=== PATIENT | male | born 1955 | race Caucasian/White ===

== ENCOUNTER 2020-04-28 11:00 | Outpatient (RCR) | payer BC, MEDICARE, SELFPAY ==
--- NOTE | 2020-04-01 12:36 | MHC.PT.EP ---
[facility] [place] Office [place] Office [place] Office [address] Westley Ashton [address] [phone] F: [phone] F: [phone] F: [phone] F: [phone] Physical Therapy Plan of Care Date of Evaluation: 04/01/20 Date of Surgery: Diagnosis: RIGHT HIP PAIN, RIGHT KNEE PAIN AND LEFT ANKLE PAIN Assessment: PATIENT IS A 64 Y/O MALE WITH C/O OF RIGHT HIP PAIN AND INSTABILITY WELL RIGHT KNEE PAIN EFFECTING TRANSFERS, AMBULATION TOLERANCE AND MOBILITY. PATIENT ALSO REPORT HAVING LEFT ANKLE PAIN. PATIENT DOES PRESENT WITH POSTERIOR CAPSULAR HIP TIGHTNESS AND ANTERIOR IMPINGEMENT THROUGH ACTIVE RIGHT HIP FLEXION, WARRANT MANUAL TECHNIQUES TO INCREASE MOBILITY OF JOINT. WITH WEIGHTED RIGHT LE POSITION PATIENT DOES HAVE MILD INSTABILITY TO RIGHT HIP. LEFT ANKLE ASSESSMENT PRESENTED WITH AROM AND MM STRENGTH TO WFL, AND MAY BE EFFECTED BY LEFT SIDE COMPENSATORY PATTERNS. PLAN OF CARE WILL ADDRESS ALL THREE SITES WITH MOBILITY, STABILIZATION AND STRENGTHENING TOLERATED. Frequency and Duration: The patient will be seen 2X WEEK X 6 WEEKS Short Term Goals: 1. REDUCE TTP TO RIGHT HIP 2. REDUCE PAIN AT WORST TO 5/10 3. PATIENT WILL BE INDEPENDENT WITH HEP 4. INCREASE RIGHT HIP FLEXION TO 105 5. PATIENT WILL BE EDUCATED ON PROPER SHOEWEAR TO REDUCE GROUND REACTION FORCES Prison Goals: 1. NORMALIZE GAIT TO SYMMETRICAL 2. REDUCE PAIN AT WORST TO 2/10 3. PATIENT WILL REPORT 75% IMPROVEMENT WIT BED AND CAR TRANSFERS 4. INCREASE MMT BY 1 GRADE GLOBALLY TO HIP GIRDLE TO ADDRESS GAIT 5. INCREASE RIGHT AROM TO 115 OF FLEXION 6. INCREASE POSTERIOR LE MOBILITY EVIDENT BY 0 DEGREE KNEE EXTENSION 7. IMPROVE RIGHT REACTION TO FUNCTIONAL LEVELS TO REDUCE FALL RISK Treatment Plan: Modalities to reduce pain, spasms and effusion. Manual therapy to restore motion and function. Therapeutic exercise to improve strength and flexibility. Neuromuscular re-education for posture and balance. Therapeutic activities to return to functional activities of daily living. Please sign and return to therapist. Thank you for your referral.
--- NOTE | 2020-04-28 11:46 | MHC.PT.OD ---
[facility] [place] Office [place] Office [place] Office [address] Westley Ashton [address] [phone] F: [phone] F: [phone] F: [phone] F: [phone] Physical Therapy Daily Note Diagnosis: RIGHT HIP PAIN, RIGHT KNEE PAIN AND LEFT ANKLE PAIN Date of Surgery: NA Date of Evaluation: 04/01/20 Treatments to Date: 6 Cancellations to Date: 1 No Shows to Date: 0 Authorized Visits: 26 Insurance End Date: 06/18/20 Precautions/ Contraindications:None Subjective: Feels like his hip has gotten worse and his knee has gotten better. Has most difficulty getting in/out of a car and bed, standing up from sitting, walking, and stairs. Pain Score: 7 Pain Location: R hip Objective Flowsheet: Tests & Measures SI assessment: WNL Exercises STATIONARY BIKE LEVEL 2.0 X 10 MINUTES 30sec x 3 seated HS stretch, standing hip flexor stretch (runners lunge), and small hip adductor lune stretch seated hip add ball squeeze 3x10 wobble board AP rocking x 2min and AP balance x 3min with cues on hip hinge L sidelying for IASTM with red theraroller to R ITB/hip flexor/piri with pillow between leg. MET for R posterior innomniate Modalities Assessment: Pt with antalgic gait today and with report of increased anterior-lateral hip pain. He has a f/u with 05/06/20. We discussed holding HEP and redistributed updated HEP of stretches and hip add ball squeese only as well as using heat at home. His knee is reportedly better. Assessed SI and pt with R posterior innominate, mild correction noted with MET so performed STM and stretches to tolerance. Assess response next visit and will focus on R hip pain for following visits to decrease pain and muscle hypomobilty. PT Plan: HIP, KNEE AND ANKLE STABILIZATION PROGRAM, FLEXIBILITY PROGRESSION, GAIT TRAINING, TE, NR, MANUAL THERAPY, TA, COORDINATION AND BALANCE Discharge Today? Short Term Goals: 1. REDUCE TTP TO RIGHT HIP 2. REDUCE PAIN AT WORST TO 5/10 3. PATIENT WILL BE INDEPENDENT WITH HEP 4. INCREASE RIGHT HIP FLEXION TO 105 5. 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 NORMALIZE GAIT TO SYMMETRICAL 2. REDUCE PAIN AT WORST TO 2/10 3. PATIENT WILL REPORT 75% IMPROVEMENT WIT BED AND CAR TRANSFERS 4. INCREASE MMT BY 1 GRADE GLOBALLY TO HIP GIRDLE TO ADDRESS GAIT 5. INCREASE RIGHT AROM TO 115 OF FLEXION 6. INCREASE POSTERIOR LE MOBILITY EVIDENT BY 0 DEGREE KNEE EXTENSION 7. IMPROVE RIGHT REACTION TO FUNCTIONAL LEVELS TO REDUCE FALL RISK Electronically signed by: Maxine Leija DPT
== END 2020-07-16 09:47 | disposition other institution (70) ==
LOC: HO.PTWFD 11:00
PROVIDERS: PCP Family Medicine; Visit Provider Family Medicine
DX: M25.50 Pain in unspecified joint (principal)
CPT/HCPCS: 97110; 97112; 97140; 97162; 97535

== ENCOUNTER 2020-05-06 11:03 | Outpatient (REF) | payer MEDICARE, SELFPAY ==
--- NOTE | 2020-05-06 11:16 | XR_ITS ---
EXAMINATION: XR HIP, RIGHT CLINICAL INFORMATION: Right hip pain. COMPARISON: None TECHNIQUE: Two views of the right hip. FINDINGS: Moderate to severe right hip degenerative joint changes are seen with joint space narrowing and periarticular sclerosis most pronounced in the superior aspect of the joint space. There is cam femoral acetabular impingement. No acute fracture or dislocation is seen. The visualized right hemipelvis is intact. The soft tissues are unremarkable. XR/XR hip RT min 2V IMPRESSION: Moderate to severe right hip degenerative joint changes most consistent with osteoarthritis. Cam femoral acetabular impingement.
[2020-05-06 13:40] LABS: Prostate Specific Antigen Scr 0.67 ng/mL (<0.05-4.0)
== END 2020-05-06 11:04 | disposition home or self-care (01) ==
LOC: HO.LAB 11:03
PROVIDERS: PCP Family Medicine; Visit Provider Family Medicine
DX: M25.551 Pain in right hip (principal); Z12.5 Encounter for screening for malignant neoplasm of prostate
CPT/HCPCS: 73502; 84153

== ENCOUNTER → 2020-06-18 08:50 | Outpatient (BNVA) | payer MEDICARE, SELFPAY | PROVIDERS: PCP Family Medicine; Visit Provider Orthopaedic Surgery | DX: M16.11 Unilateral primary osteoarthritis, right hip (principal); I35.0 Nonrheumatic aortic (valve) stenosis; R01.1 Cardiac murmur, unspecified | CPT/HCPCS: 99202 ==

== ENCOUNTER → 2020-07-09 08:51 | Outpatient (BNVA) | payer MEDICARE, SELFPAY | PROVIDERS: PCP Family Medicine; Visit Provider Orthopaedic Surgery | DX: Z01.812 Encounter for preprocedural laboratory examination (principal); Z01.810 Encounter for preprocedural cardiovascular examination ==

== ENCOUNTER → 2020-07-16 10:40 | Outpatient (BNVA) | payer MEDICARE, SELFPAY | PROVIDERS: PCP Family Medicine; Visit Provider Internal Medicine | DX: Z01.818 Encounter for other preprocedural examination (principal); R01.1 Cardiac murmur, unspecified; I10 Essential (primary) hypertension | CPT/HCPCS: 99202 ==

== ENCOUNTER → 2020-07-21 07:13 | Outpatient (REF) | payer MEDICARE, SELFPAY ==
--- NOTE | 2020-07-21 07:16 | CA_ITS ---
Transthoracic Echocardiogram Amended Patient (Last, First, Middle): Layton Humphreys J Gender: Male Date of : 1955 Age: 65 Procedure Date: 07/21/2020 Procedure Type: Transthoracic Echocardiogram Location: OP Height: 172.72 cm Weight: 61.24 kg BSA: 1.73 m2 Heart Rate: bpm BP: 118 / 58 mmHg Rn Camp: Referring MD: Efrain Ramirez MD Head Machinist: Pako Gifford MD Symptoms: I35.0 - Nonrheumatic aortic (valve) stenosis Study Quality: Fair ECG Rhythm: Sinus Conclusions: - Essentially normal study Findings Left Ventricle Normal left ventricular size, thickness, and systolic function. The visually estimated ejection fraction is between 65-70%. Diastolic function is normal for age. Right Ventricle Normal right ventricular cavity size and systolic function. Atria Both atria are normal in size. Interatrial shunt cannot be excluded. Aortic Valve The aortic valve was not well visualized. There is no aortic valve stenosis. There is no aortic valve regurgitation. Mitral Valve Likely normal mitral valve structure and function. There is trace mitral valve regurgitation. There is no mitral valve stenosis. Pulmonic Valve The pulmonic valve was not well visualized. Tricuspid Valve Likely normal tricuspid valve structure and function. There is trace tricuspid valve regurgitation. The right ventricular systolic pressure is normal. There is no evidence of pulmonary hypertension. Great Vessels All visible segments of the aorta are normal in size. The pulmonary artery was not well visualized. Venous The inferior vena cava is normal in size and collapses greater than 50% with inspiration. Pericardium/Pleural There is no evidence of pericardial effusion. Prior Study Comparison No significant change compared to prior study dated: 01/23/2019. Measurements 2D Linear Measurements IVSd: 0.89 0.6-0.9/0.6-1.0 cm LVIDd: 3.24 3.9-5.3/4.2-5.9 cm LVIDd Index: 1.87 2.4-3.2/2.2-3.1 cm/m2 LVIDs: 2.08 2.0-3.6 cm LVPWd: 0.99 0.7-1.1 cm Ao Root: 3.00 2.1-3.5 cm LA Diam: 2.60 2.7-3.8/3.0-4.0 cm LAIDs Index: 1.50 1.5-2.3 cm/m2 LV Mass: 104.46 67-162/88-224 g LV Mass Index: 60.38 43-95/49-115 g/m2 LVOT Diam: 1.90 3.0+(-)1.3 cm 2D Systolic Function EF 4C: 76.10 >55% EF 2C: 68.30 >55% EF BiP: 72.20 >55% Mitral Valve MV Pk E: 0.84 MV PK A: 0.98 MV Decel Time: 148.00 E/A: 0.90 E'Lateral: 12.40 E'Medial: 12.10 E/E' Med: 6.90 E/E' Lat: 6.80 PHT: 43.00 MVA PHT: 5.12 Decel [place]: 5.67 Aortic Valve AoV Pk Lauri: 0.97 AoV Mn Lauri: 0.73 AoV VTI: 0.21 AoV Pk Grad: 4.00 Aov Mn Grad: 2.00 ROSIO Cont.VTI: 2.38 LVOT LVOT Pk Lauri: 0.79 LVOT Mn Lauri: 0.58 LVOT VTI: 0.17 LVOT Pk Grad: 3.00 LVOT Mn Grad: 2.00 LVOT Diam: 1.90 LVOT Area: 2.84 Diastolic Function MV Pk E: 0.84 MV Pk A: 0.98 E/A: 0.90 E'Medial: 12.10 E/E' Med: 6.90 E' Laterial: 12.40 E/E' Lat: 6.80 Tricuspid Valve TR Pk Lauri: 1.68 TR Pk Grad: 11.00 RA Press: 3.00 RVSP: 14.00 Great Vessels Aorta Ao Root-2D: 3.00 2.0-3.7 cm Pulmonary Valve PV Pk Lauri: 0.87 Peak PV Grad: 3.00 Updated in Other Vendor System with Status of Final Pako Gifford MD electronically signed on 07/22/2020 1:33:59 PM with status of Final
== END ==
LOC: HO.CARD 07:13
PROVIDERS: Visit Provider Internal Medicine
DX: I35.0 Nonrheumatic aortic (valve) stenosis (principal)
CPT/HCPCS: 93306

== ENCOUNTER 2020-08-06 12:20 | Outpatient (REF) | payer MEDICARE, SELFPAY ==
--- NOTE | ~2020-08-06 | XR_ITS ---
EXAMINATION: XR PELVIS CLINICAL INFORMATION: Right hip osteoarthritis with CAM MAC. COMPARISON: Radiographs right hip 05/06/2020, 03/11/2019 TECHNIQUE: AP view of the pelvis. FINDINGS: There are degenerative changes lumbosacral junction with probable disc narrowing. The SI joints and pubis are unremarkable. The bony pelvis appears normal with no destructive process. Right hip again shows osteoarthritis with superior joint narrowing and subchondral sclerosis and osteophytes. The left hip shows no focal joint narrowing or erosive change. There is spurring posterior superior left acetabulum. XR/XR pelvis 1-2V IMPRESSION: 1. Right osteoarthritis similar to recent exam 05/06/2020. 2. Spurring superior lateral left acetabulum. No hip joint narrowing. 3. Probable degenerative changes lumbosacral junction.
== END 2020-08-06 12:21 | disposition home or self-care (01) ==
LOC: HO.HOSX 12:20
PROVIDERS: Visit Provider Physician Assistant
DX: Z01.818 Encounter for other preprocedural examination (principal); M16.11 Unilateral primary osteoarthritis, right hip
CPT/HCPCS: 72170; 99212

== ENCOUNTER 2020-08-12 06:17 | Inpatient (IN) | payer MEDICARE, SELFPAY ==
--- NOTE | 2020-07-13 09:09 | ECG_ITS ---
Test Reason : PRE OP Blood Pressure : / mmHG Vent. Rate : 072 BPM Atrial Rate : 072 BPM P-R Int : 146 ms QRS Dur : 100 ms QT Int : 390 ms P-R-T Axes : 086 094 077 degrees QTc Int : 427 ms Normal sinus rhythm Right atrial enlargement Pulmonary disease pattern Possible Right ventricular hypertrophy Abnormal ECG When compared with ECG of 18-MAR-2019 13:16, No significant change was found Referred By: Ean Jaime Electronically Signed By:Roderick Loredo
[2020-07-13 09:37] LABS: MANUAL DIFF FLAG NO
[2020-07-13 09:46] LABS: Basophils Absolute Auto 0.1 X10*3/uL (0.0-0.2); Basophils Percent Auto 1.3 % (0-2); Eosinophils Absolute Auto 0.3 X10*3/uL (0.0-0.4); Eosinophils Percent Auto 5.3 % (0-4); Hematocrit 51.1 % (42-52); Imm Gran Abs Auto 0.01 X10*3/uL (0.00-0.03); Imm Gran Pct Auto 0.2 % (0.0-0.4); Lymphocytes Absolute Auto 1.5 X10*3/uL (1.2-4.9); Lymphocytes Percent Auto 29.2 % (20-40); Mean Corpuscular HGB Conc 33.3 g/dl (31.0-36.0); Mean Corpuscular Hemoglobin 30.4 pg (27.0-33.0); Mean Corpuscular Volume 91.3 fL (80-98); Mean Platelet Volume 9.5 fL (9.4-12.4); Monocytes Absolute Auto 0.6 X10*3/uL (0.1-1.2); Monocytes Percent Auto 11.6 % (2-11); Neutrophils Absolute Auto 2.8 X10*3/uL (2.0-8.3); Neutrophils Percent Auto 52.4 % (45-73); Platelet Count 202 X10*3/uL (160-400); Red Cell Distribution Width 12.6 % (11.0-16.0); White Blood Count 5.3 X10*3/uL (4.8-10.8)
[2020-07-13 10:03] LABS: Anion Gap 14 (12-20); Blood Urea Nitrogen 22 mg/dL (9-16); Calcium 9.2 mg/dL (8.4-10.2); Carbon Dioxide 28 mmol/L (22-29); Chloride 102 mmol/L (96-108); Estimated Glomerular Filt Rate > 60; Glucose Random 119 mg/dL (60-115); Potassium 3.9 mmol/l (3.3-5.1); Sodium 140 mmol/L (135-145)
[2020-08-06 11:36] VITALS: BP 135/73; PULSE 78; RESP 16; O2SAT 99; BMI 20.5
--- NOTE | 2020-08-06 12:05 | HO.ANESPROP2 ---
Documented by User: Mireille Rutledge 08/11/20 09:24 HPI - Anesthesia Eval Consult details Narrative: 65yo M for Right Hip Total Replacement Cardiac cleared @ inter[facility] PCP cleared [facility] Active Problems Active Problems: All Active Problems (Updated 08/05/20 @ 10:56 by Pinky Isidro) Arthralgia (Acute) Screening for colon cancer (Acute) Screening for prostate cancer (Acute) Murmur, cardiac (Acute) Right hip pain (Acute) Immunization counseling (Acute) Adult general medical examination (Acute) Essential hypertension (Acute) Preoperative cardiovascular examination (Acute) Aortic valve stenosis (Acute) Past Medical History Medical History Aortic valve stenosis Asthma Essential hypertension Mitral valve regurgitation Osteoarthritis Preoperative cardiovascular examination Family History Family History Father No problems noted. Mother No problems noted. Family history of problems with anesthesia: No Surgical History Surgical History History of inguinal hernia repair, bilateral Hx of colonoscopy History of Problems with Anesthesia: No Social History Social History Are you a primary care professional to a significant other at home: No Do you presently have visiting nurse or other home services: No Alcohol intake: never Smoking Status: Current some day smoker Cigarettes Per Day: 1 (8 cigarettes/week) Use of substances other than those prescribed or required for medical reasons: No Have you been hit, kicked, punched, or otherwise hurt by someone within the past year? 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: Right Handed Meds Allergies Allergy/AdvReac Type Severity Reaction Status Date / Time No Known Allergies Allergy Verified 08/05/20 10:52 [No Known Allergies*] Home Medications Medication Instructions Recorded Confirmed Last Taken Type hydrochlorothiazide 25 mg tablet 25 mg PO DAILY 05/06/20 08/05/20 Unknown History naproxen 500 mg tablet 500 mg PO Q12H PRN 05/06/20 08/05/2021 08:00 History mometasone-formoterol 2 puff PO DAILY 08/05/20 08/05/20 Unknown History Exam Exam Date and Time: August 06, 2020 1205 Height,Weight and Vital Signs: Height 5 ft 8 in Weight 61.235 kg Last Vital Signs Pulse 78 08/06/20 11:36 Resp 16 08/06/20 11:36 BP 135/73 08/06/20 11:36 Pulse Ox 99 08/06/20 11:36 Pertinent Lab Results Pertinent Lab Results: Lab Results 07/13/20 07/13/20 08/06/20 Range/Units 09:13 09:13 12:30 WBC 5.3 (4.8-10.8) X10*3/uL RBC 5.60 (4.60-5.80) X10*6/uL Hgb 17.0 (14.0-18.0) g/dl Hct 51.1 (42-52) % MCV 91.3 (80-98) fL MCH 30.4 (27.0-33.0) pg MCHC 33.3 (31.0-36.0) g/dl RDW 12.6 (11.0-16.0) % Plt Count 202 (160-400) X10*3/uL MPV 9.5 (9.4-12.4) fL Immature Gran % (Auto) 0.2 (0.0-0.4) % Neut % (Auto) 52.4 (45-73) % Lymph % (Auto) 29.2 (20-40) % Desha % (Auto) 11.6 H (2-11) % Eos % (Auto) 5.3 H (0-4) % Baso % (Auto) 1.3 (0-2) % Lymph # (Auto) 1.5 (1.2-4.9) X10*3/uL Desha # (Auto) 0.6 (0.1-1.2) X10*3/uL Eos # (Auto) 0.3 (0.0-0.4) X10*3/uL Baso # (Auto) 0.1 (0.0-0.2) X10*3/uL Abs Immat Gran (auto) 0.01 (0.00-0.03) X10*3/uL Absolute Neuts (auto) 2.8 (2.0-8.3) X10*3/uL Absolute Nucleated RBC 0.000 (0.0-0.012) X10*3/uL Nucleated RBC % (auto) 0.0 (0.0-0.2) /100WBC Sodium 140 (135-145) mmol/L Potassium 3.9 (3.3-5.1) mmol/l Chloride 102 (96-108) mmol/L Carbon Dioxide 28 (22-29) mmol/L Anion Gap 14 (12-20) BUN 22 H (9-16) mg/dL Creatinine 1.00 (0.5-1.4) mg/dL Estim Creat Clear Calc TNP Estimated GFR > 60 Random Glucose 119 H (60-115) mg/dL Calcium 9.2 (8.4-10.2) mg/dL Nasal Screen MRSA (PCR) NEGATIVE (Negative) Nasal S. aureus Screen NEGATIVE (Negative) Nasal MRSA/S.aureus Interp SEE NOTE Blood Type Antibody Screen 08/06/20 Range/Units 12:35 WBC (4.8-10.8) X10*3/uL RBC (4.60-5.80) X10*6/uL Hgb (14.0-18.0) g/dl Hct (42-52) % MCV (80-98) fL MCH (27.0-33.0) pg MCHC (31.0-36.0) g/dl RDW (11.0-16.0) % Plt Count (160-400) X10*3/uL MPV (9.4-12.4) fL Immature Gran % (Auto) (0.0-0.4) % Neut % (Auto) (45-73) % Lymph % (Auto) (20-40) % Desha % (Auto) (2-11) % Eos % (Auto) (0-4) % Baso % (Auto) (0-2) % Lymph # (Auto) (1.2-4.9) X10*3/uL Desha # (Auto) (0.1-1.2) X10*3/uL Eos # (Auto) (0.0-0.4) X10*3/uL Baso # (Auto) (0.0-0.2) X10*3/uL Abs Immat Gran (auto) (0.00-0.03) X10*3/uL Absolute Neuts (auto) (2.0-8.3) X10*3/uL Absolute Nucleated RBC (0.0-0.012) X10*3/uL Nucleated RBC % (auto) (0.0-0.2) /100WBC Sodium (135-145) mmol/L Potassium (3.3-5.1) mmol/l Chloride (96-108) mmol/L Carbon Dioxide (22-29) mmol/L Anion Gap (12-20) BUN (9-16) mg/dL Creatinine (0.5-1.4) mg/dL Estim Creat Clear Calc Estimated GFR Random Glucose (60-115) mg/dL Calcium (8.4-10.2) mg/dL Nasal Screen MRSA (PCR) (Negative) Nasal S. aureus Screen (Negative) Nasal MRSA/S.aureus Interp Blood Type O Positive Antibody Screen NEGATIVE Narrative Narrative: Echo 07/2020 Conclusions: - Essentially normal study EKG 06/2020 Normal sinus rhythm Right atrial enlargement Pulmonary disease pattern Possible Right ventricular hypertrophy Abnormal ECG When compared with ECG of 18-MAR-2019 13:16, No significant change was found Airway Mallampati Class: II TM Dist: >3cm Neck ROM: Full Partial: Upper Loose/Missing/Broken Teeth: No ( A couple crowned molars ) Heart: RRR, +M Lungs: CTAB Assessment and Plan Assessment Anesthesia Assessment: Anesthesia Plan Discussed, Smoking Cess. Discussed and PAT Visit Documented by User: Domi Marmolejo 08/12/20 07:12 [facility] Past Medical History Medical History Aortic valve stenosis Asthma Essential hypertension Mitral valve regurgitation Osteoarthritis Preoperative cardiovascular examination Family History Family History Father No problems noted. Mother No problems noted. Surgical History Surgical History History of inguinal hernia repair, bilateral Hx of colonoscopy Social History Social History Are you a primary care professional to a significant other at home: No Do you presently have visiting nurse or other home services: No Alcohol intake: never Smoking Status: Current some day smoker Cigarettes Per Day: 1 (8 cigarettes/week) Use of substances other than those prescribed or required for medical reasons: No Have you been hit, kicked, punched, or otherwise hurt by someone within the past year? 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: Right Handed Meds Allergies Allergy/AdvReac Type Severity Reaction Status Date / Time No Known Allergies Allergy Verified 08/05/20 10:52 [No Known Allergies*] Home Medications Medication Instructions Recorded Confirmed Last Taken Type hydrochlorothiazide 25 mg tablet 25 mg PO DAILY 05/06/20 08/05/20 Unknown History naproxen 500 mg tablet 500 mg PO Q12H PRN 05/06/20 08/05/20 08/03/20 08:00 History mometasone-formoterol 2 puff PO DAILY 08/05/20 08/05/20 Unknown History Exam Airway Mallampati Class: II TM Dist: >3cm Neck ROM: Full Assessment and Plan Assessment Anesthesia Assessment: Anesthesia Plan Discussed and Chart Reviewed Final Anesthetic Review NPO: Yes ASA Class: II Final Preanesthetic Review: No Changes in Pt Med Stat, Meds/Allgs Chart Reviewed, Consent Obtained/Reviewed and Anes Risks/Benef Reviewed Patient Risk: Low Procedure Risk: Intermediate Assessment/Block/Sedation in SS: Assess/Block/Sedation-SS Anesthetic Plan Anesthetic Plan: GA Disposition: Standard PACU
[2020-08-06 14:12] LABS: MRSA Nasal PCR NEGATIVE (Negative); SA Nasal PCR NEGATIVE (Negative)
[2020-08-12] VITALS (15 sets, daily range): BP systolic 102–159; BP diastolic 54–97; PULSE 77–86; RESP 16–20; TEMP 36.1–37.3; O2SAT 96–100
--- NOTE | ~2020-08-12 | XR_ITS ---
EXAMINATION: XR PELVIS CLINICAL INFORMATION: Post right hip replacement COMPARISON: Previous x-ray July 2020 TECHNIQUE: AP view of the pelvis. FINDINGS: There is a new right hip replacement in satisfactory position. No fracture or dislocation is seen. There are postoperative changes to the soft tissues. There is arthritis at the left hip joint. XR/XR pelvis 1-2V IMPRESSION: Satisfactory appearance of right hip replacement.
[2020-08-12 06:48] LABS: COVID-19 Test Negative (Negative); IDNOW Serial# 9DD0AD1C
[2020-08-12] MEDS: Gabapentin 600 MG TABLET PO (06:57)
[2020-08-12] MEDS: oxyCODONE HCl ER 10 MG TAB.ER.12H PO ×2 (06:57→21:06)
[2020-08-12] MEDS: Lactated Ringers 1,000 ML 100 ML IVCONT (07:08)
--- NOTE | 2020-08-12 07:26 | MHC.SHP ---
Pre-Procedural Eval Section A The patient is an INPATIENT: No Changes since office visit: Yes Patient answered all questions; No Cold of Flu in the past 2 weeks, No New Medical Problems and No Changes in Medication The History & Physical has been completed within 30 days and I have reviewed it.: Yes Section B Chief Complaint: Unilateral Primary Osteoarthritis, Right Hip Allergies: Allergies Allergy/AdvReac Type Severity Reaction Status Date / Time No Known Allergies Allergy Verified 08/05/20 10:52 [No Known Allergies*] Plan I have reviewed the history and physical and performed a pertinent physical examination on my patient. No changes have occurred unless specified.
--- NOTE | 2020-08-12 09:34 | P.BOP_ITS ---
Brief Operative Note Date of Service: 08/12/20 Pre-op diagnosis: right hip OA Post-op diagnosis: same Procedure: right JOSE Implants: styker 58 trident cup with 20 deg lipped liner and accolade2 #6 132deg with 36+0ceramic Surgeon: Ean Jaime MD Anesthesia: GETA and local Web Marketing Coordinator: Jose Antonio Chappell Estimated blood loss (mL): 200 Tourniquet time (min): 0 IV fluids (mL): 700 Urine output (mL): 0 Pathology: other Condition: stable Disposition: PACU
[2020-08-12] MEDS: oxyCODONE HCl Immed Release 5 MG TABLET PO (10:15)
[2020-08-12] MEDS: fentaNYL citrate/PF 100 MCG/2 ML VIAL 50 MCG IVPUSH ×2 (10:15→10:20)
--- NOTE | 2020-08-12 11:05 | W.PM.OPN ---
Operative Note Operative Note Date of Service: 08/12/20 Narrative: Attending MD: Ean Jaime Multimedia Educational Specialist: GILLIAN Chappell Pre-operative diagnosis: Right hip OA Post op diagnosis: same Procedure performed: Right JOSE Anesthesia:Gen and local Blood loss:200 ml Fluids:700ml Implants:Niya trident tritanium 58 cup with 20 deg lip liner; Accolade2#6 132deg with +0 36 ceramic femoral head Complications: none Indications: This is a 65 yo M with right hip OA consented to undergo right hip arthroplasty Procedure in detail: Patient was brought into the operating room and placed in a right lateral decubitus position. All bony prominences were well padded and the limb was prepped and draped in standard sterile fashion. Time-out was called to identify proper site procedure proper surgeon IV antibiotics and 1 g of trans to make acid were administered. I began by making a curvilinear incision over the posterolateral aspect of the greater trochanter. Dissection was taken down to the tensor fascia which was incised in line with the incision and a Charnley retractor was placed. Hip was internally rotated and the external rotators were identified. The vessels were cauterized and a full-thickness capsular/external rotator layer was developed starting just proximal to the piriformis. Dull Hohmann retractor was placed underneath the neck in the hip was dislocated. A neck cut was made 1 cm proximal to the lesser trochanter and the head and neck were removed and measured on the back table. Placed my anterior-posterior acetabular retractors and performed a labrectomy. I then sequentially reamed up to a size ___ and impacted a ____ liner at approximately 45 degrees of inclination and 25 degrees of version. I then placed a 20 degree posterior lipped liner and turned my attention to the femur. All I used cautery to identify the piriformis start site and used this as a starting point for my alonzo cutter. I then used a Charnley awl to identify the canal and a curved curette to remove the lateral bone. I then sequentially broached in the patient's natural version to a size ____ had and placed my trial implants. I took the hip through range of motion with a +0 head and I was very happy with the stability and length. Therefore removed all instrumentation copiously irrigated placed my final femoral implant. I again took the hip through range of motion and was happy with the stability and length and rain using a +0 head and so my final femoral head was placed. I then irrigated for 3 minutes with iodine and placed 1 g of local TXA. I then performed a capsular closure with FiberWire, Tali's fascia with 0 Vicryl, subcuticular with 2-0 vicryl and skin with cruz. Patient was placed into a sterile dressing. Radiographs were obtained at the completion of the case and I was happy with the component position. Patient was extubated brought to the recovery room in stable condition.
[2020-08-12] MEDS: Dextrose 5 % and 0.45 % NaCl 1,000 ML 80 ML IVCONT ×2 (12:03→22:19)
--- NOTE | 2020-08-12 13:15 | P.CONIM_ITS ---
History of Present Illness Data of Consult Service Date: 08/12/20 <JESUS Gutiérrez - Last Filed: 08/12/20 13:32> Requesting physician: Jose Antonio Chappell <JESUS Gutiérrez - Last Filed: 08/12/20 13:32> Primary Care Provider: Ihsan Dillon MD <JESUS Gutiérrez - Last Filed: 08/12/20 13:32> HPI Reason for consult: post op <JESUS Gutiérrez - Last Filed: 08/12/20 13:32> This is a 65-year-old male who presents for elective right total hip arthroplasty. He has been having significant pain in his hip for about a year which has limited his activity. The hospitalists were asked to see him in consultation for postoperative management. He has no specific complaints at t his time. <JESUS Gutiérrez - Last Filed: 08/12/20 13:32> Review of Systems Review of Systems: Yes all other systems are reviewed and are negative <JESUS Gutiérrez - Last Filed: 08/12/20 13:32> Constitutional: Constitutional: Denies chills and Denies fever(s) <JESUS Gutiérrez - Last Filed: 08/12/20 13:32> Cardiovascular: Cardiovascular: Denies chest pain, Denies palpitations and Denies dyspnea <JESUS Gutiérrez - Last Filed: 08/12/20 13:32> Respiratory: Respiratory: Denies cough and Denies dyspnea <JESUS Gutiérrez - Last Filed: 08/12/20 13:32> Gastrointestinal: Gastrointestinal: Denies abdominal pain <JESUS Gutiérrez - Last Filed: 08/12/20 13:32> Endocrine: Endocrine: Denies palpitations <JESUS Gutiérrez - Last Filed: 08/12/20 13:32> [facility] Medical History: Medical History Aortic valve stenosis Asthma Essential hypertension Mitral valve regurgitation Osteoarthritis Preoperative cardiovascular examination <JESUS Gutiérrez - Last Filed: 08/12/20 13:32> Family History: Family History Father No problems noted. Mother No problems noted. <JESUS Gutiérrez - Last Filed: 08/12/20 13:32> Family history: reviewed and not pertinent <JESUS Gutiérrez - Last Filed: 08/12/20 13:32> Surgical History: Surgical History History of inguinal hernia repair, bilateral Hx of colonoscopy <JESUS Gutiérrez - Last Filed: 08/12/20 13:32> Social History: Social History (Updated 08/12/20 @ 13:22 by JESUS Gutiérrez) Household Members: Spouse Housing: House Are you a primary lpn care manager to a significant other at home: No Do you presently have visiting nurse or other home services: No Alcohol intake: never Smoking Status: Current some day smoker Tobacco Type: Cigarette Packs Per Day: 0.25 Cigarettes Per Day: 5.0 Years Smoked: 5 Smoked in Last 30 Days: Yes Patient Interested in Nicotine Replacement: No Patient Given Instructions on How to Stop Smoking: Yes Date Education Initiated: 08/12/20 Second Hand Smoke Exposure: No Use of substances other than those prescribed or required for medical reasons: No Currently Displaying Signs/Symptoms of Drug Intoxication Withdrawal: No Have you been hit, kicked, punched, or otherwise hurt by someone within the past year? If so, by whom?: No Do you feel safe in your current relationship?: Yes Is there a partner from a previous relationship who is making you feel unsafe now?: No Are you made to feel afraid or neglected: No Spiritual Healthcare Practices: none Hinduism Healthcare Practices: none Cultural Healthcare Practices: none Advance Directives: No Advance Directives Information Provided: No Advance Directives on File: No Do you have thoughts of harming others: None Do you have a plan to hurt others: No Plan Recently lost weight without trying: No service: No Current occupational status: retired Current occupation: Right Handed <JESUS Gutiérrez - Last Filed: 08/12/20 13:32> Meds Allergies/Adverse reactions: Allergies Allergy/AdvReac Type Severity Reaction Status Date / Time No Known Allergies Allergy Verified 08/05/20 10:52 [No Known Allergies*] <JESUS Gutiérrez - Last Filed: 08/12/20 13:32> Active Medications: Current Medications Generic Name Dose Route Start Last Admin Trade Name Freq PRN Reason Stop Dose Admin Acetaminophen 650 mg 08/12/20 10:53 Acetaminophen 325 Mg Tablet PO Q6H PRN Pain, Mild (Pain Scale 1-3) Aspirin 325 mg 08/13/20 09:00 Aspirin 325 Mg Tablet PO BID [facility] Celecoxib 200 mg 08/12/20 21:00 Celecoxib 200 Mg Capsule PO BID [facility] Hydromorphone HCl 0.25 mg 08/12/20 10:53 Hydromorphone Hcl 0.5 Mg/0.5 Ml Syringe IVPUSH Q4H PRN Pain, Severe (Pain Scale 7-10) Cefazolin Sodium/Dextrose 2 gm in 50 mls @ 100 mls/hr 08/12/20 13:41 Ancef IV 08/12/20 14:10 [id number]@[id number] KATHY Dextrose/Sodium Chloride 1,000 mls @ 80 mls/hr 08/12/20 10:53 08/12/20 12:03 D51/2ns IVCONT 80 mls/hr .[id number] KATHY Administration Naloxone HCl 0.2 mg 08/12/20 10:53 Naloxone Hcl 0.4 Mg/Ml Vial IVPUSH Q2M PRN Excessive sedation or RR < 8 Non-Formulary Medication 2 puff 08/13/20 09:00 Mometasone-Formoterol PO DAILY [facility] Ondansetron HCl 4 mg 08/12/20 10:53 Ondansetron Hcl 4 Mg/2 Ml Vial IVPUSH Q8H PRN Nausea and Vomiting Oxycodone HCl 5 mg 08/12/20 10:53 Oxycodone Hcl Immed Release 5 Mg Tablet PO Q4H PRN Pain, Moderate (Pain Scale 4-6 Oxycodone HCl 10 mg 08/12/20 21:00 Oxycodone Hcl Er 10 Mg Tab.Er.12h PO BID [facility] Senna 17.2 mg 08/12/20 10:53 Sennosides 8.6 Mg Tablet PO BEDTIME PRN Constipation Sodium Chloride 3 ml 08/12/20 16:00 0.9 % Sodium Chloride Flush 3 Ml Syringe IVFLUSH QSHIFT KATHY <JESUS Gutiérrez - Last Filed: 08/12/20 13:32> Home medications: Home Medications Medication Instructions Recorded Confirmed Last Taken Type hydrochlorothiazide 25 mg tablet 25 mg PO DAILY 05/06/20 08/05/20 08/11/20 06:00 History naproxen 500 mg tablet 500 mg PO Q12H PRN 05/06/20 08/05/20 08/11/20 17:00 History mometasone-formoterol 2 puff PO DAILY 08/05/20 08/05/20 08/12/20 04:30 History <JESUS Gutiérrez - Last Filed: 08/12/20 13:32> Physical Exam Vital Signs and Narrative: Vital Signs: Last Vital Signs Temp 97.4 F 08/12/20 12:00 Pulse 86 08/12/20 12:00 Resp 17 08/12/20 12:00 BP 117/67 08/12/20 12:00 Pulse Ox 98 08/12/20 12:00 Body Mass Index 20.5 <JESUS Gutiérrez - Last Filed: 08/12/20 13:32> Const: General: cooperative, no acute distress, alert and awake <JESUS Gutiérrez - Last Filed: 08/12/20 13:32> Nutritional Appearance: well nourished <JESUS Gutéirrez - Last Filed: 08/12/20 13:32> Orientation/consciousness: patient oriented x3 <JESUS Gutiérrez - Last Filed: 08/12/20 13:32> HENMT: Head: Yes normocephalic and Yes atraumatic <JESUS Gutiérrez Last Filed: 08/12/20 13:32> Eyes: Sclerae: sclerae normal <JESUS Gutiérrez Last Filed: 08/12/20 13:32> Chest: Chest palpation & inspection: normal inspection of the chest <JESUS Gutiérrez Last Filed: 08/12/20 13:32> Resp: Effort & Inspection: normal respiratory effort and no respiratory distress <JESUS Gutiérrez Last Filed: 08/12/20 13:32> Auscultation: clear to auscultation bilaterally <JESUS Gutiérrez - Last Filed: 08/12/20 13:32> Cardio: Rate: regular rate <JESUS Gutiérrez - Last Filed: 08/12/20 13:32> Rhythm: regular rhythm <JESUS Gutiérrez - Last Filed: 08/12/20 13:32> GI: Palpation (GI): Soft to palpation and nontender <JESUS Gutiérrez - Last Filed: 08/12/20 13:32> Skin: General skin exam: no rashes or lesions noted <JESUS Gutiérrez - Last Filed: 08/12/20 13:32> Neuro: General: patient oriented x3 <JESUS Gutiérrez - Last Filed: 08/12/20 13:32> Cranial nerves: Yes CN's II-XII intact bilaterally and Yes Bilaterally intact EOM present <JESUS Gutiérrez - Last Filed: 08/12/20 13:32> Results Labs CBC and Chem 7: : 08/13/20 06:01 08/13/20 06:01 <JESUS Gutiérrez - Last Filed: 08/12/20 13:32> Labs: Laboratory Results - last 24 hr 08/12/20 06:10 COVID-19 ([facility]) Negative COVID-19 Clin Com See Note <JESUS Gutiérrez - Last Filed: 08/12/20 13:32> Imaging Radiologist's Impressions: Impressions Pelvis X-Ray 08/12/20 07:33 IMPRESSION: Satisfactory appearance of right hip replacement. <JESUS Gutiérrez - Last Filed: 08/12/20 13:32> Assessment and Plan (1) Hypertension: Status: Acute <JESUS Gutiérrez - Last Filed: 08/12/20 13:32> This is a 65 year old male with a history of asthma, HTN who presented for elective right total hip arthroplasty. s/p R JOSE management per surgical service -follow cbc, bmp HTN hold HCTZ. follow bp closely asthma no acute exacerbation continue home inhaler Thank you for allowing us to participate in the care of this patient. We will follow along with you. This case was discussed with Dr. Quintanilla <JESUS Gutiérrez - Last Filed: 08/12/20 13:32>
[2020-08-12] MEDS: ceFAZolin Sodium/Dextrose,Iso 2 GM/50 ML PIGGYBACK IV (13:59)
[2020-08-12] MEDS: ondansetron HCL 4 MG/2 ML VIAL IVPUSH (18:27)
[2020-08-12] MEDS: HYDROmorphone HCl 0.5 MG/0.5 ML SYRINGE 0.25 MG IVPUSH (18:27)
[2020-08-12] MEDS: Celecoxib 200 MG CAPSULE PO (21:06)
[2020-08-13] VITALS (8 sets, daily range): BP systolic 93–121; BP diastolic 47–61; PULSE 77–94; RESP 18; TEMP 36.4–37.4; O2SAT 95–98
[2020-08-13] MEDS: Magnesium Hydrox/Alum Hydrox 30 ML ORAL.SUSP 15 ML PO ×2 (01:31→23:41)
[2020-08-13] MEDS: HYDROmorphone HCl 0.5 MG/0.5 ML SYRINGE 0.25 MG IVPUSH (04:28)
[2020-08-13 06:48] LABS: Anion Gap 10 (12-20); Blood Urea Nitrogen 25 mg/dL (9-16); Calcium 8.2 mg/dL (8.4-10.2); Carbon Dioxide 30 mmol/L (22-29); Chloride 101 mmol/L (96-108); Creatinine Clr Calc Pharmacy 64.4; Estimated Glomerular Filt Rate > 60; Glucose Fasting 136 mg/dL (60-99); Potassium 3.8 mmol/L (3.3-5.1); Sodium 137 mmol/L (135-145)
[2020-08-13 06:55] LABS: Basophils Percent Auto 0.2 % (0-2); Eosinophils Percent Auto 0.1 % (0-4); Hematocrit 37.9 % (42-52); Hemoglobin 12.7 g/dl (14.0-18.0); Imm Gran Abs Auto 0.04 X10*3/uL (0.00-0.03); Imm Gran Pct Auto 0.4 % (0.0-0.4); Lymphocytes Absolute Auto 1.4 X10*3/uL (1.2-4.9); Lymphocytes Percent Auto 14.3 % (20-40); MANUAL DIFF FLAG SCAN; Mean Corpuscular HGB Conc 33.5 g/dl (31.0-36.0); Mean Corpuscular Volume 89.4 fL (80-98); Mean Platelet Volume 9.9 fL (9.4-12.4); Monocytes Absolute Auto 1.6 X10*3/uL (0.1-1.2); Monocytes Percent Auto 16.8 % (2-11); Neutrophils Absolute Auto 6.7 X10*3/uL (2.0-8.3); Neutrophils Percent Auto 68.2 % (45-73); Platelet Count 154 X10*3/uL (160-400); Red Blood Count 4.24 X10*6/uL (4.60-5.80); SCAN SMEAR FLAG 1; White Blood Count 9.8 X10*3/uL (4.8-10.8)
[2020-08-13 07:22] LABS: SLIDE REVIEW VERIFIED
[2020-08-13] MEDS: oxyCODONE HCl Immed Release 5 MG TABLET PO ×3 (07:36→23:40)
--- NOTE | 2020-08-13 07:37 | PM.PNORT ---
Subjective Subjective Date of Service: 08/13/20 Interval history: POD1 s/p rt JOSE resting comfortably in bed. Pain is well controlled. Has been up and out of bed with P.T. No overnight events. Physical Exam Vital Signs: Vital Signs: Last Vital Signs Temp 97.6 F 08/13/20 04:00 Pulse 78 08/13/20 04:00 Resp 18 08/13/20 04:00 BP 104/54 L 08/13/20 04:00 Pulse Ox 96 08/13/20 04:00 Body Mass Index 20.5 Const: General: cooperative, healthy appearing and no acute distress Resp: Effort & Inspection: normal respiratory effort and able to speak in complete sentences Cardio: Rate: regular rate Peripheral pulses: Peripheral pulses 2+ throughout GI: Palpation (GI): Soft to palpation Skin: Lesions: no lesions Rashes: no rashes Extrem: Other: Left hip no ecchymosis, redness, or drainage. Aquacel is clean, dry, and intact. NVI Progress Note: A&P Assessment and plan (1) History of total right hip arthroplasty: Status: Acute Assessment and Plan: Continue pain mgmnt Begin ASA dvt ppx Continue PT for rt hip JOSE Dispo planning-Pending PT eval, pain mgmnt Fall Risk Details Current Medications: Current Medications Generic Name Dose Route Start Last Admin Trade Name Freq PRN Reason Stop Dose Admin Acetaminophen 650 mg 08/12/20 10:53 Acetaminophen 325 Mg Tablet PO Q6H PRN Pain, Mild (Pain Scale 1-3) Al Hydroxide/Mg Hydroxide 15 ml 08/12/20 21:24 08/13/20 01:31 Magnesium Hydrox/Alum Hydrox 30 Ml Oral.Susp PO 15 ml Q6H PRN Administration GI Upset Aspirin 325 mg 08/13/20 09:00 Aspirin 325 Mg Tablet PO BID KATHY Celecoxib 200 mg 08/12/20 21:00 08/12/20 21:06 Celecoxib 200 Mg Capsule PO 200 mg BID KATHY Administration Hydromorphone HCl 0.25 mg 08/12/20 10:53 08/13/20 04:28 Hydromorphone Hcl 0.5 Mg/0.5 Ml Syringe IVPUSH 0.25 mg Q4H PRN Administration Pain, Severe (Pain Scale 7-10) Dextrose/Sodium Chloride 1,000 mls @ 80 mls/hr 08/12/20 10:53 08/12/20 22:19 D51/2ns IVCONT 80 mls/hr .[id number] KATHY Administration Naloxone HCl 0.2 mg 08/12/20 10:53 Naloxone Hcl 0.4 Mg/Ml Vial IVPUSH Q2M PRN Excessive sedation or RR < 8 Non-Formulary Medication 2 puff 08/13/20 09:00 Mometasone-Formoterol PO DAILY KATHY Ondansetron HCl 4 mg 08/12/20 10:53 08/12/20 18:27 Ondansetron Hcl 4 Mg/2 Ml Vial IVPUSH 4 mg Q8H PRN Administration Nausea and Vomiting Oxycodone HCl 5 mg 08/12/20 10:53 Oxycodone Hcl Immed Release 5 Mg Tablet PO Q4H PRN Pain, Moderate (Pain Scale 4-6 Oxycodone HCl 10 mg 08/12/20 21:00 08/12/20 21:06 Oxycodone Hcl Er 10 Mg Tab.Er.12h PO 10 mg BID KATHY Administration Senna 17.2 mg 08/12/20 10:53 Sennosides 8.6 Mg Tablet PO BEDTIME PRN Constipation Sodium Chloride 3 ml 08/12/20 16:00 08/12/20 22:42 0.9 % Sodium Chloride Flush 3 Ml Syringe IVFLUSH Not Given QSHIFT [facility] Time Spent With Patient Time: Total time spent is greater than 50% in coordination of care (as documented) at patient's floor/unit and/or counseling patient: Time with patient: less than 15 minutes Procedures Date of Service Date of Service: 08/13/20
--- NOTE | 2020-08-13 08:51 | HO.POSTANES ---
Post Anesthesia Evaluation Post Anesthesia Evaluation Vital Signs: Vital Signs Temp Pulse Resp BP Pulse Ox 08/13/20 08:16 78 104/54 L 96 08/13/20 08:00 97.8 F 79 18 111/56 L 98 08/13/20 04:00 97.6 F 78 18 104/54 L 96 08/12/20 23:34 99.2 F 83 18 102/54 L 96 Anesthesia: General Mental Status: Awake Pain Control: Satisfactory Nausea/Vomiting: None Hydration: Adequate Anesthesia-Related Issues: No Anes. Related Issues
[2020-08-13] MEDS: Aspirin 325 MG TABLET PO ×2 (09:18→21:21)
[2020-08-13] MEDS: Celecoxib 200 MG CAPSULE PO ×2 (09:18→21:22)
[2020-08-13] MEDS: oxyCODONE HCl ER 10 MG TAB.ER.12H PO ×2 (09:18→21:21)
--- NOTE | 2020-08-13 10:01 | MHC.CM.PN ---
PATIENT HAS BEEN FULLY INDEPENDENT LIVES WITH HIS WHO WILL PROVIDE TRANSPORTATION HOME. HE HAS A CANE, WALKER,, AND TOILET RISER IN THE HOME. HE ANTICIPATES BEING DISCHARGED HOME TOMORROW AND IS AGREEABLE TO [facility] REFERRAL. [facility] IS OFFERING SERVICES FOR HOME PHYSICAL THERAPY WITH [facility] Monday08/15/20. IMM 08/13 IN CHART.
--- NOTE | 2020-08-13 13:04 | P.PNIM_ITS ---
Subjective Subjective Date of Service: 08/13/20 Interval History: Being of right hip pain otherwise no other acute symptoms, denies nausea vomiting no lightheadedness or dizziness sitting comfortably in chair eating breakfast. ROS General no headache no dizziness no fever chills. CVS no chest pain, no palpitation. Respiratory no cough no sputum production no respiratory distress. Gastrointestinal no nausea no vomiting, no abdominal pain Physical Exam Vital Signs: Vital Signs: Last Vital Signs Temp 98.4 F 08/13/20 11:53 Pulse 77 08/13/20 11:53 Resp 18 08/13/20 11:53 BP 115/57 L 08/13/20 11:53 Pulse Ox 98 08/13/20 11:53 Body Mass Index 20.5 General patient resting comfortably in no acute distress. Neck is supple no JVD. CVS regular rate rhythm, Respiratory lungs clear to auscultation, no respiratory distress, no wheeze, no rhonchi. Gastrointestinal abdomen soft, nontender, bowel sounds audible Extremities no edema. Right hip dressing in place, no drainage Neuro nonfocal Skin no rash Objective Data Current Medications Generic Name Dose Route Start Last Admin Trade Name Freq PRN Reason Stop Dose Admin Acetaminophen 650 mg 08/12/20 10:53 Acetaminophen 325 Mg Tablet PO Q6H PRN Pain, Mild (Pain Scale 1-3) Al Hydroxide/Mg Hydroxide 15 ml 08/12/20 21:24 08/13/20 01:31 Magnesium Hydrox/Alum Hydrox 30 Ml Oral.Susp PO 15 ml Q6H PRN Administration GI Upset Aspirin 325 mg 08/13/20 09:00 08/13/20 09:18 Aspirin 325 Mg Tablet PO 325 mg BID KATHY Administration Celecoxib 200 mg 08/12/20 21:00 08/13/20 09:18 Celecoxib 200 Mg Capsule PO 200 mg BID KATHY Administration Hydromorphone HCl 0.25 mg 08/12/20 10:53 08/13/20 04:28 Hydromorphone Hcl 0.5 Mg/0.5 Ml Syringe IVPUSH 0.25 mg Q4H PRN Administration Pain, Severe (Pain Scale 7-10) Dextrose/Sodium Chloride 1,000 mls @ 80 mls/hr 08/12/20 10:53 08/12/20 22:19 D51/2ns IVCONT 80 mls/hr .[id number] KATHY Administration Naloxone HCl 0.2 mg 08/12/20 10:53 Naloxone Hcl 0.4 Mg/Ml Vial IVPUSH Q2M PRN Excessive sedation or RR < 8 Non-Formulary Medication 2 puff 08/13/20 09:00 Mometasone-Formoterol PO DAILY KATHY Ondansetron HCl 4 mg 08/12/20 10:53 08/12/20 18:27 Ondansetron Hcl 4 Mg/2 Ml Vial IVPUSH 4 mg Q8H PRN Administration Nausea and Vomiting Oxycodone HCl 5 mg 08/12/20 10:53 08/13/20 12:54 Oxycodone Hcl Immed Release 5 Mg Tablet PO 5 mg Q4H PRN Administration Pain, Moderate (Pain Scale 4-6 Oxycodone HCl 10 mg 08/12/20 21:00 08/13/20 09:18 Oxycodone Hcl Er 10 Mg Tab.Er.12h PO 10 mg BID KATHY Administration Senna 17.2 mg 08/12/20 10:53 Sennosides 8.6 Mg Tablet PO BEDTIME PRN Constipation Sodium Chloride 3 ml 08/12/20 16:00 08/13/20 07:40 0.9 % Sodium Chloride Flush 3 Ml Syringe IVFLUSH Not Given QSHIFT [facility] Labs CBC & Chem 7: 08/13/20 06:01 08/13/20 06:01 Assessment and Plan (1) History of total right hip arthroplasty: Status: Acute (2) Hypertension: Status: Acute (3) Primary osteoarthritis of right hip: Status: Acute (4) Aortic valve stenosis: Problem details: Echo showed no aortic valve stenosis Status: Acute (5) Essential hypertension: Status: Acute Assessment and Plan: 65 year old male with a history of asthma, HTN who presented for elective right total hip arthroplasty. s/p R JOSE postoperative day 1 good pain control no acute issues overnight tolerating diet will discontinue IV fluids but stable, patient asymptomatic will follow CBC Aspirin for DVT prophylaxis as per Ortho HTN soft BP will continue to hold HCTZ. follow bp closely asthma no acute exacerbation, continue home inhaler Disposition as per Orthopedic surgery
[2020-08-13] MEDS: 0.9 % Sodium Chloride Flush 3 ML SYRINGE IVFLUSH ×2 (17:34→23:36)
[2020-08-14 03:21] VITALS: BP 93/60; PULSE 83; RESP 18; TEMP 37.1; O2SAT 96
[2020-08-14 07:04] LABS: MANUAL DIFF FLAG NO
[2020-08-14 07:08] LABS: Basophils Absolute Auto 0.1 X10*3/uL (0.0-0.2); Basophils Percent Auto 0.6 % (0-2); Eosinophils Absolute Auto 0.1 X10*3/uL (0.0-0.4); Eosinophils Percent Auto 1.1 % (0-4); Hematocrit 39.1 % (42-52); Imm Gran Abs Auto 0.02 X10*3/uL (0.00-0.03); Imm Gran Pct Auto 0.2 % (0.0-0.4); Lymphocytes Absolute Auto 2.2 X10*3/uL (1.2-4.9); Mean Corpuscular HGB Conc 33.2 g/dl (31.0-36.0); Mean Corpuscular Hemoglobin 30.2 pg (27.0-33.0); Mean Corpuscular Volume 90.9 fL (80-98); Mean Platelet Volume 9.9 fL (9.4-12.4); Monocytes Absolute Auto 1.5 X10*3/uL (0.1-1.2); Monocytes Percent Auto 15.5 % (2-11); Neutrophils Absolute Auto 5.7 X10*3/uL (2.0-8.3); Neutrophils Percent Auto 59.6 % (45-73); Platelet Count 155 X10*3/uL (160-400); Red Cell Distribution Width 13.2 % (11.0-16.0); White Blood Count 9.6 X10*3/uL (4.8-10.8)
--- NOTE | 2020-08-14 07:16 | P.DS_ITS ---
DS: Providers Provider Date of Service: 08/14/20 Date of admission: 08/12/20 06:17 Primary care physician: Ihsan Burnett MD Consults: 08/12/20 10:53 Consult to Hospitalist Routine Consulting Provider: Hospitalist Reason For Exam: post of medical management DS: Diagnosis Discharge Diagnosis (1) History of total right hip arthroplasty: Status: Acute Problem details: Mr. Humphreys is a 65 yo male who presented to the office with ongoing left hip pain. He was found to have OA of the left hip and had failed all conservative treatment. He continued to have difficulty with ambulation and daily activities; therefore he consented to move forward with left hip arthroplasty. (2) Primary osteoarthritis of right hip: Status: Acute (3) Aortic valve stenosis: Status: Acute Problem details: Echo showed no aortic valve stenosis (4) Essential hypertension: Status: Acute DS: Medications Discharge Medications Home Medications: Home Medications Medication Instructions Recorded Confirmed hydrochlorothiazide 25 mg tablet 25 mg PO DAILY 05/06/20 08/05/20 naproxen 500 mg tablet 500 mg PO Q12H PRN 05/06/20 08/05/20 mometasone-formoterol 2 puff PO DAILY 08/05/20 08/05/20 Previous Rx's Medication Instructions Recorded pregabalin 50 mg capsule 50 mg PO TID 30 Days #90 cap 07/01/20 Raised toilet seat #1 ea 08/06/20 walker #1 ea 08/06/20 oxycodone 5 mg PO Q4H PRN 7 Days #42 tab 08/13/20 DS: Summary Hospital Course Hospital Course: The patient underwent a successful left total hip arthroplasty, they were transferred to PACU and then to the floor to recover. During their stay, their vitals were stable, afebrile at 98.8. Labs were unremarkable, H/H 13.0/39.1. POD 1 they were started on Aspirin 325mg po bid for DVT ppx, they also received Physical Therapy services twice a day. Prior to discharge, their dressing was changed, incision clean dry and intact, new Aquacel dressing applied and the plan was to be discharged home with VNA services. Time Spent with Patient Time attestation: Total time spent providing and/or coordinating discharge services: Discharge coordination time: Less than 30 minutes Physical Exam Vital Signs: Vital Signs: Last Vital Signs Temp 98.8 F 08/14/20 03:21 Pulse 83 08/14/20 03:21 Resp 18 08/14/20 03:21 BP 93/60 08/14/20 03:21 Pulse Ox 96 08/14/20 03:21 Body Mass Index 20.5 Const: General: cooperative, healthy appearing and no acute distress Resp: Effort & Inspection: normal respiratory effort and able to speak in complete sentences Cardio: Rate: regular rate Peripheral pulses: Peripheral pulses 2+ throughout GI: Palpation (GI): Soft to palpation Skin: Lesions: no lesions Rashes: no rashes Extrem: Other: left hip no ecchymosis, redness, or drainage. Wound is well approximated. Grayson intact. New Aquacel dressing applied. NVI. DS: Data Data Completed and Pending Completed studies during hospitalization [Text1]: Pending at discharge 08/12/20 09:10 Surgical [PTH] Routine Labs on day of discharge: Laboratory Results - last 24 hr 08/13/20 06:01 WBC 9.8 RBC 4.24 L D Hgb 12.7 L D Hct 37.9 L D MCV 89.4 MCH 30.0 MCHC 33.5 RDW 13.0 Plt Count 154 L MPV 9.9 Immature Gran % (Auto) 0.4 Neut % (Auto) 68.2 Lymph % (Auto) 14.3 L Young % (Auto) 16.8 H Eos % (Auto) 0.1 Baso % (Auto) 0.2 Lymph # (Auto) 1.4 Young # (Auto) 1.6 H Eos # (Auto) 0.0 Baso # (Auto) 0.0 Abs Immat Gran (auto) 0.04 H Absolute Neuts (auto) 6.7 Absolute Nucleated RBC 0.000 Nucleated RBC % (auto) 0.0 Smear Tech's Comments VERIFIED Discharge Plan Discharge Patient Disposition: Home Health Service Referrals: Ean Jaime MD [Physician] - Jose Antonio Chappell PA-C [Physician Primer Charger] - (08/27/20 at 12:30 ) Discharge Medications: New sennosides [Senna Lax] 8.6 mg Tablet 17.2 mg PO BEDTIME PRN (Reason: Constipation) 30 Days Qty: 60 RF: 0 acetaminophen 325 mg Tablet 650 mg PO Q6H PRN (Reason: Pain, Mild (Pain Scale 1-3)) 30 Days Qty: 240 RF: 0 aspirin 325 mg Tablet 325 mg PO BID 28 Days Qty: 56 RF: 0 oxycodone 5 mg Tablet 5 mg PO Q4H PRN (Reason: Pain, Moderate (Pain Scale 4-6) 7 Days Qty: 42 RF: 0 Continued pregabalin [Lyrica] 50 mg capsule 50 mg PO TID 30 Days Qty: 90 RF: 1 mometasone-formoterol 100-5 mcg/actuation HFA aerosol inhaler 2 puff PO DAILY RF: 0 hydrochlorothiazide 25 mg tablet 25 mg PO DAILY RF: 0 (DME) Raised toilet seat See Rx Instructions .ROUTE .MEDSUPPLY Qty: 1 RF: 0 (DME) walker Misc See Rx Instructions .MEDSUPPLY Qty: 1 RF: 0 Discontinued naproxen 500 mg tablet 500 mg PO Q12H PRN (Reason: Pain) RF: 0 Discharge Orders: Discharge Order (Routine); Ordered 08/14/20 Ordered By: Cynthia Parekh Diet: regular diet Activity on Discharge: Use cane or walker Stand Alone Forms: Patient Portal Discharge page Care Plan Goals: restore fxn of the left hip Health Concerns: none Plan of Treatment: Physical Therapy for total hip arthroplasty: posterior precautions, gait training, ROM, strength Limit stair climbing No showering, no tub bath-keep dressing clean, dry and intact No driving x6 weeks Continue Aspirin tabs once a day x 4 weeks Follow up with [facility] [place] [facility]ics in 2 weeks
[2020-08-14 07:38] LABS: Anion Gap 13 (12-20); Blood Urea Nitrogen 23 mg/dL (9-16); Calcium 8.1 mg/dL (8.4-10.2); Carbon Dioxide 27 mmol/L (22-29); Chloride 102 mmol/L (96-108); Creatinine Clr Calc Pharmacy 74.1; Estimated Glomerular Filt Rate > 60; Glucose Fasting 100 mg/dL (60-99); Potassium 3.8 mmol/L (3.3-5.1); Sodium 138 mmol/L (135-145)
[2020-08-14 08:00] VITALS: BP 112/58; PULSE 85; RESP 18; TEMP 36.5; O2SAT 100
[2020-08-14] MEDS: oxyCODONE HCl Immed Release 5 MG TABLET PO (08:03)
[2020-08-14] MEDS: 0.9 % Sodium Chloride Flush 3 ML SYRINGE IVFLUSH (08:04)
--- NOTE | 2020-08-14 08:06 | W.MHC.F2F ---
Service Date Service Date: 08/14/20 Encounter Date of encounter: 08/14/20 Reasons for Services Reason for physical therapy: home safety and mobility, therapeutic exercises, restore joint function, gait/transfer training and ADL training Reason for occupational therapy: home safety and mobility, therapeutic exercises, restore joint function, gait/transfer training and ADL training Homebound: Leaving the home is medically contraindicated at this time without the asist of a device and/or another person due th the listed conditions above and below. Reason homebound: unsteady gait / fall risk, leg weakness, pain with ambulation, pain with transfers, poor balance / fall risk and unable to drive Homebound supporting statement: Pt. is considered homebound due to recent surgery. Unable to drive, poor balance, poor gait mechanics. Certification: Based on the above findings, I certify that this patient is confined to the home and needs intermittent retirement care, physical therapy and/or speech therapy, or continues to need occupational therapy. The patient is under my care, and I have initiated the establishment of the plan of care. The patient will be followed by a physician who will periodically review the plan of care.
[2020-08-14 08:28] VITALS: BP 93/60; PULSE 83; O2SAT 96
[2020-08-14] MEDS: Celecoxib 200 MG CAPSULE PO (09:05)
[2020-08-14] MEDS: oxyCODONE HCl ER 10 MG TAB.ER.12H PO (09:05)
[2020-08-14] MEDS: Aspirin 325 MG TABLET PO (09:05)
--- NOTE | 2020-08-14 09:12 | MHC.CM.PN ---
PATIENT IS DISCHARG[facility] NEEDS. START OF CARE Monday08/15/20. RN AWARE OF PLAN.
--- NOTE | 2020-08-14 12:42 | HO.PM.IMPN ---
Subjective Subjective Date of Service: 08/14/20 Interval History: Denies lightheadedness and dizziness, no acute issues over night, pain is under good control. ROS General no headache no dizziness no fever chills. CVS no chest pain, no palpitation. Respiratory no cough no sputum production no respiratory distress. Gastrointestinal no nausea no vomiting, no abdominal pain Physical Exam Vital Signs: Vital Signs: Last Vital Signs Temp 97.7 F 08/14/20 08:00 Pulse 83 08/14/20 08:28 Resp 18 08/14/20 08:00 BP 93/60 08/14/20 08:28 Pulse Ox 96 08/14/20 08:28 Body Mass Index 20.5 General sitting comfortably, no acute distress. Neck is supple no JVD. CVS regular rate rhythm, Respiratory lungs clear to auscultation, no respiratory distress, no wheeze, no rhonchi. Gastrointestinal abdomen soft, nontender, bowel sounds audible Extremities no edema. Right hip incision dry and clean Neuro nonfocal Skin no rash Objective Data Labs CBC & Chem 7: 08/14/20 06:32 08/14/20 06:32 Assessment and Plan (1) History of total right hip arthroplasty: Problem details: Mr. Humphreys is a 65 yo male who presented to the office with ongoing left hip pain. He was found to have OA of the left hip and had failed all conservative treatment. He continued to have difficulty with ambulation and daily activities; therefore he consented to move forward with left hip arthroplasty. Status: Acute (2) Primary osteoarthritis of right hip: Status: Acute (3) Essential hypertension: Status: Acute Assessment and Plan: 65 year old male with a history of asthma, HTN who presented for elective right total hip arthroplasty. s/p R JOSE postoperative day 2 good pain control no acute issues overnight tolerating diet, hematocrit dropped but stable, patient asymptomatic Continue Aspirin for DVT prophylaxis, and current pain medication HTN soft BP, recommend to stop hydrochlorothiazide and follow BP at home asthma no acute exacerbation, continue home inhaler Disposition as per Orthopedic surgery
== END 2020-08-14 10:40 | disposition home health service (06) | DRG 470 ==
LOC: HO.SSSA 06:18 → HO.S3 10:05
PROVIDERS: Physician Assistant; Admitting Provider Orthopaedic Surgery; PCP Family Medicine; Visit Provider Orthopaedic Surgery
PROC: 0SR90JA Replacement of Right Hip Joint with Synthetic Substitute, Uncemented, Open Approach (ICD-10-PCS; CPT 27130; principal; 2020-08-12 07:30)
DX: M16.11 Unilateral primary osteoarthritis, right hip (principal); I10 Essential (primary) hypertension; J45.909 Unspecified asthma, uncomplicated; F17.210 Nicotine dependence, cigarettes, uncomplicated; Z71.6 Tobacco abuse counseling; Z20.822 Contact with and (suspected) exposure to COVID-19; Z79.899 Other long term (current) drug therapy
CPT/HCPCS: 36415; 72170; 80048; 85025; 85027; 86850; 86900; 86901; 87635; 87640; 87641; 88304; 88311; 93005; 97110; 97116; 97162; 97166; 97530; 97535; C1776; J0131; J0690; J1100; J1170; J2250; J2370; J2405; J3010

== ENCOUNTER → 2020-08-19 13:16 | Outpatient (BNVA) | payer MEDICARE, SELFPAY | PROVIDERS: PCP Family Medicine; Visit Provider Physician Assistant | DX: R60.9 Edema, unspecified (principal); Z96.641 Presence of right artificial hip joint | CPT/HCPCS: 99212 ==

== ENCOUNTER → 2020-08-27 12:18 | Outpatient (BNVA) | payer MEDICARE, SELFPAY | PROVIDERS: PCP Family Medicine; Visit Provider Physician Assistant | DX: Z47.1 Aftercare following joint replacement surgery (principal); Z96.641 Presence of right artificial hip joint | CPT/HCPCS: 99212 ==

== ENCOUNTER → 2020-09-24 13:29 | Outpatient (BNVA) | payer MEDICARE, SELFPAY | PROVIDERS: Visit Provider Orthopaedic Surgery | DX: Z47.1 Aftercare following joint replacement surgery (principal); Z96.641 Presence of right artificial hip joint | CPT/HCPCS: 99212 ==

== ENCOUNTER 2020-11-05 08:48 | Outpatient (REF) | payer MEDICARE, SELFPAY ==
--- NOTE | ~2020-11-05 | XR_ITS ---
EXAMINATION: AP PELVIS. RIGHT HIP. CLINICAL INFORMATION: Right hip pain. COMPARISON: None TECHNIQUE: AP pelvis one view. Right hip 1 view. FINDINGS: AP pelvis: There is a total right hip prosthesis the prosthetic components in satisfactory alignment. The left hip joint space is maintained with left acetabular spur. No fracture or lytic process seen. The soft tissues are normal. The SI joints are symmetrical and normal. Right hip: A crosstable view right hip reveals total hip prosthesis in satisfactory alignment. There is no prosthetic loosening seen in the femoral or the acetabular components. XR/XR hip RT 1V IMPRESSION: Total right hip prosthesis with the prosthetic components in satisfactory alignment. No prosthetic loosening seen. There is mild arthritic changes left hip. Rest the pelvis and SI joints are unremarkable.
--- NOTE | ~2020-11-05 | XR_ITS ---
EXAMINATION: AP PELVIS. RIGHT HIP. CLINICAL INFORMATION: Right hip pain. COMPARISON: None TECHNIQUE: AP pelvis one view. Right hip 1 view. FINDINGS: AP pelvis: There is a total right hip prosthesis the prosthetic components in satisfactory alignment. The left hip joint space is maintained with left acetabular spur. No fracture or lytic process seen. The soft tissues are normal. The SI joints are symmetrical and normal. Right hip: A crosstable view right hip reveals total hip prosthesis in satisfactory alignment. There is no prosthetic loosening seen in the femoral or the acetabular components. XR/XR pelvis 1-2V IMPRESSION: Total right hip prosthesis with the prosthetic components in satisfactory alignment. No prosthetic loosening seen. There is mild arthritic changes left hip. Rest the pelvis and SI joints are unremarkable.
== END 2020-11-05 08:49 | disposition home or self-care (01) ==
LOC: HO.HOSX 08:48
PROVIDERS: Visit Provider Orthopaedic Surgery
DX: Z47.1 Aftercare following joint replacement surgery (principal); T84.84XA Pain due to internal orthopedic prosthetic devices, implants and grafts, initial encounter; Z96.641 Presence of right artificial hip joint
CPT/HCPCS: 20610; 72170; 73501; 73502; 99212; J1100

== ENCOUNTER → 2020-11-12 11:01 | Outpatient (BNVA) | payer MEDICARE, SELFPAY | PROVIDERS: Visit Provider Physician Assistant | DX: M70.41 Prepatellar bursitis, right knee (principal) | CPT/HCPCS: 99212 ==

== ENCOUNTER 2021-04-08 07:36 | Outpatient (REF) | payer MEDICARE, SELFPAY ==
[2021-04-08 09:04] LABS: Alanine Aminotransferase 26 U/L (0-40); Albumin Level 4.3 g/dL (3.5-5.0); Alkaline Phosphatase 92 U/L (39-117); Anion Gap 14 (12-20); Aspartate Amino Transferase 29 U/L (5-37); Bilirubin Total 0.9 mg/dL (0.0-1.0); Blood Urea Nitrogen 12 mg/dL (9-16); Carbon Dioxide 24 mmol/L (22-29); Chloride 107 mmol/L (96-108); Cholesterol 212 mg/dL; Estimated Glomerular Filt Rate > 60; Glucose Fasting 105 mg/dL (60-99); HDL Cholesterol 40 mg/dL; LDL Cholesterol Calculated 155 mg/dl; Potassium 4.3 mmol/L (3.3-5.1); Sodium 141 mmol/L (135-145); Triglycerides 89 mg/dL
[2021-04-08 09:09] LABS: TSH reflex Free T4 1.43 uIU/mL (0.32-4.0)
== END 2021-04-08 07:37 | disposition home or self-care (01) ==
LOC: HO.LAB 07:36
PROVIDERS: PCP Family Medicine; Visit Provider Family Medicine
DX: Z00.00 Encounter for general adult medical examination without abnormal findings (principal)
CPT/HCPCS: 36415; 80053; 80061; 84443

== ENCOUNTER 2021-04-22 08:59 | Outpatient (REF) | payer MEDICARE, SELFPAY ==
[2021-04-22 11:41] LABS: Estimated Average Glucose 108 mg/dL; Hemoglobin A1c % 5.4 %
[2021-04-22 12:10] LABS: Alanine Aminotransferase 25 U/L (0-40); Albumin Level 4.3 g/dL (3.5-5.0); Alkaline Phosphatase 90 U/L (39-117); Anion Gap 15 (12-20); Aspartate Amino Transferase 29 U/L (5-37); Bilirubin Total 0.8 mg/dL (0.0-1.0); Blood Urea Nitrogen 14 mg/dL (9-16); Calcium 9.9 mg/dL (8.4-10.2); Carbon Dioxide 26 mmol/L (22-29); Chloride 103 mmol/L (96-108); Estimated Glomerular Filt Rate > 60; Glucose Fasting 104 mg/dL (60-99); Potassium 4.7 mmol/L (3.3-5.1); Sodium 139 mmol/L (135-145); Total Protein 7.2 g/dL (6.5-8.0)
[2021-04-22 12:19] LABS: Prostate Specific Antigen Scr 0.89 ng/mL (<0.05-4.0)
== END 2021-04-22 09:00 | disposition home or self-care (01) ==
LOC: HO.WFDLDS 08:59
PROVIDERS: Visit Provider Family Medicine
DX: Z00.00 Encounter for general adult medical examination without abnormal findings (principal); R73.01 Impaired fasting glucose; Z12.5 Encounter for screening for malignant neoplasm of prostate
CPT/HCPCS: 36415; 80053; 83036; 84153

== ENCOUNTER 2021-07-08 08:19 | Outpatient (REF) | payer MEDICARE, SELFPAY ==
[2021-07-08 09:32] LABS: Cholesterol 235 mg/dL; HDL Cholesterol 45 mg/dL; LDL Cholesterol Calculated 169 mg/dl; Triglycerides 109 mg/dL
== END 2021-07-08 08:20 | disposition home or self-care (01) ==
LOC: HO.LAB 08:19
PROVIDERS: PCP Family Medicine; Visit Provider Family Medicine
DX: M25.551 Pain in right hip (principal); E78.00 Pure hypercholesterolemia, unspecified; Z96.641 Presence of right artificial hip joint; Z87.891 Personal history of nicotine dependence
CPT/HCPCS: 36415; 80061; 99212

== ENCOUNTER 2021-07-08 12:16 | Outpatient (REF) | payer MEDICARE, SELFPAY ==
--- NOTE | ~2021-07-08 | XR_ITS ---
EXAMINATION: XR PELVIS CLINICAL INFORMATION: M25.559 - Pain in unspecified hip COMPARISON: Pelvic radiographs 11/05/2020, 08/12/2020, 08/06/2020 TECHNIQUE: AP x2 views of the pelvis are obtained. FINDINGS: There has been right hip arthroplasty. Hardware is intact. There is no fracture or dislocation or osteolysis. There is no diastases SI joints or pubis. The left hip is stable. Again, some mineralization or spurring is noted at the posterior superior left acetabulum. There is mild bilateral whiskering from the lateral iliac crests and degenerative changes again seen lumbosacral junction. XR/XR pelvis 1-2V IMPRESSION: 1. Status post right hip arthroplasty. Hardware intact. No osteolysis. 2. Degenerative changes lumbosacral junction.
== END 2021-07-08 12:17 | disposition home or self-care (01) ==
LOC: HO.HOSX 12:16
PROVIDERS: Visit Provider Orthopaedic Surgery
DX: M25.559 Pain in unspecified hip (principal)
CPT/HCPCS: 72170

== ENCOUNTER → 2021-08-05 09:17 | Outpatient (BNVA) | payer MEDICARE, SELFPAY | PROVIDERS: PCP Family Medicine; Referring Provider Family Medicine; Visit Provider Nurse Practitioner | DX: Z86.010 Personal history of colon polyps (principal); Z80.0 Family history of malignant neoplasm of digestive organs | CPT/HCPCS: 99202 ==

== ENCOUNTER 2021-10-14 07:01 | Outpatient (REF) | payer MEDICARE, SELFPAY ==
[2021-10-14 07:59] LABS: Anion Gap 13 (12-20); Blood Urea Nitrogen 16 mg/dL (9-16); Calcium 9.8 mg/dL (8.4-10.2); Carbon Dioxide 26 mmol/L (22-29); Chloride 104 mmol/L (96-108); Cholesterol 140 mg/dL; Estimated Glomerular Filt Rate > 60; Glucose Fasting 114 mg/dL (60-99); HDL Cholesterol 40 mg/dL; LDL Cholesterol Calculated 86 mg/dl; Sodium 138 mmol/L (135-145); Triglycerides 74 mg/dL
[2021-10-14 09:16] LABS: Estimated Average Glucose 120 mg/dL; Hemoglobin A1c % 5.8 %
== END 2021-10-14 07:02 | disposition home or self-care (01) ==
LOC: HO.LAB 07:01
PROVIDERS: PCP Family Medicine; Visit Provider Family Medicine
DX: Z00.00 Encounter for general adult medical examination without abnormal findings (principal); R73.01 Impaired fasting glucose
CPT/HCPCS: 36415; 80048; 80061; 83036

== ENCOUNTER 2021-11-11 09:45 | Day surgery (SDC) | payer MEDICARE, SELFPAY ==
[2021-11-05 13:43] VITALS: BMI 23.7
--- NOTE | 2021-11-10 11:42 | P.CONAN_ITS ---
Documented by User: Mireille Rutledge NP 11/10/21 11:44 HPI - Anesthesia Eval Consult details Narrative: 66yo M for Colonoscopy PMFSH Active Problems Active Problems: All Active Problems (Updated 11/05/21 @ 13:40 by Renata Callahan RN) Arthralgia (Acute) Screening for colon cancer (Acute) Screening for prostate cancer (Acute) Right hip pain (Acute) Immunization counseling (Acute) Adult general medical examination (Acute) Preoperative cardiovascular examination (Acute) History of total right hip arthroplasty (Acute) Edema (Acute) Asthma (Acute) Allergic reaction (Acute) Bursitis (Acute) Elevated fasting blood sugar (Acute) Hypercholesterolemia (Acute) GERD (gastroesophageal reflux disease) (Acute) Neoplasm of uncertain behavior of skin (Acute) Mitral regurgitation (Acute) Tubular adenoma of colon (Acute) Family history of colon cancer in father (Acute) Immunization counseling (Acute) Pre-diabetes (Acute) Murmur, cardiac (Acute) Past Medical History Medical History Aortic valve stenosis Asthma Essential hypertension Mitral valve regurgitation Murmur, cardiac Osteoarthritis Primary osteoarthritis of right hip Family History Family History Father No problems noted. Mother No problems noted. Family history of problems with anesthesia: No Surgical History Surgical History Hx of colonoscopy Hx of left inguinal hernia repair Hx of tonsillectomy S/P total right hip arthroplasty History of Problems with Anesthesia: No Social History Social History Household Members: Spouse Housing: House Are you a primary day care worker to a significant other at home: No Do you presently have visiting nurse or other home services: No Alcohol intake: never Patient Tobacco Use Status: Former Tobacco user Quit Date: 2019 Cigarette Packs Per Day: 0.25 Cigarettes Per Day: 5.0 Years Smoked: 5 e-Cigarette/Vaping Use: Never Used Second Hand Smoke Exposure: No Use of substances other than those prescribed or required for medical reasons: No Are you DNR?: No Advance Directives: No Advance Directives Information Provided: Yes service: No Current occupational status: retired Current occupation: Right Handed Current occupational exposures/hazards: No Cognitive needs: No Hearing needs: No Vision needs: No Meds Allergies Allergy/AdvReac Type Severity Reaction Status Date / Time amoxicillin Allergy Intermediate Rash Verified 11/11/21 09:46 Home Medications Medication Instructions Recorded Confirmed Last Taken Type mometasone-formoterol HFA 100 2 puff PO DAILY 08/05/20 08/05/20 08/12/20 04:30 History mcg-5 mcg/actuation aerosol inhaler Exam Exam Date and Time: November 10, 2021 1142 Height,Weight and Vital Signs: Height 5 ft 8 in Weight 70.76 kg Pertinent Lab Results Pertinent Lab Results: Laboratory Tests 07/13/20 07/13/20 08/14/20 09:13 09:13 06:32 WBC 5.3 9.6 Hgb 17.0 13.0 L Hct 51.1 39.1 L Plt Count 202 155 L Sodium 140 Potassium 3.9 Chloride 102 Carbon Dioxide 28 BUN 22 H Creatinine 1.00 10/14/21 07:10 WBC Hgb Hct Plt Count Sodium 138 Potassium 5.0 Chloride 104 Carbon Dioxide 26 BUN 16 Creatinine 1.17 Narrative Narrative: EKG 2020 Vent. Rate : 072 BPM ? ? Atrial Rate : 072 BPM ?? P-R Int : 146 ms? QRS Dur : 100 ms ? ? QT Int : 390 ms ? ? ? P-R-T Axes : 086 094 077 degrees ?? QTc Int : 427 ms ? Normal sinus rhythm Right atrial enlargement Pulmonary disease pattern Possible Right ventricular hypertrophy Abnormal ECG When compared with ECG of 18-MAR-2019 13:16, No significant change was found ECHO 2020 Conclusions: -? Essentially normal study? ? Assessment and Plan Assessment Anesthesia Assessment: Chart Reviewed Final Anesthetic Review Family History of Problems with Anesthesia: No History of Problems with Anesthesia: No Documented by User: Negin Gill MD 11/11/21 10:55 [facility] Past Medical History Medical History Aortic valve stenosis Asthma Essential hypertension Mitral valve regurgitation Murmur, cardiac Osteoarthritis Primary osteoarthritis of right hip Family History Family History Father No problems noted. Mother No problems noted. Surgical History Surgical History Hx of colonoscopy Hx of left inguinal hernia repair Hx of tonsillectomy S/P total right hip arthroplasty Social History Social History Household Members: Spouse Housing: House Are you a primary day care worker to a significant other at home: No Do you presently have visiting nurse or other home services: No Alcohol intake: never Patient Tobacco Use Status: Former Tobacco user Quit Date: 2019 Cigarette Packs Per Day: 0.25 Cigarettes Per Day: 5.0 Years Smoked: 5 e-Cigarette/Vaping Use: Never Used Second Hand Smoke Exposure: No Use of substances other than those prescribed or required for medical reasons: No Are you DNR?: No Advance Directives: No Advance Directives Information Provided: Yes service: No Current occupational status: retired Current occupation: Right Handed Current occupational exposures/hazards: No Cognitive needs: No Hearing needs: No Vision needs: No Meds Allergies Allergy/AdvReac Type Severity Reaction Status Date / Time amoxicillin Allergy Intermediate Rash Verified 11/11/21 09:46 Home Medications Medication Instructions Recorded Confirmed Last Taken Type mometasone-formoterol HFA 100 2 puff PO DAILY 08/05/20 08/05/20 08/12/20 04:30 History mcg-5 mcg/actuation aerosol inhaler Exam Height,Weight and Vital Signs: Height 5 ft 8 in Weight 70.76 kg Vital Signs Temp Pulse Resp BP Pulse Ox 11/11/21 10:32 98.1 F 74 16 144/80 H 100 Airway Mallampati Class: II (Small mouth) TM Dist: >3cm Neck ROM: Full Denture: Upper Loose/Missing/Broken Teeth: Yes (1 broken tooth top. Just broke last week) Heart: RRR ?murmur Lungs: CTAB Assessment and Plan Assessment Anesthesia Assessment: Anesthesia Plan Discussed Final Anesthetic Review NPO: Yes ASA Class: III Final Preanesthetic Review: No Changes in Pt Med Stat, Meds/Allgs Chart Reviewed, Consent Obtained/Reviewed and Anes Risks/Benef Reviewed Patient Risk: Intermediate Procedure Risk: Low Assessment/Block/Sedation in SS: Assess/Block/Sedation-SS Anesthetic Plan Anesthetic Plan: MAC: Disposition: Standard PACU
[2021-11-11 10:32] VITALS: BP 144/80; PULSE 74; RESP 16; TEMP 36.7; O2SAT 100; BMI 22.8
[2021-11-11] MEDS: Lactated Ringers 1,000 ML 100 ML IVCONT (10:40)
--- NOTE | 2021-11-11 10:43 | P.HPSUR_ITS ---
Pre-Procedural Eval Section A Date of Service: 11/11/21 Section B Chief Complaint: hx of colon polyps Details of Present Illness: father had rectal cancer Relevant Family History (Specify if Yes): Yes Relevant Social History: None Present Medications: see Short Stay Collaborative assessment Medical History: Significant History (Aortic valve stenosis Asthma Essential hypertension Mitral valve regurgitation Murmur, cardiac Osteoarthritis Primary osteoarthritis of right hip) History of Previous Operations: Relevant previous surgery/procedure and date(s) (Hx of colonoscopy Hx of left inguinal hernia repair Hx of tonsillectomy S/P total right hip arthroplasty) Allergies: Allergies Allergy/AdvReac Type Severity Reaction Status Date / Time amoxicillin Allergy Intermediate Rash Verified 11/11/21 09:46 Review of Systems Sugical H&P ROS: Negative: Constitution, Cardiovascular, Respiratory, Neurological, Psychiatric, Hem-Onc, Allergic/Immunologic, Gastrointestinal, Genitourinary, Musculoskeletal, Integumentary, Endocrine and Eyes/Ea rs/Nose/Throat Exam Surgical H&P Exam: Normal: HEENT, Normal: Heart, Normal: Lungs, Normal: Extremities, Normal: Abdomen, Normal: Skin and Normal: Neurological Plan Diagnosis/Plan: Unchanged I have reviewed the history and physical and performed a pertinent physical examination on my patient. No changes have occurred unless specified.
--- NOTE | 2021-11-11 12:14 | P.BOP_ITS ---
Brief Operative Note Date of Service: 11/11/21 Pre-op diagnosis: hx of colon polyps Post-op diagnosis: same Procedure: see op note Surgeon: Magen Lockett MD Anesthesia: MAC Was an Motion Picture Set Up Worker used for this Procedure?: No Estimated blood loss (mL): 0 Condition: stable Disposition: PACU
--- NOTE | 2021-11-11 12:14 | W.PM.OPN ---
Operative Note Operative Note Date of Service: 11/11/21 Narrative: Operative Information Procedure Description: Colonoscopy Indication: hx of polyps, and FH of rectal cancer in father Anesthesia: MAC COLONOSCOPY Instrument: Olympus variable stiffness pediatric scope 190L Colonoscopy Monitoring: Vital signs and clinical assessment, continuous EKG monitoring, Pulse oximetry, Carbon Dioxide monitoring and blood pressure monitoring were done throughout the procedure. Colon withdrawal time was 48 minutes. Procedure: The patient was placed in the left lateral decubitis position and pre-procedure medications were administered. After a digital rectal examination of the ano-rectum, the video colonoscope was inserted into the rectum and advanced through the colon to the cecum/TI. The colonoscope was slowly withdrawn in a retrograde panoramic fashion and the colon mucosa was carefully examined including a retroflexed view of the rectum. Findings and interventions are described below. Procedure Difficulty: easy Findings: Terminal Ileum-normal Cecum: 10 mm sessile polyp removed with cold snare Ascending Colon: x3 sessile polyps noted on retroflexion. one polyp was 13-14 mm and raised with orise and then removed with cold snare. the other was 8-10 mm and removed with cold snare. The final polyp was the largest and measured about 15-18 mm and removed with hot snare, then edges ablated with soft tip coag. A distal attachment was placed but feel off and was retrieved along with the polyp in a net. Transverse Colon -normal Descending Colon:normal Sigmoid Colon: mild diverticulosis Rectum: Retroflexion with small internal hemorrhoids, grade I Anorectum - normal Colon preparation: [place] Bowel Preparation Scale Right colon; 3 Transverse colon: 3 Left colon; 3 (0 = Unprepared colon segment with mucosa not seen due to solid stool that cannot be cleared. 1 = Portion of mucosa of the colon segment seen, but other areas of the colon segment not well seen due to staining, residual stool and/or opaque liquid. 2 = Minor amount of residual staining, small fragments of stool and/or opaque liquid, but mucosa of colon segment seen well. 3 = Entire mucosa of colon segment seen well with no residual staining, small fragments of stool or opaque liquid) Impression and Post Procedure Diagnosis: polyps internal hemorrhoids diverticular disease Plan: High fiber diet leaflet Avoid straining at stool, epsom salts and sitz bath, anusol supps or cream Repeat Colonoscopy in 1 year due to larger discrete polyps really only seen on right sided retroflexion or earlier if clinically indicated Above findings were reviewed with the patient and relevant handouts were provided if indicated.
[2021-11-11 12:20] VITALS: BP 86/48; PULSE 68; RESP 16; TEMP 36.6; O2SAT 97
[2021-11-11 12:35] VITALS: BP 85/54; PULSE 60; RESP 16; O2SAT 97
[2021-11-11 12:50] VITALS: BP 120/63; PULSE 63; RESP 16; TEMP 36.6; O2SAT 100
== END 2021-11-11 13:30 | disposition home or self-care (01) ==
PROVIDERS: PCP Family Medicine; Visit Provider Internal Medicine Gastroenterology
PROC: 0DJD8ZZ Inspection of Lower Intestinal Tract, Via Natural or Artificial Opening Endoscopic (ICD-10-PCS; CPT 45378; principal; 2021-11-11 11:50)
DX: Z12.11 Encounter for screening for malignant neoplasm of colon (principal); Z86.010 Personal history of colon polyps; D12.0 Benign neoplasm of cecum; D12.2 Benign neoplasm of ascending colon; K57.30 Diverticulosis of large intestine without perforation or abscess without bleeding; K64.0 First degree hemorrhoids; Z80.0 Family history of malignant neoplasm of digestive organs; J45.909 Unspecified asthma, uncomplicated; I10 Essential (primary) hypertension; Z79.51 Long term (current) use of inhaled steroids; Z88.1 Allergy status to other antibiotic agents; Z87.891 Personal history of nicotine dependence; Z96.641 Presence of right artificial hip joint
CPT/HCPCS: 45385; 45381; 88305; J0690

== ENCOUNTER → 2021-11-25 09:20 | Outpatient (BNVA) | payer MEDICARE, SELFPAY | PROVIDERS: PCP Family Medicine; Visit Provider Nurse Practitioner | DX: D12.0 Benign neoplasm of cecum (principal); D12.3 Benign neoplasm of transverse colon; K21.9 Gastro-esophageal reflux disease without esophagitis; Z80.0 Family history of malignant neoplasm of digestive organs; Z98.890 Other specified postprocedural states | CPT/HCPCS: 99212 ==

== ENCOUNTER 2022-01-13 09:13 | Outpatient (REF) | payer MEDICARE, SELFPAY ==
[2022-01-13 10:26] LABS: Cholesterol 169 mg/dL; HDL Cholesterol 43 mg/dL; LDL Cholesterol Calculated 96 mg/dl; Triglycerides 152 mg/dL
== END 2022-01-13 09:14 | disposition home or self-care (01) ==
LOC: HO.LAB 09:13
PROVIDERS: PCP Family Medicine; Visit Provider Family Medicine
DX: Z00.00 Encounter for general adult medical examination without abnormal findings (principal); E78.00 Pure hypercholesterolemia, unspecified
CPT/HCPCS: 36415; 80061

== ENCOUNTER 2022-08-23 07:13 | Outpatient (REF) | payer MEDICARE, SELFPAY ==
[2022-08-23 07:55] LABS: Estimated Average Glucose 131 mg/dL; Hemoglobin A1c % 6.2 %
[2022-08-23 08:18] LABS: Alanine Aminotransferase 34 U/L (0-40); Albumin Level 4.3 g/dL (3.5-5.0); Alkaline Phosphatase 95 U/L (39-117); Anion Gap 12 (12-20); Aspartate Amino Transferase 29 U/L (5-37); Bilirubin Total 1.3 mg/dL (0.0-1.0); Blood Urea Nitrogen 13 mg/dL (9-16); Calcium 9.2 mg/dL (8.4-10.2); Carbon Dioxide 26 mmol/L (22-29); Chloride 106 mmol/L (96-108); Cholesterol 159 mg/dL; Estimated Glomerular Filt Rate > 60; Glucose Fasting 108 mg/dL (60-99); HDL Cholesterol 42 mg/dL; LDL Cholesterol Calculated 93 mg/dl; Potassium 4.4 mmol/L (3.3-5.1); Sodium 140 mmol/L (135-145); Total Protein 6.9 g/dL (6.5-8.0); Triglycerides 121 mg/dL
== END 2022-08-23 07:14 | disposition home or self-care (01) ==
LOC: HO.LAB 07:13
PROVIDERS: PCP Family Medicine; Visit Provider Family Medicine
DX: Z00.00 Encounter for general adult medical examination without abnormal findings (principal); R73.01 Impaired fasting glucose; E78.5 Hyperlipidemia, unspecified
CPT/HCPCS: 36415; 80053; 80061; 83036

== ENCOUNTER → 2022-09-16 08:20 | Outpatient (BNVA) | payer MEDICARE, SELFPAY | PROVIDERS: PCP Family Medicine; Visit Provider Nurse Practitioner | DX: D12.6 Benign neoplasm of colon, unspecified (principal) | CPT/HCPCS: 99212 ==

== ENCOUNTER 2022-11-21 07:27 | Outpatient (REF) | payer MEDICARE, SELFPAY ==
[2022-11-21 07:42] LABS: MANUAL DIFF FLAG NO
[2022-11-21 08:40] LABS: Basophils Percent Auto 0.6 % (0-2); Eosinophils Absolute Auto 0.1 X10*3/uL (0.0-0.4); Eosinophils Percent Auto 1.6 % (0-4); Hematocrit 48.9 % (42.0-52.0); Hemoglobin 16.6 g/dl (14.0-18.0); Imm Gran Abs Auto 0.02 X10*3/uL (0.00-0.03); Imm Gran Pct Auto 0.3 % (0.0-0.4); Lymphocytes Absolute Auto 1.1 X10*3/uL (1.2-4.9); Lymphocytes Percent Auto 16.6 % (20-40); Mean Corpuscular HGB Conc 33.9 g/dl (31.0-36.0); Mean Corpuscular Hemoglobin 29.7 pg (27.0-33.0); Mean Corpuscular Volume 87.5 fL (80.0-98.0); Mean Platelet Volume 9.6 fL (9.4-12.4); Monocytes Absolute Auto 0.8 X10*3/uL (0.1-1.2); Monocytes Percent Auto 11.5 % (2-11); Neutrophils Absolute Auto 4.7 x10*3/uL (2.0-8.3); Neutrophils Percent Auto 69.4 % (45-73); Platelet Count 204 X10*3/uL (160-400); Red Blood Count 5.59 X10*6/uL (4.60-5.80); Red Cell Distribution Width 12.3 % (11.0-16.0); White Blood Count 6.7 X10*3/uL (4.8-10.8)
[2022-11-21 08:51] LABS: Estimated Average Glucose 111 mg/dL; Hemoglobin A1c % 5.5 %
[2022-11-21 09:00] LABS: Appearance Urine Clear; Color Urine Dark Yellow; Glucose Urine UA Negative (Negative); Leukocyte Esterase Urine Trace (Negative); Nitrite Urine Negative (Negative); PH 5.5 (5.0-9.0); UMIC TRIGGER UA YES; Urine Blood Negative (Negative); Urine Ketones Trace mg/dL (Negative); Urine Protein 30 (1+) mg/dL (Neg-Trace)
[2022-11-21 09:12] LABS: Bacteria Urine None Seen (None Seen); Squamous Epithelial Cell Urine 0-2 /HPF (0-2); WBC Urine 0-5 /HPF (0-5)
[2022-11-21 09:27] LABS: Alanine Aminotransferase 29 U/L (0-40); Albumin Level 4.5 g/dL (3.5-5.0); Alkaline Phosphatase 96 U/L (39-117); Anion Gap 13 (12-20); Aspartate Amino Transferase 27 U/L (5-37); Blood Urea Nitrogen 17 mg/dL (9-16); Calcium 9.8 mg/dL (8.4-10.2); Carbon Dioxide 27 mmol/L (22-29); Chloride 107 mmol/L (96-108); Cholesterol 141 mg/dL; Estimated Glomerular Filt Rate 60; Glucose Fasting 108 mg/dL (60-99); HDL Cholesterol 43 mg/dL; LDL Cholesterol Calculated 85 mg/dl; Potassium 4.9 mmol/L (3.3-5.1); Sodium 142 mmol/L (135-145); Total Protein 7.2 g/dL (6.5-8.0); Triglycerides 67 mg/dL
[2022-11-21 09:30] LABS: Prostate Specific Antigen Scr 1.04 ng/mL (<0.05-4.0); TSH reflex Free T4 2.31 uIU/mL (0.32-4.0)
[2022-11-21 10:18] LABS: Creatinine Urine 335.81 mg/dL; Microalbum/Creatinine Ratio Ur 13.6 ug/mg cr
== END 2022-11-21 07:28 | disposition home or self-care (01) ==
LOC: HO.LAB 07:27
PROVIDERS: PCP Family Medicine; Visit Provider Family Medicine
DX: Z00.00 Encounter for general adult medical examination without abnormal findings (principal); I10 Essential (primary) hypertension; R73.01 Impaired fasting glucose; Z12.5 Encounter for screening for malignant neoplasm of prostate
CPT/HCPCS: 36415; 80053; 80061; 81001; 82043; 83036; 84153; 84443; 85025

== ENCOUNTER 2022-12-13 09:47 | Outpatient (REF) | payer MEDICARE, SELFPAY ==
--- NOTE | ~2022-12-13 | US_ITS ---
EXAMINATION: US EXTRACRANIAL CAROTID DUPLEX, BILATERAL CLINICAL INFORMATION: Carotid bruit. COMPARISON: Carotid ultrasound 07/25/2013 TECHNIQUE: Real-time ultrasound and Doppler techniques (integrating B-mode 2-D vascular images, Doppler spectral analysis and color-flow Doppler imaging) were utilized to interrogate the extracranial carotid arteries, the vertebral arteries and proximal subclavian arteries bilaterally. The degree of stenosis is determined by criteria similar to NASCET. FINDINGS: Right Side: 1. There is mild atherosclerotic plaque seen in the bifurcation/proximal ICA region. 2. The common carotid artery PSV proximally is 114 cm/s and distally 83 cm/s. 3. The proximal internal carotid artery velocities are 77 cm/s systolic and 20 cm/s diastolic. 4. The proximal external carotid artery PSV is 71 cm/s. 5. The vertebral artery shows antegrade flow But with a bunny sign with a systolic peak, a midsystolic dip, and a more blunted systolic peak suggestive of right subclavian stenosis prior to development of a subclavian steal. 6. The subclavian artery waveforms are normal. Left Side: 1. There is mild atherosclerotic plaque seen in the bifurcation/proximal ICA region. 2. The common carotid artery PSV proximally is 125 cm/s and distally 106 cm/s. 3. The proximal internal carotid artery velocities are 63 cm/s systolic and 20 cm/s diastolic. 4. The proximal external carotid artery PSV is 106 cm/s. 5. The vertebral artery shows anterior flow. 6. The subclavian artery waveforms are normal. US/US carotid duplex BI IMPRESSION: RIGHT: Minimal, non-hemodynamically significant stenosis of the proximal right internal carotid artery corresponding to a 0-49% stenosis by velocity criteria. There is a bunny sign in the right vertebral artery suggesting an occult right subclavian stenosis, pre-steal. LEFT: Minimal, non-hemodynamically significant stenosis of the proximal left internal carotid artery corresponding to a 0-49% stenosis by velocity criteria. There is no change in the category severity of disease in the internal carotid arteries when compared to the previous study dated 07/25/2013.
== END 2022-12-13 09:48 | disposition home or self-care (01) ==
LOC: HO.HMGCX 09:47
PROVIDERS: PCP Family Medicine; Visit Provider Family Medicine
DX: R09.89 Other specified symptoms and signs involving the circulatory and respiratory systems (principal)
CPT/HCPCS: 93880

== ENCOUNTER 2022-12-29 11:40 | Day surgery (SDC) | payer MEDICARE, SELFPAY ==
[2022-12-27 16:15] VITALS: BMI 22.3
[2022-12-29 12:03] VITALS: BMI 21.6
[2022-12-29 12:14] VITALS: BP 140/83; PULSE 80; RESP 16; TEMP 36.9; O2SAT 98
[2022-12-29] MEDS: Lactated Ringers 1,000 ML 100 ML IVCONT (12:29)
--- NOTE | 2022-12-29 12:45 | MHC.SHP ---
Pre-Procedural Eval Section A Date of Service: 12/29/22 Section B Chief Complaint: Benign neoplasm of colon, unspecified Details of Present Illness: hx of polyps and FH of rectal cancer Relevant Family History (Specify if Yes): Yes Relevant Social History: None Present Medications: see Short Stay Collaborative assessment Medical History: Significant History (Aortic valve stenosis Asthma Essential hypertension Mitral valve regurgitation Murmur, cardiac Osteoarthritis Primary osteoarthritis of right hip) History of Previous Operations: Relevant previous surgery/procedure and date(s) (Hx of colonoscopy Hx of left inguinal hernia repair Hx of tonsillectomy S/P total right hip arthroplasty) Allergies: Allergies Allergy/AdvReac Type Severity Reaction Status Date / Time amoxicillin Allergy Intermediate Rash Verified 12/02/22 10:39 Review of Systems Sugical H&P ROS: Negative: Constitution, Cardiovascular, Respiratory, Neurological, Psychiatric, Hem-Onc, Allergic/Immunologic, Gastrointestinal, Genitourinary, Musculoskeletal, Integumentary, Endocrine and Eyes/Ears/Nose/Throat Exam Surgical H&P Exam: Normal: HEENT, Normal: Heart, Normal: Lungs, Normal: Extremities, Normal: Abdomen, Normal: Skin and Normal: Neurological Plan Diagnosis/Plan: Unchanged I have reviewed the history and physical and performed a pertinent physical examination on my patient. No changes have occurred unless specified. Time Spent With Patient Time: Total time managing care of this patient today ____ minutes.
--- NOTE | 2022-12-29 12:47 | W.PM.OPN ---
Operative Note Operative Note Date of Service: 12/29/22 Narrative: Operative Information Procedure Description: Colonoscopy Indication: hx of colon polyps, FH of rectal cancer Anesthesia: MAC COLONOSCOPY Instrument: Olympus variable stiffness pediatric scope 190L Colonoscopy Monitoring: Vital signs and clinical assessment, continuous EKG monitoring, Pulse oximetry, Carbon Dioxide monitoring and blood pressure monitoring were done throughout the procedure. Colon withdrawal time was 10 minutes. Procedure: The patient was placed in the left lateral decubitis position and pre-procedure medications were administered. After a digital rectal examination of the ano-rectum, the video colonoscope was inserted into the rectum and advanced through the colon to the cecum/TI. The colonoscope was slowly withdrawn in a retrograde panoramic fashion and the colon mucosa was carefully examined including a retroflexed view of the rectum. Findings and interventions are described below. Procedure Difficulty: moderate due to looping, pressure applied Findings: Terminal Ileum-not intubated Cecum:normal Ascending Colon: x 2 sessile polyps 4-5 mm removed with cold forceps Transverse Colon -normal Descending Colon: x 1 sessile polyp 8-9 mm removed with cold snare Sigmoid Colon: moderate diverticulosis noted Rectum: Retroflexion with small internal hemorrhoids, grade I Anorectum - normal Colon preparation: [place] Bowel Preparation Scale Right colon; 2 Transverse colon: 3 Left colon; 3 (0 = Unprepared colon segment with mucosa not seen due to solid stool that cannot be cleared. 1 = Portion of mucosa of the colon segment seen, but other areas of the colon segment not well seen due to staining, residual stool and/or opaque liquid. 2 = Minor amount of residual staining, small fragments of stool and/or opaque liquid, but mucosa of colon segment seen well. 3 = Entire mucosa of colon segment seen well with no residual staining, small fragments of stool or opaque liquid) Impression and Post Procedure Diagnosis: polyps internal hemorrhoids diverticular disease Plan: High fiber diet leaflet Avoid straining at stool, epsom salts and sitz bath, anusol supps or cream Repeat Colonoscopy in 2-3 years or earlier if clinically indicated Above findings were reviewed with the patient and relevant handouts were provided if indicated.
--- NOTE | 2022-12-29 12:52 | HO.ANESPROP2 ---
[facility] Active Problems Active Problems: All Active Problems (Updated 12/26/22 @ 22:22 by Ihsan Burnett MD) Subclavian steal syndrome (Acute) Varicose veins of lower extremity (Acute) Hyperlipidemia (Acute) Arthralgia (Acute) Screening for colon cancer (Acute) Screening for prostate cancer (Acute) Right hip pain (Acute) Immunization counseling (Acute) Adult general medical examination (Acute) Preoperative cardiovascular examination (Acute) History of total right hip arthroplasty (Acute) Edema (Acute) Asthma (Acute) Allergic reaction (Acute) Bursitis (Acute) Elevated fasting blood sugar (Acute) Hypercholesterolemia (Acute) GERD (gastroesophageal reflux disease) (Acute) Neoplasm of uncertain behavior of skin (Acute) Mitral regurgitation (Acute) Tubular adenoma of colon (Acute) Family history of colon cancer in father (Acute) Immunization counseling (Acute) Pre-diabetes (Acute) Murmur, cardiac (Acute) Past Medical History Medical History Aortic valve stenosis Asthma Essential hypertension Mitral valve regurgitation Murmur, cardiac Osteoarthritis Primary osteoarthritis of right hip Family History Family History Father No problems noted. Mother No problems noted. Family history of problems with anesthesia: No Surgical History Surgical History Hx of colonoscopy Hx of left inguinal hernia repair Hx of tonsillectomy S/P total right hip arthroplasty History of Problems with Anesthesia: No Social History Social History Household Members: Spouse Housing: House Are you a primary intensive care unit registered nurse to a significant other at home: No Do you presently have visiting nurse or other home services: No Alcohol intake: never Patient Tobacco Use Status: Former Tobacco user Quit Date: 2019 Cigarette Packs Per Day: 0.25 Cigarettes Per Day: 5.0 Years Smoked: 5 e-Cigarette/Vaping Use: Never Used Second Hand Smoke Exposure: No Use of substances other than those prescribed or required for medical reasons: No Are you DNR?: No Advance Directives: No Advance Directives Information Provided: Yes service: No Current occupational status: retired Current occupation: Right Handed Current occupational exposures/hazards: No Cognitive needs: No Hearing needs: No Vision needs: No Meds Allergies Allergy/AdvReac Type Severity Reaction Status Date / Time amoxicillin Allergy Intermediate Rash Verified 12/02/22 10:39 Active Medications: Current Medications Albuterol Sulfate (Albuterol Sulfate (0.083%) 2.5 Mg/3 Ml Vial.Neb) 2.5 mg INHALE ONCE PRN PRN Reason: Shortness of Breath/Wheezing Lactated Ringer's (Lr) 1,000 mls @ 100 mls/hr IVCONT .Q10H KATHY Last Admin: 12/29/22 12:29 Dose: 100 mls/hr Exam Exam Date and Time: December 29, 2022 1252 Height,Weight and Vital Signs: Height 5 ft 8 in Weight 64.41 kg Last Vital Signs Temp 98.5 F 12/29/22 12:14 Pulse 80 12/29/22 12:14 Resp 16 12/29/22 12:14 BP 140/83 H 12/29/22 12:14 Pulse Ox 98 12/29/22 12:14 O2 Del Method Room Air 12/29/22 12:14 Airway Mallampati Class: II TM Dist: >3cm Neck ROM: Full Partial: Upper Assessment and Plan Assessment Anesthesia Assessment: Anesthesia Plan Discussed and Chart Reviewed Final Anesthetic Review Family History of Problems with Anesthesia: No History of Problems with Anesthesia: No NPO: Yes ASA Class: II Final Preanesthetic Review: No Changes in Pt Med Stat, Meds/Allgs Chart Reviewed, Consent Obtained/Reviewed and Anes Risks/Benef Reviewed Patient Risk: Low Procedure Risk: Low Anesthetic Plan Anesthetic Plan: MAC: Disposition: Standard PACU
[2022-12-29 13:35] VITALS: BP 100/61; PULSE 67; RESP 20; TEMP 36.4; O2SAT 99
[2022-12-29 13:50] VITALS: BP 128/77; PULSE 67; RESP 16; TEMP 36.3; O2SAT 99
[2022-12-29 14:04] VITALS: BP 127/80; PULSE 66; RESP 16; TEMP 36.3; O2SAT 99
== END 2022-12-29 14:50 | disposition home or self-care (01) ==
PROVIDERS: PCP Family Medicine; Visit Provider Internal Medicine Gastroenterology
PROC: 0DJD8ZZ Inspection of Lower Intestinal Tract, Via Natural or Artificial Opening Endoscopic (ICD-10-PCS; CPT 45378; principal; 2022-12-29 13:20)
DX: Z12.11 Encounter for screening for malignant neoplasm of colon (principal); Z86.010 Personal history of colon polyps; Z80.0 Family history of malignant neoplasm of digestive organs; D12.2 Benign neoplasm of ascending colon; D12.4 Benign neoplasm of descending colon; K57.30 Diverticulosis of large intestine without perforation or abscess without bleeding; K64.0 First degree hemorrhoids; I10 Essential (primary) hypertension; I34.0 Nonrheumatic mitral (valve) insufficiency; J45.909 Unspecified asthma, uncomplicated; M16.11 Unilateral primary osteoarthritis, right hip; Z96.641 Presence of right artificial hip joint; Z79.899 Other long term (current) drug therapy; Z88.1 Allergy status to other antibiotic agents; Z98.890 Other specified postprocedural states; Z87.891 Personal history of nicotine dependence
CPT/HCPCS: 45385; 45380; 88305

== ENCOUNTER → 2022-12-29 11:40 | Outpatient (BNV) | payer MEDICARE, SELFPAY | PROVIDERS: PCP Family Medicine; Visit Provider Internal Medicine Gastroenterology | DX: K63.5 Polyp of colon (principal); Z86.010 Personal history of colon polyps | CPT/HCPCS: 45385 ==

== ENCOUNTER 2023-01-17 08:48 | Outpatient (AMB) | payer MEDICARE, SELFPAY ==
--- NOTE | 2023-01-17 08:51 | A.OFFVIS_ITS ---
Intake Vital Signs 01/17/23 08:52 Height 5 ft 8 in Weight 147 lb 11.355 oz BMI 22.5 BP 137/82 Blood Pressure Location Lt brachial Position Sitting Pulse 66 Intake Visit Reasons: S/P [place]; Dr Lockett Intake Note: Layton presents in the office as a colonoscopy follow up. Patient underwent colonoscopy on 12/29/22 w/Dr. Lockett. CC: Denies having any GI symptoms or concerns. Door To Door Sales Representative Required: No Accompanied by: Self / Same As Patient Allergies amoxicillin Allergy (Intermediate, Verified 12/02/22 10:39) Rash HPI S/P [place]; Dr Lockett HPI Details Assessment & Plan (1) Tubular adenoma of colon: ?Comment: 2016 SCOPE= TA X2, 2021= 2 greater than 10 cm TA repeat in 1 year ?Code(s): D12.6 - Benign neoplasm of colon, unspecified ?Plan: He has been well since I last saw him.? He denies any new medical conditions that would affect his risk for the procedure.? He is quite agreeable to going ahead with his repeat colonoscopy. He tolerated the last procedure well. ? He denies any bowel or upper GI problems. ? He denies any trouble with anesthesia or sedation. ? His asthma is well controlled, he denies cardiac problems. ? No ID problems. ? He had polyps last scope and his father had CRC. I will see him after the procedures.. ? ? ? Medications: New peg 3350-electroly kim [id number] -5.86 gram (Golyt ruperto) ?? until feca l effluent is karl r; do not exceed a total volume of 2 ,000 mL 240 mL? PO Q10M 1 day 4,000 mL 0RF Z12.11 - Encounter for screening for malignant neoplas m of colon ?Patient Instructions: He has been well since I last saw him.? He denies any new medical conditions that would affect his risk for the procedure.? He is quite agreeable to going ahead with his repeat colonoscopy. He tolerated the last procedure well. ? He denies any bowel or upper GI problems. ? He denies any trouble with anesthesia or sedation. ? His asthma is well controlled, he denies cardiac problems. ? No ID problems. ? He had polyps last scope and his father had CRC. I will see him after the procedures. COLONOSCOPY 12/29/22 Findings: Terminal Ileum-not intubated Cecum:normal Ascending Colon:? x 2 sessile polyps 4-5 mm removed with cold forceps Transverse Colon -normal Descending Colon: x 1 sessile polyp 8-9 mm removed with cold snare Sigmoid Colon: moderate diverticulosis noted Rectum: Retroflexion with small internal hemorrhoids, grade I Anorectum - normal Impression and Post Procedure Diagnosis: polyps internal hemorrhoids diverticular disease Plan: High fiber diet leaflet Avoid straining at stool, epsom salts and sitz bath, anusol supps or cream Repeat Colonoscopy in 2-3 years or earlier if clinically indicated BIOPSY Received: 12/29/22 Diagnosis A.? Colon, ascending, polypectomy:? Tubular adenoma; negative for high-grade dysplasia. B.? Colon, descending, polypectomy:? Tubular adenoma; negative for high-grade dysplasia. TODAY'S VISIT He is agreeable to a 3 year follow up. The procedure was well tolerated. The results were explained and the patient is agreeable to the follow-up interval as stated. The bowel pattern has returned to normal. Education was provided to tell any 1st degree relatives about their findings to be sure that they are screened by age 45. Educated that they will be put on a recall list when it is time for their repeat scope but should they move out of state or away from the hospital they will need to remember along with their primary to repeat the procedure in a timely fashion to avoid any adverse complications. Had trouble getting through on phone. [facility] Medical History Aortic valve stenosis Asthma Essential hypertension Mitral valve regurgitation Murmur, cardiac Osteoarthritis Primary osteoarthritis of right hip Surgical History Hx of colonoscopy Hx of left inguinal hernia repair Hx of tonsillectomy S/P total right hip arthroplasty Family History Father No problems noted. Mother No problems noted. 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 health care coordinator to a significant other at home: No Do you presently have visiting nurse or other home services: No Alcohol intake: never Patient Tobacco Use Status: Former Tobacco user Quit Date: 2019 Cigarette Packs Per Day: 0.25 Cigarettes Per Day: 5.0 Years Smoked: 5 e-Cigarette/Vaping Use: Never Used Second Hand Smoke Exposure: No service: No Current occupational status: retired Current occupation: Right Handed Current occupational exposures/hazards: No Cognitive needs: No Hearing needs: No Vision needs: No Review of Systems Const Denies fatigue, Denies fever(s), Denies night sweats, Denies poor appetite and Denies weight loss Eyes Details: glasses Reports requires corrective lenses ENT Reports Normal hearing present, Denies dental pain, Denies dysphagia, Denies hearing loss, Denies mouth pain, Denies odynophagia, Denies throat swelling, Denies tongue swelling and Reports other (Dentition adequate) Card Reports no additional complaints Resp Reports no additional complaints GI Denies abdominal pain, Denies melena, Denies bloating, Denies hematochezia, Denies constipation, Denies GI cramping, Denies dysphagia, Denies excessive flatus, Denies early satiety, Denies heartburn, Denies diarrhea, Denies nausea, Denies odynophagia, Denies vomiting and Denies hematemesis Skin/Breast Denies pruritus, Denies lesions, Denies rash and Denies jaundice Neuro Reports Normal hearing present and Denies Abnormal speech present Endo Denies fatigue Aller/Immun Denies throat swelling and Denies tongue swelling Physical Exam Vital Signs: Last Vital Signs Pulse 66 01/17/23 08:52 BP 137/82 01/17/23 08:52 BMI result Body Mass Index 22.5 Const General: cooperative, no acute distress, well developed and well groomed Nutritional Appearance: average body habitus and well nourished Orientation/consciousness: oriented to person, oriented to place and oriented to time Limitations: No language barrier HEENT Head: Yes normocephalic and Yes atraumatic Eyes General: appearance normal, both eyes and all related structures Pupils: Equal, round and reactive pupils present Neck Neck: Yes normal visual inspection and Yes no lymphadenopathy Thyroid: Thyroid normal Resp Effort & Inspection: normal respiratory effort and able to speak in complete sentences Auscultation: clear to auscultation bilaterally Cardio Rate: regular rate Rhythm: regular rhythm Heart sounds: Normal, physiologic split S2 sound present Peripheral pulses: radial pulses present and posterior tibial pulses present GI Inspection: No distended and No Abdominal panniculus present Palpation (GI): Soft to palpation, nontender, no guarding, not rigid and No hepatosplenomegaly present Percussion: Yes normal to percussion Auscultation: normal bowel sounds Rectal Exam - Male: Yes deferred Skin General skin exam: no rashes or lesions noted, turgor normal, skin not dry, no jaundice, No spider nevi and no striae Rashes: no rashes Nails: normal Neuro General: oriented to person, oriented to place and oriented to time Cranial nerves: Yes Equal, round and reactive pupils present and Yes Normal hearing present Speech: No Abnormal speech present Extrem General: Yes normal to inspection, No clubbing, No cyanosis and No edema Psych Appearance: grossly normal and well kempt Mental Status: mental status grossly normal Speech and movement: Normal speech and movement present Affect: normal affect Attitude: cooperative Thought process: Normal thought process present and not confabulating Thought content: Normal thought content present Insight: Good insight present (Psych) Judgement: Good judgement present (Psych) Results Reviewed Results Reviewed: COLONOSCOPY 12/29/22 Findings: Terminal Ileum-not intubated Cecum:normal Ascending Colon:? x 2 sessile polyps 4-5 mm removed with cold forceps Transverse Colon -normal Descending Colon: x 1 sessile polyp 8-9 mm removed with cold snare Sigmoid Colon: moderate diverticulosis noted Rectum: Retroflexion with small internal hemorrhoids, grade I Anorectum - normal Impression and Post Procedure Diagnosis: polyps internal hemorrhoids diverticular disease Plan: High fiber diet leaflet Avoid straining at stool, epsom salts and sitz bath, anusol supps or cream Repeat Colonoscopy in 2-3 years or earlier if clinically indicated BIOPSY Received: 12/29/22 Diagnosis A.? Colon, ascending, polypectomy:? Tubular adenoma; negative for high-grade dysplasia. B.? Colon, descending, polypectomy:? Tubular adenoma; negative for high-grade dysplasia. Assessment & Plan Assessment & Plan (1) Tubular adenoma of colon: Comment: 2022 = 3 TA repeat 3 years; 2016 SCOPE= TA X2, 2021= 2 greater than 10 cm TA repeat in 1 year Code(s): D12.6 - Benign neoplasm of colon, unspecified Plan: He is agreeable to a 3 year follow up. The procedure was well tolerated. The results were explained and the patient is agreeable to the follow-up interval as stated. The bowel pattern has returned to normal. Education was provided to tell any 1st degree relatives about their findings to be sure that they are screened by age 45. Educated that they will be put on a recall list when it is time for their repeat scope but should they move out of state or away from the hospital they will need to remember along with their primary to repeat the procedure in a timely fashion to avoid any adverse complications. Had trouble getting through on phone. (2) Family history of colon cancer in father: Comment: [place] 70S Code(s): Z80.0 - Family history of malignant neoplasm of digestive organs Coding Level of Care Code Est Pt Level 3 (34075) Diagnoses Tubular adenoma of colon D12.6 Family history of colon cancer in father Z80.0
[2023-01-17 08:52] VITALS: BP 137/82; PULSE 66; BMI 22.5
== END 2023-01-17 09:50 | disposition home or self-care (01) ==
PROVIDERS: PCP Family Medicine; Visit Provider Nurse Practitioner
DX: D12.6 Benign neoplasm of colon, unspecified (principal); Z80.0 Family history of malignant neoplasm of digestive organs
CPT/HCPCS: 99213

== ENCOUNTER → 2023-01-17 08:48 | Outpatient (BNVA) | payer MEDICARE, SELFPAY | PROVIDERS: PCP Family Medicine; Visit Provider Nurse Practitioner | DX: D12.6 Benign neoplasm of colon, unspecified (principal); Z80.0 Family history of malignant neoplasm of digestive organs | CPT/HCPCS: 99212 ==

== ENCOUNTER 2023-02-16 11:20 | Outpatient (AMB) | payer MEDICARE, SELFPAY ==
[2023-02-16 11:20] VITALS: BP 130/88; PULSE 71; O2SAT 98; BMI 22.3
--- NOTE | 2023-02-16 11:20 | MHC.OFFVIS ---
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 Pt states he has a heart murmur and he stated Dr. Burnett could hearthe murmur in his carotid artery. Pt states this has gone on for years so this is nothing new to him. Pt states overall he feels good. 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 It was an incidental finding on a surveillance carotid ultrasound. He originally had a carotid ultrasound in 2013 and most recently on 12/13/2022. On the ultrasound there was concerns a right subclavian stenosis. Of note he is completely asymptomatic from this. He denies any upper extremity claudication symptoms. In fact he goes to [employer] 3 to 4 times a week and does do some weight lifting with bilateral upper extremities with no difficulty.He now presents for routine vascular follow-up. Blood pressure on left was 130/88 and on the right was 120/90. Also of note he quit smoking about 3 years ago. [facility] Medical History Aortic valve stenosis Asthma Essential hypertension Mitral valve regurgitation Murmur, cardiac Osteoarthritis Primary osteoarthritis of right hip Surgical History Hx of colonoscopy Hx of left inguinal hernia repair Hx of tonsillectomy S/P total right hip arthroplasty Family History Father No problems noted. Mother No problems noted. Social History Household Members: Spouse Housing: House Are you a primary career and transition teacher to a significant other at home: No Do you presently have visiting nurse or other home services: No Alcohol intake: never Patient Tobacco Use Status: Former Tobacco user Quit Date: 2019 Cigarette Packs Per Day: 0.25 Cigarettes Per Day: 5.0 Years Smoked: 5 e-Cigarette/Vaping Use: Never Used Second Hand Smoke Exposure: No service: No Current occupational status: retired Current occupation: Right Handed Current occupational exposures/hazards: No Cognitive needs: No Hearing needs: No Vision needs: No Review of Systems Const All systems reviewed & are unremarkable except as noted in HPI and below Reports no additional complaints ENT Reports Normal hearing present Card Denies chest pain, Denies chest pain at rest, Denies chest pain with activity and Denies pedal edema Resp Denies cough GI Denies abdominal pain Musc Denies abnormal gait, Denies muscle cramps and Denies radiating pain into limb Skin/Breast Denies skin ulcer and Denies wounds Neuro Reports Normal hearing present and Denies abnormal gait Psych Reports no additional complaints Physical Exam Vital Signs: Last Vital Signs Pulse 71 02/16/23 11:20 BP 120/90 H 02/16/23 11:28 Pulse Ox 98 02/16/23 11:20 Oxygen Delivery Method Room Air 02/16/23 11:20 BMI result Body Mass Index 22.3 Const General: cooperative, healthy appearing and comfortable Orientation/consciousness: oriented to person, oriented to place and oriented to time HEENT Head: Yes normal to inspection Neck Neck: Yes normal visual inspection Carotids: no bruits Chest Chest palpation & inspection: normal inspection of the chest Resp Effort & Inspection: normal respiratory effort and able to speak in complete sentences Auscultation: clear to auscultation bilaterally, no crackles, no rales, no rhonchi and no wheezes Cardio Other: Bilateral palpable brachial radial ulnar pulses Rate: regular rate Rhythm: regular rhythm Heart sounds: S1 normal heart sound present and S2 normal heart sound present Bruits: no carotid bruits Peripheral pulses: Peripheral pulses 2+ throughout GI Inspection: Yes normal to inspection Skin Wounds: no wounds Hair: normal Neuro General: oriented to person, oriented to place and oriented to time Cranial nerves: Yes CN's II-XII intact bilaterally and Yes Normal hearing present Cognition (Neuro): normal cognition Motor exam (neuro): 5/5 motor strength present throughout Extrem Other: venous exam: No significant superficial varicosities or spider telangiectasias, minimal edema General: No clubbing, No cyanosis and No edema Psych Appearance: grossly normal Mental Status: mental status grossly normal Speech and movement: Normal speech and movement present Results Reviewed Results Reviewed: Carotid ultrasound dated 12/13/2022 demonstrates bilateral 0-49% stenosis with the right side concerns occult right subclavian stenosis. Assessment & Plan Assessment & Plan (1) Stenosis of right subclavian artery: Code(s): I77.1 - Stricture of artery Plan: in short patient has an incidental finding of right subclavian stenosis. At the current time he is clinically asymptomatic from this. Would recommend no intervention or follow-up regarding this. In addition we did discuss routine risk factor modification and I did congratulate him on his smoking cessation. He will follow up with us on an as-needed basis. If there are any questions or concerns please do not hesitate to contact us. Coding Level of Care Code New Pt Level 4 (04736) Diagnoses Stenosis of right subclavian artery I77.1
[2023-02-16 11:28] VITALS: BP 120/90
== END 2023-02-16 11:47 | disposition home or self-care (01) ==
PROVIDERS: PCP Family Medicine; Visit Provider Surgery Vascular Surgery
DX: I77.1 Stricture of artery (principal)
CPT/HCPCS: 99203

== ENCOUNTER → 2023-02-16 11:20 | Outpatient (BNVA) | payer MEDICARE, SELFPAY | PROVIDERS: PCP Family Medicine; Visit Provider Surgery Vascular Surgery | DX: I77.1 Stricture of artery (principal) | CPT/HCPCS: 99202 ==

== ENCOUNTER 2023-05-08 07:04 | Outpatient (REF) | payer MEDICARE, SELFPAY ==
[2023-05-08 08:22] LABS: Alanine Aminotransferase 25 U/L (0-40); Albumin Level 4.3 g/dL (3.5-5.0); Alkaline Phosphatase 96 U/L (39-117); Anion Gap 10 (12-20); Aspartate Amino Transferase 26 U/L (5-37); Bilirubin Total 0.6 mg/dL (0.0-1.0); Blood Urea Nitrogen 13 mg/dL (9-16); Calcium 9.3 mg/dL (8.4-10.2); Carbon Dioxide 27 mmol/L (22-29); Chloride 107 mmol/L (96-108); Cholesterol 147 mg/dL (<200); Estimated Glomerular Filt Rate > 60; Glucose Fasting 119 mg/dL (60-99); HDL Cholesterol 49 mg/dL (>40); LDL Cholesterol Calculated 87 mg/dL (<100); Potassium 4.2 mmol/L (3.3-5.1); Sodium 140 mmol/L (135-145); Total Protein 7.2 g/dL (6.5-8.0); Triglycerides 56 mg/dL (<150)
== END 2023-05-08 07:05 | disposition home or self-care (01) ==
LOC: HO.LAB 07:04
PROVIDERS: PCP Family Medicine; Visit Provider Family Medicine
DX: Z00.00 Encounter for general adult medical examination without abnormal findings (principal); E78.00 Pure hypercholesterolemia, unspecified
CPT/HCPCS: 36415; 80053; 80061

== ENCOUNTER 2023-05-25 09:08 | Outpatient (AMB) | payer MEDICARE, SELFPAY ==
--- NOTE | 2023-05-25 09:18 | A.OFFPC_ITS ---
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 Labs were drawn 05/08/23. Reviewed labs with pt. Elevated fasting glucose of 119 and A1c 05/25/23 5.9%. Triglycerides 56. TC 147. LDL 87. HDL 49. Had seen Cardiology for R subclavian artery stenosis - recommended no intervention or f/u regarding this. [facility] Medical History Primary osteoarthritis of right hip Mitral valve regurgitation Asthma Osteoarthritis Essential hypertension Murmur, cardiac Aortic valve stenosis Surgical History Hx of left inguinal hernia repair Hx of tonsillectomy S/P total right hip arthroplasty Hx of colonoscopy Family History Father No problems noted. Mother No problems noted. Social History Household Members: Spouse Housing: House Are you a primary team primary care physician to a significant other at home: No Do you presently have visiting nurse or other home services: No Alcohol intake: never Comment: resting in bed, eyes closed Patient Tobacco Use Status: Former Tobacco user Quit Date: 2019 Cigarette Packs Per Day: 0.25 Cigarettes Per Day: 5.0 Years Smoked: 5 Packs Per Year: 1 Packs per year/per ci.25 e-Cigarette/Vaping Use: Never Used Second Hand Smoke Exposure: No service: No Current occupational status: retired Current occupation: Right Handed Current occupational exposures/hazards: No Cognitive needs: No Hearing needs: No Vision needs: No Questionnaire Thrive Questionnaire Date Thrive assessed: 09/01/22 EDUARDO-7 AMB Questionnaire EDUARDO-7 Date EDUARDO - 7 assessed: 09/01/22 Source: Developed by Drs. Jamaal Kinney, Marta Warner, Farhad Greer and colleagues, with an educational guerrero from [employer]. ACT Questionnaire In the past 4 weeks, how much of the time did your asthma keep you from getting as much done at work, school or at home?: None of the time During the past 4 weeks, how often have you had shortness of breath?: Not at all During the past 4 weeks, how often did your asthma symptoms wake you up at night or earlier than usual in the morning?: Not at all During the past 4 weeks, how often have you had to use your rescue inhaler or nebulizer medication?: Not at all How would you rate your asthma control during the past 4 weeks?: Completely controlled ACT Interpretation: Negative Score: 25 Review of Systems Const Denies chills, Denies fatigue, Denies fever(s), Denies headache(s) and Denies weakness ENT Denies dizziness and Denies headache(s) Card Denies chest pain, Denies lightheadedness, Denies dyspnea and Denies other (Palpitations) Resp Denies cough, Denies dyspnea, Denies wheezing and Denies other ( shortness of breath) Musc Denies numbness and Denies tingling Neuro Denies dizziness, Denies headache(s), Denies numbness, Denies tingling, Denies paresthesias and Denies weakness Psych Denies anxiety and Denies depression Endo Denies fatigue Aller/Immun Denies wheezing Physical exam (Primary Care) Vital Signs: Last Vital Signs Temp 97.8 F 05/25/23 09:19 Pulse 85 05/25/23 09:19 Resp 13 05/25/23 09:19 BP 132/74 05/25/23 09:19 Pulse Ox 99 05/25/23 09:19 Oxygen Delivery Method Room Air 05/25/23 09:19 BMI result Body Mass Index 22.8 Tobacco/Smoking Status: Tobacco use Status Tobacco use date assessed 12/02/22 05/25/23 09:25 Patient Tobacco Use Status Former Tobacco user 05/25/23 09:25 e-Cigarette/Vaping Use Never Used 05/25/23 09:25 Thrive Assessment: Date of Thrive Assessment Date Thrive assessed 09/01/22 05/25/23 09:25 Const General: no acute distress and well developed Nutritional Appearance: well nourished Orientation/consciousness: patient oriented x3 HENMT Head: Yes normocephalic and Yes atraumatic Eyes General: appearance normal, both eyes and all related structures Pupils: Equal, round and reactive pupils present EOM: EOMs intact bilaterally Resp Effort & Inspection: normal respiratory effort Auscultation: clear to auscultation bilaterally Cardio Rate: regular rate Rhythm: regular rhythm Heart sounds: S1 normal heart sound present, S2 normal heart sound present, no gallops, no murmurs and no rubs Neuro General: patient oriented x3 and gait normal Cranial nerves: Yes Equal, round and reactive pupils present Psych Affect: normal affect Office Procedures Pulmonary Testing Pulmonary Testing Details: #1 375 #2 400 #3 525 Personal best 525 All charges added?: Additional procedure code (CPT) needed Results AMB Hemoglobin A1c AMB Hemoglobin A1c 5.9 % Last Edit by Gretta Grace CMA on 05/25/23 09:39 Results Reviewed Results Reviewed: Laboratory Last Values Hgb A1c (Clinic) 5.9 % (4.0-6.0) 05/25/23 09:34 Assessment and Plan Assessment & Plan (1) Hypercholesterolemia: Code(s): E78.00 - Pure hypercholesterolemia, unspecified Plan: Lipids?are?well?controlled Continue?atorvastatin (2) Pre-diabetes: Code(s): R73.03 - Prediabetes Plan: A1c?climbed?to?5.9% Continue?to?work?at?a?diet?low?in?sugars?and?starches Continue?exercise (3) Stenosis of right subclavian artery: Code(s): I77.1 - Stricture of artery Plan: Incidental?finding?of?right?subclavian?artery?stenosis Patient?was?seen?by??Mona.??No?intervention?required?at?this?time Orders: Orders Pulmonary Test/Procedure Today R06.00 - Dyspnea, unspecified AMB Hemoglobin A1c Today Z13.9 - Encounter for screening, unspecified Coding Level of Care Code Est Pt Level 4 (37394) Diagnoses Hypercholesterolemia E78.00 Pre-diabetes R73.03 Stenosis of right subclavian artery I77.1
[2023-05-25 09:19] VITALS: BP 132/74; PULSE 85; RESP 13; TEMP 36.6; O2SAT 99; BMI 22.8
== END 2023-05-25 09:59 | disposition home or self-care (01) ==
PROVIDERS: PCP Family Medicine; Visit Provider Family Medicine
DX: E78.00 Pure hypercholesterolemia, unspecified (principal); R73.03 Prediabetes; I77.1 Stricture of artery
CPT/HCPCS: 83036; 99214

== ENCOUNTER 2023-11-23 09:17 | Outpatient (AMB) | payer MEDICARE, SELFPAY ==
[2023-11-23 09:24] VITALS: BP 130/76; PULSE 70; O2SAT 98; BMI 22.4
--- NOTE | 2023-11-23 09:24 | A.OFFPC_ITS ---
Vital Signs 11/23/23 09:24 Height 5 ft 8 in Weight 147 lb 8 oz BMI 22.4 BP 130/76 Blood Pressure Location Lt brachial Position Sitting Pulse 70 Pulse Source Pulse Oximeter Pulse Oximetry (%) 98 Oxygen Delivery Method Room Air Intake Visit Reasons: f/u hypertension and chronic conditions Intake Note: Patient is here for follow up on hypertension and chronic conditions, he states he did not get his lab order in time, so he did not get them done. Allergies amoxicillin Allergy (Intermediate, Verified 11/23/23 09:28) Rash Medication List - Last Reconciled 11/23/23 by Ihsan Burnett MD albuterol sulfate 90 mcg/actuation (ProAir HFA) 2 puffs inhalation Q6H PRN 30 da ys atorvastatin 10 mg PO BEDTIME 90 days clindamycin HCl 600 mg (2 x 300 mg) PO ONCE 1 day mometasone-formoterol 100-5 mcg/actuation 2 puffs PO DAILY 30 days omeprazole 20 mg PO DAILY 30 days Tobacco use date assessed: 12/02/22 Fall risk assessment: No Falls in past year Last assessed Fall Risk: 11/23/23 Dental Screening Dental Screen Date: 11/23/23 Did you have a dental visit in the last 12 months?: Yes Did you have a dental problem in the last 6 months where you did not have access to dental care?: No Was dental information given to patient?: Patient has dentist HPI f/u hypertension and chronic conditions HPI Details 68 y/o male presents to f[facility]. Last A1c 05/25/23 5.9%. A1c today 11/23/23 is 6.1%. Blood pressure today 130/76. He is not on any meds for blood pressure. HPI Comments History of Present Illness Details Documentation assistance for Ihsan Burnett MD, was provided by Torres Dietz, [employer] on 11/23/2023 at 9:59 AM CHRISTOPHER. Joanna, Dr. Burnett, have read, observed, and verified documentation. [facility] Medical History Primary osteoarthritis of right hip Mitral valve regurgitation Asthma Osteoarthritis Essential hypertension Murmur, cardiac Aortic valve stenosis Surgical History Hx of left inguinal hernia repair Hx of tonsillectomy S/P total right hip arthroplasty Hx of colonoscopy Family History Father No problems noted. Mother No problems noted. 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 care assistant to a significant other at home: No Do you presently have visiting nurse or other home services: No Alcohol intake: never Comment: resting in bed, eyes closed Patient Tobacco Use Status: Former Tobacco user Cigarette Packs Per Day: 0.25 Cigarettes Per Day: 5.0 Years Smoked: 5 e-Cigarette/Vaping Use: Never Used Second Hand Smoke Exposure: No service: No Current occupational status: retired Current occupation: Right Handed Current occupational exposures/hazards: No Cognitive needs: No Hearing needs: No Vision needs: No Questionnaire PHQ-9 Over the last 2 weeks, how often have you been bothered by any of the following problems? 1. Little interest or pleasure in doing things: not at all 2. Feeling down, depressed, or hopeless: not at all 3. Trouble falling or staying asleep, or sleeping too much: not at all 4. Feeling tired or having little energy: not at all 5. Poor appetite or overeating: not at all 6. Feeling bad about yourself - or that you are a failure or have let yourself or your family down: not at all 7. Trouble concentrating on things, such as reading the newspaper or watching television: not at all 8. Moving or speaking so slowly that other people could have noticed. Or the opposite - being so fidgety or restless that you have been moving around a lot more than usual: not at all 9. Thoughts that you would be better off or of hurting yourself in some way: not at all Total score: 0 Depression Screening Interpretation: Negative Depression Screening Done: Yes 62922 - PHQ-9 Billing: Yes Source: Developed by Drs. Jamaal Kinney, Marta Warner, Farhad Greer and colleagues, with an educational guerrero from [employer]. Thrive Questionnaire Date Thrive assessed: 11/23/23 I am a: Patient What is your living situation today?: I have a steady place to live Within the past 12 months, did the food you bought not last and you didn't have the money to get more?: Never true Within the past 12 months, did you worry whether your food would run out before you got money to buy more?: Never true Do you have trouble paying for medicines?: No Do you have trouble getting transportation to medical appointments?: No Do you have trouble paying your heating and electricity bill?: No Do you have trouble taking care of your child, family member or friend?: No Do you have trouble with day-to-day activities such as bathing, preparing meals, shopping, managing finances, etc.?: No Are you currently unemployed and looking for a job?: No Are you interested in more education?: No THRIVE Score: 0 AUDIT C Alcohol Use Questionnaire (AUDIT-C) 1. How often do you have a drink containing alcohol?: Never 3. How often do you have six or more drinks on one occasion?: Never Total Score: 0 EDUARDO-7 AMB Questionnaire EDUARDO-7 Date EDUARDO - 7 assessed: 09/01/22 Feeling nervous, anxious, or on edge: 0 = Not at all Not being able to stop or control worryin = Not at all Worrying too much about different things: 0 = Not at all Trouble relaxin = Not at all Being so restless that it is hard to sit still: 0 = Not at all Becoming easily annoyed or irritable: 0 = Not at all Feeling afraid as if something awful might happen: 0 = Not at all Total EDUARDO-7 score (0-4 normal; 5-9 mild; 10-14 moderate; 15-21 severe): 0 Source: Developed by Drs. Jamaal Kinney, Marta Warner, Farhad Greer and colleagues, with an educational guerrero from [employer]. EDUARDO-7 Assessment Billing EDUARDO-7 Assessment Tool: EDUARDO-7 Assessment 18015 ACT Questionnaire In the past 4 weeks, how much of the time did your asthma keep you from getting as much done at work, school or at home?: None of the time During the past 4 weeks, how often have you had shortness of breath?: Not at all During the past 4 weeks, how often did your asthma symptoms wake you up at night or earlier than usual in the morning?: Not at all During the past 4 weeks, how often have you had to use your rescue inhaler or nebulizer medication?: 2-3 times a week (every day) How would you rate your asthma control during the past 4 weeks?: Completely controlled Score: 23 Review of Systems Const Denies chills, Denies fatigue, Denies fever(s), Denies headache(s) and Denies weakness ENT Denies dizziness and Denies headache(s) Card Denies chest pain, Denies lightheadedness, Denies dyspnea and Denies other (Palpitations) Resp Denies cough, Denies dyspnea, Denies wheezing and Denies other ( shortness of breath) Musc Denies numbness and Denies tingling Neuro Denies dizziness, Denies headache(s), Denies numbness, Denies tingling, Denies paresthesias and Denies weakness Psych Denies anxiety and Denies depression Endo Denies fatigue Aller/Immun Denies wheezing Physical exam (Primary Care) Vital Signs: Last Vital Signs Pulse 70 11/23/23 09:24 BP 130/76 11/23/23 09:24 Pulse Ox 98 11/23/23 09:24 Oxygen Delivery Method Room Air 11/23/23 09:24 BMI result Body Mass Index 22.4 Tobacco/Smoking Status: Tobacco use Status Tobacco use date assessed 12/02/22 11/23/23 09:25 Patient Tobacco Use Status Former Tobacco user 11/23/23 09:25 e-Cigarette/Vaping Use Never Used 11/23/23 09:25 PHQ-9: PHQ-9 Score PHQ-9: Total score 0 11/23/23 09:37 Depression Screening Interpretation: Negative Thrive Assessment: Date of Thrive Assessment Date Thrive assessed 11/23/23 11/23/23 09:37 Const General: no acute distress and well developed Nutritional Appearance: well nourished Orientation/consciousness: patient oriented x3 HENMT Head: Yes normocephalic and Yes atraumatic Eyes General: appearance normal, both eyes and all related structures Pupils: Equal, round and reactive pupils present EOM: EOMs intact bilaterally Resp Effort & Inspection: normal respiratory effort Auscultation: clear to auscultation bilaterally Cardio Rate: regular rate Rhythm: regular rhythm Heart sounds: S1 normal heart sound present, S2 normal heart sound present, no gallops, no murmurs and no rubs Neuro General: patient oriented x3 and gait normal Cranial nerves: Yes Equal, round and reactive pupils present Psych Affect: normal affect Results AMB Hemoglobin A1c AMB Hemoglobin A1c 6.1 % Last Edit by Alice Gaitan CMA on 11/23/23 10:41 Assessment and Plan Assessment & Plan (1) Pre-diabetes: Code(s): R73.03 - Prediabetes Plan: A1c?climbed?from?5.9%?to?6.1%. Encouraged?a?diet?lower?in?sugars?and?starches Will?continue?to?monitor (2) Allergies: Code(s): T78.40XA - Allergy, unspecified, initial encounter Plan: Currently?uses?a?nasal?steroid Will?give?him?a?script?for?cetirizine Also?advised?exposure?avoidance?with?hep?filtration,?hypoallergenic?bedding?and? air?conditioning?as?he?is?able (3) Pre-hypertension: Code(s): R03.0 - Elevated blood-pressure reading, without diagnosis of hypertension Plan: Encouraged?diet?lower?in?salt?and?sodium Will?monitor Orders: Orders Comprehensive [place]. Panel Fast Today Z00.00 - Encounter for general adult medical examination without abnormal findings Complete Blood Count Auto Diff Today Z00.00 - Encounter for general adult medical examination without abnormal findings Lipid Panel Today Z00.00 - Encounter for general adult medical examination without abnormal findings Microalbumin, Random (w Creat) Today I10 - Essential (primary) hypertension Prostate Specific Antigen Scr Today Z12.5 - Encounter for screening for malignant neoplasm of prostate TSH reflex Free T4 Today Z00.00 - Encounter for general adult medical examination without abnormal findings AMB Hemoglobin A1c Today Z13.9 - Encounter for screening, unspecified UA and rflx microscopic Today Z00.00 - Encounter for general adult medical examination without abnormal findings Medications: New cetirizine (All Day Allergy (cetirizine)) 10 mg PO DAILY 90 days PRN 90 tabs 2RF allergy symptoms Coding Level of Care Code Est Pt Level 4 (16077) Diagnoses Pre-diabetes R73.03 Allergies T78.40XA Pre-hypertension R03.0 Additional Codes EDUARDO-7 Assessment Billing - EDUARDO-7 Assessment Tool: EDUARDO-7 Assessment 31557 ([id number])
== END 2023-11-23 10:52 | disposition home or self-care (01) ==
PROVIDERS: PCP Family Medicine; Visit Provider Family Medicine
DX: R73.03 Prediabetes (principal); T78.40XA Allergy, unspecified, initial encounter; R03.0 Elevated blood-pressure reading, without diagnosis of hypertension
CPT/HCPCS: 83036; 99214

== ENCOUNTER 2024-02-20 08:19 | Outpatient (REF) | payer MEDICARE, SELFPAY ==
[2024-02-20 10:07] LABS: MANUAL DIFF FLAG NO
[2024-02-20 10:14] LABS: Basophils Absolute Auto 0.1 X10*3/uL (0.0-0.2); Eosinophils Absolute Auto 0.3 X10*3/uL (0.0-0.4); Eosinophils Percent Auto 3.9 % (0-4); Hematocrit 48.6 % (42.0-52.0); Hemoglobin 16.5 g/dl (14.0-18.0); Imm Gran Abs Auto 0.01 X10*3/uL (0.00-0.03); Imm Gran Pct Auto 0.1 % (0.0-0.4); Lymphocytes Absolute Auto 1.5 X10*3/uL (1.2-4.9); Lymphocytes Percent Auto 21.5 % (20-40); Mean Corpuscular Hemoglobin 30.2 pg (27.0-33.0); Mean Platelet Volume 9.5 fL (9.4-12.4); Monocytes Absolute Auto 0.7 X10*3/uL (0.1-1.2); Monocytes Percent Auto 10.5 % (2-11); Neutrophils Absolute Auto 4.3 x10*3/uL (2.0-8.3); Platelet Count 213 X10*3/uL (160-400); Red Blood Count 5.46 X10*6/uL (4.60-5.80); Red Cell Distribution Width 12.4 % (11.0-16.0); White Blood Count 6.9 X10*3/uL (4.8-10.8)
[2024-02-20 10:31] LABS: Estimated Average Glucose 117 mg/dL; Hemoglobin A1c % 5.7 % (<6.0)
[2024-02-20 10:35] LABS: Appearance Urine Clear; Color Urine Yellow; Glucose Urine UA Negative (Negative); Leukocyte Esterase Urine Negative (Negative); Nitrite Urine Negative (Negative); PH 5.5 (5.0-9.0); Urine Blood Negative (Negative); Urine Ketones Negative (Negative); Urine Protein Negative (Neg-Trace)
[2024-02-20 10:39] LABS: Prostate Specific Antigen Scr 1.14 ng/mL (<0.05-4.0)
[2024-02-20 10:55] LABS: Alanine Aminotransferase 25 U/L (0-40); Albumin Level 4.3 g/dL (3.5-5.0); Alkaline Phosphatase 91 U/L (39-117); Anion Gap 12 (12-20); Aspartate Amino Transferase 25 U/L (5-37); Bilirubin Total 1.3 mg/dL (0.0-1.0); Blood Urea Nitrogen 14 mg/dL (9-16); Calcium 9.6 mg/dL (8.4-10.2); Carbon Dioxide 27 mmol/L (22-29); Chloride 106 mmol/L (96-108); Cholesterol 154 mg/dL (<200); Estimated Glomerular Filt Rate > 60; Glucose Fasting 103 mg/dL (60-99); HDL Cholesterol 45 mg/dL (>40); LDL Cholesterol Calculated 91 mg/dL (<100); Potassium 3.9 mmol/L (3.3-5.1); Sodium 141 mmol/L (135-145); Total Protein 7.1 g/dL (6.5-8.0); Triglycerides 94 mg/dL (<150)
[2024-02-20 11:10] LABS: Creatinine Urine 148.44 mg/dL; Microalbum/Creatinine Ratio Ur 12.7 ug/mg cr (<30)
== END 2024-02-20 08:20 | disposition home or self-care (01) ==
LOC: HO.HMGCLDS 08:19
PROVIDERS: PCP Family Medicine; Visit Provider Family Medicine
DX: Z00.00 Encounter for general adult medical examination without abnormal findings (principal); I10 Essential (primary) hypertension; Z12.5 Encounter for screening for malignant neoplasm of prostate; R73.01 Impaired fasting glucose
CPT/HCPCS: 36415; 80053; 80061; 81003; 82043; 82570; 83036; 84153; 84443; 85025

== ENCOUNTER 2024-02-27 08:57 | Outpatient (AMB) | payer MEDICARE, SELFPAY ==
--- NOTE | 2024-02-27 09:12 | MHC.PC.OV ---
Vital Signs 02/27/24 09:16 Height 5 ft 8 in Weight 150 lb 4 oz BMI 22.8 BP 112/78 Blood Pressure Location Lt brachial Position Sitting Respiration 12 Pulse 59 Pulse Source Pulse Oximeter Pulse Oximetry (%) 98 Oxygen Delivery Method Room Air Intake Visit Reasons: CPE Intake Note: Physical. Lab results. Safety Sitter Required: No Allergies amoxicillin Allergy (Intermediate, Verified 02/27/24 09:13) Rash Medication List - Last Reconciled 02/27/24 by Ihsan Burnett MD albuterol sulfate 90 mcg/actuation (ProAir HFA) 2 puffs inhalation Q6H PRN 30 days atorvastatin 10 mg PO BEDTIME 90 days cetirizine (All Day Allergy (cetirizine)) 10 mg PO DAILY PRN 90 days mometasone-formoterol 100-5 mcg/actuation 2 puffs PO DAILY 30 days omeprazole 20 mg PO DAILY 30 days Tobacco use date assessed: 12/02/22 Fall risk assessment: No Falls in past year Last assessed Fall Risk: 02/27/24 Dental Screening Dental Screen Date: 11/23/23 HPI CPE HPI Details 68 y/o male presents for a CPE with f/u labs and health maintenance. Labs drawn 02/20/24. Reviewed labs with pt. A1c 5.7% - pre-diabetes. Liver enzymes are fine. Triglycerides 94. TC 154. LDL 91. HDL 45. He is on artovastatin 10mg. PSA 1.14. Blood pressure today 112/78, 59p. Tries to eat a healthy diet. 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 Up to date with his colonoscopy and states he sees GI back in 2025. Has complaints of an episode of R hip pain - still reports some ongoing tightness/pain. He described pain as sharp and intense. HPI Comments History of Present Illness Details Documentation assistance for Ihsan Burnett MD, was provided by Torres Dietz,? Living Nurse on 02/27/2024 at 9:35 AM CHRISTOPHER. Joanna, Dr. Burnett, have read, observed, and verified documentation. [facility] Medical History (Updated 11/23/23 @ 10:49 by Torres Dietz) Primary osteoarthritis of right hip Mitral valve regurgitation Asthma Osteoarthritis Murmur, cardiac Aortic valve stenosis Surgical History Hx of left inguinal hernia repair Hx of tonsillectomy S/P total right hip arthroplasty Hx of colonoscopy Family History Father No problems noted. Mother No problems noted. Social History Household Members: Spouse Housing: House Are you a primary healthcare specialist to a significant other at home: No Do you presently have visiting nurse or other home services: No Alcohol intake: never Comment: resting in bed, eyes closed Patient Tobacco Use Status: Former Tobacco user Cigarette Packs Per Day: 0.25 Cigarettes Per Day: 5.0 Years Smoked: 5 e-Cigarette/Vaping Use: Never Used Second Hand Smoke Exposure: No service: No Current occupational status: retired Current occupation: Right Handed Current occupational exposures/hazards: No Cognitive needs: No Hearing needs: No Vision needs: No Questionnaire PHQ-9 Over the last 2 weeks, how often have you been bothered by any of the following problems? 1. Little interest or pleasure in doing things: not at all 2. Feeling down, depressed, or hopeless: not at all 3. Trouble falling or staying asleep, or sleeping too much: not at all 4. Feeling tired or having little energy: not at all 5. Poor appetite or overeating: not at all 6. Feeling bad about yourself - or that you are a failure or have let yourself or your family down: not at all 7. Trouble concentrating on things, such as reading the newspaper or watching television: not at all 8. Moving or speaking so slowly that other people could have noticed. Or the opposite - being so fidgety or restless that you have been moving around a lot more than usual: not at all 9. Thoughts that you would be better off or of hurting yourself in some way: not at all Total score: 0 Depression Screening Interpretation: Negative Depression Screening Done: Yes 84572 - PHQ-9 Billing: Yes Source: Developed by Drs. Jamaal Kinney, Marta Warner, Farhad Greer and colleagues, with an educational guerrero from [employer]. Thrive Questionnaire Date Thrive assessed: 02/27/24 I am a: Patient What is your living situation today?: I have a steady place to live Within the past 12 months, did the food you bought not last and you didn't have the money to get more?: Never true Within the past 12 months, did you worry whether your food would run out before you got money to buy more?: Never true Do you have trouble paying for medicines?: No Do you have trouble getting transportation to medical appointments?: No Do you have trouble paying your heating and electricity bill?: No Do you have trouble taking care of your child, family member or friend?: No Do you have trouble with day-to-day activities such as bathing, preparing meals, shopping, managing finances, etc.?: No Are you currently unemployed and looking for a job?: No Are you interested in more education?: No Please select the resources that you would like help with: None Currently or been in a relationship where the following occur: No concerns reported THRIVE Score: 0 AUDIT C Alcohol Use Questionnaire (AUDIT-C) 1. How often do you have a drink containing alcohol?: Never 3. How often do you have six or more drinks on one occasion?: Never Total Score: 0 EDUARDO-7 AMB Questionnaire EDUARDO-7 Date EDUARDO - 7 assessed: 02/27/24 Feeling nervous, anxious, or on edge: 0 = Not at all Not being able to stop or control worryin = Not at all Worrying too much about different things: 0 = Not at all Trouble relaxin = Not at all Being so restless that it is hard to sit still: 0 = Not at all Becoming easily annoyed or irritable: 0 = Not at all Feeling afraid as if something awful might happen: 0 = Not at all Total EDUARDO-7 score (0-4 normal; 5-9 mild; 10-14 moderate; 15-21 severe): 0 Source: Developed by Drs. Jamaal Kinney, Marta Warner, Farhad Greer and colleagues, with an educational guerrero from [employer]. EDUARDO-7 Assessment Billing EDUARDO-7 Assessment Tool: EDUARDO-7 Assessment 81932 ACT Questionnaire In the past 4 weeks, how much of the time did your asthma keep you from getting as much done at work, school or at home?: None of the time During the past 4 weeks, how often have you had shortness of breath?: Not at all During the past 4 weeks, how often did your asthma symptoms wake you up at night or earlier than usual in the morning?: Not at all During the past 4 weeks, how often have you had to use your rescue inhaler or nebulizer medication?: Not at all How would you rate your asthma control during the past 4 weeks?: Completely controlled ACT Interpretation: Negative Score: 25 Review of Systems Const Denies chills, Denies fatigue, Denies fever(s), Denies headache(s) and Denies weakness Eyes Denies change in vision ENT Denies dizziness, Denies headache(s), Denies hearing loss, Denies nasal congestion, Denies sinus pain, Denies sinus pressure and Denies sore throat Card Denies chest pain, Denies lightheadedness, Denies dyspnea and Denies other (palpitations) Resp Denies cough, Denies dyspnea and Denies wheezing GI Denies abdominal pain, Denies melena, Denies hematochezia, Denies change in bowel habits, Denies dyspepsia and Denies nausea Denies hematuria and Denies dysuria Musc Details: R hip pain Denies abnormal gait, Denies myalgias, Denies arthralgias, Denies numbness and Denies tingling Skin/Breast Denies rash, Denies unusual bruising and Denies wounds Neuro Denies abnormal gait, Denies dizziness, Denies headache(s), Denies memory loss, Denies numbness, Denies Sensory deficit (Neuro), Denies tingling and Denies weakness Psych Denies anxiety, Denies depression and Denies memory loss Endo Denies cold intolerance, Denies fatigue, Denies heat intolerance, Denies polydipsia and Denies polyuria Dontae/Lymph Denies easy bleeding and Denies easy bruising Aller/Immun Denies wheezing Physical exam (Primary Care) Vital Signs: Last Vital Signs Pulse 59 02/27/24 09:16 Resp 12 02/27/24 09:16 BP 112/78 02/27/24 09:16 Pulse Ox 98 02/27/24 09:16 Oxygen Delivery Method Room Air 02/27/24 09:16 BMI result Body Mass Index 22.8 Tobacco/Smoking Status: Tobacco use Status Tobacco use date assessed 12/02/22 02/27/24 09:13 Patient Tobacco Use Status Former Tobacco user 02/27/24 09:13 e-Cigarette/Vaping Use Never Used 02/27/24 09:13 PHQ-9: PHQ-9 Score PHQ-9: Total score 0 02/27/24 09:20 Depression Screening Interpretation: Negative Thrive Assessment: Date of Thrive Assessment Date Thrive assessed 02/27/24 02/27/24 09:19 Currently or been in a relationship where the following occur: No concerns reported Const General: no acute distress, well developed, alert and awake Nutritional Appearance: well nourished Orientation/consciousness: patient oriented x3 HENMT Head: Yes normocephalic and Yes atraumatic Ears: hearing grossly normal bilaterally and TM's normal bilaterally General nose exam: Normal external nose present and Normal nares present Mouth: Normal oral and palatal mucosa present and moist mucous membranes Teeth and gingiva: dentition normal Throat: Yes posterior oropharynx normal Eyes General: appearance normal, both eyes and all related structures Pupils: Equal, round and reactive pupils present and Pupil accommodation reflex normal EOM: EOMs intact bilaterally Neck Neck: Yes normal visual inspection, Yes no lymphadenopathy and Yes trachea midline Thyroid: Thyroid normal Carotids: no bruits Lymphatic: no lymphadenopathy noted Chest Chest palpation & inspection: normal inspection of the chest Resp Effort & Inspection: normal respiratory effort Auscultation: clear to auscultation bilaterally Cardio Rate: regular rate Rhythm: regular rhythm Heart sounds: S1 normal heart sound present, S2 normal heart sound present, no gallops, no murmurs and no rubs Bruits: no abdominal aortic bruits and no carotid bruits GI Palpation (GI): No Abdominal aortic bruit present, Soft to palpation, nontender, No hepatosplenomegaly present and No Rebound tenderness present Auscultation: normal bowel sounds General: Yes no CVA tenderness Back/Spine/Pelvis Back: no CVA tenderness Cervical Spine: cervical ROM normal and No Cervical spine tenderness Thoracic/Lumbar Spine: thoraco-lumbar ROM normal, No pain with thoraco-lumbar ROM, No thoracic spinal tenderness and No lumbar spinal tenderness Skin Lesions: no lesions Rashes: no rashes Trauma: no lacerations or abrasions Wounds: no wounds Nails: normal Neuro General: patient oriented x3 Cranial nerves: Yes Equal, round and reactive pupils present Cognition (Neuro): normal cognition Gait exam (Neuro): Normal gait present Motor exam (neuro): 5/5 motor strength present throughout Sensory Exam: No Sensory deficit (Neuro) Deep tendon reflexes (DTR's): Right patellar reflex intensity grade: 2+ and Left patellar reflex intensity grade: 2+ Extrem General: Yes normal to inspection and No edema Psych Appearance: grossly normal Affect: normal affect Attitude: cooperative Thought process: Normal thought process present Assessment and Plan Assessment & Plan (1) Adult general medical examination: Code(s): Z00.00 - Encounter for general adult medical examination without abnormal findings Plan: 68-year-old?male?presents?for?complete?physical?exam Encouraged?healthy?diet?with?active?lifestyle?and?plenty?of?exercise (2) Pre-diabetes: Code(s): R73.03 - Prediabetes Plan: A1c?improved?and?now?at?5.7% Continue?working?at?a?diet?low?in?sugars?and?starches (3) Right hip pain: Code(s): M25.551 - Pain in right hip Plan: Likely?muscular?strain This?is?improving?on?its?own Continue?gentle?stretching If?improvement?Stalls?or?worsens?he?can?call?for?an?appointment (4) Hyperlipidemia: Code(s): E78.5 - Hyperlipidemia, unspecified Plan: Lipids?are?well?controlled. Continue?atorvastatin (5) Screening for prostate cancer: Code(s): Z12.5 - Encounter for screening for malignant neoplasm of prostate Plan: PSA?is?within?normal?range Continue?annual?screening (6) Screening for colon cancer: Code(s): Z12.11 - Encounter for screening for malignant neoplasm of colon Plan: Followed?by?[facility]?gastroenterology?and?they?have?advised Repeat?colonoscopy?in?2025 Up-to-date Orders: Orders Hemoglobin A1c Today R73.01 - Impaired fasting glucose Lipid Panel Today Z00.00 - Encounter for general adult medical examination without abnormal findings Comprehensive [place]. Panel Fast Today Z00.00 - Encounter for general adult medical examination without abnormal findings Medications: Refilled atorvastatin 10 mg PO BEDTIME 90 days 90 tabs 4RF omeprazole 20 mg PO DAILY 30 days 30 caps 5RF mometasone-formoterol 100-5 mcg/actuation 2 puffs PO DAILY 30 days 13 grams 4RF Coding Level of Care Code Est Pt Level 3 (13138) Est Pt Prev Care >65y(91646) Diagnoses Adult general medical examination Z00.00 Pre-diabetes R73.03 Right hip pain M25.551 Hyperlipidemia E78.5 Screening for prostate cancer Z12.5 Screening for colon cancer Z12.11 Additional Codes EDUARDO-7 Assessment Billing - EDUARDO-7 Assessment Tool: EDUARDO-7 Assessment 13314 ([id number])
[2024-02-27 09:16] VITALS: BP 112/78; PULSE 59; RESP 12; O2SAT 98; BMI 22.8
== END 2024-02-27 09:51 | disposition home or self-care (01) ==
PROVIDERS: PCP Family Medicine; Visit Provider Family Medicine
DX: Z00.00 Encounter for general adult medical examination without abnormal findings (principal); R73.03 Prediabetes; M25.551 Pain in right hip; E78.5 Hyperlipidemia, unspecified; Z12.5 Encounter for screening for malignant neoplasm of prostate; Z12.11 Encounter for screening for malignant neoplasm of colon
CPT/HCPCS: 99397

== ENCOUNTER 2024-06-17 11:22 | Outpatient (AMB) | payer MEDICARE, SELFPAY ==
--- NOTE | 2024-06-17 12:40 | MHC.PC.OV ---
Vital Signs 06/17/24 12:43 Height 5 ft 8 in Weight 143 lb 6 oz BMI 21.8 BP 130/70 Blood Pressure Location Lt brachial Position Sitting Respiration 16 Pulse 88 Pulse Source Palpation Temp 98.2 F Temp Source Oral Intake Visit Reasons: Pain in both legs Intake Note: lower body pain within the last 1-2 weeks Allergies amoxicillin Allergy (Intermediate, Verified 06/17/24 12:42) Rash Medication List - Last Reconciled 06/17/24 by Ihsan Burnett MD albuterol sulfate 90 mcg/actuation (ProAir HFA) 2 puffs inhalation Q6H PRN 30 days atorvastatin 10 mg PO BEDTIME 90 days mometasone-formoterol 100-5 mcg/actuation 2 puffs PO DAILY 30 days omeprazole 20 mg PO DAILY 30 days Tobacco use date assessed: 12/02/22 Dental Screening Dental Screen Date: 11/23/23 HPI Pain in both legs HPI Details 69 y/o male presents today with complaints of bilateral leg pain. He describes pain as pain in his L groin when crossing his leg over. Also reports pain in the R hip area. Hx of R hip replacement. Notes he has trialed physical therapy before which had failed for him. Does have some lower extremity weakness. He has been alternating between ibuprofen and tylenol for pain relief. Reports difficulty sleeping. HPI Comments History of Present Illness Details Documentation assistance for Ihsan Burnett MD, was provided by Torres Dietz,? Fabrication Mig Welder on 06/17/2024 at 1:13 PM CHRISTOPHER. I, Dr. Burnett, have read, observed, and verified documentation. ?? PFS Medical History (Updated 06/17/24 @ 13:18 by Torres Dietz) Primary osteoarthritis of right hip Mitral valve regurgitation Asthma Osteoarthritis Murmur, cardiac Aortic valve stenosis Surgical History Hx of left inguinal hernia repair Hx of tonsillectomy S/P total right hip arthroplasty Hx of colonoscopy Family History Father No problems noted. Mother No problems noted. Social History Household Members: Spouse Housing: House Are you a primary manager wound care to a significant other at home: No Do you presently have visiting nurse or other home services: No Alcohol intake: never Comment: resting in bed, eyes closed Patient Tobacco Use Status: Former Tobacco user Cigarette Packs Per Day: 0.25 Cigarettes Per Day: 5.0 Years Smoked: 5 e-Cigarette/Vaping Use: Never Used Second Hand Smoke Exposure: No service: No Current occupational status: retired Current occupation: Right Handed Current occupational exposures/hazards: No Cognitive needs: No Hearing needs: No Vision needs: No Questionnaire PHQ-9 Over the last 2 weeks, how often have you been bothered by any of the following problems? 1. Little interest or pleasure in doing things: not at all 2. Feeling down, depressed, or hopeless: not at all 3. Trouble falling or staying asleep, or sleeping too much: several days 4. Feeling tired or having little energy: several days 5. Poor appetite or overeating: not at all 6. Feeling bad about yourself - or that you are a failure or have let yourself or your family down: not at all 7. Trouble concentrating on things, such as reading the newspaper or watching television: not at all 8. Moving or speaking so slowly that other people could have noticed. Or the opposite - being so fidgety or restless that you have been moving around a lot more than usual: not at all 9. Thoughts that you would be better off or of hurting yourself in some way: not at all Total score: 2 Source: Developed by Drs. Jamaal Kinney, Marta Warner, Farhad Greer and colleagues, with an educational guerrero from [employer]. Thrive Questionnaire Date Thrive assessed: 02/27/24 I am a: Patient What is your living situation today?: I have a steady place to live Within the past 12 months, did the food you bought not last and you didn't have the money to get more?: Never true Within the past 12 months, did you worry whether your food would run out before you got money to buy more?: Never true Do you have trouble paying for medicines?: No Do you have trouble getting transportation to medical appointments?: No Do you have trouble paying your heating and electricity bill?: No Do you have trouble taking care of your child, family member or friend?: No Do you have trouble with day-to-day activities such as bathing, preparing meals, shopping, managing finances, etc.?: No Are you currently unemployed and looking for a job?: No Are you interested in more education?: No Please select the resources that you would like help with: None Currently or been in a relationship where the following occur: No concerns reported THRIVE Score: 0 AUDIT C Alcohol Use Questionnaire (AUDIT-C) 1. How often do you have a drink containing alcohol?: Never Total Score: 0 EDUARDO-7 AMB Questionnaire EDUARDO-7 Date EDUARDO - 7 assessed: 02/27/24 Feeling nervous, anxious, or on edge: 0 = Not at all Not being able to stop or control worryin = Not at all Worrying too much about different things: 0 = Not at all Trouble relaxin = Several days Being so restless that it is hard to sit still: 0 = Not at all Becoming easily annoyed or irritable: 0 = Not at all Feeling afraid as if something awful might happen: 0 = Not at all Total EDUARDO-7 score (0-4 normal; 5-9 mild; 10-14 moderate; 15-21 severe): 1 Source: Developed by Drs. Jamaal Kinney, Marta Warner, Farhad Greer and colleagues, with an educational guerrero from [employer]. Review of Systems Const Denies chills, Denies fatigue, Denies fever(s), Denies headache(s) and Denies weakness ENT Denies dizziness and Denies headache(s) Card Denies dyspnea Resp Denies cough, Denies dyspnea, Denies wheezing and Denies other (shortness of breath) Musc Details: R hip pain Groin pain Denies numbness and Denies tingling Neuro Denies dizziness, Denies headache(s), Denies numbness, Denies tingling and Denies weakness Psych Denies anxiety and Denies depression Endo Denies fatigue Aller/Immun Denies wheezing Physical exam (Primary Care) Vital Signs: Last Vital Signs Temp 98.2 F 06/17/24 12:43 Pulse 88 06/17/24 12:43 Resp 16 06/17/24 12:43 BP 130/70 06/17/24 12:43 BMI result Body Mass Index 21.8 Tobacco/Smoking Status: Tobacco use Status Tobacco use date assessed 12/02/22 06/17/24 12:41 Patient Tobacco Use Status Former Tobacco user 06/17/24 12:41 e-Cigarette/Vaping Use Never Used 06/17/24 12:41 PHQ-9: PHQ-9 Score PHQ-9: Total score 2 06/17/24 12:41 Thrive Assessment: Date of Thrive Assessment Date Thrive assessed 02/27/24 06/17/24 12:41 Currently or been in a relationship where the following occur: No concerns reported Const General: well developed; No acute distress Nutritional Appearance: well nourished Orientation/consciousness: patient oriented x3 HENMT Head: Yes normocephalic and Yes atraumatic Eyes General: appearance normal, both eyes and all related structures Pupils: Equal, round and reactive pupils present EOM: EOMs intact bilaterally Resp Effort & Inspection: normal respiratory effort Neuro General: patient oriented x3 and gait normal Cranial nerves: Yes Equal, round and reactive pupils present Psych Affect: normal affect Coding Level of Care Code Est Pt Level 4 (02686) Diagnoses Bilateral hip pain M25.551; M25.552 Bilateral leg pain M79.604; M79.605 Lower extremity weakness R29.898 Difficulty sleeping G47.9 Assessment & Plan Assessment & Plan (1) Bilateral hip pain: Code(s): M25.551 - Pain in right hip; M25.552 - Pain in left hip Category: Medical Plan: Patient?with?history?of?degenerative?hip?arthritis?and?history?of?right?hip?replacement Presents?with?ongoing?bilateral?hip?pain,?left?worse?than?right He?does?note?that?he?had?a?mechanical?trip?and?fall?couple?weeks?ago in?this?may?be?contributing?to?flare?of?his?symptoms Will?give?him?meloxicam Advised?rest?and?I?will?keep?him?out?of?work?for?the?next?2?weeks.??He?can?return?June?. Maintain?regular?range?of?motion.??When?feeling?better?can?adding?gentle?stretching. If?tolerating?gentle?stretching?for?few?days,?advised?start?back?up?at?plain?fitness?to?improve?strength?as?he?has?some?or?extremity?weakness?likely?secondary?to?decreased?effort?from?pain. Check?x-rays?of?low?back?and?hips Will?follow-up?and?if?indicated,?would?consider?referral?to?Ortho Will?also?review?lab?work?at?next?visit?as?I?am?checking?inflammatory?markers (2) Bilateral leg pain: Code(s): M79.604 - Pain in right leg; M79.605 - Pain in left leg Category: Medical Plan: As?above (3) Lower extremity weakness: Code(s): R29.898 - Other symptoms and signs involving the musculoskeletal system Category: Medical Plan: As?above Advised?physical?therapy?but?patient?was?to?get?exercise?on?his?own?when?appropriate?to?restarted (4) Difficulty sleeping: Code(s): G47.9 - Sleep disorder, unspecified Category: Medical Plan: Trial?trazodone Orders: Orders Erythrocyte Sedimentation Rate Today M79.604 - Pain in right leg, M79.605 - Pain in left leg XR hip LT min 2V w/wo pel Today M25.551 - Pain in right hip, M25.552 - Pain in left hip XR lumbar spine 2-3V Today M25.551 - Pain in right hip, M25.552 - Pain in left hip Comprehensive Met. Panel Today M79.604 - Pain in right leg, M79.605 - Pain in left leg Complete Blood Count Auto Diff Today M79.604 - Pain in right leg, M79.605 - Pain in left leg, Z00.00 - Encounter for general adult medical examination without abnormal findings CRP High Sensitivity Today M79.604 - Pain in right leg, M79.605 - Pain in left leg Medications: New meloxicam 15 mg PO DAILY 30 days 30 tabs 2RF M25.551 - Pain in right hip, M25.552 - Pain in left hip trazodone 50 mg PO BEDTIME 30 days PRN 30 tabs 0RF sleep G47.9 - Sleep disorder, unspecified
[2024-06-17 12:43] VITALS: BP 130/70; PULSE 88; RESP 16; TEMP 36.8; BMI 21.8
== END 2024-06-17 13:21 | disposition home or self-care (01) ==
PROVIDERS: PCP Family Medicine; Visit Provider Family Medicine
DX: M25.551 Pain in right hip (principal); M25.552 Pain in left hip; M79.604 Pain in right leg; M79.605 Pain in left leg; R29.898 Other symptoms and signs involving the musculoskeletal system; G47.9 Sleep disorder, unspecified

== ENCOUNTER → 2024-06-17 14:06 | Outpatient (BNV) | payer MEDICARE, SELFPAY | PROVIDERS: PCP Family Medicine; Visit Provider Radiology Diagnostic Radiology | DX: M25.551 Pain in right hip (principal); M79.606 Pain in leg, unspecified | CPT/HCPCS: 72100; 73501 ==

== ENCOUNTER 2024-06-20 11:38 | Outpatient (AMB) | payer MEDICARE, SELFPAY ==
--- NOTE | 2024-06-20 13:01 | MHC.OFFWIV ---
Intake Vital Signs 06/20/24 13:02 Weight 146 lb BP 130/90 H Blood Pressure Location Lt brachial Position Sitting Pulse 83 Pulse Source Pulse Oximeter Pulse Oximetry (%) 97 Oxygen Delivery Method Room Air Intake Visit Reasons: EP-both legs back pain Intake Note: Patient here for back of leg pain that has been present since . Patient Tobacco Use Status: Former Tobacco user Allergies amoxicillin Allergy (Intermediate, Verified 06/20/24 13:03) Rash Do you need a note to return to daycare/school/sports/work: No HPI EP-both legs back pain HPI Details This note is constructed using voice recognition software. While every effort has been made to ensure accuracy, manager clinical pharmacy errors may have been included. The patient is a 69 year old male who presents to the clinic today with posterior leg pain bilaterally for the past several weeks. He was last seen by his primary care provider on 06/17/2024, and started on meloxicam, which he notes has not help the pain at all. He also was started on trazodone to help with sleep. He notes that the sleep has been difficult due to his ongoing pain. He does not feel that the trazodone has helped asleep either. Prior to starting meloxicam he has been alternating Tylenol and Motrin with little effect. He had x-rays obtained after having a recent fall, to evaluate for any contribution to the pain, and noted some arthritis in the spine, but no other fractures. He denies any new pain, and does report this is the same as the pain he was evaluated for by his primary care provider. He is trying topical muscle rubs in form of a patch, which helps very slightly. He denies numbness and tingling in legs/feet. [facility] Medical History (Updated 06/17/24 @ 13:18 by Torres Dietz) Primary osteoarthritis of right hip Mitral valve regurgitation Asthma Osteoarthritis Murmur, cardiac Aortic valve stenosis Surgical History Hx of left inguinal hernia repair Hx of tonsillectomy S/P total right hip arthroplasty Hx of colonoscopy Family History Father No problems noted. Mother No problems noted. Social History (Reviewed 11/23/23 @ 09:29 by Alice Gaitan CHANGE ADVISORLady Household Members: Spouse Housing: House Are you a primary long term care administrator to a significant other at home: No Do you presently have visiting nurse or other home services: No Alcohol intake: never Comment: resting in bed, eyes closed Patient Tobacco Use Status: Former Tobacco user Cigarette Packs Per Day: 0.25 Cigarettes Per Day: 5.0 Years Smoked: 5 e-Cigarette/Vaping Use: Never Used Second Hand Smoke Exposure: No service: No Current occupational status: retired Current occupation: Right Handed Current occupational exposures/hazards: No Cognitive needs: No Hearing needs: No Vision needs: No Review of Systems Const All systems reviewed & are unremarkable except as noted in HPI and below Physical Exam Vital Signs: Last Vital Signs Pulse 83 06/20/24 13:02 BP 130/90 H 06/20/24 13:02 Pulse Ox 97 06/20/24 13:02 Oxygen Delivery Method Room Air 06/20/24 13:02 Const General: cooperative, healthy appearing, comfortable, no acute distress and well developed Orientation/consciousness: patient oriented x3 Limitations: no limitations Resp Effort & Inspection: normal respiratory effort and able to speak in complete sentences Skin General skin exam: no rashes or lesions noted Neuro General: patient oriented x3 Extrem Other: Full range of motion bilateral hips, spine, knees. Strength 5/5 equal bilateral lower extremities. Distal neurovascular exam intact. No areas tender to palpation. General: Yes normal to inspection Assessment & Plan Assessment & Plan (1) Bilateral leg pain: Code(s): M79.604 - Pain in right leg; M79.605 - Pain in left leg Plan: Patient has tried multiple NSAIDs, without any relief. Advised with holding NSAIDs at this time, and trial of prednisone burst for symptomatic management. Reviewed appropriate use of medication including use in the morning. Reviewed side effects. Additionally we discussed use of Tylenol, muscle rubs, heat/ice for symptomatic management. Patient does have a follow up appointment scheduled with his PCP, advised to keep that appointment. Imaging not obtained at this time, as there are no new findings to suggest a need for additional imaging. Plan See above for full details and plan. Coding Level of Care Code Est Pt Level 4 (55348) Diagnoses Bilateral leg pain M79.604; M79.605 Time Spent (min) 30
[2024-06-20 13:02] VITALS: BP 130/90; PULSE 83; O2SAT 97
== END 2024-06-20 14:14 | disposition home or self-care (01) ==
PROVIDERS: PCP Family Medicine; Visit Provider Registered Nurse
DX: M79.604 Pain in right leg (principal); M79.605 Pain in left leg

== ENCOUNTER 2024-06-24 10:36 | Outpatient (REF) | payer MEDICARE, SELFPAY ==
[2024-06-24 14:52] LABS: Appearance Urine Cloudy; Color Urine Yellow; Glucose Urine UA Negative (Negative); Leukocyte Esterase Urine Negative (Negative); Nitrite Urine Negative (Negative); PH 5.5 (5.0-9.0); Specific Gravity - Urine 1.025 (1.005-1.025); UMIC TRIGGER UA YES; Urine Blood Trace (Negative); Urine Ketones Negative (Negative); Urine Protein Negative (Neg-Trace)
[2024-06-24 14:55] LABS: Bacteria Urine None Seen (None Seen); Hyaline Casts Urine 0-2 /LPF (0-2); RBC Urine 0-2 /HPF (0-2); Squamous Epithelial Cell Urine 0-2 /HPF (0-2); WBC Urine 0-5 /HPF (0-5)
== END 2024-06-24 10:37 | disposition home or self-care (01) ==
LOC: HO.LAB 10:36
PROVIDERS: PCP Family Medicine; Visit Provider Family Medicine
DX: R30.0 Dysuria (principal); M25.551 Pain in right hip; M25.552 Pain in left hip
CPT/HCPCS: 81001; 87086; 99212

== ENCOUNTER 2024-06-24 10:36 | Outpatient (AMB) | payer MEDICARE, SELFPAY ==
--- NOTE | 2024-06-24 10:50 | A.OFFPC_ITS ---
Vital Signs 06/24/24 10:52 Height 5 ft 8 in Weight 145 lb 6 oz BMI 22.1 BP 130/80 Blood Pressure Location Rt brachial Position Sitting Respiration 14 Pulse 70 Pulse Source Pulse Oximeter Pulse Oximetry (%) 97 Oxygen Delivery Method Room Air Intake Visit Reasons: L hip pain Intake Note: f/u L hip pain burning while urinating Allergies amoxicillin Allergy (Intermediate, Verified 06/24/24 10:51) Rash Tobacco use date assessed: 12/02/22 Dental Screening Dental Screen Date: 11/23/23 HPI L hip pain HPI Details 69 y/o male presents today to f/u hip pa in. Ongoing L hip pain. L hip x-ray has not been read yet. Hx of total R hip prosthesis and mild arthritic changes L hip. Notes prednisone and pregabalin has helped him with pain. Reports some dysuria. [facility] Medical History (Updated 06/24/24 @ 11:24 by Ihsan Burnett MD) Primary osteoarthritis of right hip Mitral valve regurgitation Asthma Osteoarthritis Murmur, cardiac Aortic valve stenosis Surgical History Hx of left inguinal hernia repair Hx of tonsillectomy S/P total right hip arthroplasty Hx of colonoscopy Family History Father No problems noted. Mother No problems noted. Social History Household Members: Spouse Housing: House Are you a primary congregational care pastor to a significant other at home: No Do you presently have visiting nurse or other home services: No Alcohol intake: never Comment: resting in bed, eyes closed Patient Tobacco Use Status: Former Tobacco user Cigarette Packs Per Day: 0.25 Cigarettes Per Day: 5.0 Years Smoked: 5 e-Cigarette/Vaping Use: Never Used Second Hand Smoke Exposure: No service: No Current occupational status: retired Current occupation: Right Handed Current occupational exposures/hazards: No Cognitive needs: No Hearing needs: No Vision needs: No Questionnaire PHQ-9 Over the last 2 weeks, how often have you been bothered by any of the following problems? 1. Little interest or pleasure in doing things: not at all 2. Feeling down, depressed, or hopeless: not at all 3. Trouble falling or staying asleep, or sleeping too much: several days 4. Feeling tired or having little energy: several days 5. Poor appetite or overeating: not at all 6. Feeling bad about yourself - or that you are a failure or have let yourself or your family down: not at all 7. Trouble concentrating on things, such as reading the newspaper or watching television: not at all 8. Moving or speaking so slowly that other people could have noticed. Or the opposite - being so fidgety or restless that you have been moving around a lot more than usual: not at all 9. Thoughts that you would be better off or of hurting yourself in some way: not at all Total score: 2 Source: Developed by Drs. Jamaal Kinney, Marta Warner, Farhad Greer and colleagues, with an educational guerrero from [employer]. Thrive Questionnaire Date Thrive assessed: 06/21/24 I am a: Patient What is your living situation today?: I have a steady place to live Within the past 12 months, did the food you bought not last and you didn't have the money to get more?: Never true Within the past 12 months, did you worry whether your food would run out before you got money to buy more?: Never true Do you have trouble paying for medicines?: No Do you have trouble getting transportation to medical appointments?: No Do you have trouble paying your heating and electricity bill?: No Do you have trouble taking care of your child, family member or friend?: No Do you have trouble with day-to-day activities such as bathing, preparing meals, shopping, managing finances, etc.?: No Are you currently unemployed and looking for a job?: No Are you interested in more education?: No Please select the resources that you would like help with: None Currently or been in a relationship where the following occur: No concerns reported THRIVE Score: 0 AUDIT C Alcohol Use Questionnaire (AUDIT-C) 1. How often do you have a drink containing alcohol?: Never 2. How many drinks containing alcohol do you have on a typical day when you are drinking?: 1 or 2 3. How often do you have six or more drinks on one occasion?: Never Total Score: 0 EDUARDO-7 AMB Questionnaire EDUARDO-7 Date EDUARDO - 7 assessed: 02/27/24 Feeling nervous, anxious, or on edge: 0 = Not at all Not being able to stop or control worryin = Not at all Worrying too much about different things: 0 = Not at all Trouble relaxin = Not at all Being so restless that it is hard to sit still: 0 = Not at all Becoming easily annoyed or irritable: 0 = Not at all Feeling afraid as if something awful might happen: 0 = Not at all Total EDUARDO-7 score (0-4 normal; 5-9 mild; 10-14 moderate; 15-21 severe): 0 Source: Developed by Drs. Jamaal Kinney, Marta aWrner, Farhad Greer and colleagues, with an educational guerrero from [employer]. Review of Systems Const Denies chills, Denies fatigue, Denies fever(s), Denies headache(s) and Denies weakness ENT Denies dizziness and Denies headache(s) Card Denies dyspnea Resp Denies cough, Denies dyspnea, Denies wheezing and Denies other (shortness of breath) Details: Dysuria Musc Details: Bilateral hip pain Denies numbness and Denies tingling Neuro Denies dizziness, Denies headache(s), Denies numbness, Denies tingling and Denies weakness Psych Denies anxiety and Denies depression Endo Denies fatigue Aller/Immun Denies wheezing Physical exam (Primary Care) Vital Signs: Last Vital Signs Pulse 70 06/24/24 10:52 Resp 14 06/24/24 10:52 BP 130/80 06/24/24 10:52 Pulse Ox 97 06/24/24 10:52 Oxygen Delivery Method Room Air 06/24/24 10:52 BMI result Body Mass Index 22.1 Tobacco/Smoking Status: Tobacco use Status Tobacco use date assessed 12/02/22 06/24/24 10:55 Patient Tobacco Use Status Former Tobacco user 06/24/24 10:55 e-Cigarette/Vaping Use Never Used 06/24/24 10:55 PHQ-9: PHQ-9 Score PHQ-9: Total score 2 06/24/24 10:57 Thrive Assessment: Date of Thrive Assessment Date Thrive assessed 06/21/24 06/24/24 10:55 Currently or been in a relationship where the following occur: No concerns reported Const General: well developed; No acute distress Nutritional Appearance: well nourished Orientation/consciousness: patient oriented x3 HENMT Head: Yes normocephalic and Yes atraumatic Eyes General: appearance normal, both eyes and all related structures Pupils: Equal, round and reactive pupils present EOM: EOMs intact bilaterally Resp Effort & Inspection: normal respiratory effort Neuro General: patient oriented x3 and gait normal Cranial nerves: Yes Equal, round and reactive pupils present Psych Affect: normal affect Coding Level of Care Code Est Pt Level 3 (90506) Diagnoses Bilateral hip pain M25.551; M25.552 Dysuria R30.0 Assessment & Plan Assessment & Plan (1) Bilateral hip pain: Code(s): M25.551 - Pain in right hip; M25.552 - Pain in left hip Category: Medical Plan: Patient?has?bilateral?hip?pain?but?significantly?worse?on?the?left. History?of?right?total?hip?replacement. X-rays?of?left?hip?from?2021?show?some?arthritis. Had?ordered?x-rays?this?month?and?report?is?not?available. Patient?has?recently?at?walk-in?clinic?and?was?given Prednisone?which?helped. Will?extend?this?with?a?10?day?taper He?had?used?pregabalin?passed?some?improvement?in?pain?inability?sleep?so?will?t ry?this?again We?had?a?long?discussion?about?stronger?pain?medications?today? if?pregabalin?is?not?helping,?we?gave?him?send?a?script?for?tramadol.??He?will?t ry?pregabalin?first. Will?refer to Orthopedics (2) Dysuria: Code(s): R30.0 - Dysuria Category: Medical Plan: Advised?patient?to?increase?water?intake Sending?urine?for?UA?and?culture Will?call?him?action?is?required?and?he?is?allergic?to?amoxicillin?but?we?could? consider?nitrofurantoin?or?Bactrim?DS?needed. Orders: Orders UA and rflx microscopic Today R30.0 - Dysuria Comprehensive Met. Panel Today R74.8 - Abnormal levels of other serum enzymes Urine Culture Today R30.0 - Dysuria Medications: New prednisone 4 tabs daily for 4 days, 3 tabs daily for 2 days, 2 tabs daily for 2 days, 1 tab daily for 2 days PO daily; 10 days 28 tabs 0RF Refilled pregabalin (Lyrica) 50 mg PO TID 30 days 90 caps 0RF Discontinued prednisone Discontinued Reason: Doctor's Order 40 mg (2 x 20 mg) PO DAILY 5 days 10 tabs 0RF
[2024-06-24 10:52] VITALS: BP 130/80; PULSE 70; RESP 14; O2SAT 97; BMI 22.1
== END 2024-06-24 11:25 | disposition home or self-care (01) ==
PROVIDERS: PCP Family Medicine; Visit Provider Family Medicine
DX: M25.551 Pain in right hip (principal); M25.552 Pain in left hip; R30.0 Dysuria

== ENCOUNTER 2024-07-04 10:43 | Outpatient (AMB) | payer MEDICARE, SELFPAY ==
--- NOTE | 2024-07-04 11:02 | A.OFFPC_ITS ---
Vital Signs 07/04/24 11:04 Height 5 ft 8 in Weight 145 lb 4 oz BMI 22.1 BP 130/78 Blood Pressure Location Lt brachial Position Sitting Respiration 14 Pulse 76 Pulse Source Pulse Oximeter Pulse Oximetry (%) 97 Oxygen Delivery Method Room Air Intake Visit Reasons: FMLA Intake Note: fmla paperwork Allergies amoxicillin Allergy (Intermediate, Verified 07/04/24 11:03) Rash Tobacco use date assessed: 12/02/22 Dental Screening Dental Screen Date: 11/23/23 HPI FMLA HPI Details 69 y/o male presents for FMLA paperwork. Osteoarthritis of L hip and hx of R hip replacement. Had added lyrica last office visit and pt notes this has been helping him sleep. He notes pain has been improving. HPI Comments History of Present Illness Details Documentation assistance for Ihsan Burnett MD, was provided by Torres Dietz,? Urologic Surgeon on 07/04/2024 at 12:14 PM EST. I, Dr. Burnett, have read, observed, and verified documentation. ?? [facility] Medical History (Updated 07/04/24 @ 12:04 by Ihsan Burnett MD) Primary osteoarthritis of right hip Mitral valve regurgitation Asthma Osteoarthritis Murmur, cardiac Aortic valve stenosis Surgical History (Updated 07/04/24 @ 12:04 by Ihsan Burnett MD) Hx of left inguinal hernia repair Hx of tonsillectomy S/P total right hip arthroplasty Hx of colonoscopy Family History Father No problems noted. Mother No problems noted. Social History Household Members: Spouse Housing: House Are you a primary health careers instructor to a significant other at home: No Do you presently have visiting nurse or other home services: No Alcohol intake: never Comment: resting in bed, eyes closed Patient Tobacco Use Status: Former Tobacco user Cigarette Packs Per Day: 0.25 Cigarettes Per Day: 5.0 Years Smoked: 5 e-Cigarette/Vaping Use: Never Used Second Hand Smoke Exposure: No service: No Current occupational status: retired Current occupation: Right Handed Current occupational exposures/hazards: No Cognitive needs: No Hearing needs: No Vision needs: No Questionnaire Thrive Questionnaire Date Thrive assessed: 06/21/24 I am a: Patient What is your living situation today?: I have a steady place to live Within the past 12 months, did the food you bought not last and you didn't have the money to get more?: Never true Within the past 12 months, did you worry whether your food would run out before you got money to buy more?: Never true Do you have trouble paying for medicines?: No Do you have trouble getting transportation to medical appointments?: No Do you have trouble paying your heating and electricity bill?: No Do you have trouble taking care of your child, family member or friend?: No Do you have trouble with day-to-day activities such as bathing, preparing meals, shopping, managing finances, etc.?: No Are you currently unemployed and looking for a job?: No Are you interested in more education?: No Please select the resources that you would like help with: None Currently or been in a relationship where the following occur: No concerns reported THRIVE Score: 0 EDUARDO-7 AMB Questionnaire EDUARDO-7 Date EDUARDO - 7 assessed: 02/27/24 Source: Developed by Drs. Jamaal Kinney, Marta Warner, Farhad Greer and colleagues, with an educational guerrero from [employer] Review of Systems Const Denies chills, Denies fatigue, Denies fever(s), Denies headache(s) and Denies weakness ENT Denies dizziness and Denies headache(s) Card Denies dyspnea Resp Denies cough, Denies dyspnea, Denies wheezing and Denies other (shortness of breath) Musc Denies numbness and Denies tingling Neuro Denies dizziness, Denies headache(s), Denies numbness, Denies tingling and Denies weakness Psych Denies anxiety and Denies depression Endo Denies fatigue Aller/Immun Denies wheezing Physical exam (Primary Care) Vital Signs: Last Vital Signs Pulse 76 07/04/24 11:04 Resp 14 07/04/24 11:04 BP 130/78 07/04/24 11:04 Pulse Ox 97 07/04/24 11:04 Oxygen Delivery Method Room Air 07/04/24 11:04 BMI result Body Mass Index 22.1 Tobacco/Smoking Status: Tobacco use Status Tobacco use date assessed 12/02/22 07/04/24 11:06 Patient Tobacco Use Status Former Tobacco user 07/04/24 11:06 e-Cigarette/Vaping Use Never Used 07/04/24 11:06 Thrive Assessment: Date of Thrive Assessment Date Thrive assessed 06/21/24 07/04/24 11:06 Currently or been in a relationship where the following occur: No concerns reported Const General: well developed; No acute distress Nutritional Appearance: well nourished Orientation/consciousness: patient oriented x3 HENMT Head: Yes normocephalic and Yes atraumatic Eyes General: appearance normal, both eyes and all related structures Pupils: Equal, round and reactive pupils present EOM: EOMs intact bilaterally Resp Effort & Inspection: normal respiratory effort Neuro General: patient oriented x3 and gait normal Cranial nerves: Yes Equal, round and reactive pupils present Psych Affect: normal affect Coding Level of Care Code Est Pt Level 3 (44083) Diagnoses Osteoarthritis of left hip M16.12 History of right hip replacement Z96.641 Assessment & Plan Assessment & Plan (1) Osteoarthritis of left hip: Code(s): M16.12 - Unilateral primary osteoarthritis, left hip Category: Medical Plan: Magalie ent?with?history?of?osteoarthritis?of?right?hip?and?more?recently?significant?fl are?up?of?left?hip?pain?with?x-ray?showing?osteoarthritis?and?left?hip?returns?[facility]?for?follow-up?and?for?FMLA?paperwork. Presented?on?06/17/2024?with?severe?left?hip?pain.??I?have?kept?him?out?of?work? since?then. More?recently?I?gave?him?a?steroid?taper?and?pregabalin. Patient?notes?that?pain?has?begun?to?subside?though?is?still?significant. He?has?an?appointment?with?his?orthopedic?specialist,??performed?his? right?hip?arthroplasty?in?2020. Keeping?patient?out?of?work?through?July?3rd?as?he?will?s ee??a?few?days?prior?to?that. He?has?appointment?shortly?after?that?with?me Continue?current?medication (2) History of right hip replacement: Code(s): Z96.641 - Presence of right artificial hip joint Category: Surgical Plan: As?above Medications: Refilled pregabalin (Lyrica) 50 mg PO TID 30 days 90 caps 0RF trazodone 50 mg PO BEDTIME 30 days PRN 30 tabs 0RF sleep G47.9 - Sleep disorder, unspecified
[2024-07-04 11:04] VITALS: BP 130/78; PULSE 76; RESP 14; O2SAT 97; BMI 22.1
== END 2024-07-04 12:42 | disposition home or self-care (01) ==
PROVIDERS: PCP Family Medicine; Visit Provider Family Medicine
DX: M16.12 Unilateral primary osteoarthritis, left hip (principal); Z96.641 Presence of right artificial hip joint

== ENCOUNTER → 2024-07-04 10:43 | Outpatient (BNVA) | payer MEDICARE, SELFPAY | PROVIDERS: PCP Family Medicine; Visit Provider Family Medicine | DX: M16.12 Unilateral primary osteoarthritis, left hip (principal); G47.9 Sleep disorder, unspecified; Z96.641 Presence of right artificial hip joint | CPT/HCPCS: 99212 ==

== ENCOUNTER 2024-07-15 11:17 | Outpatient (REF) | payer MEDICARE, SELFPAY ==
--- NOTE | ~2024-07-15 | XR_ITS ---
CLINICAL HISTORY: M25.559 - Pain in unspecified hip 1 view pelvis Comparison: DX/SR - XR PELVIS 1-2V - 07/08/21 12:28 EST Findings: Unchanged appearance of the patient's right total hip arthroplasty. Position and alignment of the prosthesis is appropriate. No fracture or abnormal lucency is seen adjacent to the surgical hardware. Unchanged mild left hip DJD. IMPRESSION: Intact right hip arthroplasty. This document has been electronically signed by: Benedict Esteves MD on 07/15/2024 18:00:20
== END 2024-07-15 11:18 | disposition home or self-care (01) ==
LOC: HO.HOSX 11:17
PROVIDERS: Visit Provider Orthopaedic Surgery
DX: M25.559 Pain in unspecified hip (principal); M16.12 Unilateral primary osteoarthritis, left hip; M48.061 Spinal stenosis, lumbar region without neurogenic claudication
CPT/HCPCS: 72170; 99212

== ENCOUNTER 2024-07-15 11:24 | Outpatient (AMB) | payer MEDICARE, SELFPAY ==
--- NOTE | 2024-07-15 11:33 | MHC.OFFVIS ---
Intake Visit Reasons: New Problem - Left Hip Pain Intake Note: Layton is a 69 year old male who presents today for a new problem visit with complaints of left hip pain. Hx of Right JOSE 08/12/20. Patient reports that he has been having pain in the bilateral upper buttocks that radiates down the legs, this pain was felt as a burning pain. He explains that he has a weird sensation like the hip is going to dislocate or is unstable with lateral movements. He has tried and failed Meloxicam and then was given prednisone and Lyrica. since Discontinuing the Prednisone he feels like his pain is returning. Allergies amoxicillin Allergy (Intermediate, Verified 07/15/24 11:37) Rash HPI HPI New Problem - Left Hip Pain: Details: Layton is a 69 year old male who presents today for a new problem visit with complaints of left hip pain. Hx of Right JOSE 08/12/20. Patient reports that he has been having pain in the bilateral upper buttocks that radiates down the legs, this pain was felt as a burning pain. He explains that he has a weird sensation like the hip is going to dislocate or is unstable with lateral movements. He has tried and failed Meloxicam and then was given prednisone and Lyrica. since Discontinuing the Prednisone he feels like his pain is returning. [facility] Medical History (Updated 07/15/24 @ 12:49 by Ean Jaime MD) Primary osteoarthritis of right hip Mitral valve regurgitation Asthma Osteoarthritis Murmur, cardiac Aortic valve stenosis Surgical History (Updated 07/04/24 @ 12:04 by Ihsan Burnett MD) Hx of left inguinal hernia repair Hx of tonsillectomy S/P total right hip arthroplasty Hx of colonoscopy Family History Father No problems noted. Mother No problems noted. Social History Household Members: Spouse Housing: House Are you a primary childbirth and infant care teacher to a significant other at home: No Do you presently have visiting nurse or other home services: No Alcohol intake: never Comment: resting in bed, eyes closed Patient Tobacco Use Status: Former Tobacco user Cigarette Packs Per Day: 0.25 Cigarettes Per Day: 5.0 Years Smoked: 5 e-Cigarette/Vaping Use: Never Used Second Hand Smoke Exposure: No service: No Current occupational status: retired Current occupation: Right Handed Current occupational exposures/hazards: No Cognitive needs: No Hearing needs: No Vision needs: No Physical Exam Extrem Other: Mildly positive impingement test on the left. Good range of motion left hip. Normal gait mechanics. Results Reviewed Results Reviewed: I personally reviewed relevant radiographs. Right JOSE in expected post operative position with no hardware complications or evidence of loosening Left hip ,moderate OA Assessment & Plan Assessment & Plan (1) Osteoarthritis of left hip: Code(s): M16.12 - Unilateral primary osteoarthritis, left hip Category: Medical Plan: Dave has mild symptoms attributable to his left hip arthritis. I do not recommend intervention for these at this point. If his groin pain worsens he can return to see me. (2) Lumbar stenosis: Code(s): M48.061 - Spinal stenosis, lumbar region without neurogenic claudication Category: Medical Plan: Complains of bilateral leg burning while lying down. Referral to pain for possible injections. Orders: Orders XR pelvis 1-2V Today M25.559 - Pain in unspecified hip Coding Level of Care Code Est Pt Level 4 (15391) Diagnoses Osteoarthritis of left hip M16.12 Lumbar stenosis M48.061
== END 2024-07-15 11:50 | disposition home or self-care (01) ==
PROVIDERS: PCP Family Medicine; Visit Provider Orthopaedic Surgery
DX: M16.12 Unilateral primary osteoarthritis, left hip (principal); M48.061 Spinal stenosis, lumbar region without neurogenic claudication
CPT/HCPCS: 99214

== ENCOUNTER → 2024-07-15 11:29 | Outpatient (BNV) | payer MEDICARE, SELFPAY | PROVIDERS: Visit Provider Radiology Diagnostic Radiology | DX: M25.551 Pain in right hip (principal); Z96.641 Presence of right artificial hip joint | CPT/HCPCS: 72170 ==

== ENCOUNTER 2024-07-23 10:33 | Outpatient (AMB) | payer MEDICARE, SELFPAY ==
--- NOTE | 2024-07-23 10:34 | MHC.OFFVIS ---
Vital Signs 07/23/24 10:39 Height 5 ft 8 in Weight 147 lb 6 oz BMI 22.4 BP 138/83 Blood Pressure Location Rt brachial Position Sitting Pulse 76 Pulse Source Pulse Oximeter Intake Visit Reasons: Spinal stenosis Intake Note: Pain today 2/10 Certified Adapted Physical Educator Required: No Accompanied by: Self / Same As Patient Allergies amoxicillin Allergy (Intermediate, Verified 07/23/24 10:38) Rash HPI HPI Spinal stenosis: Details: Patient is a pleasant 69-year-old male with history of osteoarthritis, right JOSE 08/12/20, left hip pain, presents today for initial evaluation of low back pain with bilateral radiculopathy. Denies any recent trauma, injury, or falls. Patient reports low back pain was started on 06/17/2024 without any inciting events. He was seen by Dr. Jaime and was referred to us for further evaluation of lumbar stenosis related low back pain. Patient presents today with minimal low back pain which he rates 2/10. Back pain is axial and also radiates to both of his buttocks and into his posterior thighs but not below knee level. He does experience some discogenic back pain with forward flexion or bending. He has SLR or SI joint provocative testing is negative today. Patient does report mild left groin pain with her job motions or weight-bearing. Pain affects his daily activities and functioning, mobility, sleep, and social interactions. Patient reports prior to back pain onset, he was regularly active and going to the gym 2-3 times per week. He has been managing his symptoms with Meloxicam, prednisone short term and Lyrica. He reports Lyrica has been alleviating his radicular pain with mild to moderate benefit. Denies previous spine surgery or injections. Most recent formal PT completed 5 years ago for hip pain. Patient does not believe PT will be beneficial for current back pain as he is not able to participate with HEP or return to regular gym. Denies any fever or chills, pain, foot drop, weakness, bladder or bowel dysfunction or saddle anesthesia. Oswestry low back disability index score = 7 (mild disability) Location: Lower back radiates down bilateral leg (states it more hips and legs) Duration: Acute pain for past 1.5 months, no inciting events Characteristics of symptom or complaint: Burning, aching, tingling, radiating, shooting, heavy, dull, sore, heavy Aggravating or associated factors: Movements, prolonged standing, sleeping on the side (hips and legs) Relieving factors: Pregabalin, Meloxicam, prednisone, lidocaine patches, heat, Tylenol Treatment: PT in 2019-no relief; [employer] -2-3x/week prior to back symptoms [facility] Medical History Primary osteoarthritis of right hip Mitral valve regurgitation Asthma Osteoarthritis Murmur, cardiac Aortic valve stenosis Surgical History Hx of left inguinal hernia repair Hx of tonsillectomy S/P total right hip arthroplasty Hx of colonoscopy Family History Father No problems noted. Mother No problems noted. Social History Household Members: Spouse Housing: House Are you a primary transitional care nurse to a significant other at home: No Do you presently have visiting nurse or other home services: No Alcohol intake: never Patient Tobacco Use Status: Former Tobacco user Cigarette Packs Per Day: 0.25 Cigarettes Per Day: 5.0 Years Smoked: 5 e-Cigarette/Vaping Use: Never Used Second Hand Smoke Exposure: No service: No Current occupational status: retired Current occupation: Right Handed Current occupational exposures/hazards: No Cognitive needs: No Hearing needs: No Vision needs: No Review of Systems Const All systems reviewed & are unremarkable except as noted in HPI and below Physical Exam Vital Signs: Last Vital Signs Pulse 76 07/23/24 10:39 BP 138/83 07/23/24 10:39 BMI result Body Mass Index 22.4 General: Appears afebrile. Alert and oriented. Mood and affect appropriate. Follows and participates in conversation appropriately. Respiratory effort is unlabored. No cough. Able to transition from sit to stand unassisted. Ambulates with bilaterally normal heel strike and toe off. General: Yes no CVA tenderness Back/Spine/Pelvis Other: Limited lumbar ROM due to pain. Non-antalgic gait, no limping. Can flex forward to 70-75 degrees and extend to 5-10 degrees before experiencing lumbar pain. Reports increasing back pain with forward flexion and extension. Demonstrates 5/5 strength of quadriceps bilaterally as well as flexion/dorsiflexion of bilateral feet against resistance. 2+ pedal pulses bilaterally. Straight leg rise with dorsiflexion negative bilaterally. +2 right +1 left patellar and +1 achilles reflexes bilaterally. Facet loading test positive is bilaterally. Teresa sign, Garcia?s, Pelvic compression and Stinchfield tests are negative bilaterally. Minimal left groin pain with I/E left hip rotations. Valsalva maneuver is negative. Back: no CVA tenderness Cervical Spine: cervical ROM normal, No cervical muscular tenderness, No Cervical spine tenderness and No step off deformity Thoracic/Lumbar Spine: thoracic and lumbar spine normal to inspection, No Thoracic/lumbar spine scar(s), Lasegue's sign negative, straight leg raise negative bilaterally, pain with thoraco-lumbar ROM, thoraco-lumbar ROM limited, No thoracic spinal tenderness and lumbar spinal tenderness (L4-S1) Pelvis: no buttock tenderness Sacroiliac joints: bilaterally nontender Extrem General: Yes capillary refill normal, Yes no clubbing, cyanosis or edema and Yes no calf tenderness Results Reviewed Results Reviewed: Lumbar spine 3 views and left hip 2 views 06/17/24 CLINICAL INDICATION: Pain. COMPARISON: AP pelvis 07/08/2021. FINDINGS: Lumbar spine: There is maintained lumbar lordosis. The vertebral heights and alignment is normal. There is loss of L3-4, L4-5 and L5-S1 disc levels with mild ventral and posterior spondylosis. There is mild spondylosis of the lumbar spine as well. No visible acute fracture, dislocation, lytic or sclerotic process seen. There is a total right hip prosthesis. Paravertebral soft tissues are normal. SI joints are normal. There is a total right hip prosthesis. IMPRESSION: Mild degenerative disc changes. No visible acute fracture or dislocation seen. Left hip 2 views 06/17/24 CLINICAL INDICATION: Left hip pain. COMPARISON: AP pelvis 07/08/2021. FINDINGS: The left hip joint space is maintained normal. No bony erosive changes, osteophytes or loose bodies seen. No acute fracture or dislocation. The soft tissues are normal. IMPRESSION: Normal left hip exam. XR pelvis 1-2V on 07/15/24 1 view pelvis Comparison: DX/SR - XR PELVIS 1-2V - 07/08/21 12:28 EST Findings: Unchanged appearance of the patient's right total hip arthroplasty. Position and alignment of the prosthesis is appropriate. No fracture or abnormal lucency is seen adjacent to the surgical hardware. Unchanged mild left hip DJD. IMPRESSION: Intact right hip arthroplasty. Assessment & Plan Assessment & Plan (1) Lumbar radiculopathy: Code(s): M54.16 - Radiculopathy, lumbar region Category: Medical (2) Lumbosacral spondylosis: Code(s): M47.817 - Spondylosis without myelopathy or radiculopathy, lumbosacral region Category: Medical (3) Vertebrogenic low back pain: Code(s): M54.51 - Vertebrogenic low back pain Category: Medical (4) Lumbar degenerative disc disease: Code(s): M51.369 - Other intervertebral disc degeneration, lumbar region without mention of lumbar back pain or lower extremity pain Category: Medical Plan MRI of the lumbar spine to assess for neural integrity, compression and any degenerative endplate changes to further evaluate low back pain with bilateral radiculopathy and discogenic low back pain. Back pain has been resistant to conservative treatments for over 6 weeks and affects his ADLs, mobility, and sleep. All questions and concerns have been answered and patient agreed with the treatment plan. Patient will return to the clinic to discuss results of the MRI? findings when it is done and consider interventional therapy as indicated.? Orders: Orders MR lumbar spine wo con Today M47.817 - Spondylosis without myelopathy or radiculopathy, lumbosacral region, M51.369 - Other intervertebral disc degeneration, lumbar region without mention of lumbar back pain or lower extremity pain, M54.16 - Radiculopathy, lumbar region, M54.51 - Vertebrogenic low back pain Coding Level of Care Code New Pt Level 4 (38027) Complex EM visit Add On G2211 Diagnoses Lumbar radiculopathy M54.16 Lumbosacral spondylosis M47.817 Vertebrogenic low back pain M54.51 Lumbar degenerative disc disease M51.369
[2024-07-23 10:39] VITALS: BP 138/83; PULSE 76; BMI 22.4
== END 2024-07-23 11:07 | disposition home or self-care (01) ==
PROVIDERS: PCP Family Medicine; Visit Provider Nurse Practitioner Family
DX: M54.16 Radiculopathy, lumbar region (principal); M47.817 Spondylosis without myelopathy or radiculopathy, lumbosacral region; M54.51 Vertebrogenic low back pain; M51.369 Other intervertebral disc degeneration, lumbar region without mention of lumbar back pain or lower extremity pain
CPT/HCPCS: 99204; G2211

== ENCOUNTER → 2024-07-23 10:33 | Outpatient (BNVA) | payer MEDICARE, SELFPAY | PROVIDERS: PCP Family Medicine; Visit Provider Nurse Practitioner Family | DX: M47.817 Spondylosis without myelopathy or radiculopathy, lumbosacral region (principal); M54.16 Radiculopathy, lumbar region; M51.360 Other intervertebral disc degeneration, lumbar region with discogenic back pain only | CPT/HCPCS: 99202 ==

== ENCOUNTER → 2024-07-26 10:52 | Outpatient (AMB) | payer MEDICARE, SELFPAY | END | disposition home or self-care (01) | PROVIDERS: PCP Family Medicine; Visit Provider Family Medicine ==

== ENCOUNTER → 2024-07-26 10:52 | Outpatient (BNVA) | payer MEDICARE, SELFPAY | PROVIDERS: PCP Family Medicine; Visit Provider Family Medicine | DX: M25.552 Pain in left hip (principal); M51.369 Other intervertebral disc degeneration, lumbar region without mention of lumbar back pain or lower extremity pain | CPT/HCPCS: 99212 ==

== ENCOUNTER 2024-07-27 14:35 | Outpatient (REF) | payer MEDICARE, SELFPAY | END 2024-07-27 14:36 | disposition home or self-care (01) | LOC: HO.MRI 14:35 | PROVIDERS: PCP Family Medicine; Visit Provider Nurse Practitioner Family | DX: M54.16 Radiculopathy, lumbar region (principal); M47.817 Spondylosis without myelopathy or radiculopathy, lumbosacral region; M54.51 Vertebrogenic low back pain; M51.369 Other intervertebral disc degeneration, lumbar region without mention of lumbar back pain or lower extremity pain | CPT/HCPCS: 72148 ==

== ENCOUNTER → 2024-07-27 14:36 | Outpatient (BNV) | payer MEDICARE, SELFPAY | PROVIDERS: PCP Family Medicine; Visit Provider Radiology Diagnostic Radiology | DX: M54.16 Radiculopathy, lumbar region (principal) | CPT/HCPCS: 72148 ==

== ENCOUNTER 2024-07-30 14:38 | Outpatient (AMB) | payer MEDICARE, SELFPAY ==
--- NOTE | 2024-07-30 14:42 | A.OFFVIS_ITS ---
Vital Signs 07/30/24 14:49 Height 5 ft 8 in Weight 146 lb BMI 22.2 BP 133/75 Blood Pressure Location Rt brachial Position Sitting Pulse 81 Pulse Source Pulse Oximeter Pulse Oximetry (%) 98 Oxygen Delivery Method Room Air Intake Visit Reasons: follow up MRI results Intake Note: Pain today 08/26 Associate Medical Director Required: No Accompanied by: Self / Same As Patient Allergies amoxicillin Allergy (Intermediate, Verified 07/30/24 14:50) Rash HPI Comments Details: Patient presents today for follow-up to review recent lumbar spine MRI results. Denies any recent cough, cold, infection, fever or any significant changes in medical history since last office visit. PRIOR: Patient is a pleasant 69-year-old male with history of osteoarthritis, right JOSE 08/12/20, left hip pain, presents today for initial evaluation of low back pain with bilateral radiculopathy. Denies any recent trauma, injury, or falls. Patient reports low back pain was started on 06/17/2024 without any inciting events. He was seen by Dr. Jaime and was referred to us for further evaluation of lumbar stenosis related low back pain. Patient presents today with minimal low back pain which he rates 2/10. Back pain is axial and also radiates to both of his buttocks and into his posterior thighs but not below knee level. He does experience some discogenic back pain with forward flexion or bending. He has SLR or SI joint provocative testing is negative today. Patient does report mild left groin pain with her job motions or weight-bearing. Pain affects his daily activities and functioning, mobility, sleep, and social interactions. Patient reports prior to back pain onset, he was regularly active and going to the gym 2-3 times per week. He has been managing his symptoms with Meloxicam, prednisone short term and Lyrica. He reports Lyrica has been alleviating his radicular pain with mild to moderate benefit. Denies previous spine surgery or injections. Most recent formal PT completed 5 years ago for hip pain. Patient does not believe PT will be beneficial for current back pain as he is not able to participate with HEP or return to regular gym. Denies any fever or chills, pain, foot drop, weakness, bladder or bowel dysfunction or saddle anesthesia. Oswestry low back disability index score = 7 (mild disability) Location: Lower back radiates down bilateral leg (states it more hips and legs) Duration: Acute pain for past 1.5 months, no inciting events Characteristics of symptom or complaint: Burning, aching, tingling, radiating, shooting, heavy, dull, sore, heavy Aggravating or associated factors: Movements, prolonged standing, sleeping on the side (hips and legs) Relieving factors: Pregabalin, Meloxicam, prednisone, lidocaine patches, heat, Tylenol Treatment: PT in 2019-no relief; [employer] -2-3x/week prior to back symptoms [facility] Medical History Primary osteoarthritis of right hip Mitral valve regurgitation Asthma Osteoarthritis Murmur, cardiac Aortic valve stenosis Surgical History Hx of left inguinal hernia repair Hx of tonsillectomy S/P total right hip arthroplasty Hx of colonoscopy Family History Father No problems noted. Mother No problems noted. Social History Household Members: Spouse Housing: House Are you a primary childcare aide to a significant other at home: No Do you presently have visiting nurse or other home services: No Alcohol intake: never Patient Tobacco Use Status: Former Tobacco user Cigarette Packs Per Day: 0.25 Cigarettes Per Day: 5.0 Years Smoked: 5 e-Cigarette/Vaping Use: Never Used Second Hand Smoke Exposure: No service: No Current occupational status: retired Current occupation: Right Handed Current occupational exposures/hazards: No Cognitive needs: No Hearing needs: No Vision needs: No Review of Systems Const All systems reviewed & are unremarkable except as noted in HPI and below Physical Exam Vital Signs: Last Vital Signs Pulse 81 07/30/24 14:49 BP 133/75 07/30/24 14:49 Pulse Ox 98 07/30/24 14:49 Oxygen Delivery Method Room Air 07/30/24 14:49 BMI result Body Mass Index 22.2 General: Appears afebrile. Alert and oriented. Mood and affect appropriate. Follows and participates in conversation appropriately. Respiratory effort is unlabored. No cough. Able to transition from sit to stand unassisted. Ambulates with bilaterally normal heel strike and toe off. General: Yes no CVA tenderness Back/Spine/Pelvis Other: Limited lumbar ROM due to pain. Non-antalgic gait, no limping. Lumbar extension reproduces mild pain, lumbar flexion forward and bending reproduces moderate pain. Reports increasing back pain with forward flexion and extension. Demonstrates 5/5 strength of quadriceps bilaterally as well as flexion/dorsiflexion of bilateral feet against resistance. 2+ pedal pulses bilaterally. Straight leg rise with dorsiflexion positive bilaterally. +2 right +1 left patellar and +1 achilles reflexes bilaterally. Facet loading test positive is bilaterally. Teresa sign, Pelvic compression and Stinchfield tests are negative bilaterally. Minimal left groin pain with I/E left hip rotations. Valsalva maneuver is negative. Back: no CVA tenderness Cervical Spine: cervical ROM normal, No cervical muscular tenderness, No Cervical spine tenderness and No step off deformity Thoracic/Lumbar Spine: thoracic and lumbar spine normal to inspection, No Thoracic/lumbar spine scar(s), Lasegue's sign positive bilateral and diffuse, pain with thoraco-lumbar ROM, paraspinal muscle tenderness, thoraco-lumbar ROM limited, No thoracic spinal tenderness and lumbar spinal tenderness (L4-S1) Pelvis: no buttock tenderness Sacroiliac joints: bilaterally nontender Extrem General: Yes capillary refill normal, Yes no clubbing, cyanosis or edema and Yes no calf tenderness Results Reviewed Results Reviewed: Lumbar spine 3 views and left hip 2 views 06/17/24 CLINICAL INDICATION: Pain. COMPARISON: AP pelvis 07/08/2021. FINDINGS: Lumbar spine: There is maintained lumbar lordosis. The vertebral heights and alignment is normal. There is loss of L3-4, L4-5 and L5-S1 disc levels with mild ventral and posterior spondylosis. There is mild spondylosis of the lumbar spine as well. No visible acute fracture, dislocation, lytic or sclerotic process seen. There is a total right hip prosthesis. Paravertebral soft tissues are normal. SI joints are normal. There is a total right hip prosthesis. IMPRESSION: Mild degenerative disc changes. No visible acute fracture or dislocation seen. Left hip 2 views 06/17/24 CLINICAL INDICATION: Left hip pain. COMPARISON: AP pelvis 07/08/2021. FINDINGS: The left hip joint space is maintained normal. No bony erosive changes, osteophytes or loose bodies seen. No acute fracture or dislocation. The soft tissues are normal. IMPRESSION: Normal left hip exam. XR pelvis 1-2V on 07/15/24 1 view pelvis Comparison: DX/SR - XR PELVIS 1-2V - 07/08/21 12:28 EST Findings: Unchanged appearance of the patient's right total hip arthroplasty. Position and alignment of the prosthesis is appropriate. No fracture or abnormal lucency is seen adjacent to the surgical hardware. Unchanged mild left hip DJD. IMPRESSION: Intact right hip arthroplasty. MR lumbar spine wo con 07/27/24 Findings: 2 mm retrolisthesis of L1 on L2, degenerative. Alignment is otherwise preserved. There is multilevel Modic type 2 change. Small Schmorl's nodes at L3-L4 with adjacent Modic type 2 change. Trace amount Modic type 1 change at L3/L4 and L5/S1. No cord expansion or abnormal signal intensity. The conus medullaris terminates at T12/L1, which is normal. The cauda equina is unremarkable. Perineural cysts measuring 5 mm at T12/L1 on the right. Multilevel dilated perineural root sleeves versus perineural cysts L2/L3 on the right, L3/L4 bilaterally, L4/L5 on the right and L5/S1 bilaterally. Bilateral renal cysts. L1/L2: 3 mm broad-based disc bulge. Mild facet joint and ligamentum flavum hypertrophy. Mild central canal stenosis. No lateral recess stenosis. No foraminal stenosis. L2/L3: 3 mm broad-based disc bulge. Mild facet joint and ligamentum flavum hypertrophy. Mild central canal stenosis. Mild right and severe left lateral recess stenosis. No right and mild left foraminal stenosis. L3/L4: 3 mm broad-based disc bulge. Moderate facet joint and ligamentum flavum hypertrophy. Mild central canal stenosis. Moderate right and severe left lateral recess stenosis. No right and mild left foraminal stenosis. L4/L5: 3 mm broad-based disc bulge. Moderate facet joint and ligamentum flavum hypertrophy. Mild central canal stenosis. Severe bilateral lateral recess stenosis, greater on the left. No right and [id number] left foraminal stenosis. L5/S1: 4 mm right paracentral disc bulge. Moderate facet joint and ligamentum flavum hypertrophy. Facet joint synovial cyst measuring 0.3 x 0.5 x 0.7 cm (series 6, image 12 and series 9, image 36). Mild central canal stenosis. Severe right and moderate left lateral recess stenosis. Moderate right and moderate to severe left foraminal stenosis. Impression: No acute findings. Multilevel degenerative change, detailed above. Assessment & Plan Assessment & Plan (1) Lumbar radiculopathy: Code(s): M54.16 - Radiculopathy, lumbar region Category: Medical (2) Lumbosacral spondylosis: Code(s): M47.817 - Spondylosis without myelopathy or radiculopathy, lumbosacral region Category: Medical (3) Vertebrogenic low back pain: Code(s): M54.51 - Vertebrogenic low back pain Category: Medical (4) Lumbar degenerative disc disease: Code(s): M51.369 - Other intervertebral disc degeneration, lumbar region without mention of lumbar back pain or lower extremity pain Category: Medical (5) Lumbar stenosis: Code(s): M48.061 - Spinal stenosis, lumbar region without neurogenic claudication Category: Medical Plan MRI of the lumbar spine results were discussed with patient today. Patient continues to endorse bilateral radiculopathy with back pain radiating into his buttocks and posterior thighs and into calves and feet. He also notes patient occasionally radiates into anteriorly. His back pain also easily exacerbated with lumbar flexion indicating a discogenic source. MRI results confirm endplate degenerative changes with Schmorl's nodes with Modic type I and type II changes, multilevel spinal stenosis and multiple level ligament hypertrophy as noted above. These findings correlate with his symptoms of bilateral lower extremity pain and intermittent weakness as well as axial low back pain that has been interfering with his ability to ambulate, sleep and function normally. We will proceed with Bilateral L5-S1 TFESI with local and fluoroscopy to address his radicular low back pain. We also discussed BVN ablation (Intracept) for axial low back pain and degenerative changes on the endplates. Expectations, risks and benefits were reviewed. Patient is aware he will be contacted to schedule this procedure. Informational pamphlets provided to patient. All questions were answered and the patient is in agreement of plan. Follow-up after injections and sooner as needed. Coding Level of Care Code Est Pt Level 4 (35472) Complex EM visit Add On G2211 Diagnoses Lumbar radiculopathy M54.16 Lumbosacral spondylosis M47.817 Vertebrogenic low back pain M54.51 Lumbar degenerative disc disease M51.369 Lumbar stenosis M48.061
[2024-07-30 14:49] VITALS: BP 133/75; PULSE 81; O2SAT 98; BMI 22.2
== END 2024-07-30 15:19 | disposition home or self-care (01) ==
PROVIDERS: PCP Family Medicine; Visit Provider Nurse Practitioner Family
DX: M54.16 Radiculopathy, lumbar region (principal); M47.817 Spondylosis without myelopathy or radiculopathy, lumbosacral region; M54.51 Vertebrogenic low back pain; M51.369 Other intervertebral disc degeneration, lumbar region without mention of lumbar back pain or lower extremity pain; M48.061 Spinal stenosis, lumbar region without neurogenic claudication
CPT/HCPCS: 99214; G2211

== ENCOUNTER → 2024-07-30 14:38 | Outpatient (BNVA) | payer MEDICARE, SELFPAY | PROVIDERS: PCP Family Medicine; Visit Provider Nurse Practitioner Family | DX: M54.16 Radiculopathy, lumbar region (principal); M47.817 Spondylosis without myelopathy or radiculopathy, lumbosacral region; M51.360 Other intervertebral disc degeneration, lumbar region with discogenic back pain only; M48.061 Spinal stenosis, lumbar region without neurogenic claudication | CPT/HCPCS: 99212 ==

== ENCOUNTER 2024-09-02 10:29 | Outpatient (AMB) | payer MEDICARE, SELFPAY ==
--- NOTE | 2024-09-02 10:43 | MHC.PC.OV ---
Vital Signs 09/02/24 10:48 Height 5 ft 8 in Weight 152 lb 6 oz BMI 23.2 BP 124/70 Blood Pressure Location Lt brachial Position Sitting Respiration 12 Pulse 81 Pulse Source Pulse Oximeter Temp 98.7 F Temp Source Oral Pulse Oximetry (%) 96 Oxygen Delivery Method Room Air Intake Visit Reasons: alternative medication for pain control Intake Note: patient is scheduled for alternative medication for pain control. Radiation Therapist Required: No Allergies amoxicillin Allergy (Intermediate, Verified 09/02/24 10:47) Rash Medication List - Last Reconciled 09/02/24 by Ihsan Burnett MD albuterol sulfate 90 mcg/actuation 2 puffs inhalation Q6H PRN 30 days atorvastatin 10 mg PO BEDTIME 90 days meloxicam 15 mg PO DAILY 30 days mometasone-formoterol 100-5 mcg/actuation 2 puffs PO DAILY 30 days omeprazole 20 mg PO DAILY 30 days pregabalin (Lyrica) 50 mg PO TID 30 days trazodone 50 mg PO BEDTIME PRN 30 days Tobacco use date assessed: 12/02/22 Dental Screening Dental Screen Date: 11/23/23 HPI alternative medication for pain control HPI Details 69 y/o male presents today to f/u pain. Has trialed meloxicam, Lyrica. Reports ongoing back pain and numbness going down his legs. Follows up with pain management and is scheduled for epidural injections bilaterally in September. [facility] Medical History Primary osteoarthritis of right hip Mitral valve regurgitation Asthma Osteoarthritis Murmur, cardiac Aortic valve stenosis Surgical History Hx of left inguinal hernia repair Hx of tonsillectomy S/P total right hip arthroplasty Hx of colonoscopy Family History Father No problems noted. Mother No problems noted. Social History Household Members: Spouse Housing: House Are you a primary human services care specialist to a significant other at home: No Do you presently have visiting nurse or other home services: No Alcohol intake: never Patient Tobacco Use Status: Former Tobacco user Cigarette Packs Per Day: 0.25 Cigarettes Per Day: 5.0 Years Smoked: 5 e-Cigarette/Vaping Use: Never Used Second Hand Smoke Exposure: No service: No Current occupational status: retired Current occupation: Right Handed Current occupational exposures/hazards: No Cognitive needs: No Hearing needs: No Vision needs: No Questionnaire Thrive Questionnaire Date Thrive assessed: 06/21/24 I am a: Patient What is your living situation today?: I have a steady place to live Within the past 12 months, did the food you bought not last and you didn't have the money to get more?: Never true Within the past 12 months, did you worry whether your food would run out before you got money to buy more?: Never true Do you have trouble paying for medicines?: No Do you have trouble getting transportation to medical appointments?: No Do you have trouble paying your heating and electricity bill?: No Do you have trouble taking care of your child, family member or friend?: No Do you have trouble with day-to-day activities such as bathing, preparing meals, shopping, managing finances, etc.?: No Are you currently unemployed and looking for a job?: No Are you interested in more education?: No Please select the resources that you would like help with: None Currently or been in a relationship where the following occur: No concerns reported THRIVE Score: 0 EDUARDO-7 AMB Questionnaire EDUARDO-7 Date EDUARDO - 7 assessed: 02/27/24 Source: Developed by Drs. Jamaal Kinney, Marta Warner, Farhad Greer and colleagues, with an educational guerrero from [employer]. Review of Systems Const Denies chills, Denies fatigue, Denies fever(s), Denies headache(s) and Denies weakness ENT Denies dizziness and Denies headache(s) Card Denies dyspnea Resp Denies cough, Denies dyspnea, Denies wheezing and Denies other (shortness of breath) Musc Denies numbness and Denies tingling Neuro Denies dizziness, Denies headache(s), Denies numbness, Denies tingling and Denies weakness Psych Denies anxiety and Denies depression Endo Denies fatigue Aller/Immun Denies wheezing Physical exam (Primary Care) Vital Signs: Last Vital Signs Temp 98.7 F 09/02/24 10:48 Pulse 81 09/02/24 10:48 Resp 12 09/02/24 10:48 BP 124/70 09/02/24 10:48 Pulse Ox 96 09/02/24 10:48 Oxygen Delivery Method Room Air 09/02/24 10:48 BMI result Body Mass Index 23.2 Tobacco/Smoking Status: Tobacco use Status Tobacco use date assessed 12/02/22 09/02/24 10:51 Patient Tobacco Use Status Former Tobacco user 09/02/24 10:51 e-Cigarette/Vaping Use Never Used 09/02/24 10:51 Thrive Assessment: Date of Thrive Assessment Date Thrive assessed 06/21/24 09/02/24 10:51 Currently or been in a relationship where the following occur: No concerns reported Const General: well developed; No acute distress Nutritional Appearance: well nourished Orientation/consciousness: patient oriented x3 HENMT Head: Yes normocephalic and Yes atraumatic Eyes General: appearance normal, both eyes and all related structures Pupils: Equal, round and reactive pupils present EOM: EOMs intact bilaterally Resp Effort & Inspection: normal respiratory effort Neuro General: patient oriented x3 and gait normal Cranial nerves: Yes Equal, round and reactive pupils present Psych Affect: normal affect Coding Level of Care Code Est Pt Level 3 (70638) Diagnoses Lumbar degenerative disc disease M51.369 Lumbar radiculopathy M54.16 Assessment & Plan Assessment & Plan (1) Lumbar degenerative disc disease: Code(s): M51.369 - Other intervertebral disc degeneration, lumbar region without mention of lumbar back pain or lower extremity pain Category: Medical (2) Lumbar radiculopathy: Code(s): M54.16 - Radiculopathy, lumbar region Category: Medical Plan Ongoing?and?worsening?radicular?symptoms He?is?scheduled?for epidural?steroid?injections?bilaterally in?[place]?by?pain?management. We?had?discussed?using?opioid?medications?past?and?he?had?had?improvements?with?pregabalin?so?we?held?off?on?this. At?this?point,?will?use?a?low?dose?of?tramadol. We?discussed?that?he?should?continue?multimodal?approach?follow-up?with?pain?management?for?ongoing?treatment. Will?also?trial?increasing?his?pregabalin?you?can?using?NSAIDs?as?recommended Pain?contract?signed
[2024-09-02 10:48] VITALS: BP 124/70; PULSE 81; RESP 12; TEMP 37.1; O2SAT 96; BMI 23.2
== END 2024-09-02 11:29 | disposition home or self-care (01) ==
LOC: HO.HMCFM 10:30
PROVIDERS: PCP Family Medicine; Visit Provider Family Medicine
DX: M51.369 Other intervertebral disc degeneration, lumbar region without mention of lumbar back pain or lower extremity pain (principal); M54.16 Radiculopathy, lumbar region

== ENCOUNTER → 2024-09-02 10:29 | Outpatient (BNVA) | payer MEDICARE, SELFPAY | PROVIDERS: PCP Family Medicine; Visit Provider Family Medicine | DX: M51.369 Other intervertebral disc degeneration, lumbar region without mention of lumbar back pain or lower extremity pain (principal); M54.16 Radiculopathy, lumbar region | CPT/HCPCS: 99212 ==

== ENCOUNTER 2024-09-09 08:43 | Outpatient (AMB) | payer MEDICARE, SELFPAY ==
--- NOTE | 2024-09-09 08:53 | HO.SPINEOV ---
Vital Signs 09/09/24 08:57 Height 5 ft 8 in Weight 145 lb BMI 22.0 Intake Visit Reasons: spinal stenosis, lumbar region Intake Note: Mr. Humphreys is here today c/o Low back pain that radiates down the back of the legs. Overnight Caregiver Required: No Allergies amoxicillin Allergy (Intermediate, Verified 09/09/24 08:57) Rash Physical Exam Vital Signs: BMI result Body Mass Index 22.0 Assessment & Plan Assessment & Plan (1) Synovial cyst of lumbar spine: Code(s): M71.38 - Other bursal cyst, other site Category: Medical Plan Dear Maricruz, Thank you for referring Layton to our office today. He is a pleasant 69-year-old male who comes in today with a chief complaint of bilateral leg pain. He reports this has been ongoing for the past few years but has worsened since around May of 2024. He denies any known inciting incident. When describing the pain he states it starts near his posterior buttocks shoots over the lateral hips into the posterior thighs and travels down the posterior gastrocnemius. He does report some burning associated with this pain. In addition to this he reports some numbness in his right foot, which waxes and wanes throughout the day. He does report that his pain is worse at night, and he often wakes up multiple times during the night in pain. Positionally he states that lying flat causes him the most pain, in comparison to sitting or standing. He reports that his pain got so bad back in May that he had to go on medical leave from his part-time job. He has a pertinent past medical history of a right-sided total hip arthroplasty, and was therefore evaluated for left hip pathology by our colleagues in Orthopedics. He reports that they found no significant left-sided hip pathology, which prompted his referral to pain management, then to our service. He has tried physical therapy but did not find it helpful. He also obtained a membership at [employer] and attempted exercise/stretching, but also felt this was not helpful. He has tried [id number]-[id number] medications including Tylenol, ibuprofen, and pain creams/gels without significant relief of symptoms. He also has tried prescription medications including meloxicam, Tramadol, and Lyrica with only minor symptom relief. Of note his pain has become so troublesome that he began using a cane a few weeks ago to assist him with ambulation. After his initial discussion regarding his bilateral leg pain he also reported intermittent right-sided hand numbness, but reports no nocturnal symptoms, and no pertinent history of carpal tunnel syndrome. He has some difficulty with hand writing given that his right hand is his dominant hand, but has no other issues with dexterity (he can button buttons and zip his zippers without issue). He can also grasp things fine & is not dropping objects. No issues with bowel/bladder incontinence. PMH: Asthma, hyperlipidemia, insomnia, GERD. Social hx: Patient does not smoke, reports no substance use. Medications: See [employer] list. Allergies: Amoxicillin. Physical exam: The patient has about 4/5 strength with left-sided plantar flexion and knee extension / flexion. The rest of his strength is 5/5. He has no significant sensational deficits on exam. He ambulates well and rises from a seated position without assistance, and does not brace himself on the chair to rise. His reflexes are absent bilaterally in the patella, but 2+ intact elsewhere. (-) Mosquera's, (-) clonus, (-) bilateral straight leg raise, (-) Tinel's at the wrist on the right, (-) Phalen's. Imaging review: MRI of the lumbar spine completed here at [facility] on 07/27/2024 shows moderate left-sided foraminal stenosis at L2-3, moderate left-sided foraminal stenosis at L3-4, moderate bilateral foraminal stenosis at L4-5, and a posterior disc bulge with severe bilateral foraminal stenosis at L5-S1 with a notable synovial cyst near the left-sided facet joint. Impression: Layton is a pleasant 69-year-old male who comes in today with multiple issues. In regards to his right-sided hand numbness which is intermittent in nature, it sounds most like a low-grade carpal tunnel syndrome. In the absence of myelopathic reflexes, strength deficits in the upper extremities, nocturnal symptoms, and dexterity issues outside of some difficulty with handwriting, I do not believe he needs an MRI of the cervical spine at this time, but it may be cottrell to consider one in the near future. In regards to his bilateral leg pain, it sounds most like he is symptomatic from the compression seen at L5-S1. This is severely affecting his quality of life, and causing him a great deal of distress at home. He was scheduled with our colleagues in pain management for bilateral transforaminal epidural steroid injections at L5-S1. He was encouraged to follow through with them for this injection, and consider surgery thereafter if the injection does not improve his symptoms. However, the patient reported that he would prefer to have surgery to fix the problem, remove the synovial cyst, and decompress the nerves. Therefore, we extensively discussed the possibility of lumbar decompression at L5-S1, and I answered any questions that he had. I will review his imaging with Dr. Luong, and update this note thereafter. We then discussed surgical risks. Layotn was given risk and benefits of surgery including but not limited to infection, hematoma, nerve injury, durotomy, weakness, bowel/bladder injury, persistent pain, as well as the option to continue with conservative treatment and patient wishes to proceed with surgery. They are aware they should stop NSAIDs 7 days prior to surgery. All questions were answered to the best of our ability. If there is anything about this patients medical history that we have overlooked or concerns you have about us proceeding with surgery we would appreciate any input you can offer. Thank you for allowing us to care for your patient. The total time spent with this visit with this patient was 65 minutes reviewing history, physical exam, MRI imaging review, and implementation of treatment plan or further diagnostic testing Dg Luong MD,PhD [facility] Coding Level of Care Code New Pt Level 5 (71886) Diagnoses Synovial cyst of lumbar spine M71.38
[2024-09-09 08:57] VITALS: BMI 22.0
== END 2024-09-09 09:49 | disposition home or self-care (01) ==
LOC: HO.HNS 08:44
PROVIDERS: PCP Family Medicine; Visit Provider Physician Assistant
DX: M71.38 Other bursal cyst, other site (principal)
CPT/HCPCS: 99205

== ENCOUNTER → 2024-09-09 08:43 | Outpatient (BNVA) | payer MEDICARE, SELFPAY | PROVIDERS: PCP Family Medicine; Visit Provider Physician Assistant | DX: M71.38 Other bursal cyst, other site (principal); M54.50 Low back pain, unspecified | CPT/HCPCS: 99202 ==

== ENCOUNTER 2024-09-10 14:22 | Outpatient (AMB) | payer MEDICARE, SELFPAY ==
--- NOTE | 2024-09-10 14:27 | A.OFFPC_ITS ---
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 Had started him on a low dose of tramadol last office visit. was not helping. Also here for paperwork for disability. [facility] Medical History Primary osteoarthritis of right hip Mitral valve regurgitation Asthma Osteoarthritis Murmur, cardiac Aortic valve stenosis Surgical History Hx of left inguinal hernia repair Hx of tonsillectomy S/P total right hip arthroplasty Hx of colonoscopy Family History Father No problems noted. Mother No problems noted. Social History Household Members: Spouse Housing: House Are you a primary respiratory care specialist to a significant other at home: No Do you presently have visiting nurse or other home services: No Alcohol intake: never Patient Tobacco Use Status: Former Tobacco user Cigarette Packs Per Day: 0.25 Cigarettes Per Day: 5.0 Years Smoked: 5 e-Cigarette/Vaping Use: Never Used Second Hand Smoke Exposure: No service: No Current occupational status: retired Current occupation: Right Handed Current occupational exposures/hazards: No Cognitive needs: No Hearing needs: No Vision needs: No Questionnaire Thrive Questionnaire Date Thrive assessed: 06/21/24 I am a: Patient What is your living situation today?: I have a steady place to live Within the past 12 months, did the food you bought not last and you didn't have the money to get more?: Never true Within the past 12 months, did you worry whether your food would run out before you got money to buy more?: Never true Do you have trouble paying for medicines?: No Do you have trouble getting transportation to medical appointments?: No Do you have trouble paying your heating and electricity bill?: No Do you have trouble taking care of your child, family member or friend?: No Do you have trouble with day-to-day activities such as bathing, preparing meals, shopping, managing finances, etc.?: No Are you currently unemployed and looking for a job?: No Are you interested in more education?: No Please select the resources that you would like help with: None Currently or been in a relationship where the following occur: No concerns reported THRIVE Score: 0 EDUARDO-7 AMB Questionnaire EDUARDO-7 Date EDUARDO - 7 assessed: 02/27/24 Source: Developed by Drs. Jamaal Kinney, Marta Warner, Farhad Greer and colleagues, with an educational guerrero from [employer]. Review of Systems Const Denies chills, Denies fatigue, Denies fever(s), Denies headache(s) and Denies weakness ENT Denies dizziness and Denies headache(s) Card Denies dyspnea Resp Denies cough, Denies dyspnea, Denies wheezing and Denies other (shortness of breath) Musc Denies numbness and Denies tingling Neuro Denies dizziness, Denies headache(s), Denies numbness, Denies tingling and Denies weakness Psych Denies anxiety and Denies depression Endo Denies fatigue Aller/Immun Denies wheezing Physical exam (Primary Care) Vital Signs: Last Vital Signs Temp 99.1 F 09/10/24 14:32 Pulse 84 09/10/24 14:32 Resp 14 09/10/24 14:32 BP 130/74 09/10/24 14:37 Pulse Ox 97 09/10/24 14:32 Oxygen Delivery Method Room Air 09/10/24 14:32 BMI result Body Mass Index 23.3 Tobacco/Smoking Status: Tobacco use Status Tobacco use date assessed 12/02/22 09/10/24 14:29 Patient Tobacco Use Status Former Tobacco user 09/10/24 14:29 e-Cigarette/Vaping Use Never Used 09/10/24 14:29 Thrive Assessment: Date of Thrive Assessment Date Thrive assessed 06/21/24 09/10/24 14:29 Currently or been in a relationship where the following occur: No concerns reported Const General: well developed; No acute distress Nutritional Appearance: well nourished Orientation/consciousness: patient oriented x3 HENMT Head: Yes normocephalic and Yes atraumatic Eyes General: appearance normal, both eyes and all related structures Pupils: Equal, round and reactive pupils present EOM: EOMs intact bilaterally Resp Effort & Inspection: normal respiratory effort Neuro General: patient oriented x3 and gait normal Cranial nerves: Yes Equal, round and reactive pupils present Psych Affect: normal affect Coding Level of Care Code Est Pt Level 3 (05638) Diagnoses Lumbar radiculopathy M54.16 Lumbar degenerative disc disease M51.369 Falls R29.6 Assessment & Plan Assessment & Plan (1) Lumbar radiculopathy: Code(s): M54.16 - Radiculopathy, lumbar region Category: Medical Plan: Worsening?lumbar?stenosis?and?radiculopathy?with?some?weakness?now?in?lower?extr emities?and?recent?falls. Patient?is?followed?by?neuro?spine,??Ag. Plan?is?for?surgical?intervention Fillin g?out?FMLA?paperwork?and?disability?forms?to?keep?patient?out?of?work?for?the?ne xt?8?weeks. He?will?follow-up?with?me?prior?to?return?to?work Pain?control: Had?tried?tramadol?which?is?not?helping.??L yrica?is?helping?a?little?and?we?will?switch?tramadol?to?Percocet. (2) Lumbar degenerative disc disease: Code(s): M51.369 - Other intervertebral disc degeneration, lumbar region without mention of lumbar back pain or lower extremity pain Category: Medical Plan: As?above (3) Falls: Code(s): R29.6 - Repeated falls Category: Medical Plan: Recent?fall?onto?right?hip. No?significant?injury Needs?to?address?underlying?issue?which?is?lumbar?stenosis?and?will?require?surg ical?intervention?per?neuro?spine?surgeon Use?cane?or?walker Plan FMLA?paperwork?filled?out?to?keep?patient?out?of?work?through?11/03/2024. Medications: New oxycodone-acetaminophen 5-325 mg (Percocet) MAssPat Verified. Partial Fill upon patient request. 1 tab PO DAILY PRN 30 tabs 0RF pain 30 days Discontinued tramadol MassPat Verified, Partial Refill on Request Discontinued Reason: Doctor's Order 50 mg PO DAILY 30 days PRN 30 tabs 0RF pain
[2024-09-10 14:32] VITALS: BP 140/70; PULSE 84; RESP 14; TEMP 37.3; O2SAT 97; BMI 23.3
[2024-09-10 14:37] VITALS: BP 130/74
== END 2024-09-10 15:47 | disposition home or self-care (01) ==
LOC: HO.HMCFM 14:23
PROVIDERS: PCP Family Medicine; Visit Provider Family Medicine
DX: M54.16 Radiculopathy, lumbar region (principal); M51.369 Other intervertebral disc degeneration, lumbar region without mention of lumbar back pain or lower extremity pain; R29.6 Repeated falls

== ENCOUNTER → 2024-09-10 14:22 | Outpatient (BNVA) | payer MEDICARE, SELFPAY | PROVIDERS: PCP Family Medicine; Visit Provider Family Medicine | DX: M54.16 Radiculopathy, lumbar region (principal); M51.369 Other intervertebral disc degeneration, lumbar region without mention of lumbar back pain or lower extremity pain; R29.6 Repeated falls | CPT/HCPCS: 99212 ==

== ENCOUNTER 2024-09-18 14:30 | Outpatient (AMB) | payer MEDICARE, SELFPAY ==
--- NOTE | 2024-09-18 14:45 | A.OFFPC_ITS ---
Vital Signs 09/18/24 14:49 Height 5 ft 8 in Weight 152 lb BMI 23.1 BP 120/80 Blood Pressure Location Rt brachial Position Sitting Respiration 12 Pulse 84 Pulse Source Pulse Oximeter Temp 99.2 F Temp Source Oral Pulse Oximetry (%) 97 Oxygen Delivery Method Room Air Intake Visit Reasons: Leg/hand pain and numbness Intake Note: patient is scheduled to review numbness in hands/ feet and legs with pain. 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 Required: No Allergies amoxicillin Allergy (Intermediate, Verified 09/18/24 14:48) Rash Medication List - Last Reconciled 09/18/24 by Ihsan Burnett MD albuterol sulfate 90 mcg/actuation 2 puffs inhalation Q6H PRN 30 days atorvastatin 10 mg PO BEDTIME 90 days meloxicam 15 mg PO DAILY 30 days mometasone-formoterol 100-5 mcg/actuation 2 puffs PO DAILY 30 days omeprazole 20 mg PO DAILY 30 days oxycodone-acetaminophen 5-325 mg (Percocet) 1 tab PO DAILY PRN 30 days pregabalin 75 mg PO TID 30 days trazodone 50 mg PO BEDTIME PRN 30 days Tobacco use date assessed: 12/02/22 Dental Screening Dental Screen Date: 11/23/23 HPI Leg/hand pain and numbness HPI Details 69 y/o male presents today with complain ts of leg/hand pain and numbness. Ongoing lower extremity weakness along with weakness to all four limbs. Also has complaints of ongoing lower extremity 1+ edema. He notes he has an upcoming back surgery. Known synovial cyst of the lumbar spine. [facility] Medical History Primary osteoarthritis of right hip Mitral valve regurgitation Asthma Osteoarthritis Murmur, cardiac Aortic valve stenosis Surgical History Hx of left inguinal hernia repair Hx of tonsillectomy S/P total right hip arthroplasty Hx of colonoscopy Family History Father No problems noted. Mother No problems noted. Social History Household Members: Spouse Housing: House Are you a primary primary care nurse practitioner to a significant other at home: No Do you presently have visiting nurse or other home services: No Alcohol intake: never Patient Tobacco Use Status: Former Tobacco user Cigarette Packs Per Day: 0.25 Cigarettes Per Day: 5.0 Years Smoked: 5 e-Cigarette/Vaping Use: Never Used Second Hand Smoke Exposure: No service: No Current occupational status: retired Current occupation: Right Handed Current occupational exposures/hazards: No Cognitive needs: No Hearing needs: No Vision needs: No Questionnaire Thrive Questionnaire Date Thrive assessed: 06/21/24 I am a: Patient What is your living situation today?: I have a steady place to live Within the past 12 months, did the food you bought not last and you didn't have the money to get more?: Never true Within the past 12 months, did you worry whether your food would run out before you got money to buy more?: Never true Do you have trouble paying for medicines?: No Do you have trouble getting transportation to medical appointments?: No Do you have trouble paying your heating and electricity bill?: No Do you have trouble taking care of your child, family member or friend?: No Do you have trouble with day-to-day activities such as bathing, preparing meals, shopping, managing finances, etc.?: No Are you currently unemployed and looking for a job?: No Are you interested in more education?: No Please select the resources that you would like help with: None Currently or been in a relationship where the following occur: No concerns reported THRIVE Score: 0 EDUARDO-7 AMB Questionnaire EDUARDO-7 Date EDUARDO - 7 assessed: 02/27/24 Source: Developed by Drs. Jamaal Kinney, Marta Warner, aFrhad Greer and colleagues, with an educational guerrero from [employer]. Review of Systems Const Denies chills, Denies fatigue, Denies fever(s), Denies headache(s) and Denies weakness ENT Denies dizziness and Denies headache(s) Card Denies dyspnea Resp Denies cough, Denies dyspnea, Denies wheezing and Denies other (shortness of br eath) Musc Denies numbness and Denies tingling Neuro Denies dizziness, Denies headache(s), Denies numbness, Denies tingling and Denies weakness Psych Denies anxiety and Denies depression Endo Denies fatigue Aller/Immun Denies wheezing Physical exam (Primary Care) Vital Signs: Last Vital Signs Temp 99.2 F 09/18/24 14:49 Pulse 84 09/18/24 14:49 Resp 12 09/18/24 14:49 BP 120/80 09/18/24 14:49 Pulse Ox 97 09/18/24 14:49 Oxygen Delivery Method Room Air 09/18/24 14:49 BMI result Body Mass Index 23.1 Tobacco/Smoking Status: Tobacco use Status Tobacco use date assessed 12/02/22 09/18/24 14:52 Patient Tobacco Use Status Former Tobacco user 09/18/24 14:52 e-Cigarette/Vaping Use Never Used 09/18/24 14:52 Thrive Assessment: Date of Thrive Assessment Date Thrive assessed 06/21/24 09/18/24 14:52 Currently or been in a relationship where the following occur: No concerns reported Const General: well developed; No acute distress Nutritional Appearance: well nourished Orientation/consciousness: patient oriented x3 HENMT Head: Yes normocephalic and Yes atraumatic Eyes General: appearance normal, both eyes and all related structures Pupils: Equal, round and reactive pupils present EOM: EOMs intact bilaterally Resp Effort & Inspection: normal respiratory effort Neuro General: patient oriented x3 Cranial nerves: Yes Equal, round and reactive pupils present Psych Affect: normal affect Coding Level of Care Code Est Pt Level 4 (49465) Diagnoses Hand numbness R20.0 Lower extremity numbness R20.0 Lower extremity weakness R29.898 Assessment & Plan Assessment & Plan (1) Hand numbness: Code(s): R20.0 - Anesthesia of skin Category: Medical (2) Lower extremity numbness: Code(s): R20.0 - Anesthesia of skin Category: Medical (3) Lower extremity weakness: Code(s): R29.898 - Other symptoms and signs involving the musculoskeletal system Category: Medical Plan Patient?with?known?synovial?cyst?of?the?lumbar?spine causing?radi culopathy?and?lower?extremity?weakness?presents?with?worsening?weakness?in?all?4 ?limbs?as?well?as?numbness?and?tingling. He?has?an?appointment?with?neuro?spine?in?May?for?surgery of?lumbar?synovial?cy st. Unclear cause?for?upper?extremity?symptoms.??Unclear?if?all?of?his?symptoms?is?lower?ext remities?are?due?to?lumbar?synovial?cyst. Checking?labs Referring?patient?to?Neurology Starting?physical?the rapy?with?visiting?nurse?at?home?as?he?is?having?difficult?will?be?driving.??Giv ing?him?a?handicap?placard. Has?close?follow-up?with?me?later?this?month. Orders: Orders TSH reflex Free T4 Today R20.0 - Anesthesia of skin, Z00.00 - Encounter for general adult medical examination without abnormal findings HIV Ab/Ag Today R20.0 - Anesthesia of skin, Z11.3 - Encounter for screening for infections with a predominantly sexual mode of transmission Lyme IgG/IgM w/reflex to WB Today R20.0 - Anesthesia of skin Comprehensive Met. Panel Today R20.0 - Anesthesia of skin Complete Blood Count Auto Diff Today R20.0 - Anesthesia of skin, Z00.00 - Encounter for general adult medical examination without abnormal findings IRON PROFILE Today R20.0 - Anesthesia of skin Erythrocyte Sedimentation Rate Today R20.0 - Anesthesia of skin CRP High Sensitivity Today R20.0 - Anesthesia of skin Vitamin B12 and Folate Today E53.8 - Deficiency of other specified B group vitamins, R20.0 - Anesthesia of skin Syphilis Screen Today R20.0 - Anesthesia of skin, Z11.3 - Encounter for screening for infections with a predominantly sexual mode of transmission Referrals [facility] Referral M48.061 - Spinal stenosis, lumbar region without neurogenic claudication, M54.16 - Radiculopathy, lumbar region, R29.898 - Other symptoms and signs involving the musculoskeletal system Neurology Referral R20.0 - Anesthesia of skin, R29.6 - Repeated falls, R29.898 - Other symptoms and signs involving the musculoskeletal system Medications: New mecobalamin (vitamin B12) place tablet under tongue and allow to dissolve for at least30 secs before swallowing 1,000 mcg sublingual DAILY 90 days 90 tabs 2RF Refilled trazodone 50 mg PO BEDTIME 30 days PRN 30 tabs 0RF sleep G47.9 - Sleep disorder, unspecified
[2024-09-18 14:49] VITALS: BP 120/80; PULSE 84; RESP 12; TEMP 37.3; O2SAT 97; BMI 23.1
== END 2024-09-18 15:50 | disposition home or self-care (01) ==
LOC: HO.HMCFM 14:31
PROVIDERS: PCP Family Medicine; Visit Provider Family Medicine
DX: R20.0 Anesthesia of skin (principal); R29.898 Other symptoms and signs involving the musculoskeletal system

== ENCOUNTER → 2024-09-18 14:30 | Outpatient (BNVA) | payer MEDICARE, SELFPAY | PROVIDERS: PCP Family Medicine; Visit Provider Family Medicine ==

== ENCOUNTER 2024-09-18 15:38 | Outpatient (REF) | payer MEDICARE, SELFPAY ==
[2024-09-18 18:06] LABS: MANUAL DIFF FLAG NO
[2024-09-18 18:13] LABS: Basophils Absolute Auto 0.1 X10*3/uL (0.0-0.2); Eosinophils Absolute Auto 0.3 X10*3/uL (0.0-0.4); Hematocrit 44.7 % (42.0-52.0); Hemoglobin 15.2 g/dl (14.0-18.0); Imm Gran Abs Auto 0.01 X10*3/uL (0.00-0.03); Imm Gran Pct Auto 0.2 % (0.0-0.4); Lymphocytes Absolute Auto 1.4 X10*3/uL (1.2-4.9); Lymphocytes Percent Auto 21.9 % (20-40); Mean Corpuscular Hemoglobin 30.2 pg (27.0-33.0); Mean Corpuscular Volume 88.9 fL (80.0-98.0); Mean Platelet Volume 9.5 fL (9.4-12.4); Monocytes Absolute Auto 0.7 X10*3/uL (0.1-1.2); Monocytes Percent Auto 11.3 % (2-11); Neutrophils Absolute Auto 3.9 x10*3/uL (2.0-8.3); Neutrophils Percent Auto 61.6 % (45-73); Platelet Count 220 X10*3/uL (160-400); Red Blood Count 5.03 X10*6/uL (4.60-5.80); Red Cell Distribution Width 12.9 % (11.0-16.0); White Blood Count 6.3 X10*3/uL (4.8-10.8)
[2024-09-18 18:37] LABS: Alanine Aminotransferase 49 U/L (0-40); Albumin Level 4.5 g/dL (3.5-5.0); Alkaline Phosphatase 66 U/L (39-117); Anion Gap 10 (12-20); Aspartate Amino Transferase 55 U/L (5-37); Bilirubin Total 0.5 mg/dL (0.0-1.0); Blood Urea Nitrogen 17 mg/dL (9-16); Calcium 9.6 mg/dL (8.4-10.2); Carbon Dioxide 26 mmol/L (22-29); Chloride 106 mmol/L (96-108); Estimated Glomerular Filt Rate > 60; Glucose Random 89 mg/dL (60-115); Iron 84 mcg/dL (45-160); Percent Iron Saturation 27 % (15-50); Potassium 4.2 mmol/L (3.3-5.1); Sodium 138 mmol/L (135-145); Total Iron Binding Capacity 311 mcg/dL (228-428); Total Protein 7.3 g/dL (6.5-8.0); Unsaturated Iron Binding 227 ug/dL
[2024-09-18 18:54] LABS: TSH reflex Free T4 1.32 uIU/mL (0.32-4.0)
[2024-09-18 19:07] LABS: Folate 10.6 ng/mL (> or = 4.0); Vitamin B12 666 pg/mL (200-900)
[2024-09-18 19:32] LABS: Erythrocyte Sedimentation Rate 2 MM/HR (0-15)
[2024-09-19 08:13] LABS: CRP High Sensitivity 2.2 mg/L
[2024-09-19 08:14] LABS: Syphilis Screen Nonreactive (Nonreactive)
[2024-09-19 08:48] LABS: HIV AB/AG Nonreactive (Nonreactive); HIV Num 1 0.08 S/CO (0.00-0.99)
[2024-09-20 15:09] LABS: Lyme Abs Screen <0.90 index
== END 2024-09-18 15:39 | disposition home or self-care (01) ==
LOC: HO.WFDLDS 15:38
PROVIDERS: Visit Provider Family Medicine
DX: R20.0 Anesthesia of skin (principal); R29.898 Other symptoms and signs involving the musculoskeletal system; Z00.00 Encounter for general adult medical examination without abnormal findings; Z11.3 Encounter for screening for infections with a predominantly sexual mode of transmission; E53.8 Deficiency of other specified B group vitamins
CPT/HCPCS: 36415; 80053; 82607; 82746; 83540; 84443; 85025; 85652; 86141; 86617; 86618; 86780; 87389; 99212

== ENCOUNTER 2024-09-26 09:14 | Outpatient (AMB) | payer MEDICARE, SELFPAY ==
--- NOTE | 2024-09-26 09:11 | A.OFFPC_ITS ---
Intake Visit Reasons: Worsening situation need vna referral Facility Worker Required: No Allergies amoxicillin Allergy (Intermediate, Verified 09/26/24 09:12) Rash Tobacco use date assessed: 12/02/22 Dental Screening Dental Screen Date: 11/23/23 HPI Worsening situation need vna referral HPI Details Pt presents today to talk about worsening hand numbness, LE weakness/numbness and upper extremity weakness. He notes he has an appt. with neurology in January. Currently taking pregabalin, Percocet, meloxicam for pain. [facility] Medical History Primary osteoarthritis of right hip Mitral valve regurgitation Asthma Osteoarthritis Murmur, cardiac Aortic valve stenosis Surgical History Hx of left inguinal hernia repair Hx of tonsillectomy S/P total right hip arthroplasty Hx of colonoscopy Family History Father No problems noted. Mother No problems noted. Social History Household Members: Spouse Housing: House Are you a primary neurocritical care physician to a significant other at home: No Do you presently have visiting nurse or other home services: No Alcohol intake: never Patient Tobacco Use Status: Former Tobacco user Cigarette Packs Per Day: 0.25 Cigarettes Per Day: 5.0 Years Smoked: 5 e-Cigarette/Vaping Use: Never Used Second Hand Smoke Exposure: No service: No Current occupational status: retired Current occupation: Right Handed Current occupational exposures/hazards: No Cognitive needs: No Hearing needs: No Vision needs: No Questionnaire Thrive Questionnaire Date Thrive assessed: 06/21/24 EDUARDO-7 AMB Questionnaire EDUARDO-7 Date EDUARDO - 7 assessed: 02/27/24 Source: Developed by Drs. Jamaal Kinney, Marta Warner, Farhad Greer and colleagues, with an educational guerrero from [employer]. Review of Systems Const Denies chills, Denies fatigue, Denies fever(s), Denies headache(s) and Denies weakness ENT Denies dizziness and Denies headache(s) Card Denies dyspnea Resp Denies cough, Denies dyspnea, Denies wheezing and Denies other (shortness of breath) Musc Denies numbness and Denies tingling Neuro Denies dizziness, Denies headache(s), Denies numbness, Denies tingling and Denies weakness Psych Denies anxiety and Denies depression Endo Denies fatigue Aller/Immun Denies wheezing Physical exam (Primary Care) Tobacco/Smoking Status: Tobacco use Status Tobacco use date assessed 12/02/22 09/26/24 09:13 Patient Tobacco Use Status Former Tobacco user 09/26/24 09:13 e-Cigarette/Vaping Use Never Used 09/26/24 09:13 Thrive Assessment: Date of Thrive Assessment Date Thrive assessed 06/21/24 09/26/24 09:13 Telehealth Telehealth Telehealth Platform: Telephone Location of provider rendering services: practice address Location of patient: address on file Patient Identification confirmed using: Name, : Yes Telehealth method: voice only Patient verbally consented to treatment: Yes Patient verbally consented to billing insurance company: Yes Patient informed of any privacy concerns related to visit: Yes Minutes spent on Phone/Video with Pt.: 10 Coding Level of Care Code Tele Est Pt Level 2 (17075) Diagnoses Upper extremity weakness R29.898 Hand numbness R20.0 Lower extremity weakness R29.898 Lower extremity numbness R20.0 Assessment & Plan Assessment & Plan (1) Upper extremity weakness: Code(s): R29.898 - Other symptoms and signs involving the musculoskeletal system Category: Medical (2) Hand numbness: Code(s): R20.0 - Anesthesia of skin Category: Medical (3) Lower extremity weakness: Code(s): R29.898 - Other symptoms and signs involving the musculoskeletal system Category: Medical (4) Lower extremity numbness: Code(s): R20.0 - Anesthesia of skin Category: Medical Plan Worsening?complaints?of?weakness?and?numbness. Patient?has?a?known?synovial?cyst?of?the?lumbar?spine?a nd?is?scheduled?for?surgery. 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 Patient?has?had?flare-ups?pain?and?weakness Will?get?MRI?of?head?and?brain.??He?is?already?referred?to?neurology. Will?give?him?a?short?course?prednisone Increasing?Percocet?from?1?tablet?daily?to?1?tablet?b.i.d. Increasing?pregabalin?from?75?mg?t.i.d.?to?100?mg?t.i.d. He?can?continue?meloxicam Has?appointment?to?follow-up?with?me?in?about?2?weeks. Will?review?imaging?and?see?how?medications?are?helping. May?need?to?request?sooner?appointments?for?neurology?or?neuro?spine?surgery consult appt. Changed referral?for?physical?therapy?from?care?tenders?to?[facility] [place]. Orders: Orders MR head/brain wo con Today R20.0 - Anesthesia of skin, R29.898 - Other symptoms and signs involving the musculoskeletal system MR cervical spine wo con Today R20.0 - Anesthesia of skin, R29.898 - Other symptoms and signs involving the musculoskeletal system Medications: New prednisone 40 mg (2 x 20 mg) PO DAILY 5 days 10 tabs 0RF Changed From pregabalin 75 mg PO TID 30 days 90 caps 1RF To pregabalin 100 mg PO TID 30 days 90 caps 1RF From oxycodone-acetaminophen 5-325 mg (Percocet) MAssPat Verified. Partial Fill upon patient request. 1 tab PO DAILY 30 days PRN 30 tabs 0RF pain To oxycodone-acetaminophen 5-325 mg (Percocet) MAssPat Verified. Partial Fill upon patient request. 1 tab PO BID 30 days PRN 60 tabs 0RF pain
== END 2024-09-26 12:56 | disposition home or self-care (01) ==
LOC: HO.HMCFM 09:14
PROVIDERS: PCP Family Medicine; Visit Provider Family Medicine
DX: R29.898 Other symptoms and signs involving the musculoskeletal system (principal); R20.0 Anesthesia of skin

== ENCOUNTER → 2024-09-26 09:14 | Outpatient (BNVA) | payer MEDICARE, SELFPAY | PROVIDERS: PCP Family Medicine; Visit Provider Family Medicine ==

== ENCOUNTER 2024-09-28 06:23 | Emergency (ER) | payer MEDICARE, SELFPAY ==
--- NOTE | ~2024-09-28 | US_ITS ---
CLINICAL HISTORY: pain, swelling Venous duplex ultrasound bilateral lower extremity Comparison: None Findings: The visualized deep veins are fully compressible with normal Doppler color flow and spectral tracings. No popliteal cyst. IMPRESSION: 1. Negative for bilateral lower extremity deep vein thrombosis. This document has been electronically signed by: Layton Joy MD on 09/28/2024 08:50:38
[2024-09-28 06:26] VITALS: BP 134/74; PULSE 101; RESP 16; TEMP 36.8; O2SAT 96; BMI 23.0
--- NOTE | 2024-09-28 07:03 | ED_ITS ---
HPI - Extremity Problem General Chief complaint: Extremity Injury, Lower Stated complaint: pain, swelling and numbness lower extremities Time Seen by Provider: 09/28/24 07:01 Source: patient and old records reviewed Mode of arrival: ambulatory Limitations: no limitations History of Present Illness ED Provider: NANCI DELACRUZ Narrative: 69 yo male with PMH of HLD, arthralgia, varicose veins, has surgery with [facility] November 07 for spinal stenosis and a synovial cyst he has been having a hard time at night sleeping flat then he gets up and sits with his legs depenedent for a few hours. He has noticed recently lower ext swelling and pain in both feet. He has swelling around ankles, no fevers, rash, no b/b incontinence, no saddle anesthesia. He does not report CP/SOB. His PCP office sent him in for DVT US he has never had DVT before. MD Complaint: extremity pain and extremity swelling Onset (ago): week(s) (2) Pain Consistency: constant Quality: burning Radiation: none Relieving factors: nothing Exacerbating factors: nothing Associated symptoms: other Related Data Previous Rx's ?Medication ?Instructions ?Recorded atorvastatin 10 mg tablet 10 mg PO BEDTIME 90 days #90 tabs 02/27/24 mometasone-formoterol HFA 100 2 puff PO DAILY 30 days #13 grams 02/27/24 mcg-5 mcg/actuation aerosol inhaler albuterol sulfate 90 mcg/actuation 2 puff inhalation Q6H PRN 06/17/24 aerosol inhaler shortness of breath or wheezing 30 days #8.5 grams meloxicam 15 mg tablet 15 mg PO DAILY 30 days #30 tabs 07/26/24 omeprazole 20 mg capsule,delayed 20 mg PO DAILY 30 days #30 caps 08/26/24 release mecobalamin (vitamin B12) 1,000 1,000 mcg sublingual DAILY 90 days 09/18/24 mcg disintegrating #90 tabs tablet,sublingual trazodone 50 mg tablet 50 mg PO BEDTIME PRN sleep 30 days 09/18/24 #30 tabs oxycodone-acetaminophen 5 mg-325 1 tab PO BID PRN pain 30 days #60 09/26/24 mg tablet (Percocet) tabs prednisone 20 mg tablet 40 mg (2 x 20 mg) PO DAILY 5 days 09/26/24 #10 tabs pregabalin 100 mg capsule 100 mg PO TID 30 days #90 caps 09/26/24 Allergies Allergy/AdvReac Type Severity Reaction Status Date / Time amoxicillin Allergy Intermediate Rash Verified 09/28/24 06:32 Review of Systems Review of Systems: Constitutional : No Weight loss, No Fever, No Chills, ENT/Mouth : No Hearing loss, No Ear Pain, No Nasal Congestion, No Sinus Pain, No Hoarseness, No sore throat, No Rhinorrhea, No Swallowing Difficulty Cardiovascular : No Chest Pain, No SOB, pos leg edema Respiratory : No Cough, No Dyspnea Gastrointestinal : No Nausea, No Vomiting, No Diarrhea, No abdominal Pain, No Hematochezia, No Melena Genitourinary : No Dysuria, No Urinary Frequency, No Hematuria, No Urinary Incontinence, Musculoskeletal : positive back pain Skin : No Skin Lesions, No rash Neuro : No Weakness, No Numbness, pos Paresthesias, no loss of bowel or bladder incontinence, no saddle anesthesia all other systems reviewed and are negative PMF Past Medical History Attestation statement: The following information was validated with the patient. Source: old records reviewed Medical History Primary osteoarthritis of right hip Mitral valve regurgitation Asthma Osteoarthritis Murmur, cardiac Aortic valve stenosis Surgical History Hx of left inguinal hernia repair Hx of tonsillectomy S/P total right hip arthroplasty Hx of colonoscopy Family History Family History Father No problems noted. Mother No problems noted. Social History Social History Household Members: Spouse Housing: House Are you a primary customer care representative to a significant other at home: No Do you presently have visiting nurse or other home services: No Alcohol intake: never Patient Tobacco Use Status: Former Tobacco user Cigarette Packs Per Day: 0.25 Cigarettes Per Day: 5.0 Years Smoked: 5 e-Cigarette/Vaping Use: Never Used Second Hand Smoke Exposure: No Advance Directives: No Advance Directives Information Provided: Yes Do you have a plan to hurt others: No Plan service: No Current occupational status: retired Current occupation: Right Handed Current occupational exposures/hazards: No Cognitive needs: No Hearing needs: No Vision needs: No Physical Exam Vital Signs: Vital Signs: Last Vital Signs Temp 97.7 F 09/28/24 08:23 Pulse 101 H 09/28/24 06:26 Resp 17 09/28/24 08:23 BP 137/76 09/28/24 08:23 Pulse Ox 96 09/28/24 08:23 O2 Del Method Room Air 09/28/24 08:23 BMI result Body Mass Index 23.0 Appearance: Alert. Oriented X3. No acute distress. Eyes: Pupils equal, round and reactive to light. ENT: Pharynx normal. Neck: Normal inspection. Neck supple. CVS: Normal heart rate and rhythm. Pulses normal. Respiratory: No respiratory distress. Breath sounds normal. Abdomen: Soft and nontender. Skin: Skin warm and dry. Normal skin color. Normal skin turgor. Extremities: non pitting symmetric ankle edema no rash, warmth, distal pulses 2+ intact, SILT intact, 5/5 strength Neuro: Oriented X 3. No motor deficit. No sensory deficit. CN2-12 intact Medical Decision Making Medical Decision Making MDM Narrative: 69 yo male with PMH of HLD, arthralgia, varicose veins, has surgery with [facility] November 07 for spinal stenosis and a synovial cyst here with c/o ankle swelling which I suspect is due to change in sleeping position and keeping leg hung down - at this time given his complaints I am going to order DVT US - he has no CP/SOB no signs of infection and no cauda equina symptoms on exam. If negative will send home and advise compression socks Differential Diagnosis Differential Diagnoses: The differential diagnosis associated with the presentation includes DVT, neuropathy, dependent edema Admission/Observation Consideration of admission/observation: Escalation of care including admission/observation considered no red flags on exam can follow up as outpatient instruct tight compression on legs Independent Interpretation I performed an independent interpretation of an: Ultrasound (normal ) Radiology Impression Discussion of test interpretation with radiology: I have reviewed the radiologist's reading. External Record Review External record reviewed: Outpatient record Prescription Management I considered prescription management with: Other Discharge Plan Discharge Clinical Impression: Dependent edema Patient Disposition: Home, Self-Care Instructions: Leg Edema (ED) Additional Instructions: no blood clot seen today please follow up as planned in the meantime wear tight compressive socks like soccer socks to aid venous flow back up return for any worsening symptoms or concerns. CLINICAL HISTORY: pain, swelling Venous duplex ultrasound bilateral lower extremity Comparison: None Findings: The visualized deep veins are fully compressible with normal Doppler color flow and spectral tracings. No popliteal cyst. IMPRESSION: 1. Negative for bilateral lower extremity deep vein thrombosis. This document has been electronically signed by: Layton Joy MD on 09/28/2024 08:50:38 Prescriptions: No Action albuterol sulfate 90 mcg/actuation HFA aerosol inhaler 2 puff inhalation Q6H PRN (Reason: shortness of breath or wheezing) 30 Days Qty: 8.5 2RF omeprazole 20 mg capsule,delayed release(DR/EC) 20 mg PO DAILY 30 Days Qty: 30 2RF atorvastatin 10 mg tablet 10 mg PO BEDTIME 90 Days Qty: 90 4RF mometasone-formoterol 100-5 mcg/actuation HFA aerosol inhaler 2 puff PO DAILY 30 Days Qty: 13 4RF mecobalamin (vitamin B12) 1,000 mcg tablet,disintegrating 1,000 mcg sublingual DAILY 90 Days Qty: 90 2RF Rx Instructions: place tablet under tongue and allow to dissolve for at least30 secs before swallowing trazodone 50 mg tablet 50 mg PO BEDTIME PRN (Reason: sleep) 30 Days Qty: 30 0RF pregabalin 100 mg capsule 100 mg PO TID 30 Days Qty: 90 1RF prednisone 20 mg tablet 40 mg PO DAILY 5 Days Qty: 10 0RF oxycodone-acetaminophen [Percocet] 5-325 mg tablet 1 tab PO BID PRN (Reason: pain) 30 Days Qty: 60 0RF Rx Instructions: MAssPat Verified. Partial Fill upon patient request. meloxicam 15 mg tablet 15 mg PO DAILY 30 Days Qty: 30 3RF Print Language: Turkish
[2024-09-28 08:23] VITALS: BP 137/76; RESP 17; TEMP 36.5; O2SAT 96
== END 2024-09-28 09:04 | disposition home or self-care (01) ==
PROVIDERS: Emergency Provider Emergency Medicine; PCP Family Medicine
DX: R60.0 Localized edema (principal); M79.605 Pain in left leg; M79.604 Pain in right leg; Z87.891 Personal history of nicotine dependence
CPT/HCPCS: 93970; 99283; 99284

== ENCOUNTER → 2024-09-28 07:15 | Outpatient (BNV) | payer MEDICARE, SELFPAY | PROVIDERS: Emergency Provider Emergency Medicine; PCP Family Medicine; Visit Provider Specialist | DX: M79.604 Pain in right leg (principal); M79.605 Pain in left leg; R22.43 Localized swelling, mass and lump, lower limb, bilateral | CPT/HCPCS: 93970 ==

== ENCOUNTER → 2024-10-02 18:38 | Outpatient (BNV) | payer MEDICARE, SELFPAY | PROVIDERS: PCP Family Medicine; Visit Provider Radiology Diagnostic Radiology | DX: M47.812 Spondylosis without myelopathy or radiculopathy, cervical region (principal); M48.1 Ankylosing hyperostosis [Forestier]; G96.191 Perineural cyst; R29.898 Other symptoms and signs involving the musculoskeletal system | CPT/HCPCS: 70551; 72141 ==

== ENCOUNTER 2024-10-02 18:39 | Outpatient (REF) | payer MEDICARE, SELFPAY ==
--- NOTE | ~2024-10-02 | MR_ITS ---
EXAMINATION: MR BRAIN WITHOUT CONTRAST CLINICAL INFORMATION: Other symptoms and signs involving the musculoskeletal system. COMPARISON: None available. TECHNIQUE: MRI of the brain was obtained using routine sequences without contrast. FINDINGS: No restricted diffusion. No acute intracranial hemorrhage, mass effect, midline shift, hydrocephalus or herniation. Webb-white matter differentiation is normal. Bilateral multifocal patchy and punctate deep periventricular and subcortical white matter hyperintense T2 FLAIR signal involving centrum semiovale and yeboah radiata. Old lacunar infarcts, basal ganglia yeboah radiata and superior right frontal gyrus. Flow-void signal within the main cerebral vessels is normal. Sellar/suprasellar region demonstrated no signal abnormality or masses. Craniocervical junction is intact and normal. 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 No acute stroke/nonhemorrhagic ischemia. Electronically signed by: Alex Madrid MD 10/03/2024 07:09 AM EDT
--- NOTE | ~2024-10-02 | MR_ITS ---
EXAMINATION: MR CERVICAL SPINE WITHOUT CONTRAST CLINICAL INFORMATION: Other symptoms and signs involving the musculoskeletal system COMPARISON: None available. TECHNIQUE: MRI of the cervical spine was obtained using routine sequences without contrast. FINDINGS: Craniocervical junction is intact. No bone marrow STIR signal abnormality. Multilevel disc desiccation and marginal osteophyte formation and endplate irregularity C4 T1. 1 mm retrolisthesis C4-5. 4 mm retrolisthesis C6-7. Buckling deformity dorsal aspect of the thecal sac related to ligamentum flavum hypertrophy from C3-4 to C6-7. The cervical spinal cord signal is normal. C2-3: No disc herniation. No neuroforamina stenosis. C3-4: Central disc osteophyte complex formation resulting in ventral deformity of the spinal cord. No cord compression. No neuroforamina stenosis. 4 mm right perineural cyst. C4-5: Broad-based disc osteophyte complex formation resulting in ventral deformity of the spinal cord. No cord compression. Bilateral neuroforamina narrowing on a degenerative basis. C5-6: Broad-based disc osteophyte complex formation resulting in CSF effacement of the thecal sac involving mostly the ventral central spinal canal. Bilateral neuroforamina stenosis on a degenerative basis. C6-7: Central disc osteophyte complex formation resulting in ventral spinal cord deformity. Right neuroforamina narrowing on a degenerative basis. There is an 8 mm right perineural cyst. C7-T1: Broad-based disc osteophyte complex formation resulting in ventral deformity of the spinal cord. Bilateral neuroforamina narrowing on a degenerative basis. T1-T2 There is a 7 mm left perineural cyst. No prevertebral compartment hematoma, mass or fluid collection. Flow-void signal within the mean vessels is normal. Left vertebral artery is dominant. MR/MR cervical spine wo con IMPRESSION: Multilevel cervical spondylosis C3-4 to C7-T1 more conspicuous at C5-C6 resulting in central spinal canal and bilateral neuroforamina stenosis compressing the cord without cord edema and or myelopathy. Right vertebral cyst C6-7 and left perineural cyst T1-2. Electronically signed by: Alex Madrid MD 10/03/2024 07:17 AM EDT
== END 2024-10-02 18:40 | disposition home or self-care (01) ==
LOC: HO.MRI 18:39
PROVIDERS: PCP Family Medicine; Visit Provider Family Medicine
DX: R29.898 Other symptoms and signs involving the musculoskeletal system (principal); R20.0 Anesthesia of skin
CPT/HCPCS: 70551; 72141

== ENCOUNTER → 2024-10-04 11:11 | Outpatient (BNV) | payer MEDICARE, SELFPAY | PROVIDERS: PCP Family Medicine; Visit Provider Internal Medicine Cardiovascular Disease | DX: I51.7 Cardiomegaly (principal) | CPT/HCPCS: 93010 ==

== ENCOUNTER 2024-10-08 10:27 | Outpatient (AMB) | payer MEDICARE, SELFPAY ==
--- NOTE | 2024-10-08 10:31 | MHC.PC.OV ---
Vital Signs 10/08/24 10:33 Height 5 ft 8 in Weight 143 lb BMI 21.7 BP 120/80 Blood Pressure Location Rt brachial Position Sitting Respiration 14 Pulse 82 Pulse Source Pulse Oximeter Temp 98.1 F Temp Source Oral Pulse Oximetry (%) 97 Oxygen Delivery Method Room Air Intake Visit Reasons: f/u back pain Intake Note: follow up on back pain Continuous Improvement Facilitator Required: No Allergies amoxicillin Allergy (Intermediate, Verified 10/08/24 10:31) Rash Medication List - Last Reconciled 10/08/24 by Ihsan Burnett MD albuterol sulfate 90 mcg/actuation 2 puffs inhalation BID atorvastatin 10 mg PO BEDTIME 90 days mecobalamin (vitamin B12) 1,000 mcg sublingual DAILY 90 days meloxicam 15 mg PO DAILY 30 days mometasone-formoterol 100-5 mcg/actuation 1 puff PO BID omeprazole 20 mg PO DAILY 30 days oxycodone-acetaminophen 5-325 mg (Percocet) 1 tab PO BID PRN 30 days prednisone 40 mg (2 x 20 mg) PO DAILY 5 days pregabalin 100 mg PO TID 30 days trazodone 50 mg PO BEDTIME PRN 30 days Tobacco use date assessed: 12/02/22 Dental Screening Dental Screen Date: 11/23/23 HPI f/u back pain HPI Details 69 yy/o male presents to f/u back pain, MRI. Recent ED visit for lower extremity edema. No blood clot was seen. Cervical spine MRI 10/02/24 showed: Multilevel cervical spondylosis C3-4 to C7-T1 more conspicuous at C5-C6 resulting in central spinal canal and bilateral neuroforamina stenosis compressing the cord without cord edema and or myelopathy. Right vertebral cyst C6-7 and left perineural cyst T1-2. Brain MRI 10/02/24: Concerning small vessel occlusive disease. No acute stroke/nonhemorrhagic ischemia. Pt notes short course of prednisone has helped with back pain. HPI Comments History of Present Illness Details Documentation assistance for Ihsan Burnett MD, was provided by Torres Dietz,? Stator Tester on 10/08/2024 at 11:27 AM EST. I, Dr. Burnett, have read, observed, and verified documentation. ?? PFS Medical History (Updated 10/08/24 @ 11:27 by Torres Dietz) Hx of pneumothorax Arthritis Numbness Bronchitis Primary osteoarthritis of right hip Asthma Osteoarthritis Murmur, cardiac Surgical History (Updated 10/04/24 @ 10:17 by Gertrudis Martinez RN) Hx of hand surgery Hx of left inguinal hernia repair Hx of tonsillectomy S/P total right hip arthroplasty Hx of colonoscopy Family History Father No problems noted. Mother No problems noted. 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 home: Yes Do you presently have visiting nurse or other home services: Yes (nursing and Physical therapy) Alcohol intake: never Patient Tobacco Use Status: Former Tobacco user Cigarette Packs Per Day: 0.25 Cigarettes Per Day: 5.0 Years Smoked: 5 e-Cigarette/Vaping Use: Never Used Second Hand Smoke Exposure: No service: No Current occupational status: retired Current occupation: Right Handed Current occupational exposures/hazards: No Cognitive needs: No Hearing needs: No Vision needs: No Questionnaire Thrive Questionnaire Date Thrive assessed: 06/21/24 I am a: Patient What is your living situation today?: I have a steady place to live Within the past 12 months, did the food you bought not last and you didn't have the money to get more?: Never true Within the past 12 months, did you worry whether your food would run out before you got money to buy more?: Never true Do you have trouble paying for medicines?: No Do you have trouble getting transportation to medical appointments?: No Do you have trouble paying your heating and electricity bill?: No Do you have trouble taking care of your child, family member or friend?: No Do you have trouble with day-to-day activities such as bathing, preparing meals, shopping, managing finances, etc.?: No Are you currently unemployed and looking for a job?: No Are you interested in more education?: No Please select the resources that you would like help with: None Currently or been in a relationship where the following occur: No concerns reported THRIVE Score: 0 EDUARDO-7 AMB Questionnaire EDUARDO-7 Date EDUARDO - 7 assessed: 02/27/24 Source: Developed by Marta Hutton B.W. Timmy, Farhad Greer and colleagues, with an educational guerrero from [employer]. Review of Systems Const Denies chills, Denies fatigue, Denies fever(s), Denies headache(s) and Denies weakness ENT Denies dizziness and Denies headache(s) Card Denies dyspnea Resp Denies cough, Denies dyspnea, Denies wheezing and Denies other (shortness of breath) Musc Denies numbness and Denies tingling Neuro Denies dizziness, Denies headache(s), Denies numbness, Denies tingling and Denies weakness Psych Denies anxiety and Denies depression Endo Denies fatigue Aller/Immun Denies wheezing Physical exam (Primary Care) Vital Signs: Last Vital Signs Temp 98.1 F 10/08/24 10:33 Pulse 82 10/08/24 10:33 Resp 14 10/08/24 10:33 BP 120/80 10/08/24 10:33 Pulse Ox 97 10/08/24 10:33 Oxygen Delivery Method Room Air 10/08/24 10:33 BMI result Body Mass Index 21.7 Tobacco/Smoking Status: Tobacco use Status Tobacco use date assessed 12/02/22 10/08/24 10:36 Patient Tobacco Use Status Former Tobacco user 10/08/24 10:36 e-Cigarette/Vaping Use Never Used 10/08/24 10:36 Thrive Assessment: Date of Thrive Assessment Date Thrive assessed 06/21/24 10/08/24 10:36 Currently or been in a relationship where the following occur: No concerns reported Const General: well developed; No acute distress Nutritional Appearance: well nourished Orientation/consciousness: patient oriented x3 HENMT Head: Yes normocephalic and Yes atraumatic Eyes General: appearance normal, both eyes and all related structures Pupils: Equal, round and reactive pupils present EOM: EOMs intact bilaterally Resp Effort & Inspection: normal respiratory effort Neuro General: patient oriented x3 and gait normal Cranial nerves: Yes Equal, round and reactive pupils present Psych Affect: normal affect Coding Level of Care Code Est Pt Level 4 (07043) Diagnoses Lower extremity weakness R29.898 Lower extremity numbness R20.0 Lumbar degenerative disc disease M51.369 Upper extremity weakness R29.898 Abnormal brain MRI R90.89 Assessment & Plan Assessment & Plan (1) Lower extremity weakness: Code(s): R29.898 - Other symptoms and signs involving the musculoskeletal system Category: Medical (2) Lower extremity numbness: Code(s): R20.0 - Anesthesia of skin Category: Medical (3) Lumbar degenerative disc disease: Code(s): M51.369 - Other intervertebral disc degeneration, lumbar region without mention of lumbar back pain or lower extremity pain Category: Medical (4) Upper extremity weakness: Code(s): R29.898 - Other symptoms and signs involving the musculoskeletal system Category: Medical (5) Abnormal brain MRI: Code(s): R90.89 - Other abnormal findings on diagnostic imaging of central nervous system Category: Medical Plan Ongoing?upper?and?lower?extremity?pain?and?weakness. He?is?scheduled?for?surgery?of?lumbar?spine this?week. 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 MRI?of?C-spine?shows?spinal?canal?and?neural?foraminal?stenoses?with?cord?compression?though?no?cord?edema?or?myelopathy (See Below). Likely?cause?of?his?upper?extremity?symptoms. Also MRI?of?brain?shows?small-vessel?occlusive?disease (See Below) - he?has?been?referred?to?neurology. Will?refer?him?back?to?neuro?spine?regarding?C-spine?findings. Had?increased?his?pain?medications?at?last?visit.??Noted?that?the?prednisone?was?very?effective. We?discussed?that?with?his?upcoming?surgery?we?should?discuss?with?neuro?spine?before?using?prednisone?again. He?has?an?upcoming?appointment?with?me?next?month. MRI Brain Bilateral multifocal patchy and punctate deep periventricular and subcortical white matter hyperintense T2 FLAIR signal involving centrum semiovale and yeboah radiata. Old lacunar infarcts, basal ganglia yeboah radiata and superior right frontal gyrus. IMPRESSION: Concerning small vessel occlusive disease. No acute stroke/nonhemorrhagic ischemia. MRI C-Spine IMPRESSION: Multilevel cervical spondylosis C3-4 to C7-T1 more conspicuous at C5-C6 resulting in central spinal canal and bilateral neuroforamina stenosis compressing the cord without cord edema and or myelopathy. Right vertebral cyst C6-7 and left perineural cyst T1-2.
[2024-10-08 10:33] VITALS: BP 120/80; PULSE 82; RESP 14; TEMP 36.7; O2SAT 97; BMI 21.7
== END 2024-10-08 11:36 | disposition home or self-care (01) ==
LOC: HO.HMCFM 10:27
PROVIDERS: PCP Family Medicine; Visit Provider Family Medicine
DX: R29.898 Other symptoms and signs involving the musculoskeletal system (principal); R20.0 Anesthesia of skin; M51.369 Other intervertebral disc degeneration, lumbar region without mention of lumbar back pain or lower extremity pain; R90.89 Other abnormal findings on diagnostic imaging of central nervous system

== ENCOUNTER → 2024-10-08 10:27 | Outpatient (BNVA) | payer MEDICARE, SELFPAY | PROVIDERS: PCP Family Medicine; Visit Provider Family Medicine | DX: R29.898 Other symptoms and signs involving the musculoskeletal system (principal); R20.0 Anesthesia of skin; M51.369 Other intervertebral disc degeneration, lumbar region without mention of lumbar back pain or lower extremity pain; R90.89 Other abnormal findings on diagnostic imaging of central nervous system | CPT/HCPCS: 99212 ==

== ENCOUNTER 2024-10-10 11:15 | Day surgery (SDC) | payer MEDICARE, SELFPAY ==
--- NOTE | 2024-10-04 | ECG_ITS ---
Test Reason : preop Blood Pressure : */* mmHG Vent. Rate : 92 BPM Atrial Rate : 92 BPM P-R Int : 142 ms QRS Dur : 88 ms QT Int : 366 ms P-R-T Axes : 75 77 70 degrees QTcB Int : 452 ms Normal sinus rhythm Right atrial enlargement Borderline ECG When compared with ECG of 13-Jul-2020 09:42, No significant change was found Referred By: Mireille Rutledge Electronically Signed By: DAVIDSON DU MD
[2024-10-04 10:28] VITALS: BP 144/81; PULSE 89; RESP 16; O2SAT 96; BMI 22.5
--- NOTE | 2024-10-04 10:43 | HO.ANESPROP2 ---
Documented by User: Mireille Rutledge NP 10/08/24 15:00 HPI - Anesthesia Eval Consult details Narrative: 69yo M for Bilateral L5 Foraminotomy and Left L5 Synovial Cyst Removal, 10/10/24 ED 09/2024 for LE swelling. DVT r/o. Compression socks rx'd and some improvement in edema No recent illness No CP/SOB with exercise at gym up until pain 05/2024. None now within limits of pain. Asthma: Dulera BID and Albuterol BID - not symptomatic but controlled on current regimen Pending neurology visit January Heart murmur for years - ECHO 2020 and 2018 without any significant valve disease. No longer follows with cardiology. FORMERLY [facility], [facility] Active Problems Active Problems: All Active Problems Upper extremity weakness (Acute) Lower extremity numbness (Acute) Hand numbness (Acute) Falls (Acute) Synovial cyst of lumbar spine (Acute) Lumbar degenerative disc disease (Acute) Vertebrogenic low back pain (Acute) Lumbosacral spondylosis (Acute) Lumbar radiculopathy (Acute) Lumbar stenosis (Acute) History of right hip replacement (Acute) Osteoarthritis of left hip (Acute) Hip pain, left (Acute) Elevated liver enzymes (Acute) Dysuria (Acute) Difficulty sleeping (Acute) Bilateral hip pain (Acute) Lower extremity weakness (Acute) Bilateral leg pain (Acute) Pre-hypertension (Acute) Allergies (Acute) 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 (Acute) Hyperlipidemia (Acute) Pre-diabetes (Acute) Immunization counseling (Acute) Family history of colon cancer in father (Acute) Tubular adenoma of colon (Acute) Mitral regurgitation (Acute) Neoplasm of uncertain behavior of skin (Acute) GERD (gastroesophageal reflux disease) (Acute) Hypercholesterolemia (Acute) Elevated fasting blood sugar (Acute) Bursitis (Acute) Allergic reaction (Acute) Asthma (Acute) Edema (Acute) History of total right hip arthroplasty (Acute) Preoperative cardiovascular examination (Acute) Adult general medical examination (Acute) Immunization counseling (Acute) Right hip pain (Acute) Screening for prostate cancer (Acute) Screening for colon cancer (Acute) Arthralgia (Acute) Murmur, cardiac (Acute) Past Medical History Medical History Hx of pneumothorax Arthritis Numbness Bronchitis Primary osteoarthritis of right hip Asthma Osteoarthritis Murmur, cardiac Family History Family History Father No problems noted. Mother No problems noted. 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 If so, by whom?: No Are you DNR?: No Advance Directives: No Advance Directives Information Provided: Yes Advance Directives on File: No Poor oral hygiene: Yes service: No Current occupational status: retired Current occupation: Right Handed Current occupational exposures/hazards: No Cognitive needs: No Hearing needs: No Vision needs: No Meds Allergies Allergy/AdvReac Type Severity Reaction Status Date / Time amoxicillin Allergy Intermediate Rash Verified 10/10/24 11:46 Home Medications ?Medication ?Instructions ?Recorded ?Confirmed ?Last Taken ?Type albuterol sulfate 90 mcg/actuation 2 puff inhalation BID shortness of 10/04/24 10/10/24 Unknown History aerosol inhaler breath or wheezing mometasone-formoterol HFA 100 1 puff PO BID 10/04/24 10/10/24 Unknown History mcg-5 mcg/actuation aerosol inhaler Exam Height,Weight and Vital Signs: Height 5 ft 8 in Weight 67.132 kg Last Vital Signs Pulse 89 10/04/24 10:28 Resp 16 10/04/24 10:28 BP 144/81 H 10/04/24 10:28 Pulse Ox 96 10/04/24 10:28 O2 Del Method Room Air 10/04/24 10:28 Pertinent Lab Results Pertinent Lab Results: Laboratory Tests 09/18/24 15:41 WBC 6.3 Hgb 15.2 Hct 44.7 Plt Count 220 Sodium 138 Potassium 4.2 Chloride 106 Carbon Dioxide 26 BUN 17 H Creatinine 0.87 Narrative Narrative: EKG 09/2024 Vent. Rate : 92 BPM Atrial Rate : 92 BPM P-R Int : 142 ms QRS Dur : 88 ms QT Int : 366 ms P-R-T Axes : 75 77 70 degrees QTcB Int : 452 ms Normal sinus rhythm Right atrial enlargement Borderline ECG When compared with ECG of 13-Jul-2020 09:42, No significant change was found US carotid duplex BI 2022 IMPRESSION: RIGHT: Minimal, non-hemodynamically significant stenosis of the proximal right internal carotid artery corresponding to a 0-49% stenosis by velocity criteria. There is a bunny sign in the right vertebral artery suggesting an occult right subclavian stenosis, pre-steal. LEFT: Minimal, non-hemodynamically significant stenosis of the proximal left internal carotid artery corresponding to a 0-49% stenosis by velocity criteria. Airway TM Dist: >3cm Neck ROM: Full Partial: Upper Heart: RRR Lungs: CTAB Assessment and Plan Assessment Anesthesia Assessment: Anesthesia Plan Discussed and PAT Visit Final Anesthetic Review Family History of Problems with Anesthesia: No History of Problems with Anesthesia: No Documented by User: Delisa Gonzales MD 10/10/24 13:32 FORMERLY [facility], [facility] Past Medical History Medical History Hx of pneumothorax Arthritis Numbness Bronchitis Primary osteoarthritis of right hip Asthma Osteoarthritis Murmur, cardiac Family History Family History Father No problems noted. Mother No problems noted. Surgical History Surgical History Hx of hand surgery Hx of left inguinal hernia repair Hx of tonsillectomy S/P total right hip arthroplasty Hx of colonoscopy Social History Social History Household Members: Spouse Housing: House Are you a primary director career services to a significant other at home: Yes Do you presently have visiting nurse or other home services: Yes (nursing and Physical therapy) Alcohol intake: never Patient Tobacco Use Status: Former Tobacco user Cigarette Packs Per Day: 0.25 Cigarettes Per Day: 5.0 Years Smoked: 5 e-Cigarette/Vaping Use: Never Used Second Hand Smoke Exposure: No Use of substances other than those prescribed or required for medical reasons: No Have you been hit, kicked, punched, or otherwise hurt by someone within the past year? If so, by whom?: No Are you DNR?: No Advance Directives: No Advance Directives Information Provided: Yes Advance Directives on File: No Poor oral hygiene: Yes service: No Current occupational status: retired Current occupation: Right Handed Current occupational exposures/hazards: No Cognitive needs: No Hearing needs: No Vision needs: No Meds Allergies Allergy/AdvReac Type Severity Reaction Status Date / Time amoxicillin Allergy Intermediate Rash Verified 10/10/24 11:46 Home Medications ?Medication ?Instructions ?Recorded ?Confirmed ?Last Taken ?Type albuterol sulfate 90 mcg/actuation 2 puff inhalation BID shortness of 10/04/24 10/10/24 Unknown History aerosol inhaler breath or wheezing mometasone-formoterol HFA 100 1 puff PO BID 10/04/24 10/10/24 Unknown History mcg-5 mcg/actuation aerosol inhaler Exam Airway Mallampati Class: II Assessment and Plan Assessment Anesthesia Assessment: Chart Reviewed Final Anesthetic Review NPO: Yes ASA Class: III Final Preanesthetic Review: No Changes in Pt Med Stat, Meds/Allgs Chart Reviewed, Consent Obtained/Reviewed and Anes Risks/Benef Reviewed Patient Risk: Intermediate Procedure Risk: Intermediate Anesthetic Plan Anesthetic Plan: GA Disposition: Standard PACU
[2024-10-10] VITALS (7 sets, daily range): BP systolic 140–179; BP diastolic 73–95; PULSE 79–91; RESP 12–16; TEMP 36.2–36.6; O2SAT 96–100; BMI 21.8
--- NOTE | ~2024-10-10 | FL_ITS ---
EXAMINATION: FL GUIDANCE ONLY HISTORY: L5 foraminotomy and left L5 synovial cyst removal COMPARISON: None available. TECHNIQUE: Fluoroscopy time: Less than 1 minute. Cumulative Dose: 2.85 mGy. DAP: 0.519 mGym2 Images: 1. FINDINGS: A single fluoroscopic spot film of the lumbar spine in the lateral projection demonstrates a probe inferior to the L5 pedicle. FL/FL guidance in OR IMPRESSION: Fluoroscopy during procedure. Please see procedure report for additional information. Electronically signed by: Jamaal Roger MD 10/11/2024 11:18 AM EDT
[2024-10-10] MEDS: methocarbamoL 750 MG TABLET PO (12:29)
[2024-10-10] MEDS: Gabapentin 300 MG CAPSULE PO (12:29)
--- NOTE | 2024-10-10 12:47 | MHC.SHP ---
Pre-Procedural Eval Section A - 24 Hr Update-Section A only Date of Service: 10/10/24 The patient is an INPATIENT: No Section B - Complete if H&P > 30 days Chief Complaint: Other bursal cyst, other site Details of Present Illness: Bilateral leg pain Allergies: Allergies Allergy/AdvReac Type Severity Reaction Status Date / Time amoxicillin Allergy Intermediate Rash Verified 10/10/24 11:46 Review of Systems Sugical H&P ROS: Negative: Constitution, Cardiovascular, Respiratory, Neurological, Psychiatric, Hem-Onc, Allergic/Immunologic, Gastrointestinal, Genitourinary, Musculoskeletal, Integumentary, Endocrine and Eyes/Ears/Nose/Throat Exam Surgical H&P Exam: Normal: HEENT, Normal: Heart, Normal: Lungs, Normal: Extremities, Normal: Abdomen, Normal: Skin and Normal: Neurological (Awake alert) Plan Diagnosis/Plan: Unchanged I have reviewed the history and physical and performed a pertinent physical examination on my patient. No changes have occurred unless specified. left L5-S1 synovial cyst resection and bilateral L5 foraminotomy Time Spent With Patient Time: Total time managing care of this patient today ____ minutes.
[2024-10-10] MEDS: vancomycin HCL 1,000 MG in 0.9 % Sodium Chloride 250 ML 270 MG IV (12:51)
[2024-10-10] MEDS: Lactated Ringers 1,000 ML 100 ML IVCONT (12:52)
--- NOTE | 2024-10-10 13:38 | PM.DS ---
DS: Providers Provider Date of Service: 10/10/24 Date of discharge: 10/10/24 Primary care physician: Ihsan Burnett MD Admitting clinician: Edmundo Luong DS: Diagnosis Discharge Diagnosis (1) Lumbar stenosis: Status: Acute DS: Summary Time Attestation Discharge Coordination Time (in mins): 5 Quality: Safe Use of Opioids Does Pt have an Active Cancer Diagnosis on the Problem List?: No Quality: Stroke Does the patient have a stroke diagnosis?: No Physical Exam Vital Signs: Vital Signs: Last Vital Signs Temp 97.8 F 10/10/24 12:10 Pulse 86 10/10/24 12:10 Resp 16 10/10/24 12:10 BP 140/73 H 10/10/24 12:10 Pulse Ox 96 10/10/24 12:10 O2 Del Method Room Air 10/10/24 12:10 BMI result Body Mass Index 21.8 DS: Data Data Completed and Pending Completed studies during hospitalization [Text1]: Procedures Replacement of Right Hip Joint with Synthetic Substitute, Uncemented, Open Approach (08/12/20) Discharge Plan Discharge Patient Disposition: Home, Self-Care Referrals: Ihsan Burnett MD [Primary Care Provider] - 1 Week Discharge Medications: New docusate sodium [Colace] 100 mg capsule 100 mg PO BID Qty: 20 0RF oxycodone 5 mg tablet 5 mg PO Q4H PRN (Reason: pain) Qty: 20 0RF Rx Instructions: Partial Fill upon patient request. Continued omeprazole 20 mg capsule,delayed release(DR/EC) 20 mg PO DAILY 30 Days Qty: 30 2RF prednisone 20 mg tablet 40 mg PO DAILY 5 Days Qty: 10 0RF Patient Comments: for five days albuterol sulfate 90 mcg/actuation HFA aerosol inhaler 2 puff inhalation BID mometasone-formoterol 100-5 mcg/actuation HFA aerosol inhaler 1 puff PO BID atorvastatin 10 mg tablet 10 mg PO BEDTIME 90 Days Qty: 90 4RF mecobalamin (vitamin B12) 1,000 mcg tablet,disintegrating 1,000 mcg sublingual DAILY 90 Days Qty: 90 2RF Rx Instructions: place tablet under tongue and allow to dissolve for at least30 secs before swallowing trazodone 50 mg tablet 50 mg PO BEDTIME PRN (Reason: sleep) 30 Days Qty: 30 0RF pregabalin 100 mg capsule 100 mg PO TID 30 Days Qty: 90 1RF oxycodone-acetaminophen [Percocet] 5-325 mg tablet 1 tab PO BID PRN (Reason: pain) 30 Days Qty: 60 0RF Rx Instructions: MAssPat Verified. Partial Fill upon patient request. meloxicam 15 mg tablet 15 mg PO DAILY 30 Days Qty: 30 3RF Discharge Orders: Discharge Order (Routine); Ordered 10/10/24 Ordered By: Tony Dolan Diet: Advance to usual diet Activity on Discharge: As tolerated Activity Restrictions/Additional Instructions: After your spinal surgery we ask you to observe the following restrictions/guidelines: Activity: It is normal to feel some discomfort as you increase your activity, but that will improve with time. We ask you avoid heavy lifting or acitivities that cause pain. As a general rule, 8lbs is a safe limit for lifting right after surgery. Walk as much as you feel comfortable but not to exhaustion. You will feel extra tired the first few days after surgery. Stay well hydrated. It is OK to walk up and down stairs You may return to driving when you are off narcotics (such as vicodin, oxycodone, dilaudid, etc), and you are back to normal functional capacity. If you have any concerns please check with office before driving. Return to work is specific to each patient and each surgery, so please speak with your doctor/PA at first follow up. Please bring paperwork such as FMLA at that time if you need it filled out. Medications: For optimum pain control, it is best to start with a combination of 500 mg of Tylenol every 4 hours with 600 mg of Motrin every 8 hours, and use narcotics as needed in between for breakthrough pain. We will give you a short supply of narcotics after surgery (usually one weeks worth). If you need more please call the office but do not use more than prescribed. You will need to give our office 48 hours notice if you need narcotics refilled and we do not fill narcotics on weekends or evenings. If you are on a narcotic, it is a good idea to take a stool softener such as colace or senna to avoid constipation If you take blood thinner such as aspirin, Plavix, Coumadin, Effient, Eliquis etc for conditions such as Afib, DVT, Pulmonary embolus, coronary disease, stents etc please speak with your surgeon about specific details as to when you can resume these medications. You can resume NSAIDs on post op day 1 (eg: Motrin, Naproxen, etc). Follow up: Please call the office, , after surgery to arrange a 3 week follow up for wound check. Wound Care: You may remove your dressing on the first day after surgery. ?You may ?leave open to air. Please do not remove the steri strips underneath. they will fall off on their own in one week. IT IS NORMAL FOR THE WOUND TO OOZE OR BE BLOODY FOR A FEW DAYS AFTER SURGERY. ?IF THIS HAPPENS JUST PLACE NEW DRESSING OVER IT TO AVOID STAINING CLOTHES. You may shower on post op day # 1 We ask that you do not let the water soak the wound. If it does get wet, just towel dry lightly. Please do not scrub your incision or place any type of chemical/ointment on the wound. No tub baths, pools or jacuzzis for one month. If you have any leaking or redness from your wound, or fevers, please call office Print Language: Romansh
--- NOTE | 2024-10-10 14:58 | P.OP_ITS ---
Operative Note Operative Note Date of Service: 10/10/24 Narrative: Preoperative Diagnosis: Extradural benign mass (synovial cyst) compressing left S1 nerve root; bilateral L5 foraminal stenosis Operation: S1 Laminotomy for removal of extradural benign mass with use of microscope and bilateral L5 laminotomy/ foraminotomy Consent Informed Consent was obtained for this operation. I have explained the nature, purpose and benefits of the operation. I have discussed the risks and benefit of the operation including possible complications or adverse events with patient/family. Alternative(s) were discussed with the patient with their relative benefits and risks as well as the consequences of not accepting the operation were included in obtaining consent. Surgeon: RAMYA HAUSER MD, PHD Procedure Assisted By: Tony back Description of Procedure This patient is suffering from bilateral leg pain. An MRI shows bilateral L5 foraminal stenosis and a synovial cyst compressing the left S1 nerve root. Was offered a removal of the extradural mass and a bilateral L5 foraminotomy to decompress the left S1 nerve root and bilateral L5 nerve roots .The procedure complications were explained. The patient was consented. The patient was brought to the operating room and endotracheally intubated. The patient was turned in prone position on the Tahir frame. Prep and drape was done followed by timeout. Physician exceptional children teacher assistant provided access. A mid lumbar incision was made followed by release of the paravertebral muscle on the left side to expose the L5-S1 laminae and facet joint. An intraoperative x-ray was obtained to confirm the correct level. The microscope was brought in. I took over the procedure. The high-speed drill was used to do a left L5 and S1 laminotomy. I 1st identified the L5 nerve root and followed it into the L5 foramen. Partial facetectomy was done and with a 2. Kerrison and foraminotomy Kerrison a foraminotomy was performed. The L5 nerve root could be well visualized after the decompression. The nerve root could be easily passed over the nerve root does not sign of decompression. Then I identified the S1 pedicle and S1 nerve root and dissected the cyst of the nerve root. During this the outer layer of the dura was opened without CSF leak. The cyst was removed and a nerve hook could be passed along the S1 nerve root as adequate decompression. A piece of DuraGen was used as a precaution over the defect. Then attention was turned to the contralateral side. A right L5 laminotomy was done. The L5 nerve root was identified and followed into the foramen. The partial facetectomy was done and with a 2. Kerrison and foraminotomy Kerrison the foraminotomy was completed. A nerve hook would easily pass over the nerve root as a side of adequate decompression. The microscope was removed. Hemostasis was done. Incision was closed in 2 layers. Steri-Strips were used to approximate incision. An OpSite with Tegaderm was used to cover the incision. All sponge needle counts were correct. Patient was extubated and transported in stable is to recovery room. Anesthesia: General Estimated Blood Loss (ml): Minimal Duration of Surgery: Under 60 Minutes Postoperative Plan: Discharge to home
== END 2024-10-10 15:52 | disposition home or self-care (01) ==
PROVIDERS: PCP Family Medicine; Visit Provider Neurological Surgery
PROC: (CPT 63267; principal; 2024-10-10 13:40)
DX: M71.38 Other bursal cyst, other site (principal); M48.061 Spinal stenosis, lumbar region without neurogenic claudication; J45.909 Unspecified asthma, uncomplicated; E78.5 Hyperlipidemia, unspecified; G47.00 Insomnia, unspecified; K21.9 Gastro-esophageal reflux disease without esophagitis; Z79.899 Other long term (current) drug therapy; Z88.0 Allergy status to penicillin; Z87.891 Personal history of nicotine dependence
CPT/HCPCS: 63267; 63047; 93005; C1763; C9250; J0131; J1100; J2003; J2250; J2405; J2704; J3010; J3370

== ENCOUNTER → 2024-10-10 11:15 | Outpatient (BNV) | payer MEDICARE, SELFPAY | PROVIDERS: PCP Family Medicine; Visit Provider Neurological Surgery | DX: M48.061 Spinal stenosis, lumbar region without neurogenic claudication (principal); M71.38 Other bursal cyst, other site | CPT/HCPCS: 63047; 63267; 99499 ==

== ENCOUNTER 2024-10-22 08:44 | Outpatient (AMB) | payer MEDICARE, SELFPAY ==
--- NOTE | 2024-10-22 08:55 | A.OFFPC_ITS ---
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 L L5-SA synovial cyst resection and bilateral L5 foraminotomy Has a f/u appt. with his specialists next week. [facility] Medical History Hx of pneumothorax Arthritis Numbness Bronchitis Primary osteoarthritis of right hip Asthma Osteoarthritis Murmur, cardiac Surgical History Hx of hand surgery Hx of left inguinal hernia repair Hx of tonsillectomy S/P total right hip arthroplasty Hx of colonoscopy Family History Father No problems noted. Mother No problems noted. 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 a significant other at home: Yes Do you presently have visiting nurse or other home services: Yes (nursing and Physical therapy) Alcohol intake: never Patient Tobacco Use Status: Former Tobacco user Cigarette Packs Per Day: 0.25 Cigarettes Per Day: 5.0 Years Smoked: 5 e-Cigarette/Vaping Use: Never Used Second Hand Smoke Exposure: No service: No Current occupational status: retired Current occupation: Right Handed Current occupational exposures/hazards: No Cognitive needs: No Hearing needs: No Vision needs: No Questionnaire Thrive Questionnaire Date Thrive assessed: 06/21/24 I am a: Patient What is your living situation today?: I have a steady place to live Within the past 12 months, did the food you bought not last and you didn't have the money to get more?: Never true Within the past 12 months, did you worry whether your food would run out before you got money to buy more?: Never true Do you have trouble paying for medicines?: No Do you have trouble getting transportation to medical appointments?: No Do you have trouble paying your heating and electricity bill?: No Do you have trouble taking care of your child, family member or friend?: No Do you have trouble with day-to-day activities such as bathing, preparing meals, shopping, managing finances, etc.?: No Are you currently unemployed and looking for a job?: No Are you interested in more education?: No Please select the resources that you would like help with: None Currently or been in a relationship where the following occur: No concerns reported THRIVE Score: 0 EDUARDO-7 AMB Questionnaire EDUARDO-7 Date EDUARDO - 7 assessed: 02/27/24 Source: Developed by Drs. Jamaal Kinney, Marta Warner, Farhad Greer and colleagues, with an educational guerrero from [employer]. Review of Systems Const Denies chills, Denies fatigue, Denies fever(s), Denies headache(s) and Denies weakness ENT Denies dizziness and Denies headache(s) Card Denies dyspnea Resp Denies cough, Denies dyspnea, Denies wheezing and Denies other (shortness of breath) Musc Denies numbness and Denies tingling Neuro Denies dizziness, Denies headache(s), Denies numbness, Denies tingling and Denies weakness Psych Denies anxiety and Denies depression Endo Denies fatigue Aller/Immun Denies wheezing Physical exam (Primary Care) Vital Signs: Last Vital Signs Resp 16 10/22/24 09:02 BP 119/70 10/22/24 09:02 BMI result Body Mass Index 23.5 Tobacco/Smoking Status: Tobacco use Status Tobacco use date assessed 10/22/24 10/22/24 08:59 Patient Tobacco Use Status Former Tobacco user 10/22/24 08:57 e-Cigarette/Vaping Use Never Used 10/22/24 08:57 Thrive Assessment: Date of Thrive Assessment Date Thrive assessed 06/21/24 10/22/24 08:57 Currently or been in a relationship where the following occur: No concerns reported Const General: well developed; No acute distress Nutritional Appearance: well nourished Orientation/consciousness: patient oriented x3 HENMT Head: Yes normocephalic and Yes atraumatic Eyes General: appearance normal, both eyes and all related structures Pupils: Equal, round and reactive pupils present EOM: EOMs intact bilaterally Resp Effort & Inspection: normal respiratory effort Auscultation: clear to auscultation bilaterally Cardio Rate: regular rate Rhythm: regular rhythm Heart sounds: S1 normal heart sound present, S2 normal heart sound present, no gallops, Murmur heart sound present and no rubs Neuro General: patient oriented x3 and gait normal Cranial nerves: Yes Equal, round and reactive pupils present Psych Affect: normal affect Coding Level of Care Code Est Pt Level 5 (60031) Diagnoses Status post lumbar surgery Z98.890 Synovial cyst of lumbar spine M71.38 Lumbar degenerative disc disease M51.369 Murmur, cardiac R01.1 Cervical spinal stenosis M48.02 Left atrial enlargement I51.7 Assessment & Plan Assessment & Plan (1) Status post lumbar surgery: Code(s): Z98.890 - Other specified postprocedural states Category: Surgical Plan: Now?s/p?lumbar?surgery. He?is?improved?in?lower?extremities Still?has?some?left?gluteal?pain?which?is?likely?muscular Also?has?some?lower?extremity?edema?which?appears?dependent?and?improves?by?morn ing?after?elevating?legs. Encouraged?leg?exercises?and elevating?legs.??Avoid?salt?in?sodium?for ?extremity?edema. Follow-up?with neurosurgery/neuro?spine (2) Synovial cyst of lumbar spine: Code(s): M71.38 - Other bursal cyst, other site Category: Medical Plan: As?above (3) Lumbar degenerative disc disease: Code(s): M51.369 - Other intervertebral disc degeneration, lumbar region without mention of lumbar back pain or lower extremity pain Category: Medical Plan: As?above (4) Murmur, cardiac: Code(s): R01.1 - Cardiac murmur, unspecified Category: Medical Plan: Cardiac?murmur?and Echocardiogram?with?atrial?enlargement Referred?to?cardiology (5) Cervical spinal stenosis: Code(s): M48.02 - Spinal stenosis, cervical region Category: Medical Plan: Ongoing?hand?numbness?and?some?weakness. MRI?showed?cervical?spinal?stenosis He?is?already?referred?back?to?neuro?spine Has?upcoming?appointment for?follow-up?of?lumbar?spine?surgery. (6) Left atrial enlargement: Code(s): I51.7 - Cardiomegaly Category: Medical Plan: Referred?to?Cardiology?as?above Plan Extending?patient's?FMLA?paperwork?through?11/03 to December 08. Orders: Referrals Cardiology Referral I51.7 - Cardiomegaly Medications: Refilled pregabalin 100 mg PO TID 90 caps 1RF 30 days oxycodone-acetaminophen 5-325 mg (Percocet) MAssPat Verified. Partial Fill upon patient request. 1 tab PO BID PRN 60 tabs 0RF pain 30 days Discontinued oxycodone Partial Fill upon patient request. Discontinued Reason: Doctor's Order 5 mg PO Q4H PRN 20 tabs 0RF pain
[2024-10-22 09:02] VITALS: BP 119/70; RESP 16; BMI 23.5
== END 2024-10-22 09:52 | disposition home or self-care (01) ==
PROVIDERS: PCP Family Medicine; Visit Provider Family Medicine
DX: Z98.890 Other specified postprocedural states (principal); M71.38 Other bursal cyst, other site; M51.369 Other intervertebral disc degeneration, lumbar region without mention of lumbar back pain or lower extremity pain; R01.1 Cardiac murmur, unspecified; M48.02 Spinal stenosis, cervical region; I51.7 Cardiomegaly

== ENCOUNTER → 2024-10-22 08:44 | Outpatient (BNVA) | payer MEDICARE, SELFPAY | PROVIDERS: PCP Family Medicine; Visit Provider Family Medicine | DX: M71.38 Other bursal cyst, other site (principal); M51.369 Other intervertebral disc degeneration, lumbar region without mention of lumbar back pain or lower extremity pain; R01.1 Cardiac murmur, unspecified; M48.02 Spinal stenosis, cervical region; I51.7 Cardiomegaly; Z98.890 Other specified postprocedural states | CPT/HCPCS: 99212 ==

== ENCOUNTER 2024-10-30 14:42 | Outpatient (AMB) | payer MEDICARE, SELFPAY ==
--- NOTE | 2024-10-30 14:56 | A.SPINEOV_ITS ---
Intake Visit Reasons: 1st post op Intake Note: Mr. Humphreys is here today for his 1st post op. 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 Luong a few weeks ago. He reports that he has been doing very well since his surgery. He no longer has the severe pain in his legs that keeps him up at night. He does still occasionally get twinges of pain in his legs, but feels it is much better than it was prior to surgery. He presents today with some edema around his bilateral ankles, which he has discussed extensively with his primary care physician. It sounds like they considered putting him on Lasix with decided not to due to the damage it can have to the kidneys. No new neurological deficits. The patient ambulates well with the assistance of a cane. His posterior incision site is closed and well healing with no signs of drainage. I would like Dave to follow up with us again in 6 weeks, however I would like the appointment made as a established patient new complaint as he would like to discuss his cervical spine concerns at his next visit. In regards to his edema I suggest that he continue to follow up with his primary care physician to utilize the compression stockings that he has but was not wearing today. Dg Luong MD,PhD [facility] Coding Level of Care Code Global (41747) Diagnoses Status post lumbar surgery Z98.890
== END 2024-10-30 15:23 | disposition home or self-care (01) ==
LOC: HO.HNS 14:42
PROVIDERS: PCP Family Medicine; Visit Provider Physician Assistant
DX: Z98.890 Other specified postprocedural states (principal)
CPT/HCPCS: 99024

== ENCOUNTER → 2024-10-30 14:42 | Outpatient (BNVA) | payer MEDICARE, SELFPAY | PROVIDERS: PCP Family Medicine; Visit Provider Physician Assistant | DX: Z48.89 Encounter for other specified surgical aftercare (principal); Z98.890 Other specified postprocedural states | CPT/HCPCS: 99212 ==

== ENCOUNTER 2024-11-05 13:42 | Outpatient (AMB) | payer MEDICARE, SELFPAY ==
--- NOTE | 2024-11-05 13:49 | A.OFFVIS_ITS ---
Intake Visit Reasons: Re-Ref new issue LE swelling Intake Note: Patient presents for LE swelling. Patient states he has had leg swelling in both legs for about a month. He believes the left is worse. Swelling and pain in both legs are worse in the morning. Also has numbness and tingling. Accompanied by: Self / Same As Patient Allergies amoxicillin Allergy (Intermediate, Verified 11/05/24 13:52) Rash HPI HPI Re-Ref new issue LE swelling: Details: The patient is a 69-year-old male presenting with bilateral leg swelling. The swelling began one to two months prior to this consultation, occurring before his spine surgery. It lessens at night when lying down but recurs upon standing during the day. The swell is most apparent in the left leg and is accompanied by discomfort in the morning. Compression stockings and limb elevation provide relief, though only temporarily. No personal or family history of blood clots is acknowledged. An ultrasound performed in the emergency department found no evidence of DVT. The patient reported being a former smoker, having quit six years ago, and denies being diabetic, though notes a prediabetic status. Additionally, another significant concern involves neck synovial cysts affecting hand functionality, with noted tingling. [facility] Medical History Hx of pneumothorax Arthritis Numbness Bronchitis Primary osteoarthritis of right hip Asthma Osteoarthritis Murmur, cardiac Surgical History Hx of hand surgery Hx of left inguinal hernia repair Hx of tonsillectomy S/P total right hip arthroplasty Hx of colonoscopy Family History Father No problems noted. Mother No problems noted. Social History Household Members: Spouse Housing: House Are you a primary primary care nurse practitioner to a significant other at home: Yes Do you presently have visiting nurse or other home services: Yes (nursing and Physical therapy) Alcohol intake: never Patient Tobacco Use Status: Former Tobacco user Cigarette Packs Per Day: 0.25 Cigarettes Per Day: 5.0 Years Smoked: 5 e-Cigarette/Vaping Use: Never Used Second Hand Smoke Exposure: No service: No Current occupational status: retired Current occupation: Right Handed Current occupational exposures/hazards: No Cognitive needs: No Hearing needs: No Vision needs: No Review of Systems Const All systems reviewed & are unremarkable except as noted in HPI and below Reports no additional complaints ENT Reports Normal hearing present Card Denies chest pain, Denies chest pain at rest, Denies chest pain with activity and Denies pedal edema Resp Denies cough GI Denies abdominal pain Musc Denies abnormal gait, Denies muscle cramps and Denies radiating pain into limb Skin/Breast Denies skin ulcer and Denies wounds Neuro Reports Normal hearing present and Denies abnormal gait Psych Reports no additional complaints Physical Exam Const General: cooperative, healthy appearing and comfortable Orientation/consciousness: oriented to person, oriented to place and oriented to time HEENT Head: Yes normal to inspection Neck Neck: Yes normal visual inspection Carotids: no bruits Chest Chest palpation & inspection: normal inspection of the chest Resp Effort & Inspection: normal respiratory effort and able to speak in complete sentences Auscultation: clear to auscultation bilaterally, no crackles, no rales, no rhonchi and no wheezes Cardio Rate: regular rate Rhythm: regular rhythm Heart sounds: S1 normal heart sound present and S2 normal heart sound present Bruits: no carotid bruits Peripheral pulses: Peripheral pulses 2+ throughout GI Inspection: Yes normal to inspection Skin Wounds: no wounds Hair: normal Neuro General: oriented to person, oriented to place and oriented to time Cranial nerves: Yes CN's II-XII intact bilaterally and Yes Normal hearing present Cognition (Neuro): normal cognition Motor exam (neuro): 5/5 motor strength present throughout Extrem Other: venous exam: +2 edema General: No clubbing, No cyanosis and Yes edema Psych Appearance: grossly normal Mental Status: mental status grossly normal Speech and movement: Normal speech and movement present Assessment & Plan Assessment & Plan (1) Varicose veins of right lower extremity with inflammation: Code(s): I83.11 - Varicose veins of right lower extremity with inflammation Category: Medical Plan: During the consultation, I discussed the possibility of venous insufficiency contributing to the patient's leg swelling and the importance of further diagnostic evaluation using a detailed venous ultrasound. We also talked about how continuing with current management strategies, such as wearing compression stockings, leg elevation, and regular walking, can help alleviate symptoms. Educational materials about vein disease were promised, and the patient was instructed on the correct use and care of compression stockings. All possible benefits, risks, and alternatives to potential future office-based interventions were discussed, emphasizing their minimally invasive nature. I communicated the importance of a follow-up after the ultrasound results are received and reassured the patient of ongoing communication with his primary and surgical teams. The patient expressed understanding and agreement with the proposed diagnostic and management strategies. Orders: Orders US venous duplex LE BI 1 Week I83.11 - Varicose veins of right lower extremity with inflammation Coding Level of Care Code Est Pt Level 4 (38772) Complex EM visit Add On G2211 Diagnoses Varicose veins of right lower extremity with inflammation I83.11
== END 2024-11-05 14:08 | disposition home or self-care (01) ==
LOC: HO.HVS 13:43
PROVIDERS: PCP Family Medicine; Visit Provider Surgery Vascular Surgery
DX: I83.11 Varicose veins of right lower extremity with inflammation (principal)
CPT/HCPCS: 99214; G2211

== ENCOUNTER → 2024-11-05 13:42 | Outpatient (BNVA) | payer MEDICARE, SELFPAY | PROVIDERS: PCP Family Medicine; Visit Provider Surgery Vascular Surgery | DX: I83.11 Varicose veins of right lower extremity with inflammation (principal) | CPT/HCPCS: 99212 ==

== ENCOUNTER 2024-11-20 11:57 | Outpatient (AMB) | payer MEDICARE, SELFPAY ==
--- NOTE | 2024-11-20 12:38 | A.OFFPC_ITS ---
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 Mother No problems noted. 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 at home: Yes Do you presently have visiting nurse or other home services: Yes (nursing and Physical therapy) Alcohol intake: never Patient Tobacco Use Status: Former Tobacco user Cigarette Packs Per Day: 0.25 Cigarettes Per Day: 5.0 Years Smoked: 5 Packs Per Year: 1 Packs per year/per ci.25 e-Cigarette/Vaping Use: Never Used Second Hand Smoke Exposure: No service: No Current occupational status: retired Current occupation: Right Handed Current occupational exposures/hazards: No Cognitive needs: No Hearing needs: No Vision needs: No Questionnaire Thrive Questionnaire Date Thrive assessed: 06/21/24 I am a: Patient What is your living situation today?: I have a steady place to live Within the past 12 months, did the food you bought not last and you didn't have the money to get more?: Never true Within the past 12 months, did you worry whether your food would run out before you got money to buy more?: Never true Do you have trouble paying for medicines?: No Do you have trouble getting transportation to medical appointments?: No Do you have trouble paying your heating and electricity bill?: No Do you have trouble taking care of your child, family member or friend?: No Do you have trouble with day-to-day activities such as bathing, preparing meals, shopping, managing finances, etc.?: No Are you currently unemployed and looking for a job?: No Are you interested in more education?: No Please select the resources that you would like help with: None Currently or been in a relationship where the following occur: No concerns reported THRIVE Score: 0 EDUARDO-7 AMB Questionnaire EDUARDO-7 Date EDUARDO - 7 assessed: 02/27/24 Source: Developed by Drs. Jamaal Kinney, Marta Warner, Farhad Greer and colleagues, with an educational guerrero from [employer]. Physical exam (Primary Care) Vital Signs: Last Vital Signs Temp 98.3 F 11/20/24 12:43 Pulse 76 11/20/24 12:43 Resp 14 11/20/24 12:43 BP 110/80 11/20/24 12:43 Pulse Ox 97 11/20/24 12:43 Oxygen Delivery Method Room Air 11/20/24 12:43 BMI result Body Mass Index 23.2 Tobacco/Smoking Status: Tobacco use Status Tobacco use date assessed 10/22/24 11/20/24 12:45 Patient Tobacco Use Status Former Tobacco user 11/20/24 12:45 e-Cigarette/Vaping Use Never Used 11/20/24 12:45 Thrive Assessment: Date of Thrive Assessment Date Thrive assessed 06/21/24 11/20/24 12:45 Currently or been in a relationship where the following occur: No concerns reported Coding Level of Care Code Est Pt Level 4 (47393) Diagnoses Lumbar stenosis M48.061 Cervical spinal stenosis M48.02 Hand numbness R20.0 Lower extremity weakness R29.898 Lower extremity edema R60.0 Memory changes R41.3 Assessment & Plan Assessment & Plan (1) Lumbar stenosis: Code(s): M48.061 - Spinal stenosis, lumbar region without neurogenic claudication Category: Medical Plan: Lumbar?spinal?stenosis?now?s/p S1 Laminotomy for removal of extradural benign mass. Doing?well Had?been?using?Percocet?5/325?twice?a?day. Will?decrease?this?to?once?a?day. Follow-up?with?neuro?spine?as?recommended Still?has?lower?extremity?weakness-see?below (2) Cervical spinal stenosis: Code(s): M48.02 - Spinal stenosis, cervical region Category: Medical Plan: Paresthesias?of?hands?and?weakness MRI?showed?spinal?stenosis Has?another?appointment?with?neuro?spine?to?follow-up?on?this Also?has?an?appointment?with?Neurology (3) Hand numbness: Code(s): R20.0 - Anesthesia of skin Category: Medical Plan: As?above (4) Lower extremity weakness: Code(s): R29.898 - Other symptoms and signs involving the musculoskeletal system Category: Medical Plan: Lower?extremity?weakness?likely?s econdary?to?a?lumbar?spinal?stenosis?with?radiculopathy Now?s/p?surgery?but?still?has?lower?extremity?weakness,?unsteady?gait?and?has?spicer d?falls?from?this Had?ordered?at-home?physical?therapy?for?patie nt?as?he?is?avoiding?driving?due?to?weakness?and?difficulty?driving?a?car. Still?has?not?had?physical?therapy?set?up?by?will?be?in?a Will?ask?the?office?to?work?on?getting?him?scheduled (5) Lower extremity edema: Code(s): R60.0 - Localized edema Category: Medical Plan: Has?now?seen?vascular?surgery?and?they?have?ordered?an?MRI?of?lower?extremities Encouraged?him?to?PT?working?on?a?diet?low?in?salt/sodium,?elevating?legs,?using ?compression?stockings Would?use?diuretics?intermittently?with?patient?if?needed Follow-up?with?vascular?surgery (6) Memory changes: Code(s): R41.3 - Other amnesia Category: Medical Plan: Memory?and?cognitive?changes Mini?cog?score?2?or?3/5 (patient?did?not?draw?numbers?on?clock which?may?represent?a?score?of?2?rather?than?3) Also?has?vascular?changes?seen?on?MRI?which?had?been?ordered?due?to?neurological ?changes?and?unsteady?gait Patient?notes?that?he?has?had? a?great?deal?of?stress?lately?however?as?his?'s?health?is?declining Referred?to?[facility]memory?Clinic,?neuropsychiatry Orders: Referrals Neuropsychiatry Referral R41.3 - Other amnesia, R90.89 - Other abnormal findings on diagnostic imaging of central nervous system Medications: Changed From oxycodone-acetaminophen 5-325 mg (Percocet) MAssPat Verified. Partial Fill upon patient request. 1 tab PO BID 30 days PRN 60 tabs 0RF pain To oxycodone-acetaminophen 5-325 mg (Percocet) MAssPat Verified. Partial Fill upon patient request. 1 tab PO DAILY 30 days PRN 30 tabs 0RF pain
[2024-11-20 12:43] VITALS: BP 110/80; PULSE 76; RESP 14; TEMP 36.8; O2SAT 97; BMI 23.2
== END 2024-11-20 15:28 | disposition home or self-care (01) ==
LOC: HO.HMCFM 11:58
PROVIDERS: PCP Family Medicine; Visit Provider Family Medicine
DX: M48.061 Spinal stenosis, lumbar region without neurogenic claudication (principal); M48.02 Spinal stenosis, cervical region; R20.0 Anesthesia of skin; R29.898 Other symptoms and signs involving the musculoskeletal system; R60.0 Localized edema; R41.3 Other amnesia

== ENCOUNTER → 2024-11-20 11:57 | Outpatient (BNVA) | payer MEDICARE, SELFPAY | PROVIDERS: PCP Family Medicine; Visit Provider Family Medicine | DX: M48.061 Spinal stenosis, lumbar region without neurogenic claudication (principal); M48.02 Spinal stenosis, cervical region; R20.0 Anesthesia of skin; R29.898 Other symptoms and signs involving the musculoskeletal system; R60.0 Localized edema; R41.3 Other amnesia | CPT/HCPCS: 99212 ==

== ENCOUNTER 2024-11-26 13:36 | Outpatient (REF) | payer MEDICARE, SELFPAY ==
--- NOTE | ~2024-11-26 | US_ITS ---
EXAMINATION: US LOWER EXTREMITY VENOUS (REFLUX EXAM), BILATERAL CLINICAL INFORMATION: Varicose veins of the lower extremity with inflammation COMPARISON: None. TECHNIQUE: Color flow triplex imaging and compression Doppler was performed to evaluate both the deep and the superficial systems bilaterally. To evaluate the superficial system, the examination was performed in the upright position. Color-flow Doppler ultrasound and compression ultrasound were utilized. In addition, maneuvers were utilized to demonstrate reflux. FINDINGS: 1. DEEP VENOUS ULTRASOUND OF THE RIGHT LOWER EXTREMITY: Common Femoral Vein: Compressible, normal respiratory variation and augmented flow. Femoral Vein: Compressible, normal color flow and augmentation. Popliteal Vein: Compressible, normal augmentation. Deep Reflux: There is no evidence of reflux in the deep system in either the common femoral vein, superficial femoral or the popliteal vein. 2. SUPERFICIAL ULTRASOUND WITH DOPPLER OF RIGHT LOWER EXTREMITY: GREAT SAPHENOUS VEIN: Nonocclusive echogenic material is evident on the vascular wall in the mid and distal calf. Saphenofemoral Junction: 0.3 cm; Reflux: 0 ms Proximal Thigh: 0.2 cm; Reflux: 0 ms Mid Thigh: 0.2 cm; Reflux: 0 ms Distal Thigh: 0.2 cm; Reflux: 0 ms At Knee: 0.2 cm; Reflux: 0 ms Below Knee/Proximal Calf: 0.3 cm; Reflux: 2404 ms Mid Calf: 0.2 cm; Reflux: 0 ms Ankle/Distal Calf: 0.2 cm; Reflux: 2296 ms Medial accessory GREAT SAPHENOUS VEIN: Saphenofemoral Junction: 0.2 cm; Reflux: 0 ms Mid Thigh: 0.1 cm; Reflux: 0 ms DUPLICATED MEDIAL GREAT SAPHENOUS VEIN: Diameter: None imaged Reflux: NA DUPLICATED LATERAL GREAT SAPHENOUS VEIN: Diameter: None imaged Reflux: NA SMALL SAPHENOUS VEIN: Focal echogenic material is present in the proximal vessel and the superficial wall. It is nonocclusive. There is dirty posterior shadowing. Drainage: Thigh Saphenopopliteal Junction: 0.5 cm; Reflux: 0 ms Mid calf: 0.3 cm; Reflux: 0 ms Distal: 0.2 cm; Reflux: 2516 ms VEIN OF GIACOMINI: Size: NA cm Reflux: NA ms PERFORATORS: Location: Small saphenous vein, mid Size: 0.2 cm Reflux: 0 ms Location: Small saphenous vein 29 cm from calcaneus Size: 0.2 cm Reflux: 1328 ms Location: Greater saphenous vein, mid thigh Size: 0.1 cm Reflux: 0 ms Location: Greater saphenous vein, distal thigh Size: 0.2 cm Reflux: 0 ms Location: Greater saphenous vein, knee Size: 0.1 cm Reflux: 0 ms Location: Greater saphenous vein, proximal calf Size: 0.2 cm Reflux: 0 ms Location: Greater saphenous vein, 35 cm from calcaneus Size: 0.3 cm Reflux: 3032 ms Location: Greater saphenous vein, proximal calf into varicose vein Size: 0.1 cm Reflux: 0 ms VARICOSITIES > 3mm: Location: None Imaged > 3 mm 3. DEEP VENOUS ULTRASOUND OF THE LEFT LOWER EXTREMITY: Common Femoral Vein: Compressible, normal respiratory variation and augmented flow. Femoral Vein: Compressible, normal color flow and augmentation. Popliteal Vein: Compressible, normal augmentation. Deep Reflux: There is no evidence of reflux in the deep system in either the common femoral vein, superficial femoral or the popliteal vein. 4. SUPERFICIAL ULTRASOUND WITH DOPPLER OF LEFT LOWER EXTREMITY: GREAT SAPHENOUS VEIN: Saphenofemoral Junction: 0.4 cm; Reflux: 0 ms Proximal Thigh: 0.4 cm; Reflux: 0 ms Mid Thigh: 0.4 cm; Reflux: 0 ms Distal Thigh: 0.3 cm; Reflux: 0 ms At Knee: 0.3 cm; Reflux: 0 ms Below Knee/Proximl calf: 0.3 cm; Reflux: 0 ms Mid Calf: 0.2 cm; Reflux: 2716 ms Distal Calf/Ankle: 0.2 cm; Reflux: 2556 ms Lateral/Medial accessory GREAT SAPHENOUS VEIN: None imaged DUPLICATED MEDIAL GREAT SAPHENOUS VEIN: Diameter: None imaged cm Reflux: NA ms DUPLICATED LATERAL GREAT SAPHENOUS VEIN: Diameter: None imaged. cm Reflux: NA ms SMALL SAPHENOUS VEIN: The proximal vessel, there is linear echogenic material paralleling the superficial wall not resulting in shadowing or occlusion. Midportion of the vessel demonstrates linear echogenic material that shadows. Nonocclusive. Drainage: Thigh Saphenopopliteal Junction: 0.2 cm; Reflux: 0 ms Proximal: 0.3 cm; Reflux: 2476 ms Distal: 0.4 cm; Reflux: 0 ms VEIN OF GIACOMINI: Size: NA Reflux: NA PERFORATORS: Location: Small saphenous vein, mid Size: 0.2 cm Reflux: 0 ms Location: Greater saphenous vein, midthigh Size: 0.1 cm Reflux: 0 ms Location: Greater saphenous vein, proximal calf Size: 0.2 cm Reflux: 0 ms Location: Greater saphenous vein, midcalf to varicose vein Size: 0.2 cm Reflux: 0 ms Location: Greater saphenous vein, proximal calf, hearing aid repairer into hearing aid repairer Size: 0.2 cm Reflux: 440 ms VARICOSITIES > 3mm: Location: Femoral vein, midthigh Size: 0.6 cm Reflux: 0 ms US/US venous duplex LE BI IMPRESSION: RIGHT: There is venous reflux. There is chronic nonocclusive thrombus in the proximal small saphenous vein and great saphenous vein in the to distal calf. LEFT: There is venous reflux. Femoral vein varicosity as detailed above. Nonocclusive chronic thrombus is demonstrated in the small saphenous. Electronically signed by: Matt Orellana MD 11/26/2024 05:42 PM EDT
== END 2024-11-26 13:37 | disposition home or self-care (01) ==
LOC: HO.US 13:36
PROVIDERS: PCP Family Medicine; Visit Provider Surgery Vascular Surgery
DX: I83.11 Varicose veins of right lower extremity with inflammation (principal)
CPT/HCPCS: 93970

== ENCOUNTER → 2024-11-26 13:37 | Outpatient (BNV) | payer MEDICARE, SELFPAY | PROVIDERS: PCP Family Medicine; Visit Provider Radiology Diagnostic Radiology | DX: I83.019 Varicose veins of right lower extremity with ulcer of unspecified site (principal) | CPT/HCPCS: 93970 ==

== ENCOUNTER 2024-11-27 14:27 | Outpatient (AMB) | payer MEDICARE, SELFPAY ==
--- NOTE | 2024-11-27 14:36 | A.SPINEOV_ITS ---
Intake Visit Reasons: early 2nd post op & new problem Intake Note: Mr. Humphreys is here today for his 2nd post op and New problem. Clipman Required: No Allergies amoxicillin Allergy (Intermediate, Verified 11/20/24 12:40) Rash Assessment & Plan Assessment & Plan (1) Bilateral hand pain: Code(s): M79.641 - Pain in right hand; M79.642 - Pain in left hand Category: Medical Plan HPI: Layton is a pleasant 69 year old male who underwent S1 Laminotomy for removal of extradural benign mass with use of microscope and bilateral L5 laminotomy/ foraminotomy with Dr. Luong on 10/10/24. He reports that he has healed very well since his surgery, and has little to no back/leg pain. He recently had a cervical MRI completed an requested we discuss his cervical spine concerns at his 2nd postoperative visit. In addition to this he recently had a venous duplex ultrasound done on 11/26/24 which showed a chronic nonocclusive thrombus in the proximal small saphenous vein on the left. He reports that he has been concerned about some issues with his hands that he has had in the recent months which prompted his PCP to order a cervical MRI. He reports that his 4th and 5th digits in the bilateral hands are more difficult for him to engage in terms of strength. He is unable to complete simple tasks which he could complete in the past, such as opening a can or taking the lid off of a jar. In addition to this he reports that the 4th and 5th digits in his bilateral hands are fairly painful throughout the day. When describing the pain he states that it starts at the distal end of his 4th and 5th fingers, and shoots down toward his wrist. He does state that this pain worsens at night, and with activity. He also reports that his balance has slowly worsened over the years, into the point where he now needs to ambulate with the assistance of a cane. Exam: The patient has about 4/5 strength with bilateral dorsiflexion and plantar flexion. His knee extension and knee flexion are 5/5. His bilateral iliopsoas testing is 5/5. His hand assistant manager pt is about 4/5 bilaterally, and is interossei testing is also about 4/5 bilaterally. The rest of his upper extremity strength is 5/5, including triceps testing. He has notable thenar wasting bilaterally. (-) Tinel's at wrist and elbow, (-) Phalen's bilaterally. Imaging: MRI of the cervical spine completed here at [facility] shows a posterior disc bulge at C5-6 causing moderate central canal and bilateral foraminal stenosis at this level. There is a cyst beginning to encroach on the right C7 nerve. There is also notable cyst begin to encroach on the left T1 nerve. Impression / Plan: Layton is a pleasant 69-year-old male who comes in today for his 2nd postoperative visit, and requested subsequent evaluation of his bilateral hands due to increasing pain and weakness. He has several symptoms that are concerning for cervical compression. He is having some issues with dexterity and strength in his hands, some difficulties with balance, and has notable thenar wasting. Typically in the context of spinal cord compression causing these type of symptoms we would see much more significant compression then we can see on his current MRI imaging. That is not the say that had the compression seen at C5-6 could not be contributing to his symptoms, however in the absence of T2 signal change, severe cord compression, neck pain, or shooting pain down the arms, it would be a push to book him for surgery without attempting to evaluate him for something more simple like median neuropathy or cubital tunnel syndrome. Specifically cubital tunnel syndrome would explain most of his pain symptoms. Therefore, I would like to send the patient for an EMG of the upper extremities, and will follow up with him again thereafter. Dg Luong MD,PhD [facility] Coding Level of Care Code Est Pt Level 3 (80362) Diagnoses Bilateral hand pain M79.641; M79.642
== END 2024-11-27 15:17 | disposition home or self-care (01) ==
LOC: HO.HNS 14:28
PROVIDERS: PCP Family Medicine; Visit Provider Physician Assistant
DX: M79.641 Pain in right hand (principal); M79.642 Pain in left hand
CPT/HCPCS: 99213

== ENCOUNTER → 2024-11-27 14:27 | Outpatient (BNVA) | payer MEDICARE, SELFPAY | PROVIDERS: PCP Family Medicine; Visit Provider Physician Assistant | DX: M79.641 Pain in right hand (principal); M79.642 Pain in left hand | CPT/HCPCS: 99212 ==

== ENCOUNTER 2024-12-17 11:04 | Outpatient (AMB) | payer MEDICARE, SELFPAY ==
--- NOTE | 2024-12-17 11:07 | MHC.OFFVIS ---
Intake Visit Reasons: follow up s/p US 11/26/24 Intake Note: Patient presents for US follow up. No new symptoms or changes. Accompanied by: Spouse Allergies amoxicillin Allergy (Intermediate, Verified 12/17/24 11:08) Rash HPI HPI follow up s/p 11/26/24: Details: Pleasant 69-year-old gentleman presents for follow-up regarding lower extremity pain. He reports bilateral calf numbness that has been his major source of problems. He was sent in for vascular evaluation. He has undergone venous insufficiency testing and now presents for follow-up. Of note he has been seen by Dr. Luong in the past and has undergone L5 and S1 laminectomy on 10/10/2024. He did experience some initial relief but continues to have some numbness in the legs. [facility] Medical History Hx of pneumothorax Arthritis Numbness Bronchitis Primary osteoarthritis of right hip Asthma Osteoarthritis Murmur, cardiac Surgical History Hx of hand surgery Hx of left inguinal hernia repair Hx of tonsillectomy S/P total right hip arthroplasty Hx of colonoscopy Family History Father No problems noted. Mother No problems noted. 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 Do you presently have visiting nurse or other home services: Yes (nursing and Physical therapy) Alcohol intake: never Patient Tobacco Use Status: Former Tobacco user Cigarette Packs Per Day: 0.25 Cigarettes Per Day: 5.0 Years Smoked: 5 e-Cigarette/Vaping Use: Never Used Second Hand Smoke Exposure: No service: No Current occupational status: retired Current occupation: Right Handed Current occupational exposures/hazards: No Cognitive needs: No Hearing needs: No Vision needs: No Review of Systems Const All systems reviewed & are unremarkable except as noted in HPI and below Reports no additional complaints ENT Reports Normal hearing present Card Denies chest pain, Denies chest pain at rest, Denies chest pain with activity and Denies pedal edema Resp Denies cough GI Denies abdominal pain Musc Denies abnormal gait, Denies muscle cramps and Denies radiating pain into limb Skin/Breast Denies skin ulcer and Denies wounds Neuro Reports Normal hearing present and Denies abnormal gait Psych Reports no additional complaints Physical Exam Const General: cooperative, healthy appearing and comfortable Orientation/consciousness: oriented to person, oriented to place and oriented to time HEENT Head: Yes normal to inspection Neck Neck: Yes normal visual inspection Carotids: no bruits Chest Chest palpation & inspection: normal inspection of the chest Resp Effort & Inspection: normal respiratory effort and able to speak in complete sentences Auscultation: clear to auscultation bilaterally, no crackles, no rales, no rhonchi and no wheezes Cardio Other: Palpable bilateral dorsalis pedis pulses Rate: regular rate Rhythm: regular rhythm Heart sounds: S1 normal heart sound present and S2 normal heart sound present Bruits: no carotid bruits Peripheral pulses: Peripheral pulses 2+ throughout GI Inspection: Yes normal to inspection Skin Wounds: no wounds Hair: normal Neuro General: oriented to person, oriented to place and oriented to time Cranial nerves: Yes CN's II-XII intact bilaterally and Yes Normal hearing present Cognition (Neuro): normal cognition Motor exam (neuro): 5/5 motor strength present throughout Extrem Other: venous exam: No significant superficial varicosities or spider telangiectasias, minimal edema General: No clubbing, No cyanosis and No edema Psych Appearance: grossly normal Mental Status: mental status grossly normal Speech and movement: Normal speech and movement present Results Reviewed Results Reviewed: Brief summary of venous insufficiency testing is as follows: right great saphenous vein: negative right small saphenous vein: negative right accessory vein: none present left great saphenous vein: negative left small saphenous vein: negative left accessory vein: none present Please note there is no evidence of any venous aneurysms or significant tortuosity Assessment & Plan Assessment & Plan (1) Bilateral leg pain: Code(s): M79.604 - Pain in right leg; M79.605 - Pain in left leg Category: Medical Plan: In short patient has bilateral lower extremity pain and numbness. This does not appear to be vascular in nature. He does have palpable arterial pulses and venous insufficiency testing is essentially negative. I do believe he has a neurology evaluation scheduled for next month. In addition should this persist may benefit from re-evaluation by Dr. Jarvis. We will follow on an as-needed basis. Thank you for allowing us to assist in his care. Plan Patient was informed and verbally consented to the use of an ambient scribe for clinic note documentation during this visit. Coding Level of Care Code Est Pt Level 4 (45347) Complex EM visit Add On G2211 Diagnoses Bilateral leg pain M79.604; M79.605
== END 2024-12-17 11:36 | disposition home or self-care (01) ==
LOC: HO.HVS 11:04
PROVIDERS: PCP Family Medicine; Visit Provider Surgery Vascular Surgery
DX: M79.604 Pain in right leg (principal); M79.605 Pain in left leg
CPT/HCPCS: 99214; G2211

== ENCOUNTER → 2024-12-17 11:04 | Outpatient (BNVA) | payer MEDICARE, SELFPAY | PROVIDERS: PCP Family Medicine; Visit Provider Surgery Vascular Surgery | DX: M79.604 Pain in right leg (principal); M79.605 Pain in left leg | CPT/HCPCS: 99212 ==

== ENCOUNTER 2024-12-31 10:54 | Outpatient (AMB) | payer MEDICARE, SELFPAY ==
--- NOTE | 2024-12-31 11:22 | A.OFFPC_ITS ---
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 Lumbar spine stenosis with LE weakness, recent surgery, LE edema, paresthesias in hands, memory changes. s/p S1 laminotomy for removal of extradural benign mass. Paresthesias of hands and weakness - MRI showed spinal stenosis. Had seen Spine [facility] 11/27/24 - they had sent pt for EMG of upper extre,otoes. They note cubital tunnel syndrome would explain of his pain symptoms. Reports ongoing symptoms. Unsteady gait and frequently falls. [facility] Medical History Hx of pneumothorax Arthritis Numbness Bronchitis Primary osteoarthritis of right hip Asthma Osteoarthritis Murmur, cardiac Surgical History Hx of hand surgery Hx of left inguinal hernia repair Hx of tonsillectomy S/P total right hip arthroplasty Hx of colonoscopy Family History Father No problems noted. Mother No problems noted. 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 at home: Yes Do you presently have visiting nurse or other home services: Yes (nursing and Physical therapy) Alcohol intake: never Patient Tobacco Use Status: Former Tobacco user Cigarette Packs Per Day: 0.25 Cigarettes Per Day: 5.0 Years Smoked: 5 Packs Per Year: 1 Packs per year/per ci.25 e-Cigarette/Vaping Use: Never Used Second Hand Smoke Exposure: No service: No Current occupational status: retired Current occupation: Right Handed Current occupational exposures/hazards: No Cognitive needs: No Hearing needs: No Vision needs: No Questionnaire Thrive Questionnaire Date Thrive assessed: 06/21/24 I am a: Patient What is your living situation today?: I have a steady place to live Within the past 12 months, did the food you bought not last and you didn't have the money to get more?: Never true Within the past 12 months, did you worry whether your food would run out before you got money to buy more?: Never true Do you have trouble paying for medicines?: No Do you have trouble getting transportation to medical appointments?: No Do you have trouble paying your heating and electricity bill?: No Do you have trouble taking care of your child, family member or friend?: No Do you have trouble with day-to-day activities such as bathing, preparing meals, shopping, managing finances, etc.?: No Are you currently unemployed and looking for a job?: No Are you interested in more education?: No Please select the resources that you would like help with: None Currently or been in a relationship where the following occur: No concerns reported THRIVE Score: 0 EDUARDO-7 AMB Questionnaire EDUARDO-7 Date EDUARDO - 7 assessed: 02/27/24 Source: Developed by Drs. Jamaal Kinney, Marta Warner, Farhad Greer and colleagues, with an educational guerrero from [employer]. Review of Systems Const Denies chills, Denies fatigue, Denies fever(s), Denies headache(s) and Denies weakness ENT Denies dizziness and Denies headache(s) Card Denies dyspnea Resp Denies cough, Denies dyspnea, Denies wheezing and Denies other (shortness of breath) Musc Denies numbness and Denies tingling Neuro Denies dizziness, Denies headache(s), Denies numbness, Denies tingling and Denies weakness Psych Denies anxiety and Denies depression Endo Denies fatigue Aller/Immun Denies wheezing Physical exam (Primary Care) Vital Signs: Last Vital Signs Temp 98.3 F 12/31/24 11:24 Pulse 82 12/31/24 11:24 Resp 14 12/31/24 11:24 BP 126/78 12/31/24 11:24 Pulse Ox 97 12/31/24 11:24 Oxygen Delivery Method Room Air 12/31/24 11:24 BMI result Body Mass Index 23.4 Tobacco/Smoking Status: Tobacco use Status Tobacco use date assessed 10/22/24 12/31/24 11:27 Patient Tobacco Use Status Former Tobacco user 12/31/24 11:27 e-Cigarette/Vaping Use Never Used 12/31/24 11:27 Thrive Assessment: Date of Thrive Assessment Date Thrive assessed 06/21/24 12/31/24 11:27 Currently or been in a relationship where the following occur: No concerns reported Const General: well developed; No acute distress Nutritional Appearance: well nourished Orientation/consciousness: patient oriented x3 HENMT Head: Yes normocephalic and Yes atraumatic Eyes General: appearance normal, both eyes and all related structures Pupils: Equal, round and reactive pupils present EOM: EOMs intact bilaterally Resp Effort & Inspection: normal respiratory effort Neuro General: patient oriented x3 and No gait normal Cranial nerves: Yes Equal, round and reactive pupils present Psych Affect: normal affect Coding Level of Care Code Est Pt Level 4 (71107) Diagnoses Lumbar stenosis M48.061 Hand numbness R20.0 Bilateral leg pain M79.604; M79.605 Unsteady gait R26.81 Assessment & Plan Assessment & Plan (1) Lumbar stenosis: Code(s): M48.061 - Spinal stenosis, lumbar region without neurogenic claudication Category: Medical (2) Hand numbness: Code(s): R20.0 - Anesthesia of skin Category: Medical (3) Bilateral leg pain: Code(s): M79.604 - Pain in right leg; M79.605 - Pain in left leg Category: Medical (4) Unsteady gait: Code(s): R26.81 - Unsteadiness on feet Category: Medical Plan Ongoing symptoms secondary to lumbar and cervical spine stenoses. Recent surgery by neuro spine at and pain in lumbar region is improved however weakness as persisted. Unsteady gait and frequent falls. He is using cane He is no longer able to safely work as he can not stand walk any distances without changes in position or rest and he is a high fall risk. Ongoing upper extremity numbness and weakness. Patient is unable to write or button his shirt. Frequently drops items. He is unable to carry lift push or pull items. Filling out forms for patient's work. Timeframe currently is indeterminate. We discussed that he has an upcoming EMG and appointments with neuro spine, neurology. At upcoming visit we can discuss if his disability should be considered permanent and I am leaning towards this if no successful interventions can be found. Patient agrees.
[2024-12-31 11:24] VITALS: BP 126/78; PULSE 82; RESP 14; TEMP 36.8; O2SAT 97; BMI 23.4
== END 2024-12-31 15:17 | disposition home or self-care (01) ==
LOC: HO.HMCFM 10:55
PROVIDERS: PCP Family Medicine; Visit Provider Family Medicine
DX: M48.061 Spinal stenosis, lumbar region without neurogenic claudication (principal); R20.0 Anesthesia of skin; M79.604 Pain in right leg; M79.605 Pain in left leg; R26.81 Unsteadiness on feet

== ENCOUNTER → 2024-12-31 10:54 | Outpatient (BNVA) | payer MEDICARE, SELFPAY | PROVIDERS: PCP Family Medicine; Visit Provider Family Medicine | DX: M48.061 Spinal stenosis, lumbar region without neurogenic claudication (principal); R20.0 Anesthesia of skin; M79.604 Pain in right leg; M79.605 Pain in left leg; R26.81 Unsteadiness on feet | CPT/HCPCS: 99212 ==

== ENCOUNTER 2025-01-10 14:17 | Outpatient (REF) | payer MEDICARE, SELFPAY ==
--- NOTE | 2025-01-10 14:20 | EMG_ITS ---
Chief complaint: Bilateral hand numbness especially 4th and 5th digits, left worse than right. Noted FDI muscle atrophy, bilateral. Noted left 4th and 5th digits remain flexed at rest. Reason for referral: Evaluate for ulnar neuropathy versus Carpal Tunnel Syndrome Referred by: Dg LEE Procedure done: Bilateral upper extremities NCS/EMG Precautions and/or limitations: None The limb temperature was monitored continuously and remained between 32-36 degrees C during the performance of the NCS. Ulnar motor NCS was performed with moderate elbow flexion between 70-90 degrees, with across-elbow distance of 10 cm. Nerve Conduction Studies Anti Sensory Summary Table ?Stim Site NR Onset (ms) Norm Onset (ms) Peak (ms) Norm Peak (ms) O-P Amp (?V) Norm O-P Amp Site1 Site2 Delta-0 (ms) Dist (cm) Lauri (m/s) Norm Lauri (m/s) Left DorsCutan Anti Sensory (Dorsum 5th MC) Wrist NR Wrist Dorsum 5th MC 0.0 Right DorsCutan Anti Sensory (Dorsum 5th MC) Wrist NR Wrist Dorsum 5th MC 0.0 Left Median Anti Sensory (2nd Digit) Wrist ? 3.1 4.1 <3.6 23.7 >10 Wrist 2nd Digit 3.1 14.0 45 Right Median Anti Sensory (2nd Digit) Wrist ? 3.1 4.2 <3.6 10.1 >10 Wrist 2nd Digit 3.1 14.0 45 Right Radial Anti Sensory (Thumb) Forearm ? 2.0 2.8 <3.1 15.7 Forearm Thumb 2.0 0.0 Left Ulnar Anti Sensory (5th Digit) Wrist ? 3.8 5.0 <3.7 2.3 >15.0 Wrist 5th Digit 3.8 14.0 37 Right Ulnar Anti Sensory (5th Digit) Wrist ? 3.5 4.9 <3.7 7.6 >15.0 Wrist 5th Digit 3.5 14.0 40 Motor Summary Table ?Stim Site NR Onset (ms) Norm Onset (ms) O-P Amp (mV) Norm O-P Amp iAmp (mV) Amp (1st) (%) Site1 Site2 Delta-0 (ms) Dist (cm) Lauri (m/s) Norm Lauri (m/s) Left Median Motor (Abd Poll Brev) Wrist ? 4.3 <3.9 7.1 >4.5 8.3 100.0 Elbow Wrist 4.8 18.0 38 >45 Elbow ? 9.1 5.9 7.8 83.1 Right Median Motor (Abd Poll Brev) Wrist ? 4.9 <3.9 3.9 >4.5 5.0 100.0 Elbow Wrist 5.6 20.0 36 >45 Elbow ? 10.5 3.3 4.1 84.6 Left Ulnar Motor (Abd Dig Minimi) Wrist ? 5.7 <3.0 0.5 >5 0.5 100.0 B Elbow Wrist 6.2 17.0 27 >45 B Elbow ? 11.9 0.2 0.2 40.0 A Elbow B Elbow 1.9 10.0 53 >45 A Elbow ? 13.8 0.4 0.5 80.0 Right Ulnar Motor (Abd Dig Minimi) Wrist ? 4.2 <3.0 3.9 >5 5.1 100.0 B Elbow Wrist 6.7 19.0 28 >45 B Elbow ? 10.9 2.8 4.0 71.8 A Elbow B Elbow 2.1 10.0 48 >45 A Elbow ? 13.0 2.8 3.8 71.8 Left Ulnar (FDI) Motor (FDI) Wrist ? 6.2 <3.0 0.6 >5 0.7 100.0 B Elbow Wrist 6.8 17.0 25 >45 B Elbow ? 13.0 0.4 0.5 66.7 A Elbow B Elbow 2.3 10.0 43 >45 A Elbow ? 15.3 0.4 0.5 66.7 EMG ?Side Muscle Nerve Root Ins Act Fibs Psw Amp Dur Poly Recrt Int Pat Comment Right FlexCarpiUln Ulnar C8,T1 Nml Nml Nml Nml Nml 0 Nml Complete Right 1stDorInt Ulnar C8-T1 Incr 1+ 1+ Nml Nml 0 Nml Complete Right Biceps Musculocut C5-6 Nml Nml Nml Nml Nml 0 Nml Complete Right Triceps Radial C6-7-8 Nml Nml Nml Nml Nml 0 Nml Complete Right Deltoid Axillary C5-6 Nml Nml Nml Nml Nml 0 Nml Complete Left 1stDorInt Ulnar C8-T1 Incr 1+ 1+ Nml Nml 0 Nml Complete Left Biceps Musculocut C5-6 Nml Nml Nml Nml Nml 0 Nml Complete Left Triceps Radial C6-7-8 Nml Nml Nml Nml Nml 0 Nml Complete Left Deltoid Axillary C5-6 Nml Nml Nml Nml Nml 0 Nml Complete Left FlexCarpiUln Ulnar C8,T1 Incr 1+ 1+ Nml Nml 0 Nml Complete Paraspinal EMG ?Side Muscle Nerve Root Ins Act Fibs Psw Comment Right Cervical Upper Rami Nml Nml Nml Right Cervical Mid Rami Nml Nml Nml Right Cervical Lower Rami Nml Nml Nml Left Cervical Upper Rami Nml Nml Nml Left Cervical Mid Rami Nml Nml Nml Left Cervical Lower Rami Nml Nml Nml FINDINGS: Right median motor nerve showed prolonged distal latency, small amplitude and slow conduction velocity. Right ulnar motor nerve, recording at ADM, showed prolonged distal latency, small amplitude and slow conduction velocity. Left median motor nerve showed normal distal latency, normal amplitude and slow conduction velocity. Left ulnar motor nerve, recording at ADM, showed very small, almost absent amplitudes. Same seen when recording at FDI, very small amplitudes, with prolonged distal latencies and slow conduction velocity. Right median sensory nerve showed prolonged peak latency. Right ulnar sensory nerve showed prolonged peak latency and small amplitude Right dorsal ulnar cutaneous sensory nerve showed absent response. Left median motor nerve showed prolonged peak latency. Left ulnar sensory nerve showed normal peak latencies but small amplitude. Left dorsal ulnar cutaneous sensory nerve showed absent response. All other nerves tested were within normal. Concentric needle EMG was performed in selected muscles of the bilateral upper extremities and cervical paraspinals. Study revealed signs of electric abnormalities as shown in the table above. Left FCU and FDI showed increased insertional activity, PSWs and fibrillations. Right FDI showed increased insertional activity, PSWs and fibrillations. No denervation seen on cervical paraspinals. IMPRESSION: 1. This is an abnormal study. 2. There is electrodiagnostic evidence for bilateral ulnar neuropathy at the elbow. 3. There is electrodiagnostic evidence for bilateral moderate-severe median neuropathy at the elbow, consistent with Carpal Tunnel Syndrome. 4. There is no electrodiagnostic evidence for brachial plexopathy, or cervical radiculopathy. Thank you for your kind referral. Shruthi Barillas MD, MELBA Board Certified, [place] Board [employer] and Rehabilitation (ABPMR) Board Certified, [place] Board of Electrodiagnostic Medicine (ABEM) CODIN 55793 x 2 MTDD
== END 2025-01-10 14:18 | disposition home or self-care (01) ==
LOC: HO.NEURO 14:17
PROVIDERS: PCP Family Medicine; Visit Provider Physician Assistant
DX: M79.641 Pain in right hand (principal); M79.642 Pain in left hand; R20.0 Anesthesia of skin; R94.131 Abnormal electromyogram [EMG]
CPT/HCPCS: 95886; 95912

== ENCOUNTER → 2025-01-10 14:20 | Outpatient (BNV) | payer MEDICARE, SELFPAY | PROVIDERS: PCP Family Medicine; Visit Provider Physical Medicine & Rehabilitation | DX: G56.23 Lesion of ulnar nerve, bilateral upper limbs (principal); G56.03 Carpal tunnel syndrome, bilateral upper limbs | CPT/HCPCS: 95886; 95912 ==

== ENCOUNTER 2025-01-27 13:34 | Outpatient (AMB) | payer MEDICARE, SELFPAY ==
--- NOTE | 2025-01-27 13:39 | HO.SPINEOV ---
Intake Visit Reasons: EMG f/u Intake Note: Mr. Humphreys is here today to discuss the results of his EMG. Remote Sensing Specialist Required: No Allergies amoxicillin Allergy (Intermediate, Verified 12/31/24 11:23) Rash Assessment & Plan Assessment & Plan (1) Carpal tunnel syndrome on both sides: Code(s): G56.03 - Carpal tunnel syndrome, bilateral upper limbs Category: Medical Plan Layton is a pleasant 69-year-old male who comes in today to review his recent EMG study. To recap he is suffering from fairly significant bilateral hand numbness which includes loss of muscle motor strength and dropping objects throughout the day. He was sent for an EMG to rule out cervical radiculopathy/cervical spine impingement after MRI imaging showed some compression in the cervical spine, but nothing that would explain his symptoms. His EMG showed some degree of bilateral ulnar neuropathy, alongside moderate-severe bilateral median neuropathy. We reviewed his EMG results during this visit, and discuss treatment options. The patient would like to proceed with carpal tunnel release. I suggested that we start with his left hand, as he reports that this is the worst of the two. He is agreeable to this. The patient was given risk and benefits of surgery including but not limited to infection, hematoma, nerve injury, durotomy, continued hand numbness / weakness / pain. He should stop NSAIDs 7 days prior to surgery. All questions were answered to the best of our ability. If there is anything about this patients medical history that we have overlooked or concerns you have about us proceeding with surgery we would appreciate any input you can offer. I will review his imaging and test results with Dr. Luong once more (we have reviewed Layton's case before) and have our alumni coordinator book Layton for a left sided carpal tunnel release if Dr. Luong concurs. Dg Luong MD,PhD [facility] Coding Level of Care Code Est Pt Level 2 (60865) Diagnoses Carpal tunnel syndrome on both sides G56.03
== END 2025-01-27 13:55 | disposition home or self-care (01) ==
LOC: HO.HNS 13:34
PROVIDERS: PCP Family Medicine; Visit Provider Physician Assistant
DX: G56.03 Carpal tunnel syndrome, bilateral upper limbs (principal)
CPT/HCPCS: 99212

== ENCOUNTER → 2025-01-27 13:34 | Outpatient (BNVA) | payer MEDICARE, SELFPAY | PROVIDERS: PCP Family Medicine; Visit Provider Physician Assistant | DX: G56.03 Carpal tunnel syndrome, bilateral upper limbs (principal) | CPT/HCPCS: 99212 ==

== ENCOUNTER 2025-02-03 09:54 | Outpatient (AMB) | payer MEDICARE, SELFPAY ==
--- NOTE | 2025-02-03 10:03 | A.OFFVIS_ITS ---
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 Accompanied by: Spouse Allergies amoxicillin Allergy (Intermediate, Verified 02/03/25 10:18) Rash Medication List - Last Reconciled 02/03/25 by Xena Lyn MD albuterol sulfate 90 mcg/actuation 2 puffs inhalation BID 30 days atorvastatin 10 mg PO BEDTIME 90 days mecobalamin (vitamin B12) 1,000 mcg sublingual DAILY 90 days meloxicam 15 mg PO DAILY 30 days mometasone-formoterol 100-5 mcg/actuation 1 puff PO BID omeprazole 20 mg PO DAILY 30 days pregabalin 100 mg PO BID 30 days trazodone 50 mg PO BEDTIME PRN 30 days HPI Comments Details: 69y/o male comes for evaluation of numbness of UE and LE, gait issues , poor balance and some forgetfullness. The symptom started about 6 mths ago - poor balance with multiple falls.He stopped working because of his falls. He is unable to stand for over a few minutes. He also says his feet feels heavy when he tries to take a step.Now he is using cane to help with balance and still has falls He reports numbness in the ankles and feet . He recently had back surgery( L5 S1 laminotomy - had synovial cyst ) which helped with pain. 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 He has mild short term memory issues. He is independent in his ADLS and does not feel the memory issues are severe. sleep, mood are ok no bladder bowel issues PFSH Medical History Bilateral leg weakness Gait disorder Hx of pneumothorax Arthritis Numbness Bronchitis Primary osteoarthritis of right hip Asthma Osteoarthritis Murmur, cardiac Surgical History Hx of hand surgery Hx of left inguinal hernia repair Hx of tonsillectomy S/P total right hip arthroplasty Hx of colonoscopy Family History Father No problems noted. Mother No problems noted. 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: Yes Do you presently have visiting nurse or other home services: Yes (nursing and Physical therapy) Alcohol intake: never Patient Tobacco Use Status: Former Tobacco user Cigarette Packs Per Day: 0.25 Cigarettes Per Day: 5.0 Years Smoked: 5 e-Cigarette/Vaping Use: Never Used Second Hand Smoke Exposure: No service: No Current occupational status: retired Current occupation: Right Handed Current occupational exposures/hazards: No Cognitive needs: No Hearing needs: No Vision needs: No Physical Exam Vital Signs: Last Vital Signs Pulse 76 02/03/25 10:04 BP 118/76 02/03/25 10:04 Pulse Ox 98 02/03/25 10:04 Oxygen Delivery Method Room Air 02/03/25 10:04 BMI result Body Mass Index 23.8 Const General: cooperative, comfortable and no acute distress Eyes Pupils: Equal, round and reactive pupils present Neuro Other: Anuj LE Right Hip flexion Left 5/5 Right 4-/5 Knee Flexion /extension - left 5/5 Right 4-/5 Plantar flexion 5/5 anuj Dorsiflexion 2/5 left and 1-2/5 on Right Anuj Hnad grasp 3-/5 Gait- high steppage gait , slowness Atrophy of small muscles of hands Left >right Cranial nerves: Yes Facial sensation intact/muscles of mastication intact, Yes Equal, round and reactive pupils present, Yes Bilaterally intact EOM present, Yes Nystagmus not present, Yes Normal facial strength present, Yes Midline tongue present and Yes Ability to bilaterally elevate shoulders present Cognition (Neuro): normal cognition Gait exam (Neuro): Steppage gait present Motor exam (neuro): Normal motor muscle tone present throughout Deep tendon reflexes (DTR's): Right triceps reflex intensity grade: 2+, Left triceps reflex intensity grade: 2+, Rt Biceps (C5, C6): 2+, Left biceps reflex intensity grade: 2+, Right brachioradialis reflex intensity grade: 2+, Left brachioradialis reflex intensity grade: 2+, Right patellar reflex intensity grade: 2+ and Left patellar reflex intensity grade: 2+ Coordination: [id number] test normal Results Reviewed Results Reviewed: MRI C spine 09/2024 -Multilevel cervical spondylosis C3-4 to C7-T1 more conspicuous at C5-C6 resulting in central spinal canal and bilateral neuroforamina stenosis compressing the cord without cord edema and or myelopathy. Right vertebral cyst C6-7 and left perineural cyst T1-2. MRI [facility] 09/2024 Concerning small vessel occlusive disease. No acute stroke/nonhemorrhagic ischemia. MRI L spine 07/2024 L2: 3 mm broad-based disc bulge. Mild facet joint and ligamentum flavum hypertrophy. Mild central canal stenosis. No lateral recess stenosis. No foraminal stenosis. L2/L3: 3 mm broad-based disc bulge. Mild facet joint and ligamentum flavum hypertrophy. Mild central canal stenosis. Mild right and severe left lateral recess stenosis. No right and mild left foraminal stenosis. L3/L4: 3 mm broad-based disc bulge. Moderate facet joint and ligamentum flavum hypertrophy. Mild central canal stenosis. Moderate right and severe left lateral recess stenosis. No right and mild left foraminal stenosis. L4/L5: 3 mm broad-based disc bulge. Moderate facet joint and ligamentum flavum hypertrophy. Mild central canal stenosis. Severe bilateral lateral recess stenosis, greater on the left. No right and [id number] left foraminal stenosis. L5/S1: 4 mm right paracentral disc bulge. Moderate facet joint and ligamentum flavum hypertrophy. Facet joint synovial cyst measuring 0.3 x 0.5 x 0.7 cm (series 6, image 12 and series 9, image 36). Mild central canal stenosis. Severe right and moderate left lateral recess stenosis. Moderate right and moderate to severe left foraminal stenosis. Impression: No acute findings. Multilevel degenerative change, detailed above. Assessment & Plan Assessment & Plan (1) Gait disorder: Code(s): R26.9 - Unspecified abnormalities of gait and mobility Category: Medical (2) Lumbosacral spondylosis: Comment: s/o L5 and S1 laminetcomy 09/1024 Code(s): M47.817 - Spondylosis without myelopathy or radiculopathy, lumbosacral region Category: Medical (3) Cervical spinal stenosis: Code(s): M48.02 - Spinal stenosis, cervical region Category: Medical (4) Carpal tunnel syndrome on both sides: Code(s): G56.03 - Carpal tunnel syndrome, bilateral upper limbs Category: Medical (5) Bilateral leg weakness: Code(s): R29.898 - Other symptoms and signs involving the musculoskeletal system Category: Medical Plan DEcrease pregabalin 100mg bid PT for gait training EMG LE Discuss with neurospine about cervical cord compression causing gait difficulty Orders: Orders NE nerve conduction velocity 02/03/25 R20.0 - Anesthesia of skin, R29.898 - Other symptoms and signs involving the musculoskeletal system NE electromyogram (EMG) 02/03/25 R20.0 - Anesthesia of skin, R29.898 - Other symptoms and signs involving the musculoskeletal system Medications: Changed From pregabalin 100 mg PO TID 30 days 90 caps 1RF To pregabalin 100 mg PO BID 60 caps 1RF 30 days Coding Level of Care Code New Pt Level 4 (98975) Complex EM visit Add On G2211 Diagnoses Gait disorder R26.9 Lumbosacral spondylosis M47.817 Cervical spinal stenosis M48.02 Carpal tunnel syndrome on both sides G56.03 Bilateral leg weakness R29.898
[2025-02-03 10:04] VITALS: BP 118/76; PULSE 76; O2SAT 98; BMI 23.8
== END 2025-02-03 11:29 | disposition home or self-care (01) ==
LOC: HO.HSMS 09:55
PROVIDERS: PCP Family Medicine; Visit Provider Psychiatry & Neurology Neurology
DX: R26.9 Unspecified abnormalities of gait and mobility (principal); M47.817 Spondylosis without myelopathy or radiculopathy, lumbosacral region; M48.02 Spinal stenosis, cervical region; G56.03 Carpal tunnel syndrome, bilateral upper limbs; R29.898 Other symptoms and signs involving the musculoskeletal system
CPT/HCPCS: 99204; G2211

== ENCOUNTER → 2025-02-03 09:54 | Outpatient (BNVA) | payer MEDICARE, SELFPAY | PROVIDERS: PCP Family Medicine; Visit Provider Psychiatry & Neurology Neurology | DX: R29.898 Other symptoms and signs involving the musculoskeletal system (principal); R26.9 Unspecified abnormalities of gait and mobility; M47.817 Spondylosis without myelopathy or radiculopathy, lumbosacral region; M48.02 Spinal stenosis, cervical region; G56.03 Carpal tunnel syndrome, bilateral upper limbs | CPT/HCPCS: 99202 ==

== ENCOUNTER 2025-02-11 10:31 | Outpatient (AMB) | payer MEDICARE, SELFPAY ==
--- NOTE | 2025-02-11 10:33 | A.OFFPC_ITS ---
Vital Signs 02/11/25 10:40 Height 5 ft 8 in Weight 155 lb BMI 23.6 BP 116/72 Blood Pressure Location Rt brachial Position Sitting Respiration 14 Pulse 72 Pulse Source Pulse Oximeter Temp 97 F Temp Source Temporal Artery Scan Pulse Oximetry (%) 98 Oxygen Delivery Method Room Air Intake Visit Reasons: f/u chronic conditions Intake Note: Layton presents in the office today to follow up on multiple conditions. Allergies amoxicillin Allergy (Intermediate, Verified 02/11/25 10:38) Rash Medication List - Last Reconciled 02/11/25 by Ihsan Burnett MD albuterol sulfate 90 mcg/actuation 2 puffs inhalation BID 30 days atorvastatin 10 mg PO BEDTIME 90 days mecobalamin (vitamin B12) 1,000 mcg sublingual DAILY 90 days meloxicam 15 mg PO DAILY 30 days mometasone-formoterol 100-5 mcg/actuation 1 puff PO BID omeprazole 20 mg PO DAILY 30 days pregabalin 100 mg PO BID 30 days trazodone 50 mg PO BEDTIME PRN 30 days Tobacco use date assessed: 02/11/25 Dental Screening Dental Screen Date: 02/11/25 Did you have a dental visit in the last 12 months?: Yes Did you have a dental problem in the last 6 months where you did not have access to dental care?: No Was dental information given to patient?: Patient has dentist HPI f/u chronic conditions HPI Details 69 y/o male presents to f/u chronic cond itions. Pt had ongoing symptoms secondary to lumbar and cervical spine stenoses. Recent surgery by neuro spine at and pain in lumbar region is improved however weakness has persisted. Unsteady gait and frequent falls. He is using cane. Pt also had ongoing upper extremity numbness. Does have carpal tunnel syndrome and is scheduled for release surgery. Hx of pre-diabetes. A1c today 5.6%. [facility] Medical History Bilateral leg weakness Gait disorder Hx of pneumothorax Arthritis Numbness Bronchitis Primary osteoarthritis of right hip Asthma Osteoarthritis Murmur, cardiac Surgical History Hx of hand surgery Hx of left inguinal hernia repair Hx of tonsillectomy S/P total right hip arthroplasty Hx of colonoscopy Family History (Updated 02/11/25 @ 10:40 by Jasmin Martinez MA) Father No problems noted. Mother No problems noted. 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 Do you presently have visiting nurse or other home services: Yes (nursing and Physical therapy) Alcohol intake: never Patient Tobacco Use Status: Former Tobacco user Cigarette Packs Per Day: 0.25 Cigarettes Per Day: 5.0 Years Smoked: 5 e-Cigarette/Vaping Use: Never Used Second Hand Smoke Exposure: No service: No Current occupational status: retired Current occupation: Right Handed Current occupational exposures/hazards: No Cognitive needs: No Hearing needs: No Vision needs: No Questionnaire Thrive Questionnaire Date Thrive assessed: 06/21/24 I am a: Patient What is your living situation today?: I have a steady place to live Within the past 12 months, did the food you bought not last and you didn't have the money to get more?: Never true Within the past 12 months, did you worry whether your food would run out before you got money to buy more?: Never true Do you have trouble paying for medicines?: No Do you have trouble getting transportation to medical appointments?: No Do you have trouble paying your heating and electricity bill?: No Do you have trouble taking care of your child, family member or friend?: No Do you have trouble with day-to-day activities such as bathing, preparing meals, shopping, managing finances, etc.?: No Are you currently unemployed and looking for a job?: No Are you interested in more education?: No Please select the resources that you would like help with: None Currently or been in a relationship where the following occur: No concerns reported THRIVE Score: 0 EDUARDO-7 AMB Questionnaire EDUARDO-7 Date EDUARDO - 7 assessed: 02/27/24 Source: Developed by Drs. Jamaal Kinney, Marta Warner, Farhad Greer and colleagues, with an educational guerrero from [employer] Review of Systems Const Denies chills, Denies fatigue, Denies fever(s), Denies headache(s) and Denies weakness ENT Denies dizziness and Denies headache(s) Card Denies dyspnea Resp Denies cough, Denies dyspnea, Denies wheezing and Denies other (shortness of b reath) Musc Denies numbness and Denies tingling Neuro Denies dizziness, Denies headache(s), Denies numbness, Denies tingling and Denies weakness Psych Denies anxiety and Denies depression Endo Denies fatigue Aller/Immun Denies wheezing Physical exam (Primary Care) Vital Signs: Last Vital Signs Temp 97 F 02/11/25 10:40 Pulse 72 02/11/25 10:40 Resp 14 02/11/25 10:40 BP 116/72 02/11/25 10:40 Pulse Ox 98 02/11/25 10:40 Oxygen Delivery Method Room Air 02/11/25 10:40 BMI result Body Mass Index 236.4 Tobacco/Smoking Status: Tobacco use Status Tobacco use date assessed 02/11/25 02/11/25 10:44 Patient Tobacco Use Status Former Tobacco user 02/11/25 10:40 e-Cigarette/Vaping Use Never Used 02/11/25 10:40 Thrive Assessment: Date of Thrive Assessment Date Thrive assessed 06/21/24 02/11/25 10:34 Currently or been in a relationship where the following occur: No concerns reported Const General: well developed; No acute distress Nutritional Appearance: well nourished Orientation/consciousness: patient oriented x3 HENMT Head: Yes normocephalic and Yes atraumatic Eyes General: appearance normal, both eyes and all related structures Pupils: Equal, round and reactive pupils present EOM: EOMs intact bilaterally Resp Effort & Inspection: normal respiratory effort Neuro General: patient oriented x3 and gait normal Cranial nerves: Yes Equal, round and reactive pupils present Psych Affect: normal affect Results AMB Hemoglobin A1c AMB Hemoglobin A1c 5.6 % Last Edit by Jasmin Martinez MA on 02/11/25 10:52 Results Reviewed Results Reviewed: Laboratory Last Values Hgb A1c (Clinic) 5.6 % (4.0-6.0) 02/11/25 10:45 Coding Level of Care Code Est Pt Level 4 (96811) Diagnoses Memory changes R41.3 Pre-diabetes R73.03 Cervical spinal stenosis M48.02 Lumbosacral spondylosis M47.817 Bilateral leg weakness R29.898 Carpal tunnel syndrome on both sides G56.03 Elevated liver enzymes R74.8 Assessment & Plan Assessment & Plan (1) Memory changes: Code(s): R41.3 - Other amnesia Category: Medical (2) Pre-diabetes: Code(s): R73.03 - Prediabetes Category: Medical Plan: A1c 5.6%. Continue diet Low in sugars and starches (3) Cervical spinal stenosis: Code(s): M48.02 - Spinal stenosis, cervical region Category: Medical (4) Lumbosacral spondylosis: Comment: s/o L5 and S1 laminetcomy 09/1024 Code(s): M47.817 - Spondylosis without myelopathy or radiculopathy, lumbosacral region Category: Medical (5) Bilateral leg weakness: Code(s): R29.898 - Other symptoms and signs involving the musculoskeletal system Category: Medical (6) Carpal tunnel syndrome on both sides: Code(s): G56.03 - Carpal tunnel syndrome, bilateral upper limbs Category: Medical (7) Elevated liver enzymes: Code(s): R74.8 - Abnormal levels of other serum enzymes Category: Medical Plan Upper extremity weakness EMG did not support finding of compression causing his symptoms in his hands. Does have carpal tunnel syndrome bilaterally and ulnar nerve compression as well. He is scheduled for carpal tunnel release surgery Lower extremity weakness and unsteady gait Neurology is questioning whether his cervical spine they have compressions that are causing the lower extremity symptoms however. Another EMG is ordered Follow-up with Neurology Physical therapy Memory changes: Neurology recommended decreasing pregabalin and trazodone which patient is doing and tolerating well. History of elevated liver enzymes. They had slightly improved at last check Will recheck this with next lab draw Encouraged good hydration Orders: Orders AMB Hemoglobin A1c Today R73.03 - Prediabetes Comprehensive Met. Panel Today R74.8 - Abnormal levels of other serum enzymes Medications: Refilled trazodone 50 mg PO BEDTIME PRN 30 tabs 0RF sleep 30 days G47.9 - Sleep disorder, unspecified atorvastatin 10 mg PO BEDTIME 90 tabs 4RF 90 days
[2025-02-11 10:40] VITALS: BP 116/72; PULSE 72; RESP 14; TEMP 36.1; O2SAT 98; BMI 23.6
== END 2025-02-11 11:17 | disposition home or self-care (01) ==
LOC: HO.HMCFM 10:32
PROVIDERS: PCP Family Medicine; Visit Provider Family Medicine
DX: R41.3 Other amnesia (principal); R73.03 Prediabetes; M48.02 Spinal stenosis, cervical region; M47.817 Spondylosis without myelopathy or radiculopathy, lumbosacral region; R29.898 Other symptoms and signs involving the musculoskeletal system; G56.03 Carpal tunnel syndrome, bilateral upper limbs; R74.8 Abnormal levels of other serum enzymes

== ENCOUNTER → 2025-02-11 10:31 | Outpatient (BNVA) | payer MEDICARE, SELFPAY | PROVIDERS: PCP Family Medicine; Visit Provider Family Medicine | DX: R41.3 Other amnesia (principal); R73.03 Prediabetes; M48.02 Spinal stenosis, cervical region; M47.817 Spondylosis without myelopathy or radiculopathy, lumbosacral region; R29.898 Other symptoms and signs involving the musculoskeletal system; G56.03 Carpal tunnel syndrome, bilateral upper limbs; R74.8 Abnormal levels of other serum enzymes | CPT/HCPCS: 83036; 99212 ==

== ENCOUNTER 2025-02-19 10:23 | Outpatient (REF) | payer MEDICARE, SELFPAY ==
--- NOTE | 2025-02-19 10:26 | EMG_ITS ---
Chief complaint: History of L5 and S1 laminotomy September 2024. Prior to surgery, patient had severe lower back pain, with numbness and weakness in lower extremities. Pain resolved after surgery. Continues with numbness in both feet. Noted more weakness and gait dysfunction few months after surgery. Reason for referral: Evaluate for radiculopathy Referred by: Dr. Lyn Procedure done: Bilateral lower extremity NCS/EMG Precautions and/or limitations: Previous lumbar surgery The limb temperature was monitored continuously and remained between 32-36 degrees C during the performance of the NCS. Nerve Conduction Studies Anti Sensory Summary Table ?Stim Site NR Onset (ms) Norm Onset (ms) Peak (ms) Norm Peak (ms) O-P Amp (?V) Norm O-P Amp Site1 Site2 Delta-0 (ms) Dist (cm) Lauri (m/s) Norm Lauri (m/s) Left Sural Anti Sensory (Lat Mall) Calf ? 2.4 3.3 <4.0 5.5 >5.0 Calf Lat Mall 2.4 14.0 58 Right Sural Anti Sensory (Lat Mall) Calf ? 3.1 3.7 <4.0 7.1 >5.0 Calf Lat Mall 3.1 14.0 45 Motor Summary Table ?Stim Site NR Onset (ms) Norm Onset (ms) O-P Amp (mV) Norm O-P Amp iAmp (mV) Amp (1st) (%) Site1 Site2 Delta-0 (ms) Dist (cm) Lauri (m/s) Norm Lauri (m/s) Left Peroneal Motor (Ext Dig Brev) Ankle NR <4.0 >2.5 Ankle Ext Dig Brev 0.0 B Fib NR B Fib Ankle 0.0 >40 Poplt NR Poplt B Fib 0.0 >40 Right Peroneal Motor (Ext Dig Brev) Ankle ? 6.5 <4.0 0.5 >2.5 0.6 100.0 Ankle Ext Dig Brev 6.5 0.0 B Fib ? 17.7 0.4 0.5 80.0 B Fib Ankle 11.2 31.0 28 >40 Poplt ? 20.2 0.3 0.4 60.0 Poplt B Fib 2.5 7.5 30 >40 Left Tibial Motor (Abd Carbone Brev) Ankle ? 7.2 <5 2.6 >2.5 3.1 100.0 Ankle Abd Carbone Brev 7.2 0.0 Knee ? 21.2 1.9 2.4 73.1 Knee Ankle 14.0 41.0 29 >40 Right Tibial Motor (Abd Carbone Brev) Ankle ? 6.0 <5 2.5 >2.5 3.4 100.0 Ankle Abd Carbone Brev 6.0 0.0 Knee ? 20.1 1.3 1.9 52.0 Knee Ankle 14.1 39.0 28 >40 EMG ?Side Muscle Nerve Root Ins Act Fibs Psw Amp Dur Poly Recrt Int Pat Comment Right AbdHallucis MedPlantar S1-2 Incr 1+ 1+ Nml Nml 0 Nml Complete Right AntTibialis Dp Br Peron L4-5 Incr 1+ 1+ Incr Incr 1+ Reduced Complete Right PostTibialis Tibial L5, S1 Nml Nml Nml Incr Incr 0 Nml Complete Right MedGastroc Tibial S1-2 Incr 1+ 1+ Nml Nml 0 Nml Complete Right VastusMed Femoral L2-4 Nml Nml Nml Nml Incr 1+ Nml Complete Right BicepsFemS Sciatic L5-S1 Nml Nml Nml Incr Incr 0 Nml Complete Right Add Jad Obturator, Sciat L2-4 Nml Nml Nml Nml Nml 0 Nml Complete Right GluteusMed SupGluteal L4-S1 Nml Nml Nml Nml Nml 0 Nml Complete Left AbdHallucis MedPlantar S1-2 Nml Nml Nml Nml Nml 0 Nml Complete Left AntTibialis Dp Br Peron L4-5 Incr 1+ 1+ Incr Incr 1+ Reduced Complete Left PostTibialis Tibial L5, S1 Nml Nml Nml Incr Incr 0 Nml Complete Left MedGastroc Tibial S1-2 Incr 1+ 1+ Incr Incr 1+ Nml Complete Left VastusMed Femoral L2-4 Nml Nml Nml Nml Nml 0 Nml Complete Left BicepsFemS Sciatic L5-S1 Nml Nml Nml Nml Nml 0 Nml Complete Left Add Jad Obturator, Sciat L2-4 Nml Nml Nml Nml Nml 0 Nml Complete Left GluteusMed SupGluteal L4-S1 Nml Nml Nml Nml Nml 0 Nml Complete FINDINGS: Right peroneal nerve showed very small amplitudes, almost absent, with prolonged distal latencies and slow conduction velocity. No conduction block across fibular neck. Left peroneal nerve showed absent response. Bilateral tibial nerve showed prolonged distal latencies and slow conduction velocity, normal amplitude. All other nerves tested were within normal. Concentric needle EMG was performed in selected muscles of the bilateral lower extremities. Study revealed signs of electric abnormalities as shown in the table above. Right vastus medialis showed increased duration and amplitude. Right medial gastrocnemius showed increased insertional activity, PSWs and fibrillations. Right tibialis anterior showed increased insertional activity, PSWs and fibrillations; reduced recruitment; increased duration, amplitude and polyphasia. Right posterior tibialis showed increased duration and amplitude. Right AH showed increased insertional activity, PSWs and fibrillations. Right short head of biceps showed increased duration, amplitude and polyphasia. Left tibialis anterior showed increased insertional activity, PSWs and fibrillations; reduced recruitment; increased duration, amplitude and polyphasia. Left medial gastrocnemius showed increased insertional activity, PSWs, fibrillations; increased duration, amplitude and polyphasia. Left posterior tibialis showed increased duration and amplitude. IMPRESSION: 1. This is an abnormal study. 2. There is electrodiagnostic evidence for acute bilateral L4-5 radiculopathy, on top of subacute/chronic bilateral L5-S1 radiculopathy. 3. There is no electrodiagnostic evidence for lumbosacral plexopathy, or peripheral neuropathy. Thank you for your kind referral. Shruthi Barillas MD, MELBA Board Certified, [place] Board [employer] and Rehabilitation (ABPMR) Board Certified, [place] Board of Electrodiagnostic Medicine (ABEM) CODIN [id number] x 2 MTDD
== END 2025-02-19 10:24 | disposition home or self-care (01) ==
LOC: HO.NEURO 10:23
PROVIDERS: PCP Family Medicine; Visit Provider Psychiatry & Neurology Neurology
DX: R29.898 Other symptoms and signs involving the musculoskeletal system (principal); R20.0 Anesthesia of skin
CPT/HCPCS: 95886; 95909

== ENCOUNTER → 2025-02-19 10:26 | Outpatient (BNV) | payer MEDICARE, SELFPAY | PROVIDERS: PCP Family Medicine; Visit Provider Physical Medicine & Rehabilitation | DX: M54.16 Radiculopathy, lumbar region (principal) | CPT/HCPCS: 95886; 95909 ==

== ENCOUNTER 2025-03-06 08:44 | Day surgery (SDC) | payer MEDICARE, SELFPAY ==
[2025-03-03 16:32] VITALS: BMI 23.6
[2025-03-04 13:16] VITALS: BMI 23.6
--- NOTE | 2025-03-04 13:48 | HO.ANESPROP2 ---
Documented by User: Mireille Rutledge NP 03/04/25 13:50 HPI - Anesthesia Eval Consult details Narrative: 69yo M for Left Carpal Tunnel Release s/p Lumbar decompression 09/2024 with GA-ETT 7 Per September PAT eval: Asthma: Dulera BID and Albuterol BID - not symptomatic but controlled on current regimen Heart murmur for years - ECHO 2020 and 2018 without any significant valve disease. No longer follows with cardiology. PMF Active Problems Active Problems: All Active Problems Carpal tunnel syndrome on both sides (Acute) Unsteady gait (Acute) Bilateral hand pain (Acute) Memory changes (Acute) Varicose veins of right lower extremity with inflammation (Acute) Lower extremity edema (Acute) Status post lumbar surgery (Acute) Left atrial enlargement (Acute) Cervical spinal stenosis (Acute) Abnormal brain MRI (Acute) Upper extremity weakness (Acute) Lower extremity numbness (Acute) Hand numbness (Acute) Falls (Acute) Synovial cyst of lumbar spine (Acute) Lumbar degenerative disc disease (Acute) Vertebrogenic low back pain (Acute) Lumbosacral spondylosis (Acute) Lumbar radiculopathy (Acute) Lumbar stenosis (Acute) History of right hip replacement (Acute) Osteoarthritis of left hip (Acute) Hip pain, left (Acute) Elevated liver enzymes (Acute) Dysuria (Acute) Difficulty sleeping (Acute) Bilateral hip pain (Acute) Lower extremity weakness (Acute) Bilateral leg pain (Acute) Pre-hypertension (Acute) Allergies (Acute) 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 (Acute) Hyperlipidemia (Acute) Pre-diabetes (Acute) Immunization counseling (Acute) Family history of colon cancer in father (Acute) Tubular adenoma of colon (Acute) Mitral regurgitation (Acute) Neoplasm of uncertain behavior of skin (Acute) GERD (gastroesophageal reflux disease) (Acute) Hypercholesterolemia (Acute) Elevated fasting blood sugar (Acute) Bursitis (Acute) Allergic reaction (Acute) Asthma (Acute) Edema (Acute) History of total right hip arthroplasty (Acute) Preoperative cardiovascular examination (Acute) Adult general medical examination (Acute) Immunization counseling (Acute) Right hip pain (Acute) Screening for prostate cancer (Acute) Screening for colon cancer (Acute) Arthralgia (Acute) Bilateral leg weakness (Acute) Gait disorder (Acute) Murmur, cardiac (Acute) Past Medical History Medical History Bilateral leg weakness Gait disorder Hx of pneumothorax Arthritis Numbness Bronchitis Primary osteoarthritis of right hip Asthma Osteoarthritis Murmur, cardiac Family History Family History Father No problems noted. Mother No problems noted. 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 If so, by whom?: No Are you DNR?: No Advance Directives: No Advance Directives Information Provided: Yes Advance Directives on File: No service: No Current occupational status: retired Current occupation: Right Handed Current occupational exposures/hazards: No Cognitive needs: No Hearing needs: No Vision needs: No Meds Allergies Allergy/AdvReac Type Severity Reaction Status Date / Time amoxicillin Allergy Intermediate Rash Verified 02/11/25 10:38 Home Medications ?Medication ?Instructions ?Recorded ?Confirmed ?Last Taken ?Type mometasone-formoterol HFA 100 1 puff PO BID 10/04/24 03/06/25 Unknown History mcg-5 mcg/actuation aerosol inhaler cetirizine 10 mg capsule 10 mg PO BEDTIME 03/04/25 03/06/25 Unknown History Exam Height,Weight and Vital Signs: Height 5 ft 8 in Weight 70.307 kg Pertinent Lab Results Pertinent Lab Results: Laboratory Tests 09/18/24 15:41 WBC 6.3 Hgb 15.2 Hct 44.7 Plt Count 220 Sodium 138 Potassium 4.2 Chloride 106 Carbon Dioxide 26 BUN 17 H Creatinine 0.87 Narrative Narrative: EKG 09/2024 Vent. Rate : 92 BPM Atrial Rate : 92 BPM P-R Int : 142 ms QRS Dur : 88 ms QT Int : 366 ms P-R-T Axes : 75 77 70 degrees QTcB Int : 452 ms Normal sinus rhythm Right atrial enlargement Borderline ECG When compared with ECG of 13-Jul-2020 09:42, No significant change was found US carotid duplex BI 2022 IMPRESSION: RIGHT: Minimal, non-hemodynamically significant stenosis of the proximal right internal carotid artery corresponding to a 0-49% stenosis by velocity criteria. There is a bunny sign in the right vertebral artery suggesting an occult right subclavian stenosis, pre-steal. LEFT: Minimal, non-hemodynamically significant stenosis of the proximal left internal carotid artery corresponding to a 0-49% stenosis by velocity criteria. Assessment and Plan Assessment Anesthesia Assessment: Chart Reviewed Final Anesthetic Review Family History of Problems with Anesthesia: No History of Problems with Anesthesia: No Documented by User: Jerson Colmenares MD 03/06/25 11:38 [facility] Past Medical History Medical History Bilateral leg weakness Gait disorder Hx of pneumothorax Arthritis Numbness Bronchitis Primary osteoarthritis of right hip Asthma Osteoarthritis Murmur, cardiac Family History Family History Father No problems noted. Mother No problems noted. 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 If so, by whom?: No Are you DNR?: No Advance Directives: No Advance Directives Information Provided: Yes Advance Directives on File: No service: No Current occupational status: retired Current occupation: Right Handed Current occupational exposures/hazards: No Cognitive needs: No Hearing needs: No Vision needs: No Meds Allergies Allergy/AdvReac Type Severity Reaction Status Date / Time amoxicillin Allergy Intermediate Rash Verified 02/11/25 10:38 Home Medications ?Medication ?Instructions ?Recorded ?Confirmed ?Last Taken ?Type mometasone-formoterol HFA 100 1 puff PO BID 10/04/24 03/06/25 Unknown History mcg-5 mcg/actuation aerosol inhaler cetirizine 10 mg capsule 10 mg PO BEDTIME 03/04/25 03/06/25 Unknown History Exam Exam Date and Time: 02/24/2025 Airway Mallampati Class: II TM Dist: >3cm Denture: Upper Partial: Upper (partial upper) Loose/Missing/Broken Teeth: Yes Heart: rrr Lungs: cta Other: normal Assessment and Plan Final Anesthetic Review NPO: Yes ASA Class: II and III Final Preanesthetic Review: No Changes in Pt Med Stat, Meds/Allgs Chart Reviewed, Consent Obtained/Reviewed and Anes Risks/Benef Reviewed Patient Risk: Low Procedure Risk: Low Anesthetic Plan Anesthetic Plan: GA and MAC: Disposition: Standard PACU
--- NOTE | 2025-03-04 16:23 | P.DS_ITS ---
DS: Providers Provider Date of Service: 03/06/25 Date of discharge: 03/06/25 Primary care physician: Ihsan Burnett MD Admitting clinician: Edmundo Luong DS: Diagnosis Discharge Diagnosis (1) Lumbar radiculopathy: Status: Acute DS: Summary Time Attestation Discharge Coordination Time (in mins): 5 Quality: Safe Use of Opioids Does Pt have an Active Cancer Diagnosis on the Problem List?: No Quality: Stroke Does the patient have a stroke diagnosis?: No Physical Exam Vital Signs: Vital Signs: BMI result Body Mass Index 23.6 DS: Data Data Completed and Pending Completed studies during hospitalization [Text1]: Procedures Replacement of Right Hip Joint with Synthetic Substitute, Uncemented, Open Approach (08/12/20) Discharge Plan Discharge Patient Disposition: Home, Self-Care Referrals: Ihsan Burnett MD [Primary Care Provider, Internal Medicine] - 1 Week Discharge Medications: New tramadol 50 mg tablet 50 mg PO Q6H PRN (Reason: pain) Qty: 20 0RF Continued meloxicam 15 mg tablet 15 mg PO DAILY 30 Days Qty: 30 3RF omeprazole 20 mg capsule,delayed release(DR/EC) 20 mg PO DAILY 30 Days Qty: 30 2RF albuterol sulfate 90 mcg/actuation HFA aerosol inhaler 2 puff inhalation BID 30 Days Qty: 8.5 3RF pregabalin 100 mg capsule 100 mg PO BID 30 Days Qty: 60 1RF mometasone-formoterol 100-5 mcg/actuation HFA aerosol inhaler 1 puff PO BID cetirizine 10 mg Capsule 10 mg PO BEDTIME mecobalamin (vitamin B12) 1,000 mcg tablet,disintegrating 1,000 mcg sublingual DAILY 90 Days Qty: 90 2RF Rx Instructions: place tablet under tongue and allow to dissolve for at least30 secs before swallowing atorvastatin 10 mg tablet 10 mg PO BEDTIME 90 Days Qty: 90 4RF trazodone 50 mg tablet 50 mg PO BEDTIME PRN (Reason: sleep) 30 Days Qty: 30 0RF Discharge Orders: Discharge Order (Routine); Ordered 03/06/25 Ordered By: Tony Dolan Diet: Advance to usual diet Activity on Discharge: As tolerated Activity Restrictions/Additional Instructions: You may remove your berry wrap on post op day 3, as well as the dressing underneath it There are sutures in your wound, and you will need these removed 10-14 days after surgery. Please call the office to arrange this visit, You can use your hand as much as you like, however, please avoid straining or heavy lifting It will help swelling in your hand to keep it elevated when you are not using it. You can shower on post op day 1, but please keep wound dry You can drive when you feel comfortable and are off narcotics If you experience any signs of infection such as fever, chills or redness/discharge from your wound,please call office right away Print Language: Prydeinig
[2025-03-06] VITALS (9 sets, daily range): BP systolic 65–123; BP diastolic 37–81; PULSE 72–82; RESP 16–18; TEMP 36.5–36.8; O2SAT 97–99
--- NOTE | 2025-03-06 09:29 | P.HPSUR_ITS ---
Pre-Procedural Eval Section A - 24 Hr Update-Section A only Date of Service: 03/06/25 The patient is an INPATIENT: No Changes since office visit: No Cold of Flu in the past 2 weeks, No New Medical Problems, No Changes in Medication and No Patient answered all questions The patient has been examined within 24 hours of the surgical procedure. The History & Physical has been completed within 30 days and I have reviewed it.: No Section B - Complete if H&P > 30 days Chief Complaint: Carpal tunnel syndrome, unspecified upper limb Allergies: Allergies Allergy/AdvReac Type Severity Reaction Status Date / Time amoxicillin Allergy Intermediate Rash Verified 02/11/25 10:38 Review of Systems Sugical H&P ROS: Negative: Constitution, Cardiovascular, Respiratory, Neurological, Psychiatric, Hem-Onc, Allergic/Immunologic, Gastrointestinal, Genitourinary, Musculoskeletal, Integumentary, Endocrine and Eyes/Ears/Nos e/Throat Exam Surgical H&P Exam: Normal: HEENT, Normal: Heart, Normal: Lungs, Normal: Extremities, Normal: Abdomen, Normal: Skin and Normal: Neurological (awake alert oriented ) Plan Diagnosis/Plan: Unchanged left carpal tunnel release Time Spent With Patient Time: Total time managing care of this patient today __6__ minutes.
--- NOTE | 2025-03-06 12:01 | W.PM.OPN ---
Operative Note Operative Note Date of Service: 03/06/25 Narrative: Diagnosis: Left carpal tunnel syndrome Procedure: Left median nerve release Surgeon: Edmundo Luong MD PhD Description procedure: This 69-year-old male Is suffering from a left carpal tunnel syndrome. The patient was offered a decompression of the median nerve. The procedure complications were explained. The patient was consented. The patient was brought to the operating room, where moderate sedation was applied. Prepping and draping was done followed by time-out. Marcaine was injected into the mid volar region. A midvolar incision was made. The ligamentum carpi transversum was opened sharply until the median nerve became visible. A Metzenbaum scissor was used to decompress the median nerve proximally and distally over its trajectory. Significant compression was present. Hemostasis was done. The incision was closed with 3 interrupted sutures. A compressive JILLIAN wrap was used for hemostasis. All sponge and needle counts were correct. Patient was transported to the recovery room. Anesthesia: Moderate sedation and local anesthetic Blood loss: Minimal Complications: None Disposition: Discharge home
== END 2025-03-06 13:58 | disposition home or self-care (01) ==
LOC: HO.SSS 08:45
PROVIDERS: PCP Family Medicine; Visit Provider Neurological Surgery
PROC: (CPT 64721; principal; 2025-03-06 11:50)
DX: G56.02 Carpal tunnel syndrome, left upper limb (principal); R20.0 Anesthesia of skin; M62.81 Muscle weakness (generalized); M79.642 Pain in left hand; M79.641 Pain in right hand; J45.909 Unspecified asthma, uncomplicated; R01.1 Cardiac murmur, unspecified; Z79.899 Other long term (current) drug therapy; Z88.1 Allergy status to other antibiotic agents; Z98.890 Other specified postprocedural states
CPT/HCPCS: 64721; J0690; J1100; J2003; J2371; J2405; J2704; J3010

== ENCOUNTER → 2025-03-06 08:44 | Outpatient (BNV) | payer MEDICARE, SELFPAY | PROVIDERS: PCP Family Medicine; Visit Provider Physician Assistant | DX: G56.02 Carpal tunnel syndrome, left upper limb (principal) | CPT/HCPCS: 64721; 99499 ==

== ENCOUNTER 2025-03-10 09:00 | Outpatient (AMB) | payer MEDICARE, SELFPAY ==
--- NOTE | 2025-03-10 09:09 | A.OFFPC_ITS ---
Vital Signs 03/10/25 09:13 Height 5 ft 8 in Weight 162 lb 6 oz BMI 24.7 BP 118/66 Blood Pressure Location Rt brachial Position Sitting Respiration 16 Pulse 80 Pulse Source Pulse Oximeter Temp 98.4 F Temp Source Oral Pulse Oximetry (%) 96 Oxygen Delivery Method Room Air Intake Visit Reasons: Follow up [place]pal [place] [facility] [place]: patient here for follow up on Carpal tunnel /[place] [facility] Nurse Orthopedic Required: No Allergies amoxicillin Allergy (Intermediate, Verified 03/10/25 09:12) Rash Tobacco use date assessed: 03/10/25 Fall risk assessment: 2 + Falls in past year Last assessed Fall Risk: 03/10/25 Dental Screening Dental Screen Date: 03/10/25 Did you have a dental visit in the last 12 months?: Yes Did you have a dental problem in the last 6 months where you did not have access to dental care?: No Was dental information given to patient?: Patient has dentist HPI Follow up Carpal tunnel /[place] [facility] HPI Details 69 y/o male presents to f/u carpal tunne l surgery. Pt notes surgery went well. He is moving his hand well with minimal pain. Reports ongoing issues with his gait. Hx of cervical spine stenosis. [facility] Medical History Bilateral leg weakness Gait disorder Hx of pneumothorax Arthritis Numbness Bronchitis Primary osteoarthritis of right hip Asthma Osteoarthritis Murmur, cardiac Surgical History Hx of spinal surgery (10/10/24) Hx of hand surgery Hx of left inguinal hernia repair Hx of tonsillectomy S/P total right hip arthroplasty Hx of colonoscopy (2022) Family History Father No problems noted. Mother No problems noted. 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: Yes Do you presently have visiting nurse or other home services: Yes (nursing and Physical therapy) Alcohol intake: never Patient Tobacco Use Status: Former Tobacco user Tobacco use type: Cigarette Cigarette Packs Per Day: 0.25 Cigarettes Per Day: 5.0 Years Smoked: 5 e-Cigarette/Vaping Use: Never Used Second Hand Smoke Exposure: No service: No Current occupational status: retired Current occupation: Right Handed Current occupational exposures/hazards: No Cognitive needs: No Hearing needs: No Vision needs: No Questionnaire Thrive Questionnaire Date Thrive assessed: 06/21/24 I am a: Patient What is your living situation today?: I have a steady place to live Within the past 12 months, did the food you bought not last and you didn't have the money to get more?: Never true Within the past 12 months, did you worry whether your food would run out before you got money to buy more?: Never true Do you have trouble paying for medicines?: No Do you have trouble getting transportation to medical appointments?: No Do you have trouble paying your heating and electricity bill?: No Do you have trouble taking care of your child, family member or friend?: No Do you have trouble with day-to-day activities such as bathing, preparing meals, shopping, managing finances, etc.?: No Are you currently unemployed and looking for a job?: No Are you interested in more education?: No Please select the resources that you would like help with: None Currently or been in a relationship where the following occur: No concerns reported THRIVE Score: 0 EDUARDO-7 AMB Questionnaire EDUARDO-7 Date EDUARDO - 7 assessed: 02/27/24 Source: Developed by Drs. Jamaal Kinney, Marta Warner, Farhad Greer and colleagues, with an educational guerrero from [employer]. Review of Systems Const Denies chills, Denies fatigue, Denies fever(s), Denies headache(s) and Denies weakness ENT Denies dizziness and Denies headache(s) Card Denies dyspnea Resp Denies cough, Denies dyspnea, Denies wheezing and Denies other (shortness of breath) Musc Denies numbness and Denies tingling Neuro Denies dizziness, Denies headache(s), Denies numbness, Denies tingling and Denies weakness Psych Denies anxiety and Denies depression Endo Denies fatigue Aller/Immun Denies wheezing Physical exam (Primary Care) Vital Signs: Last Vital Signs Temp 98.4 F 03/10/25 09:13 Pulse 80 03/10/25 09:13 Resp 16 03/10/25 09:13 BP 118/66 03/10/25 09:13 Pulse Ox 96 03/10/25 09:13 Oxygen Delivery Method Room Air 03/10/25 09:13 BMI result Body Mass Index 24.7 Tobacco/Smoking Status: Tobacco use Status Tobacco use date assessed 03/10/25 03/10/25 09:16 Patient Tobacco Use Status Former Tobacco user 03/10/25 09:11 Tobacco use type Cigarette 03/10/25 09:11 e-Cigarette/Vaping Use Never Used 03/10/25 09:11 Thrive Assessment: Date of Thrive Assessment Date Thrive assessed 06/21/24 03/10/25 09:11 Currently or been in a relationship where the following occur: No concerns reported Const General: well developed; No acute distress Nutritional Appearance: well nourished Orientation/consciousness: patient oriented x3 HENMT Head: Yes normocephalic and Yes atraumatic Eyes General: appearance normal, both eyes and all related structures Pupils: Equal, round and reactive pupils present EOM: EOMs intact bilaterally Resp Effort & Inspection: normal respiratory effort Auscultation: clear to auscultation bilaterally Cardio Rate: regular rate Rhythm: regular rhythm Heart sounds: S1 normal heart sound present, S2 normal heart sound present, no gallops, Murmur heart sound present and no rubs Neuro General: patient oriented x3 and No gait normal Cranial nerves: Yes Equal, round and reactive pupils present Psych Affect: normal affect Coding Level of Care Code Est Pt Level 4 (04346) Diagnoses Status post carpal tunnel release Z98.890 Cervical spinal stenosis M48.02 Gait disorder R26.9 Unsteady gait R26.81 Murmur, cardiac R01.1 Assessment & Plan Assessment & Plan (1) Status post carpal tunnel release: Code(s): Z98.890 - Other specified postprocedural states Category: Surgical Plan: Patient is moving his hand well today with minimal pain. Bandage in place with minimal staining No erythema or swelling apparent. Follow-up with neurosurgery as recommended (2) Cervical spinal stenosis: Code(s): M48.02 - Spinal stenosis, cervical region Category: Medical Plan: As above, patient has follow-up with neuro spine Had referred him also for cervical spinal stenosis and patient has an ataxic gait Follow-up with neuro spine is recommended (3) Gait disorder: Code(s): R26.9 - Unspecified abnormalities of gait and mobility Category: Medical Plan: Ataxic gait Follow-up with neuro spine Use cane (4) Unsteady gait: Code(s): R26.81 - Unsteadiness on feet Category: Medical Plan: As above (5) Murmur, cardiac: Code(s): R01.1 - Cardiac murmur, unspecified Category: Medical Plan Cardiac murmur history of mitral regurgitation in question atrial enlargement Prior echocardiogram in 2020 was essentially normal Recheck echocardiogram Orders: Orders Comprehensive [place]. Panel Fast Today Z00.00 - Encounter for general adult medical examination without abnormal findings Complete Blood Count Auto Diff Today Z00.00 - Encounter for general adult medical examination without abnormal findings UA CC w/rflx Micro + Cult Today Z00.00 - Encounter for general adult medical examination without abnormal findings CA echo transthoracic complete Today I34.0 - Nonrheumatic mitral (valve) insuf ficiency, I51.7 - Cardiomegaly, R01.1 - Cardiac murmur, unspecified Microalbumin, Random (w Creat) Today I10 - Essential (primary) hypertension Prostate Specific Antigen Scr Today Z12.5 - Encounter for screening for malignant neoplasm of prostate TSH reflex Free T4 Today Z00.00 - Encounter for general adult medical ex amination without abnormal findings Lipid Panel Today Z00.00 - Encounter for general adult medical examination without abnormal findings
[2025-03-10 09:13] VITALS: BP 118/66; PULSE 80; RESP 16; TEMP 36.9; O2SAT 96; BMI 24.7
== END 2025-03-10 09:47 | disposition home or self-care (01) ==
LOC: HO.HMCFM 09:00
PROVIDERS: PCP Family Medicine; Visit Provider Family Medicine
DX: Z98.890 Other specified postprocedural states (principal); M48.02 Spinal stenosis, cervical region; R26.9 Unspecified abnormalities of gait and mobility; R26.81 Unsteadiness on feet; R01.1 Cardiac murmur, unspecified

== ENCOUNTER → 2025-03-10 09:00 | Outpatient (BNVA) | payer MEDICARE, SELFPAY | PROVIDERS: PCP Family Medicine; Visit Provider Family Medicine | DX: M48.02 Spinal stenosis, cervical region (principal); R26.9 Unspecified abnormalities of gait and mobility; R26.81 Unsteadiness on feet; R01.1 Cardiac murmur, unspecified; I34.0 Nonrheumatic mitral (valve) insufficiency; I11.9 Hypertensive heart disease without heart failure; Z98.890 Other specified postprocedural states | CPT/HCPCS: 99212 ==

== ENCOUNTER 2025-03-11 06:31 | Outpatient (REF) | payer MEDICARE, SELFPAY ==
[2025-03-11 08:43] LABS: Microalbum/Creatinine Ratio Ur 10.8 ug/mg cr (<30)
== END 2025-03-11 06:32 | disposition home or self-care (01) ==
LOC: HO.LAB 06:31
PROVIDERS: PCP Family Medicine; Visit Provider Family Medicine
DX: Z00.00 Encounter for general adult medical examination without abnormal findings (principal); Z12.5 Encounter for screening for malignant neoplasm of prostate; I10 Essential (primary) hypertension
CPT/HCPCS: 36415; 80053; 80061; 81003; 82043; 82570; 84153; 84443; 85025

== ENCOUNTER 2025-03-17 09:24 | Outpatient (AMB) | payer MEDICARE, SELFPAY ==
--- NOTE | 2025-03-17 09:20 | A.SPINEOV_ITS ---
Intake Visit Reasons: suture removal Intake Note: Mr. Humphreys is here today for his suture removal. 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 Luong on 03/06/25. He also previously underwent S1 Laminotomy for removal of extradural benign mass and bilateral L5 foraminotomy on 10/10/24. He reports that overall he has been doing well since his surgery. He reports some improvement of pain in his left hand. He expressed concerns regarding his neck during this visit, and states he wishes to have neck surgery with Dr. Luong. He reports that Dr. Luong saw him walk in the hospital when he was here for his carpal tunnel surgery, and expressed concerns regarding his neck. Dr. Luong did previously review Layton's cervical MRI prior to us sending him for EMG imaging. We did not believe at the time that the compression seen on MRI imaging expressly explained Layton's symptoms. No new neurological deficits. The patient is able to curl his fingertips to the distal palmar crease without issue. I removed the sutures overlying his volar wrist incision. He tolerated the suture removal well. He is now ambulating with the assistance of a cane, and does appear to have a worsening & more spastic appearing gait today when compared to previous evaluations. I would like Layton to follow up with Dr. Luong for his 2nd postop visit to discuss his concerns related to his cervical spine, especially given his worsening gait. He expressed many concerns that he has had surgery on his back / hand but not his neck, despite initially presenting to clinic for bilateral leg pain. He reports his neurologist is advocating for cervical spine surgery. I answered all of Layton's questions today to the best of my ability. Dg Luong MD,PhD [facility] Coding Level of Care Code Global (80981) Diagnoses Status post carpal tunnel release Z98.890
== END 2025-03-17 09:38 | disposition home or self-care (01) ==
LOC: HO.HNS 09:25
PROVIDERS: PCP Family Medicine; Visit Provider Physician Assistant
DX: Z98.890 Other specified postprocedural states (principal)
CPT/HCPCS: 99024

== ENCOUNTER → 2025-03-17 09:24 | Outpatient (BNVA) | payer MEDICARE, SELFPAY | PROVIDERS: PCP Family Medicine; Visit Provider Physician Assistant | DX: Z48.02 Encounter for removal of sutures (principal); Z98.890 Other specified postprocedural states; R26.89 Other abnormalities of gait and mobility | CPT/HCPCS: 99212 ==

== ENCOUNTER 2025-04-01 13:11 | Outpatient (AMB) | payer MEDICARE, SELFPAY ==
--- NOTE | 2025-04-01 13:17 | A.OFFVIS_ITS ---
Vital Signs 04/01/25 13:18 Height 5 ft 8 in Weight 164 lb 8 oz BMI 25.0 BP 118/82 Blood Pressure Location Rt brachial Position Sitting Pulse 71 Pulse Source Pulse Oximeter Pulse Oximetry (%) 97 Oxygen Delivery Method Room Air Intake Visit Reasons: 2mnth ok per MD Intake Note: Follow up bilateral leg weakness, carpal hobson syndrome, cervical spinal stenosis and Gait disorder Assistant County Attorney Required: No Accompanied by: Spouse Allergies amoxicillin Allergy (Intermediate, Verified 04/01/25 13:17) Rash Medication List - Last Reconciled 04/01/25 by Xena Lyn MD albuterol sulfate 90 mcg/actuation 2 puffs inhalation BID 30 days atorvastatin 10 mg PO BEDTIME 90 days cetirizine 10 mg PO BEDTIME mecobalamin (vitamin B12) 1,000 mcg sublingual DAILY 90 days meloxicam 15 mg PO DAILY 30 days mometasone-formoterol 100-5 mcg/actuation 1 puff PO BID 30 days omeprazole 20 mg PO DAILY 30 days pregabalin 100 mg PO BID 30 days tramadol 50 mg PO Q6H PRN trazodone 50 mg PO BEDTIME PRN 30 days HPI Comments Details: 69y/o male comes for follow up of numbness of UE and LE, gait issues , poor balance His balance and gait improved . He decreased pregabalin and feels he is better. No back pain or falls He had carpal tunnel surgery on the left. EMg shows -02/19is is an abnormal study. 2. There is electrodiagnostic evidence for acute bilateral L4-5 radiculopathy, on top of subacute/chronic bilateral L5-S1 radiculopathy. 3. There is no electrodiagnostic evidence for lumbosacral plexopathy, or peripheral neuropathy. History from last visit-11/2024 The symptom started about 6 mths ago - poor balance with multiple falls.He stopped working because of his falls. He is unable to stand for over a few minutes. He also says his feet feels heavy when he tries to take a step.Now he is using cane to help with balance and still has falls He reports numbness in the ankles and feet . He recently had back surgery( L5 S1 laminotomy - had synovial cyst ) which helped with pain. 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 He has mild short term memory issues. He is independent in his ADLS and does not feel the memory issues are severe. sleep, mood are ok no bladder bowel issues PFSH Medical History Bilateral leg weakness Gait disorder Hx of pneumothorax Arthritis Numbness Bronchitis Primary osteoarthritis of right hip Asthma Osteoarthritis Murmur, cardiac Surgical History Hx of spinal surgery (10/10/24) Hx of hand surgery Hx of left inguinal hernia repair Hx of tonsillectomy S/P total right hip arthroplasty Hx of colonoscopy (2022) Family History Father No problems noted. Mother No problems noted. 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 Do you presently have visiting nurse or other home services: Yes (nursing and Physical therapy) Alcohol intake: never Patient Tobacco Use Status: Former Tobacco user Tobacco use type: Cigarette Cigarette Packs Per Day: 0.25 Cigarettes Per Day: 5.0 Years Smoked: 5 e-Cigarette/Vaping Use: Never Used Second Hand Smoke Exposure: No service: No Current occupational status: retired Current occupation: Right Handed Current occupational exposures/hazards: No Cognitive needs: No Hearing needs: No Vision needs: No Physical Exam Vital Signs: Last Vital Signs Pulse 71 04/01/25 13:18 BP 118/82 04/01/25 13:18 Pulse Ox 97 04/01/25 13:18 Oxygen Delivery Method Room Air 04/01/25 13:18 BMI result Body Mass Index 25.0 Const General: cooperative, comfortable and no acute distress Eyes Pupils: Equal, round and reactive pupils present Neuro Other: Anuj LE Right Hip flexion Left 5/5 Right 5/5 Knee Flexion /extension - left 5/5 Right 5/5 Plantar flexion 5/5 anuj Dorsiflexion 2/5 left and 1-2/5 on Right Anuj Hand grasp 3-/5 Gait- high steppage gait , slowness Atrophy of small muscles of hands Left >right Cranial nerves: Yes Facial sensation intact/muscles of mastication intact, Yes Equal, round and reactive pupils present, Yes Bilaterally intact EOM present, Yes Nystagmus not present, Yes Normal facial strength present, Yes Midline tongue present and Yes Ability to bilaterally elevate shoulders present Cognition (Neuro): normal cognition Gait exam (Neuro): Steppage gait present Motor exam (neuro): Normal motor muscle tone present throughout Coordination: [id number] test normal Assessment & Plan Assessment & Plan (1) Gait disorder: Code(s): R26.9 - Unspecified abnormalities of gait and mobility Category: Medical (2) Lumbosacral spondylosis: Comment: s/o L5 and S1 laminetcomy 09/1024 Code(s): M47.817 - Spondylosis without myelopathy or radiculopathy, lumbosacral region Category: Medical (3) Cervical spinal stenosis: Code(s): M48.02 - Spinal stenosis, cervical region Category: Medical (4) Carpal tunnel syndrome on both sides: Code(s): G56.03 - Carpal tunnel syndrome, bilateral upper limbs Category: Medical (5) Bilateral leg weakness: Code(s): R29.898 - Other symptoms and signs involving the musculoskeletal system Category: Medical Plan DEcrease pregabalin 100mg qhs PT for gait training EMG LE reviewed Orders: Orders PT Evaluation and Treatment Today M47.817 - Spondylosis without myelopathy or radiculopathy, lumbosacral region, M48.061 - Spinal stenosis, lumbar region without neurogenic claudication, R26.9 - Unspecified abnormalities of gait and mobility, T78.40XA - Allergy, unspecified, initial encounter Coding Level of Care Code Est Pt Level 4 (54266) Complex EM visit Add On G2211 Diagnoses Gait disorder R26.9 Lumbosacral spondylosis M47.817 Cervical spinal stenosis M48.02 Carpal tunnel syndrome on both sides G56.03 Bilateral leg weakness R29.898
[2025-04-01 13:18] VITALS: BP 118/82; PULSE 71; O2SAT 97; BMI 25.0
== END 2025-04-01 13:40 | disposition home or self-care (01) ==
LOC: HO.HSMS 13:12
PROVIDERS: PCP Family Medicine; Visit Provider Psychiatry & Neurology Neurology
DX: R26.9 Unspecified abnormalities of gait and mobility (principal); M47.817 Spondylosis without myelopathy or radiculopathy, lumbosacral region; M48.02 Spinal stenosis, cervical region; G56.03 Carpal tunnel syndrome, bilateral upper limbs; R29.898 Other symptoms and signs involving the musculoskeletal system
CPT/HCPCS: 99214; G2211

== ENCOUNTER → 2025-04-01 13:11 | Outpatient (BNVA) | payer MEDICARE, SELFPAY | PROVIDERS: PCP Family Medicine; Visit Provider Psychiatry & Neurology Neurology | DX: M47.817 Spondylosis without myelopathy or radiculopathy, lumbosacral region (principal); R26.9 Unspecified abnormalities of gait and mobility; M48.02 Spinal stenosis, cervical region; G56.03 Carpal tunnel syndrome, bilateral upper limbs; R29.898 Other symptoms and signs involving the musculoskeletal system | CPT/HCPCS: 99212 ==

== ENCOUNTER → 2025-04-11 09:57 | Outpatient (REF) | payer MEDICARE, SELFPAY ==
--- NOTE | 2025-04-11 10:00 | CA_ITS ---
Transthoracic Echocardiogram Patient (Last, First, Middle): Layton Humphreys J Gender: Male Date of : 1955 Age: 69 Procedure Date: 04/11/2025 Procedure Type: Transthoracic Echocardiogram Location: OP Height: 172.72 cm Weight: 70.31 kg BSA: 1.83 m2 Heart Rate: 82 bpm BP: 118 / 78 mmHg Correctional Supervising Cook: SB Referring MD: Ihsan Burnett MD Hvac Maintenance Technician: Pako Gifofrd MD Symptoms: R01.1 - Cardiac murmur, unspecified Study Quality: Adequate ECG Rhythm: Sinus Conclusions: - 1. Normal LV ejection fraction of 60-65% with grade 1 diastolic dysfunction 2. Mild calcific aortic valve changes noted with normal cardiac valvular Dopplers 3. Normal RV systolic pressure 4. No gross pericardial effusion Findings Left Ventricle Normal left ventricular size, thickness, and systolic function. The visually estimated ejection fraction is between 60-65%. Spectral Doppler is indicative of an impaired relaxation filling pattern. E/E prime ratio is <8, consistent with normal filling pressures. Evidence suggests grade I (mild) diastolic dysfunction. Right Ventricle Normal right ventricular cavity size and systolic function. Atria Both atria are normal in size. There is no evidence of interatrial shunt. Aortic Valve There is mild calcification of the aortic valve. There is no aortic valve stenosis. There is no aortic valve regurgitation. Mitral Valve Normal mitral valve structure and function. There is trace mitral valve regurgitation. There is no mitral valve stenosis. Tricuspid Valve Normal tricuspid valve structure. There is trace tricuspid valve regurgitation. The right ventricular systolic pressure is normal. The right ventricular systolic pressure is 21 mmHg. Normal right atrial pressure. There is no evidence of pulmonary hypertension. Great Vessels All visible segments of the aorta are normal in size. The pulmonary artery was not well visualized. There is no dilatation of the ascending aorta measuring 3.00 cm. Small plaque is seen in the sino tubular ridge. Venous The inferior vena cava is normal in size and collapses greater than 50% with inspiration. Pericardium/Pleural There is no evidence of pericardial effusion. Measurements 2D Linear Measurements IVSd: 0.83 0.6-0.9/0.6-1.0 cm LVIDd: 4.37 3.9-5.3/4.2-5.9 cm LVIDd Index: 2.39 2.4-3.2/2.2-3.1 cm/m2 LVIDs: 2.95 2.0-3.6 cm LVPWd: 0.73 0.7-1.1 cm LA Diam: 2.90 2.7-3.8/3.0-4.0 cm LAIDs Index: 1.58 1.5-2.3 cm/m2 LV Mass: 129.20 67-162/88-224 g LV Mass Index: 70.60 43-95/49-115 g/m2 LVOT Diam: 2.00 3.0+(-)1.3 cm 2D Systolic Function EF 4C: 69.60 >55% EF 2C: 52.70 >55% EF BiP: 63.00 >55% Mitral Valve MV Pk E: 0.71 MV PK A: 1.11 MV Decel Time: 204.00 E/A: 0.60 E'Lateral: 8.05 E'Medial: 7.40 E/E' Med: 9.60 E/E' Lat: 8.80 PHT: 60.00 MVA PHT: 3.67 Decel Ramsey: 3.48 Aortic Valve AoV Pk Lauri: 1.04 AoV Pk Grad: 4.00 ROSIO: 2.63 LVOT LVOT Pk Lauri: 0.91 LVOT Mn Lauri: 0.68 LVOT VTI: 0.19 LVOT Pk Grad: 3.00 LVOT Mn Grad: 2.00 LVOT Diam: 2.00 LVOT Area: 3.14 Diastolic Function MV Pk E: 0.71 MV Pk A: 1.11 E/A: 0.60 E'Medial: 7.40 E/E' Med: 9.60 E' Laterial: 8.05 E/E' Lat: 8.80 Right Ventricle TAPSE (mm): 22.60 TVS' Lauri: 10.40 Tricuspid Valve TR Pk Lauri: 2.10 TR Pk Grad: 18.00 RA Press: 3.00 RVSP: 21.00 Great Vessels Aorta Sinus of Valsalva: 3.20 2.0-3.5 cm Ao Asc: 3.00 2.1-3.4 cm Ao Arch: 2.30 Pulmonary Veins Pulm Vein S/D 2.10 Pulmonary Valve PV Pk Lauri: 1.01 Peak PV Grad: 4.00 Updated in Other Vendor System with Status of Final Pako Gifford MD electronically signed on 04/11/2025 3:49:36 PM with status of Final
== END ==
LOC: HO.CARD 09:57
PROVIDERS: PCP Family Medicine; Visit Provider Family Medicine
DX: R01.1 Cardiac murmur, unspecified (principal); I34.0 Nonrheumatic mitral (valve) insufficiency; I51.7 Cardiomegaly
CPT/HCPCS: 93306

== ENCOUNTER → 2025-04-11 10:00 | Outpatient (BNV) | payer MEDICARE, SELFPAY | PROVIDERS: PCP Family Medicine; Visit Provider Internal Medicine Cardiovascular Disease | DX: I35.8 Other nonrheumatic aortic valve disorders (principal) | CPT/HCPCS: 93306 ==

== ENCOUNTER 2025-04-14 18:43 | Outpatient (REF) | payer MEDICARE, SELFPAY ==
--- NOTE | ~2025-04-14 | MR_ITS ---
EXAMINATION: MR CERVICAL SPINE WITHOUT CONTRAST CLINICAL INFORMATION: Numbness left hemibody. R 29.898. COMPARISON: October 02, 2024. TECHNIQUE: MRI of the cervical spine was obtained using routine sequences without contrast. FINDINGS: Craniocervical junction is intact. Normal position of the cerebellar tonsils. Multilevel marginal osteophyte formation and decreased intervertebral disc height, endplate irregularities and multilevel Modic type II endplate changes C3-T1 pronounced at C5-6, C6-7 and to a lesser extent C4-5 and C7-T1. 1 mm retrolisthesis C4-5, C5-6. 1 mm anterolisthesis, T1-T2 and C7-T1. Buckling deformity of the dorsal aspect of the thecal sac secondary to ligamentum flavum hypertrophy at C6-7 and to a lesser extent C4-5 and C5-6 level. C2-3: No disc herniation. No neuroforamina stenosis. C3-4: Central disc osteophyte complex formation resulting in ventral indentation to the thecal sac. Bilateral small perineural cysts. C4-5: Broad-based disc osteophyte compresses formation resulting in ventral deformity of the thecal sac and spinal cord without cord signal abnormality. Bilateral perineural cysts. Bilateral neuroforamina narrowing on a degenerative basis. C5-6: Broad-based disc osteophyte compresses formation resulting in effacement of the ventral thecal sac and flattening of the spinal cord. No cord signal abnormality. Bilateral neuroforamina stenosis. Small left perineural cysts. C6-7: Broad-based disc osteophyte compresses formation resulting in CSF effacement of thecal sac and the central spinal canal. No cord signal abnormality. Bilateral neuroforamina stenosis. There is a 7 mm right perineural cysts. C7-T1: Broad-based disc osteophyte compresses formation resulting in ventral spinal cord deformity. CSF effacement of the thecal sac and the ventral aspect. No cord signal abnormality. Bilateral neuroforamina narrowing. There is a 4.6 mm). T1-T2: No disc herniation. No neuroforamina stenosis. 7 mm left perineural cysts. No prevertebral compartment hematoma, mass or fluid collection. Flow-void signal within the main vessels is normal. Left vertebral artery is dominant. MR/MR cervical spine wo con IMPRESSION: Multilevel cervical spondylosis C3-4 to C7-T1 resulting in central spinal canal and bilateral neuroforamina stenosis with cord compression and no cord edema and or myelopathy at C5-6, C6-7 and to a lesser extent C7-T1 and C4-5. Multilevel perineural cysts, the largest on the right C6-7. Electronically signed by: Alex Madrid MD 04/15/2025 07:18 AM EDT
== END 2025-04-14 18:44 | disposition home or self-care (01) ==
LOC: HO.MRI 18:43
PROVIDERS: PCP Family Medicine; Visit Provider Psychiatry & Neurology Neurology
DX: M48.02 Spinal stenosis, cervical region (principal); R29.898 Other symptoms and signs involving the musculoskeletal system
CPT/HCPCS: 72141

== ENCOUNTER → 2025-04-14 18:43 | Outpatient (BNV) | payer MEDICARE, SELFPAY | PROVIDERS: PCP Family Medicine; Visit Provider Radiology Diagnostic Radiology | DX: M47.812 Spondylosis without myelopathy or radiculopathy, cervical region (principal); M48.02 Spinal stenosis, cervical region; G96.191 Perineural cyst | CPT/HCPCS: 72141 ==

== ENCOUNTER 2025-04-30 13:13 | Outpatient (AMB) | payer MEDICARE, SELFPAY ==
--- NOTE | 2025-04-30 13:28 | A.SPINEOV_ITS ---
Intake Visit Reasons: 2nd post op Intake Note: Mr. Humphreys is here today for his 2nd post op. Cotton Seed Culler Required: No Allergies amoxicillin Allergy (Intermediate, Verified 04/30/25 13:29) Rash Assessment & Plan Assessment & Plan (1) Polyneuropathy: Code(s): G62.9 - Polyneuropathy, unspecified Category: Medical Plan Dear colleague, On 04/30/2025, I saw Mr. Layton Humphreys. He underwent an uncomplicated carpal tunnel release on the left side. He comes in for further neurological evaluation. He has bilateral muscle wasting of the hypothenar region, balance problems, bilateral continuous foot numbness and bilateral drop foot. On exam, there is areflexia and no pathological reflexes. Romberg is positive. There is a bilateral footdrop and sensory loss of bilateral feet. A repeat MRI of the cervical spine of 04/14/2025 shows cervical spondylosis without significant spinal cord compression. 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 I do not find any symptoms of cervical myelopathy. I will discuss my findings with his neurologist. I spent 30 minutes in his consult for history, physical exam and review of imaging. Edmundo Luong MD, PhD Spine Fellowship Trained Neurosurgeon Director, [facility] Coding Level of Care Code Est Pt Level 4 (79702) Diagnoses Polyneuropathy G62.9
== END 2025-04-30 14:11 | disposition home or self-care (01) ==
LOC: HO.HNS 13:13
PROVIDERS: PCP Family Medicine; Visit Provider Neurological Surgery
DX: G62.9 Polyneuropathy, unspecified (principal)
CPT/HCPCS: 99024

== ENCOUNTER → 2025-04-30 13:13 | Outpatient (BNVA) | payer MEDICARE, SELFPAY | PROVIDERS: PCP Family Medicine; Visit Provider Neurological Surgery | DX: G56.02 Carpal tunnel syndrome, left upper limb (principal); Z98.890 Other specified postprocedural states; R20.0 Anesthesia of skin; M21.372 Foot drop, left foot; M21.371 Foot drop, right foot; G62.9 Polyneuropathy, unspecified | CPT/HCPCS: 99212 ==

== ENCOUNTER 2025-05-10 08:03 | Outpatient (REF) | payer MEDICARE, SELFPAY ==
[2025-05-10 08:37] LABS: MANUAL DIFF FLAG NO
[2025-05-10 09:11] LABS: Hematocrit 50.1 % (42.0-52.0); Hemoglobin 17.1 g/dl (14.0-18.0); Imm Gran Abs Auto 0.02 X10*3/uL (0.00-0.03); Imm Gran Pct Auto 0.2 % (0.0-0.4); Lymphocytes Absolute Auto 1.5 X10*3/uL (1.2-4.9); Mean Corpuscular HGB Conc 34.1 g/dl (31.0-36.0); Mean Corpuscular Hemoglobin 29.7 pg (27.0-33.0); Mean Corpuscular Volume 87.1 fL (80.0-98.0); NRBC Abs Auto 0.000 X10*3/uL (0.0-0.012); NRBC Pct Auto 0.0 /100WBC (0.0-0.2); Platelet Count 183 X10*3/uL (160-400); Red Blood Count 5.75 X10*6/uL (4.60-5.80); White Blood Count 8.1 X10*3/uL (4.8-10.8)
[2025-05-10 09:47] LABS: Appearance Urine Clear; Glucose Urine UA Negative (Negative); PH 5.5 (5.0-9.0); Specific Gravity - Urine 1.020 (1.005-1.025)
[2025-05-10 10:04] LABS: Microalbum/Creatinine Ratio Ur 15.6 ug/mg cr (<30)
[2025-05-10 10:17] LABS: Alanine Aminotransferase 66 U/L (0-40); Albumin Level 4.8 g/dL (3.5-5.0); Alkaline Phosphatase 101 U/L (39-117); Anion Gap 14 (12-20); Aspartate Amino Transferase 53 U/L (5-37); Blood Urea Nitrogen 15 mg/dL (9-16); Calcium 9.6 mg/dL (8.4-10.2); Carbon Dioxide 26 mmol/L (22-29); Chloride 105 mmol/L (96-108); Cholesterol 155 mg/dL (<200); Estimated Glomerular Filt Rate > 60; HDL Cholesterol 43 mg/dL (>40); Potassium 4.3 mmol/L (3.3-5.1); Sodium 141 mmol/L (135-145); Total Protein 7.4 g/dL (6.5-8.0); Triglycerides 168 mg/dL (<150)
== END 2025-05-10 08:04 | disposition home or self-care (01) ==
LOC: HO.LAB 08:03
PROVIDERS: PCP Family Medicine; Visit Provider Family Medicine
DX: Z00.00 Encounter for general adult medical examination without abnormal findings (principal); Z12.5 Encounter for screening for malignant neoplasm of prostate; I10 Essential (primary) hypertension
CPT/HCPCS: 36415; 80053; 80061; 81003; 82043; 82570; 84153; 84443; 85025

== ENCOUNTER 2025-05-14 11:20 | Outpatient (AMB) | payer MEDICARE, SELFPAY ==
--- NOTE | 2025-05-14 11:29 | MHC.PC.OV ---
Vital Signs 05/14/25 11:38 Height 5 ft 8 in Weight 159 lb 4 oz BMI 24.2 BP 110/62 Blood Pressure Location Rt brachial Position Sitting Respiration 16 Pulse 71 Pulse Source Pulse Oximeter Temp 97.1 F Temp Source Temporal Artery Scan Pulse Oximetry (%) 97 Oxygen Delivery Method Room Air Intake Visit Reasons: f/u chronic conditions Intake Note: Layton presents in the office for a follow up to his echocardiogram and lab results. Allergies amoxicillin Allergy (Intermediate, Verified 05/14/25 11:36) Rash Medication List - Last Reconciled 05/14/25 by Ihsan Burnett MD albuterol sulfate 90 mcg/actuation 2 puffs inhalation BID 30 days atorvastatin 10 mg PO BEDTIME 90 days mecobalamin (vitamin B12) 1,000 mcg sublingual DAILY 90 days meloxicam 15 mg PO DAILY mometasone-formoterol 100-5 mcg/actuation 1 puff PO BID 30 days omeprazole 20 mg PO DAILY 30 days pregabalin 100 mg PO BID trazodone 50 mg PO BEDTIME PRN 30 days Tobacco use date assessed: 05/14/25 Fall risk assessment: 1 Fall in past year Last assessed Fall Risk: 05/14/25 Dental Screening Dental Screen Date: 05/14/25 Did you have a dental visit in the last 12 months?: Yes Did you have a dental problem in the last 6 months where you did not have access to dental care?: No Was dental information given to patient?: Patient has dentist HPI f/u chronic conditions HPI Details 70 y/o male presents to review echocardiogram, chronic conditions. Patient has murmur and history of some mitral regurgitation with question of some atrial enlargement. Had referred him to Cardiology Echocardiogram 04/11/25. Per note: Conclusions: - 1. Normal LV ejection fraction of 60-65% with grade 1 diastolic dysfunction 2. Mild calcific aortic valve changes noted with normal cardiac valvular Dopplers 3. Normal RV systolic pressure 4. No gross pericardial effusion A1c today 05/14/25 5.7%. Reports ongoing unsteady gait, LE weakness. Also notes upper extremity symptoms. [facility] Medical History Bilateral leg weakness Gait disorder Hx of pneumothorax Arthritis Numbness Bronchitis Primary osteoarthritis of right hip Asthma Osteoarthritis Murmur, cardiac Surgical History Hx of spinal surgery (10/10/24) Hx of hand surgery Hx of left inguinal hernia repair Hx of tonsillectomy S/P total right hip arthroplasty Hx of colonoscopy (2022) Family History Father No problems noted. Mother No problems noted. Social History (Updated 05/14/25 @ 11:38 by Jasmin Martinez CMA) Household Members: [facility] Are you a primary point of care technician to a significant other at home: No Do you presently have visiting nurse or other home services: No Alcohol intake: never Patient Tobacco Use Status: Former Tobacco user Tobacco use type: Cigarette Cigarette Packs Per Day: 0.25 Cigarettes Per Day: 5.0 Years Smoked: 5 e-Cigarette/Vaping Use: Never Used Second Hand Smoke Exposure: No service: No Current occupational status: retired Current occupation: Right Handed Current occupational exposures/hazards: No Cognitive needs: No Hearing needs: No Vision needs: No Questionnaire Thrive Questionnaire Date Thrive assessed: 06/21/24 I am a: Patient What is your living situation today?: I have a steady place to live Within the past 12 months, did the food you bought not last and you didn't have the money to get more?: Never true Within the past 12 months, did you worry whether your food would run out before you got money to buy more?: Never true Do you have trouble paying for medicines?: No Do you have trouble getting transportation to medical appointments?: No Do you have trouble paying your heating and electricity bill?: No Do you have trouble taking care of your child, family member or friend?: No Do you have trouble with day-to-day activities such as bathing, preparing meals, shopping, managing finances, etc.?: No Are you currently unemployed and looking for a job?: No Are you interested in more education?: No Please select the resources that you would like help with: None Currently or been in a relationship where the following occur: No concerns reported THRIVE Score: 0 EDUARDO-7 AMB Questionnaire EDUARDO-7 Date EDUARDO - 7 assessed: 02/27/24 Source: Developed by Drs. Jamaal Kinney, Marta Warner, Farhad Greer and colleagues, with an educational guerrero from [employer]. Review of Systems Const Denies chills, Denies fatigue, Denies fever(s), Denies headache(s) and Denies weakness ENT Denies dizziness and Denies headache(s) Card Denies dyspnea Resp Denies cough, Denies dyspnea, Denies wheezing and Denies other (shortness of breath) Musc Denies numbness and Denies tingling Neuro Denies dizziness, Denies headache(s), Denies numbness, Denies tingling and Denies weakness Psych Denies anxiety and Denies depression Endo Denies fatigue Aller/Immun Denies wheezing Physical exam (Primary Care) Vital Signs: Last Vital Signs Temp 97.1 F 05/14/25 11:38 Pulse 71 05/14/25 11:38 Resp 16 05/14/25 11:38 BP 110/62 05/14/25 11:38 Pulse Ox 97 05/14/25 11:38 Oxygen Delivery Method Room Air 05/14/25 11:38 BMI result Body Mass Index 24.2 Tobacco/Smoking Status: Tobacco use Status Tobacco use date assessed 05/14/25 05/14/25 11:41 Patient Tobacco Use Status Former Tobacco user 05/14/25 11:38 Tobacco use type Cigarette 05/14/25 11:38 e-Cigarette/Vaping Use Never Used 05/14/25 11:38 Thrive Assessment: Date of Thrive Assessment Date Thrive assessed 06/21/24 05/14/25 11:29 Currently or been in a relationship where the following occur: No concerns reported Const General: well developed; No acute distress Nutritional Appearance: well nourished Orientation/consciousness: patient oriented x3 [facility] Head: Yes normocephalic and Yes atraumatic Eyes General: appearance normal, both eyes and all related structures Pupils: Equal, round and reactive pupils present EOM: EOMs intact bilaterally Resp Effort & Inspection: normal respiratory effort Neuro General: patient oriented x3 and No gait normal Cranial nerves: Yes Equal, round and reactive pupils present Psych Affect: normal affect Results AMB Hemoglobin A1c AMB Hemoglobin A1c 5.7 % Last Edit by Jasmin Martinez CMA on 05/14/25 11:43 Results Reviewed Results Reviewed: Laboratory Last Values Hgb A1c (Clinic) 5.7 % (4.0-6.0) 05/14/25 11:41 Coding Level of Care Code Est Pt Level 4 (42506) Diagnoses Pre-diabetes R73.03 Murmur, cardiac R01.1 Lower extremity weakness R29.898 Unsteady gait R26.81 Upper extremity weakness R29.898 Polyneuropathy G62.9 Assessment & Plan Assessment & Plan (1) Pre-diabetes: Code(s): R73.03 - Prediabetes Category: Medical Plan: So A1c 5.8%. Pre diabetes range Continue working on diet low in sugars and starches (2) Murmur, cardiac: Code(s): R01.1 - Cardiac murmur, unspecified Category: Medical Plan: Echocardiogram shows normal ejection fraction. Mild, grade 1 diastolic dysfunction Mild aortic valve calcification with alveolar Dopplers Will continue to monitor clinically. (3) Lower extremity weakness: Code(s): R29.898 - Other symptoms and signs involving the musculoskeletal system Category: Medical Plan: Ongoing lower extremity weakness Absent patellar tendon reflexes Cervical spine MRI not show myelopathy or cord compression This appears to be polyneuropathy-see low (4) Unsteady gait: Code(s): R26.81 - Unsteadiness on feet Category: Medical (5) Upper extremity weakness: Code(s): R29.898 - Other symptoms and signs involving the musculoskeletal system Category: Medical (6) Polyneuropathy: Code(s): G62.9 - Polyneuropathy, unspecified Category: Medical Plan: Likely polyneuropathy resulting in lower extremity weakness, imbalance in absent reflexes. Start physical therapy Unclear underlying cause for polyneuropathy - rechecking lab work Will follow-up with patient in about 2 weeks to review lab work. Patient would like 2nd opinion referral. Will discuss referral at visit. Plan As above, lower extremity weakness secondary to polyneuropathy Referring him to physical therapy Rechecking lab work Discontinuing medications which are likely not benefitting him any longer including pregabalin meloxicam and trazodone. Patient does not have significant pain. Orders: Orders AMB Hemoglobin A1c Today R73.03 - Prediabetes Magnesium Today G62.9 - Polyneuropathy, unspecified TSH reflex Free T4 Today G62.9 - Polyneuropathy, unspecified, Z00.00 - Encounter for general adult medical examination without abnormal findings Phosphorus Today G62.9 - Polyneuropathy, unspecified JAVON Reflex Titer and Pattern Today G62.9 - Polyneuropathy, unspecified Comprehensive Met. Panel Today G62.9 - Polyneuropathy, unspecified Vitamin B12 and Folate Today E53.8 - Deficiency of other specified B group vitamins, G62.9 - Polyneuropathy, unspecified Lyme IgG/IgM w/reflex to WB Today G62.9 - Polyneuropathy, unspecified Erythrocyte Sedimentation Rate Today G62.9 - Polyneuropathy, unspecified CRP High Sensitivity Today G62.9 - Polyneuropathy, unspecified Homocysteine Today G62.9 - Polyneuropathy, unspecified PT Evaluation and Treatment Today G62.9 - Polyneuropathy, unspecified, R26.81 - Unsteadiness on feet, R29.898 - Other symptoms and signs involving the musculoskeletal system Medications: Changed From pregabalin 100 mg PO BID 30 days 60 caps 1RF To pregabalin Taking once every other day 100 mg PO BID From meloxicam 15 mg PO DAILY 30 days 30 tabs 2RF To meloxicam Once every other day 15 mg PO DAILY
[2025-05-14 11:38] VITALS: BP 110/62; PULSE 71; RESP 16; TEMP 36.2; O2SAT 97; BMI 24.2
== END 2025-05-14 12:07 | disposition home or self-care (01) ==
LOC: HO.HMCFM 11:21
PROVIDERS: PCP Family Medicine; Visit Provider Family Medicine
DX: R73.03 Prediabetes (principal); R01.1 Cardiac murmur, unspecified; R29.898 Other symptoms and signs involving the musculoskeletal system; R26.81 Unsteadiness on feet; G62.9 Polyneuropathy, unspecified

== ENCOUNTER 2025-05-14 11:20 | Outpatient (REF) | payer MEDICARE, SELFPAY ==
[2025-05-14 17:05] LABS: Alanine Aminotransferase 63 U/L (0-40); Albumin Level 4.7 g/dL (3.5-5.0); Alkaline Phosphatase 94 U/L (39-117); Anion Gap 11 (12-20); Aspartate Amino Transferase 54 U/L (5-37); Blood Urea Nitrogen 19 mg/dL (9-16); Calcium 9.3 mg/dL (8.4-10.2); Carbon Dioxide 27 mmol/L (22-29); Chloride 107 mmol/L (96-108); Estimated Glomerular Filt Rate > 60; Magnesium 2.1 mg/dL (1.6-2.6); Potassium 4.0 mmol/L (3.3-5.1); Sodium 141 mmol/L (135-145); Total Protein 7.2 g/dL (6.5-8.0)
[2025-05-14 17:32] LABS: Folate 11.6 ng/mL (> or = 4.0); Vitamin B12 1284 pg/mL (200-900)
[2025-05-14 17:35] LABS: Erythrocyte Sedimentation Rate 2 MM/HR (0-15)
[2025-05-16 12:53] LABS: Anti Nuclear Antibody Screen NEGATIVE (NEGATIVE)
[2025-05-16 22:28] LABS: Lyme Abs Screen <0.90 index
== END 2025-05-14 11:21 | disposition home or self-care (01) ==
LOC: HO.HMGCLDS 11:20
PROVIDERS: PCP Family Medicine; Visit Provider Family Medicine
DX: Z00.00 Encounter for general adult medical examination without abnormal findings (principal); G62.9 Polyneuropathy, unspecified; E53.8 Deficiency of other specified B group vitamins; R01.1 Cardiac murmur, unspecified; R73.03 Prediabetes; R29.898 Other symptoms and signs involving the musculoskeletal system; R26.81 Unsteadiness on feet
CPT/HCPCS: 36415; 80053; 82607; 82746; 83036; 83090; 83735; 84100; 84443; 85652; 86038; 86141; 86617; 86618; 99212

== ENCOUNTER 2025-05-29 13:15 | Outpatient (AMB) | payer MEDICARE, SELFPAY ==
--- NOTE | 2025-05-29 13:18 | A.OFFPC_ITS ---
Vital Signs 05/29/25 13:21 Height 5 ft 8 in Weight 157 lb 2 oz BMI 23.9 BP 124/68 Blood Pressure Location Rt brachial Position Sitting Respiration 16 Pulse 73 Pulse Source Pulse Oximeter Temp 98.4 F Temp Source Oral Pulse Oximetry (%) 97 Oxygen Delivery Method Room Air Intake Visit Reasons: f/u labs, weakness Intake Note: follow up labs and weakness. Fire Management Officer Required: No Accompanied by: Self / Same As Patient Allergies amoxicillin Allergy (Intermediate, Verified 05/29/25 13:20) Rash Medication List - Last Reconciled 05/29/25 by Ihsan Burnett MD albuterol sulfate 90 mcg/actuation 2 puffs inhalation BID 30 days atorvastatin 10 mg PO BEDTIME 90 days mecobalamin (vitamin B12) 1,000 mcg sublingual DAILY 90 days meloxicam 15 mg PO DAILY mometasone-formoterol 100-5 mcg/actuation 1 puff PO BID 30 days omeprazole 20 mg PO DAILY 30 days pregabalin 100 mg PO BID trazodone 50 mg PO BEDTIME PRN 30 days Tobacco use date assessed: 05/14/25 Fall risk assessment: 2 + Falls in past year Last assessed Fall Risk: 05/29/25 Dental Screening Dental Screen Date: 05/14/25 HPI f/u labs, weakness HPI Details 70 y/o male presents to f/u labs. Ongoing polyneuropathy with LE weakness and unsteady gait. Inflammatory markers including ESR and CRP are negative Thyroid hormone levels are normal Prior Iron levels normal Electrolytes including magnesium and phosphorus are normal B12 appropriate as he is on a supplement. 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 Right vertebral cyst C6-7 and left perineural cyst T1-2. HPI Comments History of Present Illness Details Documentation assistance for Ihsan Burnett MD, was provided by Torres Dietz, Bridges And Buildings Supervisor on 05/29/2025 at 1:41 PM EST. I, Dr. Burnett, have read, observed, and verified documentation. [facility] Medical History Bilateral leg weakness Gait disorder Hx of pneumothorax Arthritis Numbness Bronchitis Primary osteoarthritis of right hip Asthma Osteoarthritis Murmur, cardiac Surgical History Hx of spinal surgery (10/10/24) Hx of hand surgery Hx of left inguinal hernia repair Hx of tonsillectomy S/P total right hip arthroplasty Hx of colonoscopy (2022) Family History Father No problems noted. Mother No problems noted. Social History (Updated 05/29/25 @ 13:21 by Nathan Grace CMA) Household Members: Spouse Housing: Condominium Are you a primary medicare compliance auditor to a significant other at home: No Do you presently have visiting nurse or other home services: No Alcohol intake: never Patient Tobacco Use Status: Former Tobacco user Tobacco use type: Cigarette Cigarette Packs Per Day: 0.25 Cigarettes Per Day: 5.0 Years Smoked: 5 e-Cigarette/Vaping Use: Never Used Second Hand Smoke Exposure: No service: No Current occupational status: retired Current occupation: Right Handed Current occupational exposures/hazards: No Cognitive needs: No Hearing needs: No Vision needs: No Questionnaire Thrive Questionnaire Date Thrive assessed: 06/21/24 I am a: Patient What is your living situation today?: I have a steady place to live Within the past 12 months, did the food you bought not last and you didn't have the money to get more?: Never true Within the past 12 months, did you worry whether your food would run out before you got money to buy more?: Never true Do you have trouble paying for medicines?: No Do you have trouble getting transportation to medical appointments?: No Do you have trouble paying your heating and electricity bill?: No Do you have trouble taking care of your child, family member or friend?: No Do you have trouble with day-to-day activities such as bathing, preparing meals, shopping, managing finances, etc.?: No Are you currently unemployed and looking for a job?: No Are you interested in more education?: No Please select the resources that you would like help with: None Currently or been in a relationship where the following occur: No concerns reported THRIVE Score: 0 EDUARDO-7 AMB Questionnaire EDUARDO-7 Date EDUARDO - 7 assessed: 02/27/24 Source: Developed by Drs. Jamaal Kinney, Marta Warner, Farhad Greer and colleagues, with an educational guerrero from [employer]. Review of Systems Const Denies chills, Denies fatigue, Denies fever(s), Denies headache(s) and Denies weakness ENT Denies dizziness and Denies headache(s) Card Denies dyspnea Resp Denies cough, Denies dyspnea, Denies wheezing and Denies other (shortness of breath) Musc Denies numbness and Denies tingling Neuro Denies dizziness, Denies headache(s), Denies numbness, Denies tingling and Denies weakness Psych Denies anxiety and Denies depression Endo Denies fatigue Aller/Immun Denies wheezing Physical exam (Primary Care) Vital Signs: Last Vital Signs Temp 98.4 F 05/29/25 13:21 Pulse 73 05/29/25 13:21 Resp 16 05/29/25 13:21 BP 124/68 05/29/25 13:21 Pulse Ox 97 05/29/25 13:21 Oxygen Delivery Method Room Air 05/29/25 13:21 BMI result Body Mass Index 23.9 Tobacco/Smoking Status: Tobacco use Status Tobacco use date assessed 05/14/25 05/29/25 13:19 Patient Tobacco Use Status Former Tobacco user 05/29/25 13:21 Tobacco use type Cigarette 05/29/25 13:21 e-Cigarette/Vaping Use Never Used 05/29/25 13:21 Thrive Assessment: Date of Thrive Assessment Date Thrive assessed 06/21/24 05/29/25 13:19 Currently or been in a relationship where the following occur: No concerns reported Const General: well developed; No acute distress Nutritional Appearance: well nourished Orientation/consciousness: patient oriented x3 [facility] Head: Yes normocephalic and Yes atraumatic Eyes General: appearance normal, both eyes and all related structures Pupils: Equal, round and reactive pupils present EOM: EOMs intact bilaterally Resp Effort & Inspection: normal respiratory effort Neuro General: patient oriented x3 and gait normal Cranial nerves: Yes Equal, round and reactive pupils present Psych Affect: normal affect Coding Level of Care Code Est Pt Level 4 (62894) Diagnoses Lower extremity weakness R29.898 Unsteady gait R26.81 Polyneuropathy G62.9 Assessment & Plan Assessment & Plan (1) Lower extremity weakness: Code(s): R29.898 - Other symptoms and signs involving the musculoskeletal system Category: Medical (2) Unsteady gait: Code(s): R26.81 - Unsteadiness on feet Category: Medical (3) Polyneuropathy: Code(s): G62.9 - Polyneuropathy, unspecified Category: Medical Plan Inflammatory markers including ESR and CRP are negative Thyroid hormone levels are normal Prior Iron levels normal Electrolytes including magnesium and phosphorus are normal B12 appropriate as he is on a supplement. 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 Right vertebral cyst C6-7 and left perineural cyst T1-2. Neuro spine felt that this was a mixed sensory and motor polyneuropathy, to be discussed with Neurology. Neurology had planned EMG Patient would like a 2nd opinion and I will refer him to [facility]. Patient discontinued some medications which were not helpful including meloxicam pregabalin and trazodone. He has had no increased pain or problems since discontinuing this medication. He can remain off of these. Will also have him trial off of atorvastatin for 3-4 weeks. He will resume if no improvement in his muscle weakness. Orders: Orders Comprehensive [place]. Panel Fast Today Z00.00 - Encounter for general adult medical examination without abnormal findings IRON PROFILE Today R29.898 - Other symptoms and signs involving the musculoskeletal system TSH reflex Free T4 Today Z00.00 - Encounter for general adult medical examination without abnormal findings Vitamin D 25-OH Total Today E55.9 - Vitamin D deficiency, unspecified Complete Blood Count Auto Diff Today Z00.00 - Encounter for general adult medical examination without abnormal findings UA CC w/rflx Micro + Cult Today Z00.00 - Encounter for general adult medical examination without abnormal findings Lipid Panel Today Z00.00 - Encounter for general adult medical examination without abnormal findings Microalbumin, Random (w Creat) Today I10 - Essential (primary) hypertension Vitamin B12 and Folate Today E53.8 - Deficiency of other specified B group vitamins Referrals Neurology Referral G62.9 - Polyneuropathy, unspecified, R26.9 - Unspecified abnormalities of gait and mobility, R29.898 - Other symptoms and signs involving the musculoskeletal system, R41.3 - Other amnesia
[2025-05-29 13:21] VITALS: BP 124/68; PULSE 73; RESP 16; TEMP 36.9; O2SAT 97; BMI 23.9
== END 2025-05-29 13:55 | disposition home or self-care (01) ==
LOC: HO.HMCFM 13:16
PROVIDERS: PCP Family Medicine; Visit Provider Family Medicine
DX: R29.898 Other symptoms and signs involving the musculoskeletal system (principal); R26.81 Unsteadiness on feet; G62.9 Polyneuropathy, unspecified

== ENCOUNTER → 2025-05-29 13:15 | Outpatient (BNVA) | payer MEDICARE, SELFPAY | PROVIDERS: PCP Family Medicine; Visit Provider Family Medicine | DX: R29.898 Other symptoms and signs involving the musculoskeletal system (principal); R26.81 Unsteadiness on feet; G62.9 Polyneuropathy, unspecified | CPT/HCPCS: 99212 ==